=== PATIENT | male | born 1960 ===

== ENCOUNTER → 2020-07-29 13:37 | Outpatient (BNVA) | payer OTHER, SELFPAY | PROVIDERS: PCP Internal Medicine; Referring Provider Internal Medicine; Visit Provider Nurse Practitioner Gerontology | DX: E11.65 Type 2 diabetes mellitus with hyperglycemia (principal); Z79.4 Long term (current) use of insulin; E78.5 Hyperlipidemia, unspecified; E55.9 Vitamin D deficiency, unspecified; F17.210 Nicotine dependence, cigarettes, uncomplicated | CPT/HCPCS: 99213 ==

== ENCOUNTER → 2020-07-30 13:13 | Outpatient (BNVA) | payer OTHER, SELFPAY | PROVIDERS: PCP Internal Medicine; Referring Provider Internal Medicine; Visit Provider Internal Medicine | DX: J44.9 Chronic obstructive pulmonary disease, unspecified (principal); F17.210 Nicotine dependence, cigarettes, uncomplicated; Z71.6 Tobacco abuse counseling | CPT/HCPCS: 99213 ==

== ENCOUNTER 2020-08-14 10:23 | Outpatient (REF) | payer OTHER, SELFPAY | END 2020-08-14 10:24 | disposition home or self-care (01) | LOC: HO.XRAY 10:23 | PROVIDERS: PCP Internal Medicine; Visit Provider Internal Medicine | DX: Z13.89 Encounter for screening for other disorder (principal) ==

== ENCOUNTER 2020-08-20 13:20 | Outpatient (REF) | payer OTHER, SELFPAY ==
--- NOTE | 2020-08-20 13:21 | XR_ITS ---
EXAMINATION: LEFT HIP X-RAY CLINICAL INFORMATION: Pain COMPARISON: Previous x-ray February 2016 TECHNIQUE: 2 views of the left hip FINDINGS: Bone alignment is normal. No fracture or dislocation is seen. There are small osteophytes at the left hip joint. The joint spaces otherwise normal. There are surgical clips in the pelvis. Soft tissues are otherwise unremarkable. XR/XR lumbar spine 2-3V IMPRESSION: Mild left hip arthritis. EXAMINATION: Lumbar spine x-ray CLINICAL INFORMATION: Pain COMPARISON: Previous x-ray most recent from 2009 TECHNIQUE: 3 views of the lumbar spine FINDINGS: There is curvature of the lumbar spine to the left. Bone alignment is otherwise normal. No fracture or dislocation is seen. There is evidence of multilevel degenerative disc disease from L1-2 to L4-5. There is lower lumbar spine facet arthritis. IMPRESSION: Curvature of the lumbar spine to the left. Degenerative changes.
--- NOTE | 2020-08-20 13:28 | XR_ITS ---
EXAMINATION: LEFT HIP X-RAY CLINICAL INFORMATION: Pain COMPARISON: Previous x-ray February 2016 TECHNIQUE: 2 views of the left hip FINDINGS: Bone alignment is normal. No fracture or dislocation is seen. There are small osteophytes at the left hip joint. The joint spaces otherwise normal. There are surgical clips in the pelvis. Soft tissues are otherwise unremarkable. XR/XR hip LT min 2V IMPRESSION: Mild left hip arthritis. EXAMINATION: Lumbar spine x-ray CLINICAL INFORMATION: Pain COMPARISON: Previous x-ray most recent from 2009 TECHNIQUE: 3 views of the lumbar spine FINDINGS: There is curvature of the lumbar spine to the left. Bone alignment is otherwise normal. No fracture or dislocation is seen. There is evidence of multilevel degenerative disc disease from L1-2 to L4-5. There is lower lumbar spine facet arthritis. IMPRESSION: Curvature of the lumbar spine to the left. Degenerative changes.
== END 2020-08-20 13:21 | disposition home or self-care (01) ==
LOC: HO.XRAY 13:20
PROVIDERS: PCP Internal Medicine; Visit Provider Internal Medicine
DX: M25.552 Pain in left hip (principal); M54.5 Low back pain
CPT/HCPCS: 72100; 73502

== ENCOUNTER 2020-10-05 13:52 | Outpatient (REF) | payer OTHER, SELFPAY | END 2020-10-05 13:53 | disposition home or self-care (01) | LOC: HO.LAB 13:52 | PROVIDERS: PCP Internal Medicine; Visit Provider Internal Medicine | DX: Z20.828 Contact with and (suspected) exposure to other viral communicable diseases (principal) | CPT/HCPCS: C9803; U0003 ==

== ENCOUNTER → 2021-01-14 11:54 | Outpatient (BNVA) | payer OTHER, SELFPAY | PROVIDERS: PCP Internal Medicine; Visit Provider Nurse Practitioner Gerontology | DX: Z13.89 Encounter for screening for other disorder (principal) | CPT/HCPCS: Q3014 ==

== ENCOUNTER 2021-01-15 07:20 | Outpatient (REF) | payer OTHER, SELFPAY ==
[2021-01-15 08:01] LABS: Estimated Average Glucose 186 mg/dL; Hemoglobin A1c % 8.1 %
[2021-01-15 08:25] LABS: Alanine Aminotransferase 12 U/L (0-40); Albumin Level 3.9 g/dL (3.5-5.0); Alkaline Phosphatase 57 U/L (39-117); Anion Gap 12 (12-20); Aspartate Amino Transferase 15 U/L (5-37); Bilirubin Total 0.4 mg/dL (0.0-1.0); Blood Urea Nitrogen 11 mg/dL (9-16); Calcium 9.2 mg/dL (8.4-10.2); Carbon Dioxide 32 mmol/L (22-29); Chloride 102 mmol/L (96-108); Cholesterol 126 mg/dL; Estimated Glomerular Filt Rate > 60; Glucose Fasting 141 mg/dL (60-99); HDL Cholesterol 52 mg/dL; LDL Cholesterol Calculated 65 mg/dl; Potassium 4.7 mmol/L (3.3-5.1); Sodium 141 mmol/L (135-145); Total Protein 6.5 g/dL (6.5-8.0); Triglycerides 49 mg/dL
[2021-01-15 08:48] LABS: Vitamin D 25-OH Total 21.4 ng/mL (>30)
[2021-01-15 10:41] LABS: Creatinine Urine 77.13 mg/dL; Microalbum/Creatinine Ratio Ur 10.3 ug/mg cr
== END 2021-01-15 07:21 | disposition home or self-care (01) ==
LOC: HO.LAB 07:20
PROVIDERS: Absent Provider Nurse Practitioner Gerontology; PCP Internal Medicine; Referring Provider Urology; Visit Provider Internal Medicine
DX: E11.65 Type 2 diabetes mellitus with hyperglycemia (principal); E55.9 Vitamin D deficiency, unspecified
CPT/HCPCS: 36415; 80053; 80061; 82043; 82306; 83036

== ENCOUNTER → 2021-01-26 12:47 | Outpatient (BNVA) | payer OTHER, SELFPAY | PROVIDERS: PCP Internal Medicine; Visit Provider Internal Medicine | DX: J43.9 Emphysema, unspecified (principal); Z72.0 Tobacco use | CPT/HCPCS: 99212 ==

== ENCOUNTER → 2021-04-14 11:25 | Outpatient (BNVA) | payer OTHER, SELFPAY | PROVIDERS: PCP Internal Medicine; Visit Provider Urology | DX: Z13.89 Encounter for screening for other disorder (principal) | CPT/HCPCS: Q3014 ==

== ENCOUNTER → 2021-04-16 13:58 | Outpatient (BNVA) | payer OTHER, SELFPAY | PROVIDERS: PCP Internal Medicine; Visit Provider Nurse Practitioner Gerontology | DX: E11.65 Type 2 diabetes mellitus with hyperglycemia (principal); E11.42 Type 2 diabetes mellitus with diabetic polyneuropathy; E55.9 Vitamin D deficiency, unspecified; E78.5 Hyperlipidemia, unspecified; Z79.4 Long term (current) use of insulin | CPT/HCPCS: 82947; 99212 ==

== ENCOUNTER 2021-06-04 13:50 | Outpatient (REF) | payer OTHER, SELFPAY ==
--- NOTE | 2021-06-07 12:40 | MHC.AU.ANO ---
Adult Audiological Evaluation Date of Visit: 06/04/21 Reason for Appointment: Patient has noticed gradually increasing hearing difficulty for the past 20 years. He has noticed that he cannot hear/understand someone unless they are directly in front of him. He also experiences bothersome tinnitus. Hearing Handicap Inventory: HHIE SCORE: 36 Based on HHIE score, patient has: Severe perceived hearing handicap Ear History: Ear Deformity: None Reported Recent Ear Drainage: None Reported Recent Ear Pain: Both Ears Family History of Hearing Loss?: Yes: Mother Recent Ear Infections: Both Ears Ear Infections in Childhood: None Reported History of Ear Wax Buildup: None Reported Previous Ear Surgery: None Reported Bothersome Tinnitus/Ringing/Noises in Ears: Both Ears Blocked/Full Sensation in Ear(s): Both Ears History of occupational noise exposure?: Yes History: No Medical History: Medical History: Diabetes, COPD Otoscopy: Right Ear: Unremarkable Left Ear: Unremarkable Tympanometry: Tympanometry performed due to: To assess integrity of the middle ear system Right Ear: Normal Middle Ear System (Type A) Left Ear: Normal Middle Ear System (Type A) Hearing Evaluation: Transducer(s) Used: Insert Earphones Method: Conventional Audiometry Stimuli Used: Pure Tones Right Ear: Description of Hearing: Moderate/moderately-severe to severe sensorineural hearing loss Left Ear: Description of Hearing: Moderate/moderately-severe to severe sensorineural hearing loss Speech Recognition Threshold (SRT): Method Used: Recorded Lists Right Ear: 50 dBHL Left Ear: 50 dBHL Word Discrimination: Method: Recorded Lists Word Lists Used: Lista Bisil?bica (Albanian) Right Ear: 92% at 85 dBHL Left Ear: 96% at 85 dBHL Recommendations: Audiological re-evaluation in one year. Trial with amplification is recommended. Medical clearance from a physician is required before fitting. Hearing Aid Fitting will be scheduled when all materials arrive. See Hearing Aid Evaluation report for more information. Diagnosis: Primary Diagnosis: H90.3 Bilateral Sensorineural Hearing Loss Signature: Provider: Sneha Rodriguez, CCC-A
--- NOTE | 2021-06-07 12:41 | MHC.AU.HAS ---
Hearing Aid Evaluation Date of Visit: 06/04/21 Historical Information: Description of Hearing: Moderate/moderately-severe to severe sensorineural hearing loss bilaterally Summary: Patient was seen for audiolgical evaluation (see report for details). Hearing aid options were discussed. Patient would prefer a GABE style. He does not currently have a smartphone. Hearing Aid Prescription: Based on the individual?s shared listening needs, communication environments, dexterity, desire for connectivity, and personal preferences, the following prescription for amplification has been made: Right ear: Technical Account Executive: Phonak Model: Audeo P70-R Battery Size: Rechargeable Color: P5 Elastic Attacher Chainstitch: 1P Left ear: Technical Account Executive: Phonak Model: Audeo P70-R Battery Size: Rechargeable Color: P5 Elastic Attacher Chainstitch: 1P Action Taken/Action Needed: Prior authorization to be requested Medical Clearance to be requested from PCP/ENT Hearing Instrument Fitting to be scheduled when materials arrive Primary Diagnosis: H90.3 Bilateral Sensorineural Hearing Loss Signature: Provider: Sneha Rodriguez, DEJON-A
--- NOTE | 2021-06-07 12:42 | MHC.AU.MED ---
Medical Clearance for Hearing Instrumentation Date: 06/07/21 Patient Name: Carroll Sanford Date of : 1960 Primary Care Provider: Referring Provider: Margarito Anton MD We have seen your patient on 06/04/21 and have determined that they are a candidate for amplification (See accompanying report). Specifically, they would benefit from: Hearing aid use in both ears There is a statute that addresses Medical Evaluation Requirements prior to fitting a patient with a hearing aid. According to [place] statute 265 CMR:6.03(1), (a) General. Except as provided in 265 CMR 6.03(1)(b), a rn hedis shall not sell a hearing aid unless the prospective user has presented to the rn hedis a written statement signed by a licensed physician that states that the patient's hearing loss has been medically evaluated and the patient may be considered a candidate for a hearing aid. The medical evaluation must have taken place within the preceding six months. Please note: Due to the [place] Statute referenced above, we cannot accept a signature other than that of a licensed physician. COBOL DEVELOPER and PA signatures cannot be accepted. I am in agreement with the above recommendation. There is no medical contraindication for hearing instrumentation. Physician Signature Date Physician Name (Printed)
== END 2021-06-04 13:51 | disposition home or self-care (01) ==
LOC: HO.SH 13:50
PROVIDERS: Visit Provider Internal Medicine
DX: H93.19 Tinnitus, unspecified ear (principal); H90.3 Sensorineural hearing loss, bilateral
CPT/HCPCS: 92557; 92567; 92591

== ENCOUNTER → 2021-07-28 13:20 | Outpatient (BNVA) | payer OTHER, SELFPAY | PROVIDERS: PCP Internal Medicine; Visit Provider Internal Medicine | DX: J43.9 Emphysema, unspecified (principal); J30.9 Allergic rhinitis, unspecified; Z72.0 Tobacco use | CPT/HCPCS: 99212 ==

== ENCOUNTER → 2021-07-29 09:18 | Outpatient (BNVA) | payer OTHER, SELFPAY | PROVIDERS: PCP Internal Medicine; Visit Provider Nurse Practitioner Gerontology | DX: E11.65 Type 2 diabetes mellitus with hyperglycemia (principal); E11.42 Type 2 diabetes mellitus with diabetic polyneuropathy; E78.5 Hyperlipidemia, unspecified; E55.9 Vitamin D deficiency, unspecified; Z79.4 Long term (current) use of insulin | CPT/HCPCS: 82947; 99212 ==

== ENCOUNTER 2021-08-04 14:02 | Outpatient (REF) | payer OTHER, SELFPAY ==
--- NOTE | 2021-08-05 09:07 | MHC.AU.HFA ---
Hearing Instrument Fitting- Adult- Binaural Date of Visit: 08/04/21 Computer Support Technician Used: Patient's spouse provided Pashto interpretation (waiver signed) Hearing Instruments Dispensed: Right Ear: Retail Pharmacy Manager: Phonak Model: Audeo P70-R Serial Number: [id number] Repair Warranty: 10/02/2024 Loss and Damage Warranty: 10/02/2024 Service Plan: 08/04/2022 Battery Size: Rechargeable Color: P5 Cremator: 1M Type of Dome: Small Vented Type of Wax Guard: CeruShield Left Ear: Retail Pharmacy Manager: Phonak Model: Audeo P70-R Serial Number: [id number] Repair Warranty: 10/02/2024 Loss and Damage Warranty: 10/02/2024 Service Plan: 08/04/2022 Battery Size: Rechargeable Color: P5 Cremator: 1M Type of Dome: Small Vented Type of Wax Guard: CeruShield Summary of Fitting: Initially, patient was going to be fit with Power receivers and power domes. His canals were too narrow to allow for that set-up. Patient was still well within the fitting range for a Medium apprentice technician. Swapped to Size 1 Medium receivers with small vented domes. Feedback manager transfer was run. Verifit performed and levels adjusted to better reach targets. Patient felt 100% target was uncomfortably loud. Lowered to 80% target. Patient still felt it was slightly too loud- lowered overall gain 3 more steps. Patient was pleased with the sound. Hearing aid care and use were discussed and practiced. Patient does not currently have a smartphone to pair the hearing aids to. Recommendations: A hearing instrument follow-up was scheduled. Please call our clinic with any questions or concerns. Diagnosis Code(s): Primary Diagnosis: H90.3 Bilateral Sensorineural Hearing Loss Signature: Provider: Sneha Rodriguez, DEJON-A
== END 2021-08-04 14:03 | disposition home or self-care (01) ==
LOC: HO.HAP 14:02
PROVIDERS: Visit Provider Internal Medicine
DX: Z46.1 Encounter for fitting and adjustment of hearing aid (principal); H90.3 Sensorineural hearing loss, bilateral
CPT/HCPCS: V5011; V5020; V5160; V5261

== ENCOUNTER → 2021-08-11 07:59 | Outpatient (BNVA) | payer OTHER, SELFPAY | PROVIDERS: PCP Internal Medicine; Visit Provider Nurse Practitioner Gerontology | DX: E11.65 Type 2 diabetes mellitus with hyperglycemia (principal); E11.42 Type 2 diabetes mellitus with diabetic polyneuropathy; E55.9 Vitamin D deficiency, unspecified; E78.5 Hyperlipidemia, unspecified; Z79.4 Long term (current) use of insulin | CPT/HCPCS: 82947; 99212 ==

== ENCOUNTER 2021-08-19 12:58 | Outpatient (REF) | payer OTHER, SELFPAY | END 2021-08-19 12:59 | disposition home or self-care (01) | LOC: HO.HAP 12:58 | PROVIDERS: Visit Provider Internal Medicine | DX: Z13.89 Encounter for screening for other disorder (principal) ==

== ENCOUNTER 2021-10-27 09:39 | Outpatient (REF) | payer OTHER, SELFPAY ==
--- NOTE | ~2021-10-27 | XR_ITS ---
EXAMINATION: XR LS SPINE XR HIP-LEFT CLINICAL INFORMATION: Low back pain. Left hip pain. COMPARISON: Lumbosacral spine done on 08/20/2020. TECHNIQUE: 2 views, 3 images of the lumbosacral spine and 2 views of the left hip. FINDINGS: Lumbosacral spine: Mild lower lumbar dextro and thoracolumbar levoscoliosis and superimposed multiple multilevel degenerative spondylosis related changes are present. Facet joint arthritic changes are also noted at lower lumbar spine. The posterior appendages are intact. Multiple surgical clips are noted within the pelvis. Overall, no significant change since 08/20/2020. Left hip: The bony alignments are intact. The cortices are intact. Mild subchondral sclerosis, consistent with mild osteoarthrosis is present. The soft tissues are unremarkable. XR/XR lumbar spine 2-3V IMPRESSION: 1. Thoracolumbar and lower lumbar scoliosis with superimposed multilevel moderate degenerative spondylosis and lower lumbar facet joint arthritic changes, appears similar to prior study dated 08/20/2020. 2. Mild osteoarthrosis of the left hip.
--- NOTE | ~2021-10-27 | XR_ITS ---
EXAMINATION: XR LS SPINE XR HIP-LEFT CLINICAL INFORMATION: Low back pain. Left hip pain. COMPARISON: Lumbosacral spine done on 08/20/2020. TECHNIQUE: 2 views, 3 images of the lumbosacral spine and 2 views of the left hip. FINDINGS: Lumbosacral spine: Mild lower lumbar dextro and thoracolumbar levoscoliosis and superimposed multiple multilevel degenerative spondylosis related changes are present. Facet joint arthritic changes are also noted at lower lumbar spine. The posterior appendages are intact. Multiple surgical clips are noted within the pelvis. Overall, no significant change since 08/20/2020. Left hip: The bony alignments are intact. The cortices are intact. Mild subchondral sclerosis, consistent with mild osteoarthrosis is present. The soft tissues are unremarkable. XR/XR hip LT min 2V IMPRESSION: 1. Thoracolumbar and lower lumbar scoliosis with superimposed multilevel moderate degenerative spondylosis and lower lumbar facet joint arthritic changes, appears similar to prior study dated 08/20/2020. 2. Mild osteoarthrosis of the left hip.
== END 2021-10-27 09:40 | disposition home or self-care (01) ==
LOC: HO.XRAY 09:39
PROVIDERS: Visit Provider Internal Medicine
DX: M54.50 Low back pain, unspecified (principal); M25.552 Pain in left hip
CPT/HCPCS: 72100; 73502

== ENCOUNTER 2021-12-30 09:23 | Outpatient (REF) | payer OTHER, SELFPAY ==
[2021-12-30 12:00] LABS: Prostate Specific Antigen < 0.05 ng/mL (<0.05-4.0)
== END 2021-12-30 09:24 | disposition home or self-care (01) ==
LOC: HO.LAB 09:23
PROVIDERS: PCP Internal Medicine; Visit Provider Urology
DX: C61 Malignant neoplasm of prostate (principal)
CPT/HCPCS: 36415; 84153

== ENCOUNTER → 2022-01-05 09:30 | Outpatient (BNVA) | payer OTHER, SELFPAY | PROVIDERS: PCP Internal Medicine; Visit Provider Urology | DX: E11.69 Type 2 diabetes mellitus with other specified complication (principal); N52.1 Erectile dysfunction due to diseases classified elsewhere; C61 Malignant neoplasm of prostate | CPT/HCPCS: Q3014 ==

== ENCOUNTER → 2022-01-26 12:52 | Outpatient (BNVA) | payer OTHER, SELFPAY | PROVIDERS: PCP Internal Medicine; Visit Provider Internal Medicine | DX: J30.9 Allergic rhinitis, unspecified (principal); J43.9 Emphysema, unspecified; F17.210 Nicotine dependence, cigarettes, uncomplicated | CPT/HCPCS: 99212 ==

== ENCOUNTER → 2022-01-28 09:43 | Outpatient (BNVA) | payer OTHER, SELFPAY | PROVIDERS: PCP Internal Medicine; Visit Provider Nurse Practitioner Gerontology | DX: E11.65 Type 2 diabetes mellitus with hyperglycemia (principal); E11.42 Type 2 diabetes mellitus with diabetic polyneuropathy; E55.9 Vitamin D deficiency, unspecified; E78.5 Hyperlipidemia, unspecified; Z79.4 Long term (current) use of insulin | CPT/HCPCS: 82947; 83036; 99212 ==

== ENCOUNTER → 2022-02-25 10:22 | Outpatient (BNVA) | payer OTHER, SELFPAY | PROVIDERS: PCP Internal Medicine; Visit Provider Registered Nurse Diabetes Educator | DX: E11.9 Type 2 diabetes mellitus without complications (principal); F17.210 Nicotine dependence, cigarettes, uncomplicated | CPT/HCPCS: 95250 ==

== ENCOUNTER 2022-03-11 07:24 | Outpatient (REF) | payer OTHER, SELFPAY ==
[2022-03-11 09:08] LABS: Alanine Aminotransferase 16 U/L (0-40); Albumin Level 4.4 g/dL (3.5-5.0); Alkaline Phosphatase 69 U/L (39-117); Anion Gap 10 (12-20); Aspartate Amino Transferase 18 U/L (5-37); Bilirubin Total 0.6 mg/dL (0.0-1.0); Blood Urea Nitrogen 8 mg/dL (9-16); Calcium 10.2 mg/dL (8.4-10.2); Carbon Dioxide 35 mmol/L (22-29); Chloride 98 mmol/L (96-108); Cholesterol 165 mg/dL; Estimated Glomerular Filt Rate > 60; Glucose Fasting 229 mg/dL (60-99); HDL Cholesterol 50 mg/dL; LDL Cholesterol Calculated 98 mg/dl; Potassium 4.7 mmol/L (3.3-5.1); Sodium 138 mmol/L (135-145); Total Protein 7.3 g/dL (6.5-8.0); Triglycerides 86 mg/dL
[2022-03-11 09:28] LABS: Vitamin D 25-OH Total 26.1 ng/mL (>30)
[2022-03-11 10:03] LABS: Creatinine Urine 76.91 mg/dL; Microalbum/Creatinine Ratio Ur 16.9 ug/mg cr
[2022-03-12 08:22] LABS: LDL Cholesterol Direct 84 mg/dL (<100)
== END 2022-03-11 07:25 | disposition home or self-care (01) ==
LOC: HO.LAB 07:24
PROVIDERS: PCP Internal Medicine; Visit Provider Nurse Practitioner Gerontology
DX: E11.65 Type 2 diabetes mellitus with hyperglycemia (principal); E11.42 Type 2 diabetes mellitus with diabetic polyneuropathy; E78.5 Hyperlipidemia, unspecified; E55.9 Vitamin D deficiency, unspecified; Z79.4 Long term (current) use of insulin
CPT/HCPCS: 36415; 80053; 80061; 82043; 82306; 82947; 83721; 99212

== ENCOUNTER 2022-06-23 10:19 | Outpatient (REF) | payer OTHER, SELFPAY ==
--- NOTE | ~2022-06-23 | US_ITS ---
EXAMINATION: US RETROPERITONEAL LIMITED (RENAL ONLY) CLINICAL INFORMATION: Calculus of kidney. COMPARISON: CT abdomen and pelvis 06/11/2019. X-ray KUB 12/09/2015. TECHNIQUE: Real-time imaging of the kidneys. FINDINGS: RIGHT KIDNEY: 10.4 x 5.6 x 6.2 cm (SAG x AP x TRV). The kidney is normal in size, contour, and echogenicity. Renal cortical thickness is normal. No calculi or focal parenchymal lesions. No hydronephrosis. LEFT KIDNEY: 11.4 x 6.8 x 6.4 cm (SAG x AP x TRV). The kidney is normal in size, contour, and echogenicity. Renal cortical thickness is normal. No calculi or focal parenchymal lesions. No hydronephrosis. US/US renal BI IMPRESSION: Unremarkable renal US.
== END 2022-06-23 10:20 | disposition home or self-care (01) ==
LOC: HO.US 10:19
PROVIDERS: Visit Provider Urology
DX: N20.0 Calculus of kidney (principal)
CPT/HCPCS: 76775

== ENCOUNTER → 2022-07-14 09:23 | Outpatient (BNVA) | payer OTHER, SELFPAY | PROVIDERS: PCP Internal Medicine; Visit Provider Urology | DX: N20.0 Calculus of kidney (principal); C61 Malignant neoplasm of prostate; E11.69 Type 2 diabetes mellitus with other specified complication; N52.1 Erectile dysfunction due to diseases classified elsewhere | CPT/HCPCS: 99212 ==

== ENCOUNTER → 2022-08-03 13:04 | Outpatient (BNVA) | payer OTHER, SELFPAY | PROVIDERS: PCP Internal Medicine; Visit Provider Internal Medicine | DX: J43.9 Emphysema, unspecified (principal); J30.9 Allergic rhinitis, unspecified | CPT/HCPCS: 99212 ==

== ENCOUNTER 2022-08-09 10:50 | Outpatient (REF) | payer OTHER, SELFPAY ==
--- NOTE | ~2022-08-09 | XR_ITS ---
EXAMINATION: XR HIP, RIGHT CLINICAL INFORMATION: Right hip pain COMPARISON: None TECHNIQUE: Two views of the right hip. FINDINGS: Dystrophic calcification seen along the right atrium. The right hip is intact without evidence for fracture or dislocation or destructive process. Minor degenerative change in the superior lateral right acetabulum noted. Surgical clips overlie the region of the prostate. XR/XR hip RT min 2V IMPRESSION: Mild degenerative change.
== END 2022-08-09 10:51 | disposition home or self-care (01) ==
LOC: HO.XRAY 10:50
PROVIDERS: PCP Internal Medicine; Visit Provider Internal Medicine
DX: M25.551 Pain in right hip (principal)
CPT/HCPCS: 73502

== ENCOUNTER 2022-08-21 08:50 | Emergency (ER) | payer OTHER, SELFPAY ==
[2022-08-21 08:58] VITALS: BP 131/79; PULSE 99; RESP 17; TEMP 36.4; O2SAT 98; BMI 22.1
--- NOTE | 2022-08-21 09:58 | ED_ITS ---
HPI - General Adult General Chief complaint: Dental/Oral Stated complaint: tooth infection, flu like symptoms? Time Seen by Provider: 08/21/22 09:31 Source: patient Mode of arrival: ambulatory Limitations: no limitations History of Present Illness HPI narrative: 62-year-old male with history of COPD, smoker, diabetes, high cholesterol presents to ED painful sore on floor or tongue. Patient denies any facial swel ling,, fever, chills, drooling, chest pain, shortness of breath, neck swelling, weakness, or dizziness. Patient denies any recent trauma to the face. Patient states also chronic cough and will like to be tested for Covid SInce he is going for COlonscopy and endoscopy tomorrow. Related Data Home Medications Medication Instructions Recorded Confirmed omeprazole 20 mg capsule,delayed 20 mg PO DAILY 07/29/20 08/03/22 release polyethylene glycol 3350 17 g PO 07/13/22 08/03/22 gram/dose oral powder bisacodyl 5 mg tablet,delayed 10 mg PO DIRECTED PRN 08/03/22 release Previous Rx's Medication Instructions Recorded blood sugar diagnostic (FreeStyle #100 ea 07/29/20 Lite Strips) blood-glucose meter (FreeStyle #1 ea 07/29/20 Lite Meter kit) lancets 28 gauge (FreeStyle 1 gauge topical TID 90 days #300 ea 11/29/20 Lancets) lisinopril 2.5 mg tablet 2.5 mg PO DAILY #90 tabs 03/26/21 sertraline 50 mg tablet 50 mg PO DAILY 90 days #90 tabs 09/07/21 glucagon 3 mg/actuation nasal 3 mg intranasal ONCE unresponsive 01/28/22 spray (Baqsimi) hypoglycemia 30 days #2 ea glucose 4 gram chewable tablet 12 g PO Q15M PRN hypoglycemia #60 01/28/22 (Dex4 Glucose) tabs alcohol swabs (BD Alcohol Swabs) 1 pad topical QID #100 pad 02/09/22 cholecalciferol (vitamin D3) 50 50 mcg PO DAILY #30 caps 02/09/22 mcg (2,000 unit) capsule fluticasone 250 mcg-salmeterol 50 1 inh inhalation Q12H copd 30 days 02/09/22 mcg/dose blistr powdr for #60 ea inhalation (Wixela Inhub) pen needle, diabetic 32 gauge x 1 ea miscellaneous DAILY #100 ea 02/09/22 5/32 (BD Tierra 2nd Gen Pen Needle) insulin glargine U-300 conc 300 14 unit (0.0467 mL) subcut BEDTIME 03/11/22 unit/mL (1.5 mL) subcutaneous pen 30 days #4.5 mL linagliptin 5 mg tablet (Tradjenta) 5 mg PO DAILY #30 tabs 03/11/22 albuterol sulfate 90 mcg/actuation 2 puff inhalation Q4-6H PRN 08/03/22 aerosol inhaler shortness of breath or wheezing 30 days #8.5 grams atorvastatin 20 mg tablet 20 mg PO DAILY #90 tabs 08/03/22 loratadine 10 mg tablet 10 mg PO DAILY 90 days #90 tabs 08/03/22 meloxicam 15 mg tablet 15 mg PO DAILY #30 tabs 08/03/22 umeclidinium 62.5 mcg/actuation 1 inh inhalation DAILY SEVERE COPD 08/03/22 blister powder for inhalation 30 days #30 ea (Incruse Ellipta) Allergies Allergy/AdvReac Type Severity Reaction Status Date / Time cortisone [CORTISONE] Allergy Severe ANAPHYLAXIS Verified 08/03/22 14:07 cephalexin Allergy Unknown unknown Verified 08/03/22 14:07 Review of Systems Review of Systems: painful sore on floor of tongue. cough Yes all other systems are reviewed and are negative PMF Past Medical History Medical History Allergic rhinitis Annual physical exam Anxiety and depression CAP (community acquired pneumonia) COPD (chronic obstructive pulmonary disease) DDD (degenerative disc disease), lumbar Depression Diabetes type 2, uncontrolled Erectile dysfunction Gastric ulcer Hernia History of prostate cancer Hyperlipidemia LDL goal <100 Insulin use (long-term) in type 2 diabetes Kidney stones Peptic ulcer disease Prostate cancer Renal calculus, right Smoker Tinnitus Tobacco abuse Tubular adenoma of colon Type 2 diabetes mellitus with diabetic polyneuropathy Vitamin D insufficiency Surgical History History of foot surgery History of inguinal hernia repair Hx of prostatectomy Hx of tonsillectomy Family History Family History Father Diabetes Mother No problems noted. Son Diabetes Maternal Uncle Prostate cancer Paternal Grandfather Myocardial infarction Maternal Grandmother No problems noted. Maternal Aunt Esophageal cancer Maternal Grandfather Myocardial infarction Social History Social History Household Members: Spouse Housing: Apartment Alcohol intake: current Alcohol intake frequency: a few times a month Patient Tobacco Use Status: Current everyday Tobacco user Tobacco use type: Cigarette Cigarettes Per Day: 3 e-Cigarette/Vaping Use: Never Used Second Hand Smoke Exposure: Yes Substance Use Type: Former Substance User and Marijuana Advance Directives: No Advance Directives Information Provided: Yes service: No Current occupational status: disabled Cognitive needs: No Hearing needs: No Vision needs: Yes Physical Exam ED Vital Signs: Vital Signs - 24 hr 08/21/22 08:58 Temperature 97.5 F Pulse Rate 99 Respiratory Rate 17 Blood Pressure 131/79 Pulse Oximetry 98 Oxygen Delivery Method Room Air BMI result Body Mass Index 22.1 Const General: cooperative, healthy appearing, comfortable, no acute distress, well developed, alert, awake and Physically active Orientation/consciousness: oriented to time and patient oriented x3 HENMT Other: Red sore on lateral side of tongue floor. Tongue floor is not swollen. Negative for signs of dental abscess. Negative for drooling or trismus. Negative for neck swelling or mandibular swelling Head: Yes normal to inspection and Yes No palpable skull fracture present Eyes General: appearance normal, both eyes and all related structures Neck Neck: Yes normal visual inspection, Yes full ROM, Yes no lymphadenopathy, Yes no meningeal signs, Yes trachea midline, Yes supple, No anterior neck swelling and No tender Chest Chest palpation & inspection: normal inspection of the chest and normal palpatio n of entire chest wall Resp Effort & Inspection: normal respiratory effort and able to speak in complete sentences Auscultation: wheezes expiratory wheezes (Chronic mild. History COPD) Cardio Jugular venous distension: no JVD Heart sounds: S1 normal heart sound present and S2 normal heart sound present GI Inspection: Yes normal to inspection and No abdominal wall ecchymosis Palpation (GI): Soft to palpation, not firm, nontender, no guarding and not rigid General: No CVA tenderness and Yes no CVA tenderness Back/Spine/Pelvis Back: no CVA tenderness, No CVA tenderness and No back tenderness Skin General skin exam: no rashes or lesions noted and elasticity normal Neuro General: oriented to time, patient oriented x3, tone normal, no meningeal signs and CN's II-XI intact bilaterally Extrem General: Yes normal to inspection and Yes full ROM Psych Appearance: grossly normal, well kempt and not disheveled Course Course Course Narrative: Patient well-appearing Reevaluation(s) Reevaluation #1: Physical exam shows sore/ulcer on lateral side of tongue floor. May be aphthous ulcer. Patient was informed due to history of smoking he should get that also looked at to make sure it is not a sign of oral cancer. Patient having colonoscopy and endoscopic procedure tomorrow morning with cough he requested COVID test which is pending. Patient history physical exam does not indicate Adan angina, retropharyngeal abscess, dental abscess, trismus, epiglottitis, or respiratory distress. Waiting for COVID results Time: 10:26 Reevaluation #2: COVID swab negative Medical Decision Making MDM Narrative Medical decision making narrative: Mild sore Lab Data Labs: Lab Results 08/21/22 Range/Units 10:11 COVID-19 ([facility]) Negative (Negative) COVID-19 Clin Com See Note Discharge Plan Discharge Clinical Impression: Mouth sore, Aphthous ulcer Patient Disposition: Home, Self-Care Instructions: Canker Sores (ED) Additional Instructions: Meza hisopo COVID result? negativo. Tienes gregorio llaga en el suelo aqu? en la lengua. Cuidado de la crema anest?marion que se est? tomando para ayudar con el dolor. Debido al historial de tabaquismo, si tiene dolor, se eval?a para asegurarse de que no sea el comienzo de un c?ncer oral. Regrese al servicio de urgencias de inmediato por cualquier hinchaz?n facial, hinchaz?n del yamila, babeo, hinchaz?n del piso de la lengua, dolor en el pecho, dificultad para respirar, cambio de voz, olor maloliente, incapacidad para tolerar alimentos s?lidos/l?quidos, dolor en el pecho, dificultad para respirar , o cualquier otro s?ntoma preocupante. Por favor, priyanka un seguimiento con meza proveedor de atenci?n primaria. Deber? comprar Orajel sin receta para aliviar el dolor. Ya que tiene un procedimiento ma?emiliano por la ma?emiliano, deje de usar orajel de venta vitor antes de la medianoche. Prescriptions: No Action lancets [FreeStyle Lancets] 28 gauge misc 1 gauge topical TID 90 Days Qty: 300 3RF lisinopril 2.5 mg tablet 2.5 mg PO DAILY Qty: 90 2RF sertraline 50 mg tablet 50 mg PO DAILY 90 Days Qty: 90 1RF fluticasone propion-salmeterol [Wixela Inhub] 250-50 mcg/dose blister with device 1 inh inhalation Q12H 30 Days Qty: 60 5RF alcohol swabs [BD Alcohol Swabs] Pads, Medicated 1 pad topical QID Qty: 100 11RF pen needle, diabetic [BD Tierra 2nd Gen Pen Needle] 32 gauge x 5/32 needle 1 ea miscellaneous DAILY Qty: 100 11RF cholecalciferol (vitamin D3) 50 mcg (2,000 unit) capsule 50 mcg PO DAILY Qty: 30 11RF loratadine 10 mg tablet 10 mg PO DAILY 90 Days Qty: 90 3RF atorvastatin 20 mg tablet 20 mg PO DAILY Qty: 90 2RF meloxicam 15 mg tablet 15 mg PO DAILY Qty: 30 3RF omeprazole 20 mg capsule,delayed release(DR/EC) 20 mg PO DAILY (DME) blood-glucose meter [FreeStyle Lite Meter] Kit See Rx Instructions .ROUTE .MEDSUPPLY Qty: 1 0RF Rx Instructions: As directed (DME) FreeStyle Lite Strips Strip See Rx Instructions .ROUTE .MEDSUPPLY Qty: 100 6RF Rx Instructions: Three time a day Incruse Ellipta 62.5 mcg/actuation blister with device 1 inh inhalation DAILY 30 Days Qty: 30 5RF albuterol sulfate 90 mcg/actuation HFA aerosol inhaler 2 puff inhalation Q4-6H PRN (Reason: shortness of breath or wheezing) 30 Days Qty: 8.5 3RF Baqsimi 3 mg/actuation spray,non-aerosol 3 mg intranasal ONCE 30 Days Qty: 2 6RF Rx Instructions: [place] once for severe hypoglycemia when patient cannot self-treat with glucose. Afterwards turn on side. May repeat after 15 minutes if patient does not respond. glucose [Dex4 Glucose] 4 gram tablet,chewable 12 g PO Q15M PRN (Reason: hypoglycemia) Qty: 60 2RF Rx Instructions: until symptoms of low blood sugar are controlled polyethylene glycol 3350 17 gram/dose powder PO bisacodyl 5 mg tablet,delayed release (DR/EC) 10 mg PO DIRECTED PRN insulin glargine U-300 conc 300 unit/mL (1.5 mL) insulin pen 14 unit subcut BEDTIME 30 Days Qty: 4.5 6RF Tradjenta 5 mg tablet 5 mg PO DAILY Qty: 30 6RF Referrals: Po,Margarito Barragan MD [Primary Care Provider] - (Mouth sore) Discharge Date/Time: 08/21/22 11:39 Print Language: Belarusian
[2022-08-21 10:35] LABS: COVID-19 Test Negative (Negative); IDNOW Serial# 16C4AD1C
== END 2022-08-21 11:39 | disposition home or self-care (01) ==
PROVIDERS: Physician Assistant; Emergency Provider Emergency Medicine; PCP Internal Medicine
DX: K13.79 Other lesions of oral mucosa (principal); K12.0 Recurrent oral aphthae; R05.9 Cough, unspecified; Z20.822 Contact with and (suspected) exposure to COVID-19; F17.210 Nicotine dependence, cigarettes, uncomplicated; F12.90 Cannabis use, unspecified, uncomplicated; E11.9 Type 2 diabetes mellitus without complications; E78.5 Hyperlipidemia, unspecified; Z79.4 Long term (current) use of insulin; Z79.02 Long term (current) use of antithrombotics/antiplatelets
CPT/HCPCS: 87635; 99281; 99283

== ENCOUNTER → 2022-09-09 10:35 | Outpatient (BNVA) | payer OTHER, SELFPAY | PROVIDERS: PCP Internal Medicine; Visit Provider Internal Medicine Endocrinology, Diabetes & Metabolism | DX: E11.42 Type 2 diabetes mellitus with diabetic polyneuropathy (principal); Z79.4 Long term (current) use of insulin | CPT/HCPCS: 82947; 99212 ==

== ENCOUNTER 2022-09-28 09:36 | Day surgery (SDC) | payer OTHER, SELFPAY ==
--- NOTE | 2022-09-27 10:08 | HO.ANESPROP2 ---
Documented by User: Claribel Yepez NP 09/27/22 10:09 HPI - Anesthesia Eval Consult details Narrative: 62yo M for Upper Endoscopy and Colonoscopy [facility] Active Problems Active Problems: All Active Problems (Updated 08/22/22 @ 00:01 by Kari Nicholson) Hip pain, right (Acute) Annual physical exam (Acute) Nephrolithiasis (Acute) Erectile dysfunction associated with type 2 diabetes mellitus (Acute) Type 2 diabetes mellitus with hyperglycemia (Acute) Allergic rhinitis (Acute) Tongue lesion (Acute) Low back pain (Acute) Hip pain, left (Acute) Eczema craquele (Acute) Generalized anxiety disorder (Acute) Type 2 diabetes mellitus with diabetic polyneuropathy (Acute) Erectile dysfunction (Acute) Kidney stones (Acute) Prostate cancer (Acute) Vitamin D deficiency (Acute) Low back pain (Acute) Hip pain, left (Acute) Eczema (Acute) Tobacco abuse (Acute) COPD (chronic obstructive pulmonary disease) (Acute) Diabetes type 2, uncontrolled (Acute) Insulin use (long-term) in type 2 diabetes (Acute) Hyperlipidemia LDL goal <100 (Acute) Vitamin D insufficiency (Acute) Past Medical History Medical History Allergic rhinitis Annual physical exam Anxiety and depression CAP (community acquired pneumonia) COPD (chronic obstructive pulmonary disease) DDD (degenerative disc disease), lumbar Depression Diabetes type 2, uncontrolled Erectile dysfunction Gastric ulcer Hernia History of prostate cancer Hyperlipidemia LDL goal <100 Insulin use (long-term) in type 2 diabetes Kidney stones Peptic ulcer disease Prostate cancer Renal calculus, right Smoker Tinnitus Tobacco abuse Tubular adenoma of colon Type 2 diabetes mellitus with diabetic polyneuropathy Vitamin D insufficiency Family History Family History Father Diabetes Mother No problems noted. Son Diabetes Maternal Uncle Prostate cancer Paternal Grandfather Myocardial infarction Maternal Grandmother No problems noted. Maternal Aunt Esophageal cancer Maternal Grandfather Myocardial infarction Surgical History Surgical History History of foot surgery History of inguinal hernia repair Hx of prostatectomy Hx of tonsillectomy Social History Social History Household Members: Spouse Housing: Apartment Alcohol intake: current Alcohol intake frequency: a few times a month Patient Tobacco Use Status: Current everyday Tobacco user Tobacco use type: Cigarette Cigarettes Per Day: 2 e-Cigarette/Vaping Use: Never Used Second Hand Smoke Exposure: Yes Use of substances other than those prescribed or required for medical reasons: Yes Substance Use Type: Former Substance User and Marijuana Substance Use Frequency: Daily Advance Directives: No Advance Directives Information Provided: Yes service: No Current occupational status: disabled Cognitive needs: No Hearing needs: No Vision needs: Yes Meds Allergies Allergy/AdvReac Type Severity Reaction Status Date / Time cortisone [CORTISONE] Allergy Severe ANAPHYLAXIS Verified 09/09/22 10:44 cephalexin Allergy Unknown unknown Verified 09/09/22 10:44 Home Medications Medication Instructions Recorded Confirmed Last Taken Type omeprazole 20 mg capsule,delayed 20 mg PO DAILY 07/29/20 09/09/22 Unknown History release polyethylene glycol 3350 17 g PO 07/13/22 08/03/22 Unknown History gram/dose oral powder bisacodyl 5 mg tablet,delayed 10 mg PO DIRECTED PRN 08/03/22 Unknown History release acarbose 25 mg tablet 25 mg PO TID 09/09/22 09/09/22 Unknown History Exam Exam Date and Time: September 27, 2022 1008 Pertinent Lab Results Pertinent Lab Results: Laboratory Tests 04/16/20 03/11/22 08:50 08:35 WBC 5.4 Hgb 16.1 Hct 47.8 Plt Count 201 Sodium 138 Potassium 4.7 Chloride 98 Carbon Dioxide 35 H BUN 8 L Creatinine 0.85 Assessment and Plan Assessment Anesthesia Assessment: Chart Reviewed Documented by User: Sharri Serrato MD 09/28/22 12:12 [facility] Past Medical History Medical History Allergic rhinitis Annual physical exam Anxiety and depression CAP (community acquired pneumonia) COPD (chronic obstructive pulmonary disease) DDD (degenerative disc disease), lumbar Depression Diabetes type 2, uncontrolled Erectile dysfunction Gastric ulcer Hernia History of prostate cancer Hyperlipidemia LDL goal <100 Insulin use (long-term) in type 2 diabetes Kidney stones Peptic ulcer disease Prostate cancer Renal calculus, right Smoker Tinnitus Tobacco abuse Tubular adenoma of colon Type 2 diabetes mellitus with diabetic polyneuropathy Vitamin D insufficiency Family History Family History Father Diabetes Mother No problems noted. Son Diabetes Maternal Uncle Prostate cancer Paternal Grandfather Myocardial infarction Maternal Grandmother No problems noted. Maternal Aunt Esophageal cancer Maternal Grandfather Myocardial infarction Family history of problems with anesthesia: No Surgical History Surgical History History of foot surgery History of inguinal hernia repair Hx of prostatectomy Hx of tonsillectomy History of Problems with Anesthesia: No Social History Social History Household Members: Spouse Housing: Apartment Alcohol intake: current Alcohol intake frequency: a few times a month Patient Tobacco Use Status: Current everyday Tobacco user Tobacco use type: Cigarette Cigarettes Per Day: 2 e-Cigarette/Vaping Use: Never Used Second Hand Smoke Exposure: Yes Use of substances other than those prescribed or required for medical reasons: Yes Substance Use Type: Former Substance User and Marijuana Substance Use Frequency: Daily Advance Directives: No Advance Directives Information Provided: Yes service: No Current occupational status: disabled Cognitive needs: No Hearing needs: No Vision needs: Yes Meds Allergies Allergy/AdvReac Type Severity Reaction Status Date / Time cortisone [CORTISONE] Allergy Severe ANAPHYLAXIS Verified 09/09/22 10:44 cephalexin Allergy Unknown unknown Verified 09/09/22 10:44 Home Medications Medication Instructions Recorded Confirmed Last Taken Type omeprazole 20 mg capsule,delayed 20 mg PO DAILY 07/29/20 09/09/22 Unknown History release polyethylene glycol 3350 17 g PO 07/13/22 08/03/22 Unknown History gram/dose oral powder bisacodyl 5 mg tablet,delayed 10 mg PO DIRECTED PRN 08/03/22 Unknown History release acarbose 25 mg tablet 25 mg PO TID 09/09/22 09/09/22 Unknown History Exam Airway Mallampati Class: II Loose/Missing/Broken Teeth: Yes, No, Upper and Lower Assessment and Plan Final Anesthetic Review Family History of Problems with Anesthesia: No History of Problems with Anesthesia: No NPO: Yes ASA Class: II and III Final Preanesthetic Review: No Changes in Pt Med Stat Anesthetic Plan Anesthetic Plan: MAC: Disposition: Standard PACU
[2022-09-28 10:02] VITALS: BMI 19.9
--- NOTE | 2022-09-28 10:21 | ECG_ITS ---
Test Reason : tachycardia Blood Pressure : / mmHG Vent. Rate : 119 BPM Atrial Rate : 119 BPM P-R Int : 146 ms QRS Dur : 082 ms QT Int : 322 ms P-R-T Axes : 079 097 059 degrees QTc Int : 452 ms Sinus tachycardia Right atrial enlargement Rightward axis Borderline ECG When compared with ECG of 20-MAR-2020 22:29, No significant change was found Referred By: Sharri Serrato Electronically Signed By:JACKSON GARCIA MD
[2022-09-28 10:35] VITALS: BP 123/75; PULSE 128; RESP 16; TEMP 36.7; O2SAT 96
[2022-09-28] MEDS: Lactated Ringers 1,000 ML 100 ML IVCONT (10:37)
[2022-09-28 10:40] VITALS: PULSE 113; RESP 16; O2SAT 99
[2022-09-28] MEDS: Albuterol Sulfate (0.083%) 2.5 MG/3 ML VIAL.NEB INHALE (10:40)
[2022-09-28 10:41] LABS: Glucose, Whole Blood 302 mg/dL (60-115)
[2022-09-28 12:27] VITALS: BP 91/57; PULSE 96; RESP 12; TEMP 37.3; O2SAT 99
[2022-09-28 12:32] LABS: Glucose, Whole Blood 217 mg/dL (60-115)
--- NOTE | 2022-09-28 12:32 | PM.OP ---
Brief Operative Note Date of Service: 09/28/22 Pre-op diagnosis: GERD, Screening Post-op diagnosis: other (Hiatal hernia, Diverticulosis) Procedure: EGD with biopsies, Colonoscopy to the cecum Surgeon: Favian Delgado Anesthesia: MAC Was an Junior Architect used for this Procedure?: No Estimated blood loss (mL): 2.0 Pathology: other (A. Gastric antrum B. EG Junction at 38cm) Condition: stable Disposition: PACU
[2022-09-28 12:44] VITALS: BP 102/78; PULSE 102; RESP 18; TEMP 36.1; O2SAT 98
--- NOTE | 2022-09-28 12:56 | OP_ITS ---
SURGEON: Favian Delgado MD INDICATIONS: The patient presents for evaluation of abdominal discomfort and reflux, previous history of gastritis and gastric ulcer, and colorectal cancer screening in regard to personal history of tubular adenoma of the colon. Full consent has been obtained from him for both procedures, including risks of bleeding and perforation. PREOPERATIVE DIAGNOSIS: POSTOPERATIVE DIAGNOSIS: PROCEDURE PERFORMED: Esophagogastroduodenoscopy with biopsies and colonoscopy to the cecum. ESTIMATED BLOOD LOSS: COMPLICATIONS: ANESTHESIA: Monitored anesthesia care. ASSISTANTS: SPECIMENS: PREOPERATIVE DIAGNOSES: Gastroesophageal reflux, abdominal discomfort, personal history of tubular adenoma of the colon, colorectal cancer screening. POSTOPERATIVE DIAGNOSES: Gastroesophageal reflux, abdominal discomfort, personal history of tubular adenoma of the colon, colorectal cancer screening, hiatal hernia, diverticulosis, and internal hemorrhoids. DESCRIPTION OF PROCEDURE: The patient was placed in the left lateral decubitus position. The Olympus video gastroscope was passed in the posterior oropharynx and upper esophagus under direct vision. The scope was passed slowly to the distal esophagus. The gastroesophageal junction appeared at 38 cm. There was some slight irregularity and erythema at the EG junction, but no evidence of any ulceration nor mass. The scope entered into the stomach. There was a small hiatal hernia. The scope was advanced to the pylorus, and the duodenum was cannulated to the descending portion. The duodenum including the bulb appeared normal without mass or ulceration. The scope was withdrawn back to the stomach. The gastric antrum had some areas of erythema and edema, but no erosions nor ulceration. There was good peristalsis. Biopsies were obtained from the antrum. The scope was retroflexed visualizing the proximal stomach carefully, which appeared normal, without any sign of mass or ulceration. The scope was straightened and withdrawn back to the esophagus. Biopsies were obtained at the EG junction at 38 cm. Proximal to this, the esophageal mucosa appeared normal. The scope was withdrawn from the patient. He was turned around for the colonoscopy. The digital rectal exam revealed no abnormalities. The Olympus video pediatric colonoscope was entered into the rectum, and advanced easily to the cecum. Once in the cecum I did identify a normal-appearing cecal pouch with appendiceal orifice and a normal-appearing ileocecal valve. The entire cecum and ileocecal valve appeared normal. There was some mucus and liquid stool in the cecum, which was all irrigated and removed as best as possible. There was transillumination of light deep in the right lower quadrant. The scope was then slowly withdrawn assessing all mucosal surfaces carefully. Preparation in the ascending colon was somewhat limited due to a fair amount of liquid and mucus. This was all irrigated and suctioned away as best as possible. The remainder of the colon preparation was very good. I did not visualize any sign of polyps, colitis, nor angiodysplasia. There was a moderate amount of sigmoid diverticulosis. In the rectum, the scope was retroflexed visualizing internal hemorrhoids, but no other pathology. The rectal mucosa appeared normal. The scope was straightened and withdrawn from the patient. He tolerated the procedure well and was returned to the recovery area in stable condition. IMPRESSION: 1. Hiatal hernia, gastroesophageal reflux. 2. Rule out gastritis and/or H pylori. 3. Diverticulosis. 4. Internal hemorrhoids. PLAN: The results of the biopsies will be checked. He was advised to continue his omeprazole on a daily basis. I would recommend a repeat colonoscopy in 5 years for further screening. He was advised not to use any aspirin or NSAIDs for 1 week. MD SHERWIN Ferreira/MELANIE / [id number] MTDD
== END 2022-09-28 13:20 | disposition home or self-care (01) ==
PROVIDERS: PCP Internal Medicine; Visit Provider Internal Medicine
PROC: (CPT 43239; principal; 2022-09-28 11:20)
DX: Z12.11 Encounter for screening for malignant neoplasm of colon (principal); K57.30 Diverticulosis of large intestine without perforation or abscess without bleeding; K64.8 Other hemorrhoids; Z86.010 Personal history of colon polyps; K21.9 Gastro-esophageal reflux disease without esophagitis; R10.9 Unspecified abdominal pain; E11.9 Type 2 diabetes mellitus without complications; I10 Essential (primary) hypertension; J44.9 Chronic obstructive pulmonary disease, unspecified; Z87.19 Personal history of other diseases of the digestive system; Z79.4 Long term (current) use of insulin; Z79.899 Other long term (current) drug therapy
CPT/HCPCS: 43239; G0105; 82947; 88305; 88342; 93005; 94640; J2370

== ENCOUNTER → 2022-10-10 13:09 | Outpatient (BNVA) | payer OTHER, SELFPAY | PROVIDERS: PCP Internal Medicine; Visit Provider Registered Nurse Diabetes Educator | DX: E11.65 Type 2 diabetes mellitus with hyperglycemia (principal) | CPT/HCPCS: 99211 ==

== ENCOUNTER → 2022-10-31 14:40 | Outpatient (BNVA) | payer OTHER, SELFPAY | PROVIDERS: PCP Internal Medicine; Visit Provider Registered Nurse Diabetes Educator | DX: E11.65 Type 2 diabetes mellitus with hyperglycemia (principal); E11.42 Type 2 diabetes mellitus with diabetic polyneuropathy; F17.210 Nicotine dependence, cigarettes, uncomplicated; Z79.4 Long term (current) use of insulin | CPT/HCPCS: 99211 ==

== ENCOUNTER → 2022-12-27 12:38 | Outpatient (BNVA) | payer OTHER, SELFPAY | PROVIDERS: PCP Internal Medicine; Visit Provider Internal Medicine Endocrinology, Diabetes & Metabolism | DX: E11.42 Type 2 diabetes mellitus with diabetic polyneuropathy (principal); Z79.4 Long term (current) use of insulin | CPT/HCPCS: 82947; 99212 ==

== ENCOUNTER → 2023-02-02 12:48 | Outpatient (BNVA) | payer OTHER, SELFPAY | PROVIDERS: PCP Internal Medicine; Visit Provider Internal Medicine | DX: J43.9 Emphysema, unspecified (principal); J30.9 Allergic rhinitis, unspecified; F17.210 Nicotine dependence, cigarettes, uncomplicated | CPT/HCPCS: 99212 ==

== ENCOUNTER → 2023-02-20 10:16 | Outpatient (BNVA) | payer OTHER, SELFPAY | PROVIDERS: PCP Internal Medicine; Visit Provider Registered Nurse Diabetes Educator | DX: E11.65 Type 2 diabetes mellitus with hyperglycemia (principal) | CPT/HCPCS: 99211 ==

== ENCOUNTER → 2023-03-07 10:22 | Outpatient (BNVA) | payer OTHER, SELFPAY | PROVIDERS: PCP Internal Medicine; Visit Provider Registered Nurse Diabetes Educator | DX: E11.65 Type 2 diabetes mellitus with hyperglycemia (principal) | CPT/HCPCS: 99211 ==

== ENCOUNTER 2023-03-14 07:04 | Outpatient (REF) | payer OTHER, SELFPAY ==
[2023-03-14 07:17] LABS: MANUAL DIFF FLAG NO
[2023-03-14 07:32] LABS: Basophils Percent Auto 0.4 % (0-2); Eosinophils Absolute Auto 0.3 X10*3/uL (0.0-0.4); Eosinophils Percent Auto 4.5 % (0-4); Hematocrit 47.4 % (42.0-52.0); Hemoglobin 15.6 g/dl (14.0-18.0); Imm Gran Abs Auto 0.02 X10*3/uL (0.00-0.03); Imm Gran Pct Auto 0.3 % (0.0-0.4); Lymphocytes Absolute Auto 2.3 X10*3/uL (1.2-4.9); Lymphocytes Percent Auto 32.8 % (20-40); Mean Corpuscular HGB Conc 32.9 g/dl (31.0-36.0); Mean Corpuscular Volume 97.1 fL (80.0-98.0); Mean Platelet Volume 11.4 fL (9.4-12.4); Monocytes Absolute Auto 0.8 X10*3/uL (0.1-1.2); Monocytes Percent Auto 10.9 % (2-11); Neutrophils Absolute Auto 3.5 x10*3/uL (2.0-8.3); Neutrophils Percent Auto 51.1 % (45-73); Platelet Count 173 X10*3/uL (160-400); Red Blood Count 4.88 X10*6/uL (4.60-5.80); Red Cell Distribution Width 14.1 % (11.0-16.0); White Blood Count 6.9 X10*3/uL (4.8-10.8)
[2023-03-14 07:39] LABS: Estimated Average Glucose 194 mg/dL; Hemoglobin A1c % 8.4 %
[2023-03-14 08:02] LABS: Alanine Aminotransferase 17 U/L (0-40); Albumin Level 4.2 g/dL (3.5-5.0); Alkaline Phosphatase 56 U/L (39-117); Anion Gap 12 (12-20); Aspartate Amino Transferase 18 U/L (5-37); Bilirubin Total 0.5 mg/dL (0.0-1.0); Blood Urea Nitrogen 13 mg/dL (9-16); Calcium 9.5 mg/dL (8.4-10.2); Carbon Dioxide 30 mmol/L (22-29); Chloride 102 mmol/L (96-108); Cholesterol 154 mg/dL; Estimated Glomerular Filt Rate > 60; Glucose Random 181 mg/dL (60-115); HDL Cholesterol 55 mg/dL; LDL Cholesterol Calculated 86 mg/dl; Potassium 4.4 mmol/L (3.3-5.1); Sodium 140 mmol/L (135-145); Total Protein 6.8 g/dL (6.5-8.0); Triglycerides 69 mg/dL
[2023-03-14 08:39] LABS: Folate 12.2 ng/mL (> or = 4.0); Free T4 (Free Thyroxine) 0.87 ng/dL (0.71-1.85); Prostate Specific Antigen Scr < 0.10 ng/mL (<0.05-4.0); Thyroid Stimulating Hormone 0.74 uIU/mL (0.32-4.0); Vitamin B12 460 pg/mL (200-900)
[2023-03-14 10:06] LABS: Creatinine Urine 86.99 mg/dL; Microalbum/Creatinine Ratio Ur 17.2 ug/mg cr
== END 2023-03-14 07:05 | disposition home or self-care (01) ==
LOC: HO.LAB 07:04
PROVIDERS: PCP Internal Medicine; Visit Provider Internal Medicine
DX: Z12.5 Encounter for screening for malignant neoplasm of prostate (principal); E11.65 Type 2 diabetes mellitus with hyperglycemia; E78.00 Pure hypercholesterolemia, unspecified
CPT/HCPCS: 36415; 80053; 80061; 82043; 82607; 82746; 83036; 84153; 84439; 84443; 85025

== ENCOUNTER → 2023-04-04 12:55 | Outpatient (BNVA) | payer OTHER, SELFPAY | PROVIDERS: PCP Internal Medicine; Visit Provider Internal Medicine Endocrinology, Diabetes & Metabolism | DX: E11.42 Type 2 diabetes mellitus with diabetic polyneuropathy (principal); Z79.4 Long term (current) use of insulin | CPT/HCPCS: 82947; 99212 ==

== ENCOUNTER 2023-06-05 12:54 | Outpatient (AMB) | payer OTHER, SELFPAY ==
[2023-06-05 13:08] VITALS: BP 104/58; PULSE 65; O2SAT 97; BMI 24.5
--- NOTE | 2023-06-05 13:08 | MHC.PC.OV ---
Vital Signs 06/05/23 13:08 Height 5 ft 6.5 in Weight 154 lb 0.2 oz BMI 24.5 BP 104/58 L Blood Pressure Location Lt brachial Position Sitting Pulse 65 Pulse Source Pulse Oximeter Temp Source Skin Pulse Oximetry (%) 97 Oxygen Delivery Method Room Air Intake Visit Reasons: DM Relations Mgr Required: No Allergies cortisone [CORTISONE] Allergy (Severe, Verified 06/05/23 13:18) ANAPHYLAXIS cephalexin Allergy (Unknown, Verified 06/05/23 13:18) unknown lisinopril Adverse Reaction (Intermediate, Unverified 06/05/23 14:03) hypotension Medication List - Last Reconciled 06/05/23 by Margarito Anton, acarbose 25 mg PO TID albuterol sulfate 90 mcg/actuation 2 puffs inhalation Q4-6H PRN 30 days alcohol swabs (BD Alcohol Swabs) 1 pad topical QID atorvastatin 20 mg PO DAILY bisacodyl 10 mg PO DIRECTED PRN blood sugar diagnostic (FreeStyle Lite Strips) Three time a day blood-glucose meter (FreeStyle Lite Meter kit) USE DIRECTED cholecalciferol (vitamin D3) 50 mcg PO DAILY cyclobenzaprine 5 mg PO TID PRN flash glucose scanning reader (The [employer] HouseStyle Bebeto 2 [place]) As directed flash glucose sensor (FreeStyle Bebeto 2 Sensor kit) As directed fluticasone propion-salmeterol 250-50 mcg/dose (Wixela Inhub) 1 ea PO Q12H glucagon 3 mg/actuation (Baqsimi) 3 mg intranasal ONCE 30 days glucose (Dex4 Glucose) 12 grams (3 x 4 gram) PO Q15M PRN Incruse Ellipta 62.5 mcg/actuation (umeclidinium) 1 inh PO DAILY NS insulin aspart U-100 (Novolog FlexPen U-100 Insulin aspart) 10 units subcut TID insulin glargine U-300 conc 16 units subcut BEDTIME lancets (FreeStyle Lancets) 1 gauge topical TID 90 days lisinopril 2.5 mg PO DAILY loratadine 10 mg PO DAILY 90 days meloxicam 15 mg PO DAILY omeprazole 20 mg PO DAILY pen needle, diabetic (BD Tierra 2nd Gen Pen Needle) 1 ea miscellaneous .4X/day polyethylene glycol 3350 grams PO sertraline 50 mg PO DAILY 90 days Tobacco use date assessed: 06/05/23 Fall risk assessment: No Falls in past year Last assessed Fall Risk: 06/05/23 Dental Screening Dental Screen Date: 06/05/23 Did you have a dental visit in the last 12 months?: Yes Did you have a dental problem in the last 6 months where you did not have access to dental care?: No Was dental information given to patient?: Patient has dentist HPI DM HPI Details 63-year-old male smoker with diabetes mellitus, COPD hypercholesterolemia and generalized anxiety disorder last seen in February 2023 coming in for follow-up. Blood work was requested [facility] Medical History Allergic rhinitis Annual physical exam Anxiety and depression CAP (community acquired pneumonia) COPD (chronic obstructive pulmonary disease) DDD (degenerative disc disease), lumbar Depression Erectile dysfunction Gastric ulcer Hernia History of prostate cancer Hyperlipidemia LDL goal <100 Insulin use (long-term) in type 2 diabetes Kidney stones Peptic ulcer disease Prostate cancer Renal calculus, right Smoker Tinnitus Tobacco abuse Tubular adenoma of colon Type 2 diabetes mellitus with diabetic polyneuropathy Vitamin D insufficiency Surgical History History of foot surgery History of inguinal hernia repair Hx of prostatectomy Hx of tonsillectomy Family History Father Diabetes Mother No problems noted. Son Diabetes Maternal Uncle Prostate cancer Paternal Grandfather Myocardial infarction Maternal Grandmother No problems noted. Maternal Aunt Esophageal cancer Maternal Grandfather Myocardial infarction Social History Household Members: Spouse Housing: Apartment Alcohol intake: current Alcohol intake frequency: a few times a month Patient Tobacco Use Status: Current everyday Tobacco user Tobacco use type: Cigarette Cigarettes Per Day: 2 e-Cigarette/Vaping Use: Never Used Second Hand Smoke Exposure: Yes Substance Use Type: Former Substance User and Marijuana service: No Current occupational status: disabled Cognitive needs: No Hearing needs: No Vision needs: Yes Questionnaire PHQ-9 Over the last 2 weeks, how often have you been bothered by any of the following problems? 1. Little interest or pleasure in doing things: not at all 2. Feeling down, depressed, or hopeless: not at all 3. Trouble falling or staying asleep, or sleeping too much: not at all 4. Feeling tired or having little energy: not at all 5. Poor appetite or overeating: not at all 6. Feeling bad about yourself - or that you are a failure or have let yourself or your family down: not at all 7. Trouble concentrating on things, such as reading the newspaper or watching television: not at all 8. Moving or speaking so slowly that other people could have noticed. Or the opposite - being so fidgety or restless that you have been moving around a lot more than usual: not at all 9. Thoughts that you would be better off or of hurting yourself in some way: not at all Total score: 0 Depression Screening Interpretation: Negative Source: Developed by Drs. Favian Nascimento, Valentina Serrano, Jose M Lunsford and colleagues, with an educational edita from [employer]. Thrive Questionnaire Date Thrive assessed: 12/12/22 AUDIT C Alcohol Use Questionnaire (AUDIT-C) 1. How often do you have a drink containing alcohol?: 2-4 times a month 2. How many drinks containing alcohol do you have on a typical day when you are drinking?: 1 or 2 3. How often do you have six or more drinks on one occasion?: Never Total Score: 2 YOLIS-7 AMB Questionnaire YOLIS-7 Date YOLIS - 7 assessed: 12/12/22 Source: Developed by Drs. Favian Nascimento, Valentina Serrano, Jose M Lunsford and colleagues, with an educational edita from [employer]. Physical exam (Primary Care) Vital Signs: Last Vital Signs Pulse 65 06/05/23 13:08 BP 104/58 L 06/05/23 13:08 Pulse Ox 97 06/05/23 13:08 Oxygen Delivery Method Room Air 06/05/23 13:08 BMI result Body Mass Index 24.5 Tobacco/Smoking Status: Tobacco use Status Tobacco use date assessed 06/05/23 06/05/23 13:14 Patient Tobacco Use Status Current everyday Tobacco 06/05/23 13:14 Tobacco use type Cigarette 06/05/23 13:14 e-Cigarette/Vaping Use Never Used 06/05/23 13:14 PHQ-9: PHQ-9 Score PHQ-9: Total score 0 06/05/23 13:55 Depression Screening Interpretation: Negative Thrive Assessment: Date of Thrive Assessment Date Thrive assessed 12/12/22 06/05/23 13:14 Const General: alert; No acute distress Eyes Conjunctivae: conjunctivae normal Resp Auscultation: clear to auscultation bilaterally Cardio Rate: regular rate Rhythm: regular rhythm GI Inspection: Yes normal to inspection Extrem General: Yes normal to inspection and No edema Results AMB Hemoglobin A1c AMB Hemoglobin A1c 7.1 % Last Edit by DAVID Honeycutt on 06/05/23 13:25 Results Reviewed Results Reviewed: Laboratory Last Values Hgb A1c (Clinic) 7.1 % (4.0-6.0) H 06/05/23 13:08 Assessment and Plan Assessment & Plan (1) Tobacco abuse: Comment: Down to 2 cigarettes a day, urged that he should quit completely. Code(s): Z72.0 - Tobacco use Plan: Strongly advised to stop smoking! (2) Type 2 diabetes mellitus with hyperglycemia: Comment: eye doctor in [place] Code(s): E11.65 - Type 2 diabetes mellitus with hyperglycemia Plan: Decrease the amount of carbohydrate intake, pasta, bread, rice and potatoes are all sugar and that is aside from all the sweet stuff, remember that fruits are good but they are Sweet also. Hemoglobin A1c goal of less than 6.5. Patient has been seeing Endocrinology presently on a carb owes 25 mg 3 times a day insulin NovoLog short-acting 10 units 3 times a day Lantus/glargine 16 units at bedtime. BP is low - stop lisinopril (3) Hyperlipidemia LDL goal <100: Code(s): E78.5 - Hyperlipidemia, unspecified Plan: Avoid fried foods, chicken skin, eggs, butter margarine, pastries and meat. Be it pork or beef they have a lot of cholesterol LDL goal of less than 100 and triglyceride of less than 150 patient is on atorvastatin 20 mg once a day (4) COPD (chronic obstructive pulmonary disease): Comment: He has long-standing chronic obstructive pulmonary disease. Urged to stop smoking completely. Tx continue Incruse Ellipta 1 inhalation daily Wixela 250-50 1 inhalation b.i.d. Albuterol MDI 2 puffs q.6 hours p.r.n. Code(s): J44.9 - Chronic obstructive pulmonary disease, unspecified Qualifiers: COPD type: emphysema Emphysema type: unspecified Qualified Code(s): J43.9 - Emphysema, unspecified Plan: Continue with inhaler as needed (5) Generalized anxiety disorder: Comment: [facility] March 2021 Code(s): F41.1 - Generalized anxiety disorder Plan: Continue with present medication and counseling Orders: Orders AMB Hemoglobin A1c Today E11.42 - Type 2 diabetes mellitus with diabetic polyneuropathy Medications: Discontinued lisinopril Discontinued Reason: Change Referral Type 2.5 mg PO DAILY 90 tabs 2RF Coding Level of Care Code Est Pt Level 4 (22770) Diagnoses Tobacco abuse Z72.0 Type 2 diabetes mellitus with hyperglycemia E11.65 Hyperlipidemia LDL goal <100 E78.5 COPD (chronic obstructive pulmonary disease) J43.9 COPD type: emphysema Emphysema type: unspecified Generalized anxiety disorder F41.1
== END 2023-06-05 14:15 | disposition home or self-care (01) ==
PROVIDERS: Visit Provider Internal Medicine
DX: Z72.0 Tobacco use (principal); E11.65 Type 2 diabetes mellitus with hyperglycemia; E78.5 Hyperlipidemia, unspecified; J43.9 Emphysema, unspecified; F41.1 Generalized anxiety disorder; E11.42 Type 2 diabetes mellitus with diabetic polyneuropathy
CPT/HCPCS: 83036; 99214

== ENCOUNTER 2023-06-06 13:36 | Outpatient (AMB) | payer OTHER, SELFPAY ==
--- NOTE | 2023-06-06 14:19 | A.OFFVIS_ITS ---
Intake Intake Visit Reasons: DM Pediatric Neuropsychologist Required: Yes Pediatric Neuropsychologist Language: Ambulance Paramedic Name: Pt's Information Interpreted: clinical only Accompanied by: Spouse Allergies cortisone [CORTISONE] Allergy (Severe, Verified 06/05/23 13:18) ANAPHYLAXIS cephalexin Allergy (Unknown, Verified 06/05/23 13:18) unknown lisinopril Adverse Reaction (Intermediate, Unverified 06/05/23 14:03) hypotension HPI Comprehensive Diabetes Asmnt Most Recent Diabetes Results: Microalb/Creat Ratio 17.2 ug/mg cr 03/14/23 Cholesterol 154 mg/dL 03/14/23 HDL Cholesterol 55 mg/dL 03/14/23 Triglycerides 69 mg/dL 03/14/23 Creatinine 0.84 mg/dL (0.5-1.4) 03/14/23 Blood Urea Nitrogen 13 mg/dL (9-16) 03/14/23 Sodium 140 mmol/L (135-145) 03/14/23 Potassium 4.4 mmol/L (3.3-5.1) 03/14/23 Chloride 102 mmol/L (96-108) 03/14/23 Carbon Dioxide 30 mmol/L (22-29) H 03/14/23 Calcium 9.5 mg/dL (8.4-10.2) 03/14/23 AST 18 U/L (5-37) 03/14/23 ALT 17 U/L (0-40) 03/14/23 Total Protein 6.8 g/dL (6.5-8.0) 03/14/23 Albumin 4.2 g/dL (3.5-5.0) 03/14/23 [facility] Medical History Allergic rhinitis Annual physical exam Anxiety and depression CAP (community acquired pneumonia) COPD (chronic obstructive pulmonary disease) DDD (degenerative disc disease), lumbar Depression Erectile dysfunction Gastric ulcer Hernia History of prostate cancer Hyperlipidemia LDL goal <100 Insulin use (long-term) in type 2 diabetes Kidney stones Peptic ulcer disease Prostate cancer Renal calculus, right Smoker Tinnitus Tobacco abuse Tubular adenoma of colon Type 2 diabetes mellitus with diabetic polyneuropathy Vitamin D insufficiency Surgical History History of foot surgery History of inguinal hernia repair Hx of prostatectomy Hx of tonsillectomy Family History Father Diabetes Mother No problems noted. Son Diabetes Maternal Uncle Prostate cancer Paternal Grandfather Myocardial infarction Maternal Grandmother No problems noted. Maternal Aunt Esophageal cancer Maternal Grandfather Myocardial infarction Social History Household Members: Spouse Housing: Apartment Alcohol intake: current Alcohol intake frequency: a few times a month Patient Tobacco Use Status: Current everyday Tobacco user Tobacco use type: Cigarette Cigarettes Per Day: 2 e-Cigarette/Vaping Use: Never Used Second Hand Smoke Exposure: Yes Substance Use Type: Former Substance User and Marijuana service: No Current occupational status: disabled Cognitive needs: No Hearing needs: No Vision needs: Yes Assessment & Plan Assessment & Plan (1) Type 2 diabetes mellitus with hyperglycemia: Comment: eye doctor in [place] Code(s): E11.65 - Type 2 diabetes mellitus with hyperglycemia Plan: Learning objectives: The patient was provided with verbal and written education on the following topics as outlined below. The patient met all learning objectives and was able to verbalize understanding and provide teach back of education topics discussed . The patient was provided with the opportunity to ask questions and all questions were answered. Patient Assessment Assess patient education level/literacy/barriers Patient questions/concerns, on upper right arm patient has a scab from a reaction to freestyle 2 sensor. Patient denies any pain at site, no discharge or redness at the area. Discussed with patient using Dexcom G7 sensor as an alternative to Bebeto 2, Dexcom G7 sensor inserted in top of left arm. Instructed patient's in 10 days when sensor comes off if there is a reaction to sensor then to discontinue CGM use. If there is no reaction than insert the next Dexcom G7 sensor and call garbage stoker to let her know the you need a prescription. What is Diabetes? Pathophysiology How the body produces and uses insulin Identify type of DM Risk factors Signs of Diabetes Brief overview of Diabetes Management Monitoring blood sugar Following a meal plan Regular exercise Maintaining a healthy weight Taking medication as needed Members of the care team (PCP, RN, MA, RD, CDE, petrophysical engineer) Blood glucose monitoring When/how often to test Target blood sugar ranges Patient is using blood glucose meter to test glucose 2-3 times daily Patient's A1c on 06/05/2023 was 7.1% down from 8.4% in February 2023 Introduction to Nutrition Importance of healthy diet in managing DM Diet is personalized to individual preference Review patient?s regular diet/food preferences Who prepares meals/does food shopping/ Dining out?/ Barriers? How diet effects glucose Eating 3 balanced meals a day with small, healthy snacks between meals Review food groups Carbohydrates: What is a carbohydrate/Which food/food groups are considered carbohydrates Effect of carbohydrates on blood glucose Portion sizes Reading food labels Basic carb counting (if applicable per nursing assessment) Plate method Meal planning Recommendations: Follow plate method, consistent carbs and read nutritional labels. Smart Goal: Educational Materials: The patient was provided with the following written educational materials: Planning Healthy Meals Handout Patient Response to instructions: Comprehension of Instructions: Fair Readiness to make changes: Contemplation How confident they feel about making changes: Positive Patient Instructions: Incluir actividad diaria regular. ADA recomienda 30 minutos de ejercicio 5 d?as a la semana. P?rdida de peso, hable con el PCP o el cardi?logo antes de comenzar un nuevo plan. Mida el nivel de az?car en la everardo seg?n las indicaciones; Ayuno y comida m?s tami de 2hpp. Observe las tendencias en los resultados. Utilice los resultados y eval?e c?mo los alimentos, la actividad f?marion y los medicamentos afectan los resultados de az?car en la everardo. Lleve el gluc?metro o CGM a la pr?xima visita. Conocer los medicamentos para la diabetes, meza acci?n, los efectos secundarios, la eficacia, la toxicidad, la dosis prescrita, el momento y la frecuencia de administraci?n apropiados, el efecto de las dosis olvidadas y retrasadas y las instrucciones de almacenamiento, viaje y seguridad. Coding Level of Care Code Est Pt Level 1 (97115) Diagnoses Type 2 diabetes mellitus with hyperglycemia E11.65
== END 2023-06-06 14:27 | disposition home or self-care (01) ==
PROVIDERS: PCP Internal Medicine; Referring Provider Internal Medicine Endocrinology, Diabetes & Metabolism; Visit Provider Registered Nurse Diabetes Educator
DX: E11.65 Type 2 diabetes mellitus with hyperglycemia (principal)

== ENCOUNTER → 2023-06-06 13:36 | Outpatient (BNVA) | payer OTHER, SELFPAY | PROVIDERS: Visit Provider Registered Nurse Diabetes Educator | DX: E11.65 Type 2 diabetes mellitus with hyperglycemia (principal) | CPT/HCPCS: 99211 ==

== ENCOUNTER 2023-07-11 14:58 | Outpatient (AMB) | payer OTHER, SELFPAY ==
--- NOTE | 2023-07-11 15:24 | MHC.AMDMED ---
Intake Intake Visit Reasons: DM Electrical Engineering Teacher Required: Yes Electrical Engineering Teacher Language: Web Press Operator Assistant Name: Pt's Accompanied by: Spouse Allergies cortisone [CORTISONE] Allergy (Severe, Verified 06/05/23 13:18) ANAPHYLAXIS cephalexin Allergy (Unknown, Verified 06/05/23 13:18) unknown lisinopril Adverse Reaction (Intermediate, Unverified 06/05/23 14:03) hypotension HPI Comprehensive Diabetes Asmnt Most Recent Diabetes Results: Microalb/Creat Ratio 17.2 ug/mg cr 03/14/23 Cholesterol 154 mg/dL 03/14/23 HDL Cholesterol 55 mg/dL 03/14/23 Triglycerides 69 mg/dL 03/14/23 Creatinine 0.84 mg/dL (0.5-1.4) 03/14/23 Blood Urea Nitrogen 13 mg/dL (9-16) 03/14/23 Sodium 140 mmol/L (135-145) 03/14/23 Potassium 4.4 mmol/L (3.3-5.1) 03/14/23 Chloride 102 mmol/L (96-108) 03/14/23 Carbon Dioxide 30 mmol/L (22-29) H 03/14/23 Calcium 9.5 mg/dL (8.4-10.2) 03/14/23 AST 18 U/L (5-37) 03/14/23 ALT 17 U/L (0-40) 03/14/23 Total Protein 6.8 g/dL (6.5-8.0) 03/14/23 Albumin 4.2 g/dL (3.5-5.0) 03/14/23 [facility] Medical History Allergic rhinitis Annual physical exam Anxiety and depression CAP (community acquired pneumonia) COPD (chronic obstructive pulmonary disease) DDD (degenerative disc disease), lumbar Depression Erectile dysfunction Gastric ulcer Hernia History of prostate cancer Hyperlipidemia LDL goal <100 Insulin use (long-term) in type 2 diabetes Kidney stones Peptic ulcer disease Prostate cancer Renal calculus, right Smoker Tinnitus Tobacco abuse Tubular adenoma of colon Type 2 diabetes mellitus with diabetic polyneuropathy Vitamin D insufficiency Surgical History History of foot surgery History of inguinal hernia repair Hx of prostatectomy Hx of tonsillectomy Family History Father Diabetes Mother No problems noted. Son Diabetes Maternal Uncle Prostate cancer Paternal Grandfather Myocardial infarction Maternal Grandmother No problems noted. Maternal Aunt Esophageal cancer Maternal Grandfather Myocardial infarction Social History Household Members: Spouse Housing: Apartment Alcohol intake: current Alcohol intake frequency: a few times a month Patient Tobacco Use Status: Current everyday Tobacco user Tobacco use type: Cigarette Cigarettes Per Day: 2 e-Cigarette/Vaping Use: Never Used Second Hand Smoke Exposure: Yes Substance Use Type: Former Substance User and Marijuana service: No Current occupational status: disabled Cognitive needs: No Hearing needs: No Vision needs: Yes Assessment & Plan Assessment & Plan (1) Type 2 diabetes mellitus with hyperglycemia: Comment: eye doctor in [place] Code(s): E11.65 - Type 2 diabetes mellitus with hyperglycemia Plan: Personal Continuous Glucose Monitor: Patients CGM information reviewed Reviewed patient's sensor data: Hypoglycemia: ? 2% Hyperglycemia:? 27% Time in Range:? 71% Average glucose for the last 2 weeks 157? mg/dL Patient is taking Toujeo 16 units NovoLog 14 units prior to meals Recommended to patient to reduce Toujeo to 14 units, to alleviate any episodes of hypoglycemia overnight Reviewed with patient how to treat hypoglycemia with rule of 15s Patient has upcoming appointment with Dr. Britt on 08/04/2023 patient will be due for A1c at that appointment Reviewed how to interpret trend arrows Reminded patient that to check finger sticks if symptoms do not match sensor reading. Discussed lag time between finger stick and sensor data.? Patient able to insert sensor independently at home without issue.? Patient Instructions: Patient will follow-up with special education paraeducator in 3 months Coding Level of Care Code Est Pt Level 1 (82729) Diagnoses Type 2 diabetes mellitus with hyperglycemia E11.65
== END 2023-07-11 15:26 | disposition home or self-care (01) ==
PROVIDERS: PCP Internal Medicine; Visit Provider Registered Nurse Diabetes Educator
DX: E11.65 Type 2 diabetes mellitus with hyperglycemia (principal)

== ENCOUNTER → 2023-07-11 14:58 | Outpatient (BNVA) | payer OTHER, SELFPAY | PROVIDERS: PCP Internal Medicine; Visit Provider Registered Nurse Diabetes Educator | DX: E11.65 Type 2 diabetes mellitus with hyperglycemia (principal) | CPT/HCPCS: 99211 ==

== ENCOUNTER 2023-08-03 12:53 | Outpatient (AMB) | payer OTHER, SELFPAY ==
[2023-08-03 13:17] VITALS: BP 104/67; PULSE 78; O2SAT 92; BMI 25.2
--- NOTE | 2023-08-03 13:17 | A.OFFVIS_ITS ---
Intake Vital Signs 08/03/23 13:17 Height 5 ft 6.5 in Weight 158 lb 11.725 oz BMI 25.2 BP 104/67 Blood Pressure Location Lt brachial Position Sitting Pulse 78 Pulse Source Doppler Pulse Oximetry (%) 92 Oxygen Delivery Method Room Air Intake Visit Reasons: COPD Allergies cortisone [CORTISONE] Allergy (Severe, Verified 08/03/23 13:44) ANAPHYLAXIS cephalexin Allergy (Unknown, Verified 08/03/23 13:44) unknown lisinopril Adverse Reaction (Intermediate, Verified 08/03/23 13:44) hypotension Medication List - Last Reconciled 08/03/23 by Kenisha Mckeon MD acarbose 25 mg PO TID albuterol sulfate 90 mcg/actuation 2 puffs inhalation Q4-6H PRN 30 days alcohol swabs (BD Alcohol Swabs) 1 pad topical QID atorvastatin 20 mg PO DAILY bisacodyl 10 mg PO DIRECTED PRN blood sugar diagnostic (FreeStyle Lite Strips) Three time a day blood-glucose meter (FreeStyle Lite Meter kit) USE DIRECTED blood-glucose sensor (Matomy Money G7 Sensor device) As directed change every 10 days cholecalciferol (vitamin D3) 50 mcg PO DAILY cyclobenzaprine 5 mg PO TID PRN fluticasone propion-salmeterol 250-50 mcg/dose (Wixela Inhub) 1 ea PO Q12H glucagon 3 mg/actuation (Baqsimi) 3 mg intranasal ONCE 30 days glucose (Dex4 Glucose) 12 grams (3 x 4 gram) PO Q15M PRN Incruse Ellipta 62.5 mcg/actuation (umeclidinium) 1 inh PO DAILY NS insulin aspart U-100 (Novolog FlexPen U-100 Insulin aspart) 10 units subcut TID insulin glargine U-300 conc 16 units subcut BEDTIME lancets (FreeStyle Lancets) 1 gauge topical TID 90 days loratadine 10 mg PO DAILY 90 days meloxicam 15 mg PO DAILY omeprazole 20 mg PO DAILY pen needle, diabetic (BD Tierra 2nd Gen Pen Needle) 1 ea miscellaneous .4X/day polyethylene glycol 3350 grams PO sertraline 50 mg PO DAILY 90 days Do you need a note to return to daycare/school/sports/work: No HPI COPD HPI Details 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 HE HAS MILD INTERMITTENT NASAL CONGESTION. ALSO HAS INTERMITTENT COUGH AND WHEEZING BUT MOSTLY REMAINS UNDER CONTROL. STILL SMOKES ABOUT 5 CIGARETTES A DAY. HE HAS HAD NO RECENT RESPIRATORY INFECTION OR ANY ACUTE EXACERBATION FORMERLY [facility] Medical History Smoker Allergic rhinitis Type 2 diabetes mellitus with diabetic polyneuropathy Tinnitus Anxiety and depression Annual physical exam Tobacco abuse Peptic ulcer disease Renal calculus, right Tubular adenoma of colon DDD (degenerative disc disease), lumbar Depression Prostate cancer COPD (chronic obstructive pulmonary disease) CAP (community acquired pneumonia) Gastric ulcer Hernia Kidney stones History of prostate cancer Erectile dysfunction Insulin use (long-term) in type 2 diabetes Hyperlipidemia LDL goal <100 Vitamin D insufficiency Surgical History History of foot surgery History of inguinal hernia repair Hx of tonsillectomy Hx of prostatectomy Family History Father Diabetes Mother No problems noted. Son Diabetes Maternal Uncle Prostate cancer Paternal Grandfather Myocardial infarction Maternal Grandmother No problems noted. Maternal Aunt Esophageal cancer Maternal Grandfather Myocardial infarction Social History Household Members: Spouse Housing: Apartment Alcohol intake: current Alcohol intake frequency: a few times a month Patient Tobacco Use Status: Current everyday Tobacco user Tobacco use type: Cigarette Cigarettes Per Day: 2 e-Cigarette/Vaping Use: Never Used Second Hand Smoke Exposure: Yes Substance Use Type: Former Substance User and Marijuana service: No Current occupational status: disabled Cognitive needs: No Hearing needs: No Vision needs: Yes Review of Systems Const All systems reviewed & are unremarkable except as noted in HPI and below Eyes Reports no additional complaints ENT Reports nasal congestion (mild ) Card Denies chest pain, Denies irregular heart rhythm and Denies leg edema Resp Reports as per HPI GI Reports heartburn (Controlled with omeprazole) Reports erectile dysfunction Musc Reports back pain (Mild) Skin/Breast Reports system reviewed and no additional complaints, except as documented Neuro Reports no additional complaints Psych Reports no additional complaints Physical Exam Vital Signs: Last Vital Signs Pulse 78 08/03/23 13:17 BP 104/67 08/03/23 13:17 Pulse Ox 92 08/03/23 13:17 Oxygen Delivery Method Room Air 08/03/23 13:17 BMI result Body Mass Index 25.2 Const General: comfortable, no acute distress, alert and awake Orientation/consciousness: patient oriented x3 HEENT Head: Yes normal to inspection General nose exam: No nasal polyps present and No nasal discharge present Face and sinus: Yes sinuses nontender Mouth: oropharynx normal Throat: Yes posterior oropharynx normal Eyes General: appearance normal, both eyes and all related structures Neck Neck: Yes normal visual inspection, Yes no lymphadenopathy, Yes trachea midline and Yes no JVD Thyroid: Thyroid normal Chest Chest palpation & inspection: normal inspection of the chest, normal palpation of entire chest wall and no tenderness Resp Other: Percussion note hyper-resonant, breath sounds are distant with prolonged expiratory phase on both sides. No audible wheezes or rhonchi were present Cardio Palpation: normal PMI Rate: regular rate Rhythm: regular rhythm Heart sounds: no gallops and no murmurs GI Palpation (GI): Soft to palpation, nontender, No hepatosplenomegaly present and no masses Auscultation: normal bowel sounds Back/Spine/Pelvis Thoracic/Lumbar Spine: thoracic and lumbar spine normal to inspection and thoraco-lumbar ROM limited Skin General skin exam: no rashes or lesions noted Neuro General: patient oriented x3 and no focal motor deficits Cranial nerves: Yes CN's II-XII intact bilaterally Extrem General: Yes normal to inspection, Yes no clubbing, cyanosis or edema and Yes no calf tenderness Psych Appearance: grossly normal Speech and movement: Normal speech and movement present Assessment & Plan Assessment & Plan (1) Allergic rhinitis: Comment: Mild chronic, has been stable. TX : Only Claritin 10 mg once a day p.r.n.. Code(s): J30.9 - Allergic rhinitis, unspecified (2) COPD (chronic obstructive pulmonary disease): Comment: He has long-standing chronic obstructive pulmonary disease. Urged to stop smoking completely. Tx continue Incruse Ellipta 1 inhalation daily Wixela 250-50 1 inhalation b.i.d. Albuterol MDI 2 puffs q.6 hours p.r.n. Code(s): J44.9 - Chronic obstructive pulmonary disease, unspecified Qualifiers: COPD type: emphysema Emphysema type: unspecified Qualified Code(s): J43.9 - Emphysema, unspecified (3) Tobacco abuse: Comment: Down to 3-5 cigarettes a day, urged that he should quit completely. Code(s): Z72.0 - Tobacco use Coding Level of Care Code Est Pt Level 3 (92571) Diagnoses Allergic rhinitis J30.9 Pulmonary emphysema, unspecified emphysema type J43.9 COPD type: emphysema Emphysema type: unspecified Tobacco abuse Z72.0
== END 2023-08-03 13:44 | disposition home or self-care (01) ==
PROVIDERS: PCP Internal Medicine; Visit Provider Internal Medicine
DX: J30.9 Allergic rhinitis, unspecified (principal); J43.9 Emphysema, unspecified; Z72.0 Tobacco use
CPT/HCPCS: 99213

== ENCOUNTER → 2023-08-03 12:53 | Outpatient (BNVA) | payer OTHER, SELFPAY | PROVIDERS: Visit Provider Internal Medicine | DX: J43.9 Emphysema, unspecified (principal); J30.9 Allergic rhinitis, unspecified; F17.210 Nicotine dependence, cigarettes, uncomplicated | CPT/HCPCS: 99212 ==

== ENCOUNTER 2023-08-09 12:52 | Outpatient (AMB) | payer OTHER, SELFPAY ==
[2023-08-09 12:56] VITALS: BP 114/68; PULSE 101; O2SAT 92; BMI 24.6
--- NOTE | 2023-08-09 12:56 | MHC.PC.OV ---
Vital Signs 08/09/23 12:56 Height 5 ft 6.5 in Weight 155 lb BMI 24.6 BP 114/68 Blood Pressure Location Lt brachial Position Sitting Pulse 101 H Pulse Source Pulse Oximeter Pulse Oximetry (%) 92 Oxygen Delivery Method Room Air Intake Visit Reasons: Annual Exam Intake Note: Patient here for an annual physical exam, c/o night headaches with cough, lower back and right side hip pain, loss of appetite Sterilization Specialist Required: No Accompanied by: Spouse Allergies cortisone [CORTISONE] Allergy (Severe, Verified 08/09/23 13:00) ANAPHYLAXIS cephalexin Allergy (Unknown, Verified 08/09/23 13:00) unknown lisinopril Adverse Reaction (Intermediate, Verified 08/09/23 13:00) hypotension Medication List - Last Reconciled 08/09/23 by Margarito Anton MD albuterol sulfate 90 mcg/actuation 2 puffs inhalation Q4-6H PRN 30 days alcohol swabs (BD Alcohol Swabs) 1 pad topical QID atorvastatin 20 mg PO DAILY bisacodyl 10 mg PO DIRECTED PRN blood sugar diagnostic (FreeStyle Lite Strips) Three time a day blood-glucose meter (FreeStyle Lite Meter kit) USE DIRECTED blood-glucose sensor (MindMixer G7 Sensor device) As directed change every 10 days cholecalciferol (vitamin D3) 50 mcg PO DAILY cyclobenzaprine 5 mg PO TID PRN fluticasone propion-salmeterol 250-50 mcg/dose (Wixela Inhub) 1 ea PO Q12H glucagon 3 mg/actuation (Baqsimi) 3 mg intranasal ONCE 30 days glucose (Dex4 Glucose) 12 grams (3 x 4 gram) PO Q15M PRN Incruse Ellipta 62.5 mcg/actuation (umeclidinium) 1 inh PO DAILY NS insulin aspart U-100 (Novolog FlexPen U-100 Insulin aspart) 10 units subcut TID insulin glargine U-300 conc 14 units subcut BEDTIME lancets (FreeStyle Lancets) 1 gauge topical TID 90 days loratadine 10 mg PO DAILY 90 days meloxicam 15 mg PO DAILY omeprazole 20 mg PO DAILY pen needle, diabetic (BD Tierra 2nd Gen Pen Needle) 1 ea miscellaneous .4X/day polyethylene glycol 3350 grams PO sertraline 50 mg PO DAILY 90 days Tobacco use date assessed: 06/05/23 Fall risk assessment: No Falls in past year Last assessed Fall Risk: 08/09/23 Dental Screening Dental Screen Date: 08/09/23 Did you have a dental visit in the last 12 months?: No Did you have a dental problem in the last 6 months where you did not have access to dental care?: No Was dental information given to patient?: Patient has dentist HPI Annual Exam HPI Details 63-year-old male smoker with diabetes mellitus hypercholesterolemia COPD Violet anxiety disorder last seen in May 2023. Patient is here for physical exam. Colonoscopy done 2017 fecal occult blood testing December 2021. Patient follows up with Pulmonary for the COPD on Incruse, wixela and short-acting albuterol advised strongly stop smoking. Patient also follows up with Endocrinology on Toujeo 16 units and NovoLog 14 units prior to meals advised to decrease Toujeo 14 units. complains of L hip ;pain , [place] and not able to sleep. feels night sweats, hearing air but declined to wear due to glasses. [place] eye R eye decrease vision cataract- will have procedure. Pulse ox sitting down no oxygen 89 PFSH Medical History Smoker Allergic rhinitis Type 2 diabetes mellitus with diabetic polyneuropathy Tinnitus Anxiety and depression Annual physical exam Tobacco abuse Peptic ulcer disease Renal calculus, right Tubular adenoma of colon DDD (degenerative disc disease), lumbar Depression Prostate cancer COPD (chronic obstructive pulmonary disease) CAP (community acquired pneumonia) Gastric ulcer Hernia Kidney stones History of prostate cancer Erectile dysfunction Insulin use (long-term) in type 2 diabetes Hyperlipidemia LDL goal <100 Vitamin D insufficiency Surgical History History of foot surgery History of inguinal hernia repair Hx of tonsillectomy Hx of prostatectomy Family History Father Diabetes Mother No problems noted. Son Diabetes Maternal Uncle Prostate cancer Paternal Grandfather Myocardial infarction Maternal Grandmother No problems noted. Maternal Aunt Esophageal cancer Maternal Grandfather Myocardial infarction Social History Household Members: Spouse Housing: Apartment Alcohol intake: current Alcohol intake frequency: a few times a month Patient Tobacco Use Status: Current everyday Tobacco user Tobacco use type: Cigarette Cigarettes Per Day: 2 e-Cigarette/Vaping Use: Never Used Second Hand Smoke Exposure: Yes Substance Use Type: Former Substance User and Marijuana service: No Current occupational status: disabled Cognitive needs: No Hearing needs: No Vision needs: Yes Questionnaire Thrive Questionnaire Date Thrive assessed: 12/12/22 YOLIS-7 AMB Questionnaire YOLIS-7 Date YOLIS - 7 assessed: 12/12/22 Source: Developed by Drs. Favian Nascimento, Valentina Serrano, Jose M Lunsford and colleagues, with an educational edita from [employer]. Review of Systems Const Denies poor appetite and Denies weakness Eyes Denies no additional complaints ENT Reports Normal hearing present, Denies dizziness, Denies nasal congestion, Denies tinnitus and Denies sore throat Card Denies chest pain, Denies syncope, Denies rapid heart rate and Denies dyspnea Resp Denies cough and Denies dyspnea GI Denies change in stool character, Reports constipation, Denies diarrhea, Denies nausea and Denies vomiting Denies dysuria and Denies urinary frequency Neuro Reports Normal hearing present, Denies confusion, Denies dizziness, Denies syncope and Denies weakness Psych Denies confusion Physical exam (Primary Care) Vital Signs: Last Vital Signs Pulse 101 H 08/09/23 12:56 BP 114/68 08/09/23 12:56 Pulse Ox 92 08/09/23 12:56 Oxygen Delivery Method Room Air 08/09/23 12:56 BMI result Body Mass Index 24.6 Tobacco/Smoking Status: Tobacco use Status Tobacco use date assessed 06/05/23 08/09/23 13:05 Patient Tobacco Use Status Current everyday Tobacco 08/09/23 13:05 Tobacco use type Cigarette 08/09/23 13:05 e-Cigarette/Vaping Use Never Used 08/09/23 13:05 Thrive Assessment: Date of Thrive Assessment Date Thrive assessed 12/12/22 08/09/23 13:05 Const General: No confusion Orientation/consciousness: No confusion HENMT Head: Yes normocephalic Ears: external ears normal and TM's normal bilaterally Face and sinus: Yes normal facial exam Mouth: moist mucous membranes Throat: Yes tonsils normal Eyes Conjunctivae: conjunctivae normal Pupils: Equal, round and reactive pupils present and Pupil accommodation reflex normal Direct Ophthalmoscopy: normal light reflex Neck Neck: No lymphadenopathy Thyroid: Thyroid normal Chest Chest palpation & inspection: normal inspection of the chest Resp Other: decrease breath sound Effort & Inspection: normal respiratory effort and audible wheezes Auscultation: clear to auscultation bilaterally, no crackles, no wheezes and lung sounds not diminished Cardio Rate: regular rate Rhythm: regular rhythm Peripheral pulses: radial pulses present and dorsalis pedis present GI Other: guaiac neg, no prostate Palpation (GI): no masses Auscultation: normal bowel sounds and normoactive bowel sounds Male General Exam: Yes normal external exam Back/Spine/Pelvis Other: interdigital toes white rash crow Skin General skin exam: no rashes or lesions noted Rashes: no rashes Neuro General: No confusion Cranial nerves: Yes Equal, round and reactive pupils present and Yes Normal hearing present Cognition (Neuro): normal cognition Gait exam (Neuro): Normal gait present Motor exam (neuro): 5/5 motor strength present throughout Deep tendon reflexes (DTR's): Right brachioradialis reflex intensity grade: 2+, Left brachioradialis reflex intensity grade: 2+, Right patellar reflex intensity grade: 2+ and Left patellar reflex intensity grade: 2+ Extrem General: No edema Office Procedures Flu Questionnaire Does the patient have a severe egg allergy?: No Does the patient have severe life threatening allergies?: No Does the patient have a fever or illness today?: No Has the patient ever had Guillain-Metamora Syndrome?: No Has the patient ever had any past reaction to a flu shot?: No Immunizations flu vacc [id number] 6mos up(PF) 60 mcg(15 mcgx4)/0.5 mL IM syringe Performing Provider: Margarito Anton MD [facility] Administered by: DAVID Martinez on 08/09/23 13:06 Dose Route Admin Location Dispensed Lot Number Expiration Date NDC Waterproofing Supervisor 0.5 mL IM Left Deltoid 0.5 mL [id number] 04/21/24 54071-058-56 Sprout VIS Given Date VIS Provided VIS Publication Date 08/09/23 Single Vaccine 21 Eligibility Eligibility Date Funding Source Not [facility] Eligible 08/09/23 Private Assessment and Plan Assessment & Plan (1) Annual physical exam: Code(s): Z00.00 - Encounter for general adult medical examination without abnormal findings (2) Type 2 diabetes mellitus with hyperglycemia: Comment: eye doctor in [place] Code(s): E11.65 - Type 2 diabetes mellitus with hyperglycemia Plan: Decrease the amount of carbohydrate intake, pasta, bread, rice and potatoes are all sugar and that is aside from all the sweet stuff, remember that fruits are good but they are Sweet also. Hemoglobin A1c goal of less than 6.5. Patient follows up with endocrinology (3) Tobacco abuse: Comment: Down to 3-5 cigarettes a day, urged that he should quit completely. Code(s): Z72.0 - Tobacco use Plan: Patient is strongly advised to stop smoking! while sitting SPO2 went down to 89 and when changing chlothes went to 85, sitting down 89 walking HR went too 114 (4) COPD (chronic obstructive pulmonary disease): Comment: He has long-standing chronic obstructive pulmonary disease. Urged to stop smoking completely. Tx continue Incruse Ellipta 1 inhalation daily Wixela 250-50 1 inhalation b.i.d. Albuterol MDI 2 puffs q.6 hours p.r.n. Code(s): J44.9 - Chronic obstructive pulmonary disease, unspecified Qualifiers: COPD type: emphysema Emphysema type: unspecified Qualified Code(s): J43.9 - Emphysema, unspecified Plan: Patient follows up with Pulmonary continue with inhaler. SPO2 sitting 88, walking 89, sitting back 88 advised the need for oxygen. o2 placed SPO2 97 2L NC (5) Hyperlipidemia LDL goal <100: Code(s): E78.5 - Hyperlipidemia, unspecified Plan: Avoid fried foods, chicken skin, eggs, butter margarine, pastries and meat. Be it pork or beef they have a lot of cholesterol LDL goal of less than 100. February 2023 last blood work (6) Prostate cancer: Comment: 2004 Code(s): C61 - Malignant neoplasm of prostate Plan: no prostate (7) Generalized anxiety disorder: Comment: [facility] March 2021 Code(s): F41.1 - Generalized anxiety disorder Plan: Continue with counseling and therapy (8) Hip pain, left: Code(s): M25.552 - Pain in left hip (9) Tinea pedis: Code(s): B35.3 - Tinea pedis Plan: patient has med Orders: Orders Influenza [id number] Immunization Today Z23 - Encounter for immunization XR hip LT min 2V Today M25.552 - Pain in left hip Medications: New tramadol 50 mg PO DAILY 30 tabs 0RF M25.552 - Pain in left hip Oxygen Home Use As directedO2 2L NC 1 ea 0RF J43.9 - Emphysema, unspecified nicotine 1 patch transdermal DAILY 28 ea 0RF Z72.0 - Tobacco use nicotine 1 patch transdermal DAILY 28 ea 0RF Z72.0 - Tobacco use Discontinued cyclobenzaprine Discontinued Reason: Ancillary Entered New Order 5 mg PO TID PRN 30 tabs 0RF muscle spasm M25.551 - Pain in right hip Coding Level of Care Code Est Pt Prev Care 40-64y(45260) Diagnoses Annual physical exam Z00.00 Type 2 diabetes mellitus with hyperglycemia E11.65 Tobacco abuse Z72.0 Pulmonary emphysema, unspecified emphysema type J43.9 COPD type: emphysema Emphysema type: unspecified Hyperlipidemia LDL goal <100 E78.5 Prostate cancer C61 Generalized anxiety disorder F41.1 Hip pain, left M25.552 Tinea pedis B35.3
== END 2023-08-09 14:08 | disposition home or self-care (01) ==
PROVIDERS: Visit Provider Internal Medicine
DX: Z00.00 Encounter for general adult medical examination without abnormal findings (principal); E11.65 Type 2 diabetes mellitus with hyperglycemia; J43.9 Emphysema, unspecified; C61 Malignant neoplasm of prostate; Z23 Encounter for immunization; Z72.0 Tobacco use; E78.5 Hyperlipidemia, unspecified; F41.1 Generalized anxiety disorder; M25.552 Pain in left hip; B35.3 Tinea pedis
CPT/HCPCS: 90471; 90686; 99396

== ENCOUNTER 2023-08-14 13:55 | Outpatient (REF) | payer OTHER, SELFPAY ==
--- NOTE | ~2023-08-14 | XR_ITS ---
STUDY: Chest and left hip INDICATION: Hypoxemia and left hip pain COMPARISON: 04/16/2020 chest TECHNIQUE: PA and lateral chest, two-view left hip FINDINGS: Chest: Flattening of the hemidiaphragms. Heart and mediastinum within normal limits. Prominent charu are unchanged. No vascular congestion, consolidations or effusions. Degenerative changes. Left hip: No fracture or dislocation. No significant joint space narrowing. Mild chondroid matrix left intratrochanteric region seen on 2019 CT topogram. Visualized SI joint within normal limits. Pelvic clips. XR/XR hip LT min 2V IMPRESSION: No acute cardiopulmonary disease. No acute bony pathology left hip.
--- NOTE | ~2023-08-14 | XR_ITS ---
STUDY: Chest and left hip INDICATION: Hypoxemia and left hip pain COMPARISON: 04/16/2020 chest TECHNIQUE: PA and lateral chest, two-view left hip FINDINGS: Chest: Flattening of the hemidiaphragms. Heart and mediastinum within normal limits. Prominent charu are unchanged. No vascular congestion, consolidations or effusions. Degenerative changes. Left hip: No fracture or dislocation. No significant joint space narrowing. Mild chondroid matrix left intratrochanteric region seen on 2019 CT topogram. Visualized SI joint within normal limits. Pelvic clips. XR/XR chest 2V IMPRESSION: No acute cardiopulmonary disease. No acute bony pathology left hip.
== END 2023-08-14 13:56 | disposition home or self-care (01) ==
LOC: HO.XRAY 13:55
PROVIDERS: PCP Internal Medicine; Visit Provider Internal Medicine
DX: M25.552 Pain in left hip (principal); J44.1 Chronic obstructive pulmonary disease with (acute) exacerbation; R09.02 Hypoxemia
CPT/HCPCS: 71046; 73502; 99212

== ENCOUNTER 2023-08-14 13:55 | Outpatient (AMB) | payer OTHER, SELFPAY ==
[2023-08-14 14:12] VITALS: BP 120/60; PULSE 97; TEMP 37.4; O2SAT 94; BMI 24.5
--- NOTE | 2023-08-14 14:12 | MHC.OFFVIS ---
Intake Vital Signs 08/14/23 14:12 Height 5 ft 6.5 in Weight 154 lb BMI 24.5 BP 120/60 Blood Pressure Location Lt brachial Position Sitting Pulse 97 Pulse Source Pulse Oximeter Temp 99.4 F Temp Source Temporal Artery Scan Pulse Oximetry (%) 94 Oxygen Delivery Method Nasal Cannula Oxygen Flow Rate 2 Intake Visit Reasons: dyspnea, cough Intake Note: pt is here for a same day sick visit, he is now on oxygen from a pcp appt last week. He has not been feeling well for 6 days. coughing and it is very bad and nightime it is bad, he needs to get the phelgm out. Substitute Teacher Required: No Allergies cortisone [CORTISONE] Allergy (Severe, Verified 08/14/23 14:19) ANAPHYLAXIS cephalexin Allergy (Unknown, Verified 08/14/23 14:19) unknown lisinopril Adverse Reaction (Intermediate, Verified 08/14/23 14:19) hypotension HPI dyspnea, cough HPI Details This 63 years old gentleman longstanding smoker, and has chronic obstructive pulmonary disease, Comes in for an urgent visit because last week he felt more. Congested with increased shortness of breath He was seen by his primary care physician Dr. Moran , and noted that his O2 sat was below 90% ( 89-90 ) he was started on oxygen 2 L/minute. Patient comes in today to be checked thoroughly, denies fever or, chills or any chest pain He does have chronic nasal congestion with some postnasal drip. He denies any wheezing attacks and cough is minimal. He in general he feels tired. Since 08/09 , now 5 days, he has not smoked and tells me that he is not going to go back. To smoking at all [facility] Medical History Hypoxemia COPD exacerbation Smoker Allergic rhinitis Type 2 diabetes mellitus with diabetic polyneuropathy Tinnitus Anxiety and depression Annual physical exam Tobacco abuse Peptic ulcer disease Renal calculus, right Tubular adenoma of colon DDD (degenerative disc disease), lumbar Depression Prostate cancer COPD (chronic obstructive pulmonary disease) CAP (community acquired pneumonia) Gastric ulcer Hernia Kidney stones History of prostate cancer Erectile dysfunction Insulin use (long-term) in type 2 diabetes Hyperlipidemia LDL goal <100 Vitamin D insufficiency Surgical History History of foot surgery History of inguinal hernia repair Hx of tonsillectomy Hx of prostatectomy Family History Father Diabetes Mother No problems noted. Son Diabetes Maternal Uncle Prostate cancer Paternal Grandfather Myocardial infarction Maternal Grandmother No problems noted. Maternal Aunt Esophageal cancer Maternal Grandfather Myocardial infarction Social History Household Members: Spouse Housing: Apartment Alcohol intake: current Alcohol intake frequency: a few times a month Patient Tobacco Use Status: Former Tobacco user Tobacco use type: Cigarette e-Cigarette/Vaping Use: Never Used Second Hand Smoke Exposure: Yes Substance Use Type: Former Substance User and Marijuana service: No Current occupational status: disabled Cognitive needs: No Hearing needs: No Vision needs: Yes Review of Systems Const All systems reviewed & are unremarkable except as noted in HPI and below Eyes Reports no additional complaints ENT Reports nasal congestion (mild ) Card Denies chest pain, Denies irregular heart rhythm and Denies leg edema Resp Reports as per HPI GI Reports heartburn (Controlled with omeprazole) Reports erectile dysfunction Musc Reports back pain (Mild) Skin/Breast Reports system reviewed and no additional complaints, except as documented Neuro Reports no additional complaints Psych Reports no additional complaints Physical Exam Vital Signs: Last Vital Signs Temp 99.4 F 08/14/23 14:12 Pulse 97 08/14/23 14:12 BP 120/60 08/14/23 14:12 Pulse Ox 94 08/14/23 14:12 Oxygen Delivery Method Nasal Cannula 08/14/23 14:12 Oxygen Flow Rate 2 08/14/23 14:12 BMI result Body Mass Index 24.5 Const General: comfortable, no acute distress, alert and awake Orientation/consciousness: patient oriented x3 HEENT Head: Yes normal to inspection General nose exam: No nasal polyps present and No nasal discharge present Face and sinus: Yes sinuses nontender Mouth: oropharynx normal Throat: Yes posterior oropharynx normal Eyes General: appearance normal, both eyes and all related structures Neck Neck: Yes normal visual inspection, Yes no lymphadenopathy, Yes trachea midline and Yes no JVD Thyroid: Thyroid normal Chest Chest palpation & inspection: normal inspection of the chest, normal palpation of entire chest wall and no tenderness Resp Other: Percussion note hyper-resonant, breath sounds are distant with prolonged expiratory phase on both sides. No audible wheezes or rhonchi were present Cardio Palpation: normal PMI Rate: regular rate Rhythm: regular rhythm Heart sounds: no gallops and no murmurs GI Palpation (GI): Soft to palpation, nontender, No hepatosplenomegaly present and no masses Auscultation: normal bowel sounds Back/Spine/Pelvis Thoracic/Lumbar Spine: thoracic and lumbar spine normal to inspection and thoraco-lumbar ROM limited Skin General skin exam: no rashes or lesions noted Neuro General: patient oriented x3 and no focal motor deficits Cranial nerves: Yes CN's II-XII intact bilaterally Extrem General: Yes normal to inspection, Yes no clubbing, cyanosis or edema and Yes no calf tenderness Psych Appearance: grossly normal Speech and movement: Normal speech and movement present Assessment & Plan Assessment & Plan (1) COPD exacerbation: Comment: This gentleman has a low-grade acute exacerbation of chronic obstructive pulmonary disease, Which has resulted in relative hypoxemia. PLAN : Chest x-ray is ordered. Continue Incruse Ellipta once a day Continue Wixela 250-51 inhalation b.i.d.. ProAir HFA 2 puffs Q 4-6 hours p.r.n.. Prednisone 20 mg b.i.d.. For 5 days Z-Kevin # 1 Code(s): J44.1 - Chronic obstructive pulmonary disease with (acute) exacerbation (2) Hypoxemia: Code(s): R09.02 - Hypoxemia Plan He does have borderline hypoxemia with O2 sat 89 to 90% on room air. Advised to continue oxygen 2 L/minute especially when. He goes outdoors Hopefully once his condition improves this oxygen may be discontinued. I will recheck him in 2 weeks. Orders: Orders XR chest 2V Today J44.1 - Chronic obstructive pulmonary disease with (acute) exacerbation, R09.02 - Hypoxemia Medications: New prednisone 20 mg PO BID 10 tabs 0RF copd excerbation 5 days azithromycin For 250 mg dose pack: take 500 mg today (day 1), then 250 mg for 4 days (days 2-5) PO 6 tabs 0RF copd excarbation Coding Level of Care Code Est Pt Level 3 (60743) Diagnoses COPD exacerbation J44.1 Hypoxemia R09.02
== END 2023-08-14 14:47 | disposition home or self-care (01) ==
PROVIDERS: PCP Internal Medicine; Visit Provider Internal Medicine
DX: J44.1 Chronic obstructive pulmonary disease with (acute) exacerbation (principal); R09.02 Hypoxemia
CPT/HCPCS: 99213

== ENCOUNTER 2023-08-30 13:23 | Outpatient (AMB) | payer OTHER, SELFPAY ==
[2023-08-30 13:34] VITALS: BP 122/70; PULSE 105; O2SAT 96
--- NOTE | 2023-08-30 13:34 | A.OFFVIS_ITS ---
Intake Vital Signs 08/30/23 13:34 Height 5 ft 6.5 in BP 122/70 Blood Pressure Location Lt brachial Position Sitting Pulse 105 H Pulse Source Pulse Oximeter Pulse Oximetry (%) 96 Oxygen Delivery Method Nasal Cannula Oxygen Flow Rate 2 Intake Visit Reasons: dyspnea, cough Intake Note: pt is here for follow up and states he feels okay. using oxygen at night and daytime, with some breaks. Package Line Operator Required: No Allergies cortisone [CORTISONE] Allergy (Severe, Verified 08/30/23 13:39) ANAPHYLAXIS cephalexin Allergy (Unknown, Verified 08/30/23 13:39) unknown lisinopril Adverse Reaction (Intermediate, Verified 08/30/23 13:39) hypotension Do you need a note to return to daycare/school/sports/work: No HPI dyspnea, cough HPI Details This 63 years old gentleman a lifelong smoker, has advanced chronic obstructive pulmonary disease, After a recent acute exacerbation he has become dependent on oxygen. He uses O2 2 L/minute intermittently at home, but does use the portable unit when he goes outdoors. He was treated with a course of prednisone and azithromycin, and he comes back today. For follow-up He claims that his breathing is much better actually back to baseline. He is anxious to get off the oxygen. FOR[facility]LY [facility] Medical History Hypoxemia COPD exacerbation Smoker Allergic rhinitis Type 2 diabetes mellitus with diabetic polyneuropathy Tinnitus Anxiety and depression Annual physical exam Tobacco abuse Peptic ulcer disease Renal calculus, right Tubular adenoma of colon DDD (degenerative disc disease), lumbar Depression Prostate cancer COPD (chronic obstructive pulmonary disease) CAP (community acquired pneumonia) Gastric ulcer Hernia Kidney stones History of prostate cancer Erectile dysfunction Insulin use (long-term) in type 2 diabetes Hyperlipidemia LDL goal <100 Vitamin D insufficiency Surgical History History of foot surgery History of inguinal hernia repair Hx of tonsillectomy Hx of prostatectomy Family History Father Diabetes Mother No problems noted. Son Diabetes Maternal Uncle Prostate cancer Paternal Grandfather Myocardial infarction Maternal Grandmother No problems noted. Maternal Aunt Esophageal cancer Maternal Grandfather Myocardial infarction Social History Household Members: Spouse Housing: Apartment Alcohol intake: current Alcohol intake frequency: a few times a month Patient Tobacco Use Status: Former Tobacco user Tobacco use type: Cigarette e-Cigarette/Vaping Use: Never Used Second Hand Smoke Exposure: Yes Substance Use Type: Former Substance User and Marijuana service: No Current occupational status: disabled Cognitive needs: No Hearing needs: No Vision needs: Yes Review of Systems Const All systems reviewed & are unremarkable except as noted in HPI and below Eyes Reports no additional complaints ENT Reports nasal congestion (mild ) Card Denies chest pain, Denies irregular heart rhythm and Denies leg edema Resp Reports as per HPI GI Reports heartburn (Controlled with omeprazole) Reports erectile dysfunction Musc Reports back pain (Mild) Skin/Breast Reports system reviewed and no additional complaints, except as documented Neuro Reports no additional complaints Psych Reports no additional complaints Physical Exam Vital Signs: Last Vital Signs Pulse 105 H 08/30/23 13:34 BP 122/70 08/30/23 13:34 Pulse Ox 96 08/30/23 13:34 Oxygen Delivery Method Nasal Cannula 08/30/23 13:34 Oxygen Flow Rate 2 08/30/23 13:34 Const General: comfortable, no acute distress, alert and awake Orientation/consciousness: patient oriented x3 HEENT Head: Yes normal to inspection General nose exam: No nasal polyps present and No nasal discharge present Face and sinus: Yes sinuses nontender Mouth: oropharynx normal Throat: Yes posterior oropharynx normal Eyes General: appearance normal, both eyes and all related structures Neck Neck: Yes normal visual inspection, Yes no lymphadenopathy, Yes trachea midline and Yes no JVD Thyroid: Thyroid normal Chest Chest palpation & inspection: normal inspection of the chest, normal palpation of entire chest wall and no tenderness Resp Other: Percussion note hyper-resonant, breath sounds are distant with prolonged expiratory phase on both sides. No audible wheezes or rhonchi were present Cardio Palpation: normal PMI Rate: regular rate Rhythm: regular rhythm Heart sounds: no gallops and no murmurs GI Palpation (GI): Soft to palpation, nontender, No hepatosplenomegaly present and no masses Auscultation: normal bowel sounds Back/Spine/Pelvis Thoracic/Lumbar Spine: thoracic and lumbar spine normal to inspection and thoraco-lumbar ROM limited Skin General skin exam: no rashes or lesions noted Neuro General: patient oriented x3 and no focal motor deficits Cranial nerves: Yes CN's II-XII intact bilaterally Extrem General: Yes normal to inspection, Yes no clubbing, cyanosis or edema and Yes no calf tenderness Psych Appearance: grossly normal Speech and movement: Normal speech and movement present Results Reviewed Results Reviewed: I took am off the oxygen, O2 sat remains at 95% on room air. I made him walk 4 minutes in the hallway, O2 sat fell down to 87% at the end of the walk. So he still has exercise induced hypoxemia. chest Xray 08/14 Unremarkable Assessment & Plan Assessment & Plan (1) COPD exacerbation: Comment: This gentleman has a low-grade acute exacerbation of chronic obstructive pulmonary disease, Which has resulted in relative hypoxemia. PLAN : Continue Incruse Ellipta once a day Continue Wixela 250-51 inhalation b.i.d.. ProAir HFA 2 puffs Q 4-6 hours p.r.n.. Code(s): J44.1 - Chronic obstructive pulmonary disease with (acute) exacerbation (2) Hypoxemia: Comment: Patient does have hypoxemia on minimal exertion. Advised to continue using O2 2 L/minute with any physical work or when he goes outdoors. Will re-evaluate after 2 months. Code(s): R09.02 - Hypoxemia (3) Allergic rhinitis: Comment: Mild chronic, has been stable. TX : Only Claritin 10 mg once a day p.r.n.. Code(s): J30.9 - Allergic rhinitis, unspecified (4) Tobacco abuse: Comment: He has been a lifelong smoker. Has finally quit, currently on nicotine patches. I commended him for quitting completely and encouraged not to go back to smoking. Code(s): Z72.0 - Tobacco use Coding Level of Care Code Est Pt Level 3 (88663) Diagnoses COPD exacerbation J44.1 Hypoxemia R09.02 Allergic rhinitis J30.9 Tobacco abuse Z72.0
== END 2023-08-30 13:59 | disposition home or self-care (01) ==
PROVIDERS: PCP Internal Medicine; Visit Provider Internal Medicine
DX: J44.1 Chronic obstructive pulmonary disease with (acute) exacerbation (principal); R09.02 Hypoxemia; J30.9 Allergic rhinitis, unspecified; Z72.0 Tobacco use
CPT/HCPCS: 99213

== ENCOUNTER → 2023-08-30 13:23 | Outpatient (BNVA) | payer OTHER, SELFPAY | PROVIDERS: PCP Internal Medicine; Visit Provider Internal Medicine | DX: J44.1 Chronic obstructive pulmonary disease with (acute) exacerbation (principal); R09.02 Hypoxemia; J30.9 Allergic rhinitis, unspecified; Z87.891 Personal history of nicotine dependence | CPT/HCPCS: 99212 ==

== ENCOUNTER 2023-10-03 14:30 | Outpatient (AMB) | payer OTHER, SELFPAY ==
--- NOTE | 2023-10-03 14:33 | MHC.PC.OV ---
Vital Signs 10/03/23 14:38 Height 5 ft 6.5 in Weight 164 lb 6 oz BMI 26.1 BP 130/90 H Blood Pressure Location Lt brachial Position Sitting Pulse 97 Pulse Source Pulse Oximeter Pulse Oximetry (%) 92 Oxygen Delivery Method Room Air Intake Visit Reasons: arthritis pain Intake Note: Patient is here to follow up on the Arthritis pain. Complaint of pain from lower back radiating to left hip and down the front of the leg. Water Registrar Required: Yes Water Registrar Language: Auto Mechanics Teacher Name: Evi (spouse) Information Interpreted: non-clinical & clinical Airport Attendant: Present Accompanied by: Spouse Allergies cortisone [CORTISONE] Allergy (Severe, Verified 10/03/23 14:37) ANAPHYLAXIS cephalexin Allergy (Unknown, Verified 10/03/23 14:37) unknown lisinopril Adverse Reaction (Intermediate, Verified 10/03/23 14:37) hypotension Tobacco use date assessed: 10/03/23 Fall risk assessment: No Falls in past year Last assessed Fall Risk: 10/03/23 Dental Screening Dental Screen Date: 10/03/23 Did you have a dental visit in the last 12 months?: Yes Did you have a dental problem in the last 6 months where you did not have access to dental care?: No Was dental information given to patient?: Patient has dentist HPI arthritis pain HPI Details 63-year-old male smoker with diabetes mellitus COPD hypercholesterolemia history of prostate cancer generalized anxiety disorder coming in for follow-up. Last seen in July 2023. Concern about the hypoxemia and was started on oxygen. Patient's colonoscopy was done in 2016 and has had fecal occult blood testing January 09-patient has followed up with Pulmonary for the shortness of breath advanced COPD with an acute exacerbation uses oxygen 2 liters/minute intermittently was treated with prednisone and Zithromax per recently patient was tested and was taken off oxygen and O2 sats remained 95% made him walk for minutes in the hallway sats fell down to 87 patient is on Incruse Ellipta Wixela and ProAir hypoxemia on minimal exertion advised to continue using O2 hopefully has quit smoking. complains of left lower back pain radiating to the L hip area- uses OTC with no relief deny any fall or trauma. Wakes up with pain and as he moves gets worse. Patient has had an x-ray done in October 2021 per the lumbar area and has shown moderate degenerative disc problem. As for the sugar discussed that it is better but still high. Patient will follow up with endocrinology COUNTS INCLUDE 234 BEDS AT THE [facility] Medical History (Updated 10/03/23 @ 15:08 by Margarito Anton MD) Hypoxemia COPD exacerbation Smoker Allergic rhinitis Type 2 diabetes mellitus with diabetic polyneuropathy Tinnitus Anxiety and depression Annual physical exam Tobacco abuse Peptic ulcer disease Renal calculus, right Tubular adenoma of colon DDD (degenerative disc disease), lumbar Depression Prostate cancer COPD (chronic obstructive pulmonary disease) CAP (community acquired pneumonia) Gastric ulcer Hernia Kidney stones History of prostate cancer Erectile dysfunction Insulin use (long-term) in type 2 diabetes Hyperlipidemia LDL goal <100 Vitamin D insufficiency Surgical History History of foot surgery History of inguinal hernia repair Hx of tonsillectomy Hx of prostatectomy Family History Father Diabetes Mother No problems noted. Son Diabetes Maternal Uncle Prostate cancer Paternal Grandfather Myocardial infarction Maternal Grandmother No problems noted. Maternal Aunt Esophageal cancer Maternal Grandfather Myocardial infarction Social History Household Members: Spouse Housing: Apartment Alcohol intake: current Alcohol intake frequency: a few times a month Patient Tobacco Use Status: Former Tobacco user Tobacco use type: Cigarette e-Cigarette/Vaping Use: Never Used Second Hand Smoke Exposure: Yes Substance Use Type: Former Substance User and Marijuana service: No Current occupational status: disabled Cognitive needs: Yes (cane) Hearing needs: Yes (hearing aide) Vision needs: Yes Questionnaire Thrive Questionnaire Date Thrive assessed: 12/12/22 YOLIS-7 AMB Questionnaire YOLIS-7 Date YOLIS - 7 assessed: 12/12/22 Source: Developed by Drs. Favian Nascimento, Valentina Serrano, Jose M Lunsford and colleagues, with an educational edita from [employer]. Physical exam (Primary Care) Vital Signs: Last Vital Signs Pulse 97 10/03/23 14:38 BP 130/90 H 10/03/23 14:38 Pulse Ox 92 10/03/23 14:38 Oxygen Delivery Method Room Air 10/03/23 14:38 BMI result Body Mass Index 26.1 Tobacco/Smoking Status: Tobacco use Status Tobacco use date assessed 10/03/23 10/03/23 14:46 Patient Tobacco Use Status Former Tobacco user 10/03/23 14:46 Tobacco use type Cigarette 10/03/23 14:46 e-Cigarette/Vaping Use Never Used 10/03/23 14:46 Thrive Assessment: Date of Thrive Assessment Date Thrive assessed 12/12/22 10/03/23 14:46 Const General: alert; No acute distress Eyes Conjunctivae: conjunctivae normal Resp Auscultation: clear to auscultation bilaterally Cardio Rate: regular rate Rhythm: regular rhythm GI Inspection: Yes normal to inspection Extrem General: Yes normal to inspection and No edema Assessment and Plan Assessment & Plan (1) Type 2 diabetes mellitus with hyperglycemia: Comment: eye doctor in [place] Code(s): E11.65 - Type 2 diabetes mellitus with hyperglycemia Plan: Decrease the amount of carbohydrate intake, pasta, bread, rice and potatoes are all sugar and that is aside from all the sweet stuff, remember that fruits are good but they are Sweet also. Hemoglobin A1c goal of less than 6.5. Last hemoglobin A1c 7.1 presently on NovoLog and Lantus (2) Tobacco abuse: Comment: He has been a lifelong smoker. Has finally quit, currently on nicotine patches. I commended him for quitting completely and encouraged not to go back to smoking. stopped 07/2023 Code(s): Z72.0 - Tobacco use Plan: Patient has finally stopped 07/2023 (3) COPD (chronic obstructive pulmonary disease): Comment: He has long-standing chronic obstructive pulmonary disease. Urged to stop smoking completely. Tx continue Incruse Ellipta 1 inhalation daily Wixela 250-50 1 inhalation b.i.d. Albuterol MDI 2 puffs q.6 hours p.r.n. Code(s): J44.9 - Chronic obstructive pulmonary disease, unspecified Qualifiers: COPD type: emphysema Emphysema type: unspecified Qualified Code(s): J43.9 - Emphysema, unspecified Plan: Stop smoking! Continue to have/use oxygen on exertion (4) Hyperlipidemia LDL goal <100: Code(s): E78.5 - Hyperlipidemia, unspecified Plan: Avoid fried foods, chicken skin, eggs, butter margarine, pastries and meat. Be it pork or beef they have a lot of cholesterol LDL goal of less than 100 and triglyceride of less than 150 (5) Generalized anxiety disorder: Comment: [facility] March 2021 Code(s): F41.1 - Generalized anxiety disorder Plan: Continue with counseling and therapy (6) DDD (degenerative disc disease), lumbar: Code(s): M51.36 - Other intervertebral disc degeneration, lumbar region Medications: New methocarbamol 500 mg PO TID 60 tabs 3RF M51.36 - Other intervertebral disc degeneration, lumbar region Coding Level of Care Code Est Pt Level 4 (05906) Diagnoses Type 2 diabetes mellitus with hyperglycemia E11.65 Tobacco abuse Z72.0 Pulmonary emphysema, unspecified emphysema type J43.9 COPD type: emphysema Emphysema type: unspecified Hyperlipidemia LDL goal <100 E78.5 Generalized anxiety disorder F41.1 DDD (degenerative disc disease), lumbar M51.36
[2023-10-03 14:38] VITALS: BP 130/90; PULSE 97; O2SAT 92; BMI 26.1
== END 2023-10-03 15:15 | disposition home or self-care (01) ==
PROVIDERS: PCP Internal Medicine; Visit Provider Internal Medicine
DX: E11.65 Type 2 diabetes mellitus with hyperglycemia (principal); Z72.0 Tobacco use; J43.9 Emphysema, unspecified; E78.5 Hyperlipidemia, unspecified; F41.1 Generalized anxiety disorder; M51.36 Other intervertebral disc degeneration, lumbar region
CPT/HCPCS: 99214

== ENCOUNTER 2023-10-10 12:32 | Outpatient (AMB) | payer OTHER, SELFPAY ==
--- NOTE | 2023-10-10 13:05 | MHC.AMDMED ---
Intake Intake Visit Reasons: dm /CONFIRMED Used Equipment Sales Representative Required: No Accompanied by: Spouse Allergies cortisone [CORTISONE] Allergy (Severe, Verified 10/03/23 14:37) ANAPHYLAXIS cephalexin Allergy (Unknown, Verified 10/03/23 14:37) unknown lisinopril Adverse Reaction (Intermediate, Verified 10/03/23 14:37) hypotension HPI Comprehensive Diabetes Asmnt Most Recent Diabetes Results: Microalb/Creat Ratio 17.2 ug/mg cr 03/14/23 Cholesterol 154 mg/dL 03/14/23 HDL Cholesterol 55 mg/dL 03/14/23 Triglycerides 69 mg/dL 03/14/23 Creatinine 0.84 mg/dL (0.5-1.4) 03/14/23 Blood Urea Nitrogen 13 mg/dL (9-16) 03/14/23 Sodium 140 mmol/L (135-145) 03/14/23 Potassium 4.4 mmol/L (3.3-5.1) 03/14/23 Chloride 102 mmol/L (96-108) 03/14/23 Carbon Dioxide 30 mmol/L (22-29) H 03/14/23 Calcium 9.5 mg/dL (8.4-10.2) 03/14/23 AST 18 U/L (5-37) 03/14/23 ALT 17 U/L (0-40) 03/14/23 Total Protein 6.8 g/dL (6.5-8.0) 03/14/23 Albumin 4.2 g/dL (3.5-5.0) 03/14/23 PFSH Medical History (Updated 10/03/23 @ 15:08 by Margarito Anton MD) Hypoxemia COPD exacerbation Smoker Allergic rhinitis Type 2 diabetes mellitus with diabetic polyneuropathy Tinnitus Anxiety and depression Annual physical exam Tobacco abuse Peptic ulcer disease Renal calculus, right Tubular adenoma of colon DDD (degenerative disc disease), lumbar Depression Prostate cancer COPD (chronic obstructive pulmonary disease) CAP (community acquired pneumonia) Gastric ulcer Hernia Kidney stones History of prostate cancer Erectile dysfunction Insulin use (long-term) in type 2 diabetes Hyperlipidemia LDL goal <100 Vitamin D insufficiency Surgical History History of foot surgery History of inguinal hernia repair Hx of tonsillectomy Hx of prostatectomy Family History Father Diabetes Mother No problems noted. Son Diabetes Maternal Uncle Prostate cancer Paternal Grandfather Myocardial infarction Maternal Grandmother No problems noted. Maternal Aunt Esophageal cancer Maternal Grandfather Myocardial infarction Social History Household Members: Spouse Housing: Apartment Alcohol intake: current Alcohol intake frequency: a few times a month Patient Tobacco Use Status: Former Tobacco user Tobacco use type: Cigarette e-Cigarette/Vaping Use: Never Used Second Hand Smoke Exposure: Yes Substance Use Type: Former Substance User and Marijuana service: No Current occupational status: disabled Cognitive needs: Yes (cane) Hearing needs: Yes (hearing aide) Vision needs: Yes Assessment & Plan Assessment & Plan (1) Type 2 diabetes mellitus with hyperglycemia: Comment: eye doctor in [place] Code(s): E11.65 - Type 2 diabetes mellitus with hyperglycemia Plan: Personal Continuous Glucose Monitor: Patients CGM information reviewed Reviewed patient's sensor data: Hypoglycemia: ? 0% Hyperglycemia:? 34% Time in Range:? 66% Average glucose for the last 2 weeks? 168 mg/dL patient is having increased excursion after breakfast, Dexcom data shows there is a pattern of hyperglycemia between 10am and 12:00pm patient reports that every day he eats to [employer] sausage sandwiches. I recommended to patient to decrease the amount of carbohydrates he is eating at breakfast maybe cutting down to 1 sandwich to see if this improves his postprandial hyperglycemia after breakfast Reviewed how to interpret trend arrows Reminded patient that to check finger sticks if symptoms do not match sensor reading. Discussed lag time between finger stick and sensor data.? Patient able to insert sensor independently at home without issue.? patient also requested updated prescription for NovoLog be sent to patient's pharmacy message to Dr. Britt to update prescription Patient Instructions: patient will follow-up with manufacturing lead in 3 months Coding Level of Care Code Est Pt Level 1 (40528) Diagnoses Type 2 diabetes mellitus with hyperglycemia E11.65
== END 2023-10-10 13:11 | disposition home or self-care (01) ==
PROVIDERS: PCP Internal Medicine; Visit Provider Registered Nurse Diabetes Educator
DX: E11.65 Type 2 diabetes mellitus with hyperglycemia (principal)

== ENCOUNTER → 2023-10-10 12:32 | Outpatient (BNVA) | payer OTHER, SELFPAY | PROVIDERS: PCP Internal Medicine; Visit Provider Registered Nurse Diabetes Educator | DX: E11.65 Type 2 diabetes mellitus with hyperglycemia (principal) | CPT/HCPCS: 99211 ==

== ENCOUNTER 2023-10-31 09:51 | Outpatient (REF) | payer OTHER, SELFPAY ==
--- NOTE | ~2023-10-31 | XR_ITS ---
EXAMINATION: XR HIP, LEFT CLINICAL INFORMATION: Pain. COMPARISON: Radiographs dated 08/14/2023. TECHNIQUE: AP and frog-leg lateral views of the left hip. FINDINGS: No fracture. Alignment is anatomic. Hip joint space is maintained. Soft tissues are unremarkable. There are multiple pelvic surgical clips. XR/XR hip LT min 2V IMPRESSION: Normal left hip.
== END 2023-10-31 09:52 | disposition home or self-care (01) ==
LOC: HO.XRAY 09:51
PROVIDERS: PCP Internal Medicine; Visit Provider Internal Medicine
DX: M25.552 Pain in left hip (principal)
CPT/HCPCS: 73502

== ENCOUNTER 2023-11-08 08:01 | Outpatient (REF) | payer OTHER, SELFPAY ==
[2023-11-08 09:26] LABS: Creatinine Urine 146.54 mg/dL
[2023-11-08 09:44] LABS: Prostate Specific Antigen Scr < 0.10 ng/mL (<0.05-4.0)
== END 2023-11-08 08:02 | disposition home or self-care (01) ==
LOC: HO.LAB 08:01
PROVIDERS: PCP Internal Medicine; Visit Provider Internal Medicine
DX: Z12.5 Encounter for screening for malignant neoplasm of prostate (principal); C61 Malignant neoplasm of prostate; E11.65 Type 2 diabetes mellitus with hyperglycemia; J43.9 Emphysema, unspecified; R09.02 Hypoxemia; Z72.0 Tobacco use
CPT/HCPCS: 36415; 82570; 84153; 99212

== ENCOUNTER 2023-11-08 08:20 | Outpatient (AMB) | payer OTHER, SELFPAY ==
--- NOTE | 2023-11-08 08:45 | MHC.OFFVIS ---
Intake Vital Signs 11/08/23 08:51 Height 5 ft 6.5 in Weight 172 lb BMI 27.3 BP 120/60 Blood Pressure Location Lt brachial Position Sitting Pulse 97 Pulse Source Pulse Oximeter Pulse Oximetry (%) 93 Oxygen Delivery Method Room Air Intake Visit Reasons: COPD Intake Note: pt is here for follow up and states he stopped smoking, and drinking since July!!, using oxygen when he goes out. Glassware Verifier Required: No Allergies cortisone [CORTISONE] Allergy (Severe, Verified 11/08/23 08:45) ANAPHYLAXIS cephalexin Allergy (Unknown, Verified 11/08/23 08:45) unknown lisinopril Adverse Reaction (Intermediate, Verified 11/08/23 08:45) hypotension Medication List - Last Reconciled 11/08/23 by Kenisha Mckeon MD albuterol sulfate 90 mcg/actuation INHALE 2 PUFFS BY MOUTH EVERY 4 TO 6 HOURS NEEDED FOR SHORTNESS OF BREATH OR WHEEZING alcohol swabs (BD Alcohol Swabs) 1 pad topical QID atorvastatin 20 mg PO DAILY bisacodyl 10 mg PO DIRECTED PRN blood sugar diagnostic (FreeStyle Lite Strips) Three time a day blood-glucose meter (FreeStyle Lite Meter kit) USE DIRECTED blood-glucose sensor ([employer] G7 Sensor device) As directed change every 10 days cholecalciferol (vitamin D3) 50 mcg PO DAILY fluticasone propion-salmeterol 250-50 mcg/dose 1 ea PO Q12H glucagon 3 mg/actuation (Baqsimi) 3 mg intranasal ONCE 30 days glucose (Dex4 Glucose) 12 grams (3 x 4 gram) PO Q15M PRN Incruse Ellipta 62.5 mcg/actuation (umeclidinium) 1 inh PO DAILY NS insulin aspart U-100 (Novolog FlexPen U-100 Insulin aspart) 14 units (0.14 mL) subcut TID insulin glargine U-300 conc 14 units subcut BEDTIME lancets (FreeStyle Lancets) 1 gauge topical TID 90 days loratadine 10 mg PO DAILY 90 days meloxicam 15 mg PO DAILY methocarbamol 500 mg PO TID omeprazole 20 mg PO DAILY Oxygen Home Use As directedO2 2L NC pen needle, diabetic (BD Tierra 2nd Gen Pen Needle) 1 ea miscellaneous .4X/day polyethylene glycol 3350 grams PO sertraline 50 mg PO DAILY 90 days tramadol 50 mg PO DAILY Do you need a note to return to daycare/school/sports/work: No HPI COPD HPI Details THIS 63 YEARS OLD GENTLEMAN IS HERE FOR A SHORT-TERM FOLLOW-UP AFTER HIS RECENT HOSPITALIZATION. HE HAS QUIT SMOKING AND DID NOT GO BACK ALSO DOES NOT. DRINK ANY ALCOHOL BREATHING BURT HE IS MUCH BETTER, HIS ACTUALLY SAY IS 100% BETTER. NASAL CONGESTION AND COUGH. IS ALMOST GONE HE DOES HAVE PORTABLE OXYGEN AT HOME BUT DOES NOT USE IT ALL THE TIMES. HE CLAIMS THAT IN THE HOUSE HE WALKS NO MORE THAN A FEW MINUTES AT A TIME, AND HE HAS NOT GOING OUTDOORS MUCH. SO PRACTICALLY HE HAS NOT USING HIS PORTABLE OXYGEN. [facility] Medical History Hypoxemia COPD exacerbation Smoker Allergic rhinitis Type 2 diabetes mellitus with diabetic polyneuropathy Tinnitus Anxiety and depression Annual physical exam Tobacco abuse Peptic ulcer disease Renal calculus, right Tubular adenoma of colon DDD (degenerative disc disease), lumbar Depression Prostate cancer COPD (chronic obstructive pulmonary disease) CAP (community acquired pneumonia) Gastric ulcer Hernia Kidney stones History of prostate cancer Erectile dysfunction Insulin use (long-term) in type 2 diabetes Hyperlipidemia LDL goal <100 Vitamin D insufficiency Surgical History History of foot surgery History of inguinal hernia repair Hx of tonsillectomy Hx of prostatectomy Family History Father Diabetes Mother No problems noted. Son Diabetes Maternal Uncle Prostate cancer Paternal Grandfather Myocardial infarction Maternal Grandmother No problems noted. Maternal Aunt Esophageal cancer Maternal Grandfather Myocardial infarction Social History Household Members: Spouse Housing: Apartment Alcohol intake: current Alcohol intake frequency: a few times a month Patient Tobacco Use Status: Former Tobacco user Tobacco use type: Cigarette e-Cigarette/Vaping Use: Never Used Second Hand Smoke Exposure: Yes Substance Use Type: Former Substance User and Marijuana service: No Current occupational status: disabled Cognitive needs: Yes (cane) Hearing needs: Yes (hearing aide) Vision needs: Yes Review of Systems Const All systems reviewed & are unremarkable except as noted in HPI and below Eyes Reports no additional complaints ENT Reports nasal congestion (mild ) Card Denies chest pain, Denies irregular heart rhythm and Denies leg edema Resp Reports as per HPI GI Reports heartburn (Controlled with omeprazole) Reports erectile dysfunction Musc Reports back pain (Mild) Skin/Breast Reports system reviewed and no additional complaints, except as documented Neuro Reports no additional complaints Psych Reports no additional complaints Physical Exam Vital Signs: Last Vital Signs Pulse 97 11/08/23 08:51 BP 120/60 11/08/23 08:51 Pulse Ox 93 11/08/23 08:51 Oxygen Delivery Method Room Air 11/08/23 08:51 BMI result Body Mass Index 27.3 Const General: comfortable, no acute distress, alert and awake Orientation/consciousness: patient oriented x3 HEENT Head: Yes normal to inspection General nose exam: No nasal polyps present and No nasal discharge present Face and sinus: Yes sinuses nontender Mouth: oropharynx normal Throat: Yes posterior oropharynx normal Eyes General: appearance normal, both eyes and all related structures Neck Neck: Yes normal visual inspection, Yes no lymphadenopathy, Yes trachea midline and Yes no JVD Thyroid: Thyroid normal Chest Chest palpation & inspection: normal inspection of the chest, normal palpation of entire chest wall and no tenderness Resp Other: Percussion note hyper-resonant, breath sounds are distant with prolonged expiratory phase on both sides. No audible wheezes or rhonchi were present Cardio Palpation: normal PMI Rate: regular rate Rhythm: regular rhythm Heart sounds: no gallops and no murmurs GI Palpation (GI): Soft to palpation, nontender, No hepatosplenomegaly present and no masses Auscultation: normal bowel sounds Back/Spine/Pelvis Thoracic/Lumbar Spine: thoracic and lumbar spine normal to inspection and thoraco-lumbar ROM limited Skin General skin exam: no rashes or lesions noted Neuro General: patient oriented x3 and no focal motor deficits Cranial nerves: Yes CN's II-XII intact bilaterally Extrem General: Yes normal to inspection, Yes no clubbing, cyanosis or edema and Yes no calf tenderness Psych Appearance: grossly normal Speech and movement: Normal speech and movement present Results Reviewed Results Reviewed: I WALKED WITH HIM IN THE HALLWAY FOR 4 MINUTE, ON ROOM AIR HE DID NOT EXHIBIT ANY DYSPNEA ON EXERTION, HOWEVER O2 SAT DID DROP DOWN TO 87%, AFTER 2 MINUTES REST O2 SAT IS UP TO 92% Assessment & Plan Assessment & Plan (1) COPD (chronic obstructive pulmonary disease): Comment: He has long-standing chronic obstructive pulmonary disease. DOING MUCH BETTER SINCE HE QUIT SMOKING. Code(s): J44.9 - Chronic obstructive pulmonary disease, unspecified Qualifiers: COPD type: emphysema Emphysema type: unspecified Qualified Code(s): J43.9 - Emphysema, unspecified Plan: Tx continue Incruse Ellipta 1 inhalation daily Wixela 250-50 1 inhalation b.i.d. Albuterol MDI 2 puffs q.6 hours p.r.n. (2) Tobacco abuse: Comment: He has been a lifelong smoker. Has finally quit since 08/14 and has no urge to smoke. . Code(s): Z72.0 - Tobacco use Plan: Commended for quitting smoking, and advise that he should never go back to smoking. (3) Hypoxemia: Comment: Patient does have hypoxemia on minimal exertion. Code(s): R09.02 - Hypoxemia Plan: Advised to continue using O2 2 L/minute with any physical work or when he goes outdoors. Will re-evaluate after 2 months. Coding Level of Care Code Est Pt Level 3 (48515) Diagnoses Pulmonary emphysema, unspecified emphysema type J43.9 COPD type: emphysema Emphysema type: unspecified Tobacco abuse Z72.0 Hypoxemia R09.02
[2023-11-08 08:51] VITALS: BP 120/60; PULSE 97; O2SAT 93; BMI 27.3
== END 2023-11-08 09:04 | disposition home or self-care (01) ==
PROVIDERS: PCP Internal Medicine; Visit Provider Internal Medicine
DX: J43.9 Emphysema, unspecified (principal); Z72.0 Tobacco use; R09.02 Hypoxemia
CPT/HCPCS: 99213

== ENCOUNTER 2023-11-17 14:55 | Outpatient (AMB) | payer OTHER, SELFPAY ==
[2023-11-17 14:57] VITALS: BP 130/72; PULSE 77; O2SAT 96; BMI 27.3
--- NOTE | 2023-11-17 14:57 | MHC.PC.OV ---
Vital Signs 11/17/23 14:57 Height 5 ft 6.5 in Weight 172 lb BMI 27.3 BP 130/72 Blood Pressure Location Lt brachial Position Sitting Pulse 77 Pulse Source Pulse Oximeter Pulse Oximetry (%) 96 Oxygen Delivery Method Room Air Intake Visit Reasons: Hip pain follow up Intake Note: Patient is here to follow up on hip pain f/u Desktop Support Consultant Required: Yes Desktop Support Consultant Language: Pashto Allergies cortisone [CORTISONE] Allergy (Severe, Verified 11/17/23 15:29) ANAPHYLAXIS cephalexin Allergy (Unknown, Verified 11/17/23 15:29) unknown lisinopril Adverse Reaction (Intermediate, Verified 11/17/23 15:29) hypotension Medication List - Last Reconciled 11/17/23 by Margarito Barragan Po, albuterol sulfate 90 mcg/actuation INHALE 2 PUFFS BY MOUTH EVERY 4 TO 6 HOURS NEEDED FOR SHORTNESS OF BREATH OR WHEEZING alcohol swabs (BD Alcohol Swabs) 1 pad topical QID atorvastatin 20 mg PO DAILY bisacodyl 10 mg PO DIRECTED PRN blood sugar diagnostic (FreeStyle Lite Strips) Three time a day blood-glucose meter (FreeStyle Lite Meter kit) USE DIRECTED blood-glucose sensor (Dexen-Gauge G7 Sensor device) As directed change every 10 days cholecalciferol (vitamin D3) 50 mcg PO DAILY fluticasone propion-salmeterol 250-50 mcg/dose 1 ea PO Q12H glucagon 3 mg/actuation (Baqsimi) 3 mg intranasal ONCE 30 days glucose (Dex4 Glucose) 12 grams (3 x 4 gram) PO Q15M PRN Incruse Ellipta 62.5 mcg/actuation (umeclidinium) 1 inh PO DAILY NS insulin glargine U-300 conc 14 units subcut BEDTIME lancets (FreeStyle Lancets) 1 gauge topical TID 90 days loratadine 10 mg PO DAILY 90 days methocarbamol 500 mg PO TID nabumetone 500 mg PO BID Novolog FlexPen U-100 Insulin (insulin aspart U-100) 14 units (0.14 mL) subcut TID NS omeprazole 20 mg PO DAILY Oxygen Home Use As directedO2 2L NC pen needle, diabetic (BD Tierra 2nd Gen Pen Needle) 1 ea miscellaneous .4X/day polyethylene glycol 3350 grams PO sertraline 50 mg PO DAILY 90 days tramadol 50 mg PO DAILY Tobacco use date assessed: 11/17/23 Fall risk assessment: No Falls in past year Last assessed Fall Risk: 11/17/23 HPI Hip pain follow up HPI Details 63-year-old overweight male smoker with diabetes mellitus COPD hypercholesterolemia generalized anxiety disorder last seen in September 2023. Patient is here for follow-up. Colonoscopy last done in 2016 and had fecal occult blood testing December 2021 which was negative. Review of the notes followed up with Pulmonary for the COPD patient stops smoking and drinking since July uses the oxygen on Incruse, Wixela and albuterol does get hypoxemia on exertion. Patient had x-rays of the left hip but this was all negative. [facility] Medical History Hypoxemia COPD exacerbation Smoker Allergic rhinitis Type 2 diabetes mellitus with diabetic polyneuropathy Tinnitus Anxiety and depression Annual physical exam Tobacco abuse Peptic ulcer disease Renal calculus, right Tubular adenoma of colon DDD (degenerative disc disease), lumbar Depression Prostate cancer COPD (chronic obstructive pulmonary disease) CAP (community acquired pneumonia) Gastric ulcer Hernia Kidney stones History of prostate cancer Erectile dysfunction Insulin use (long-term) in type 2 diabetes Hyperlipidemia LDL goal <100 Vitamin D insufficiency Surgical History History of foot surgery History of inguinal hernia repair Hx of tonsillectomy Hx of prostatectomy Family History Father Diabetes Mother No problems noted. Son Diabetes Maternal Uncle Prostate cancer Paternal Grandfather Myocardial infarction Maternal Grandmother No problems noted. Maternal Aunt Esophageal cancer Maternal Grandfather Myocardial infarction Social History Household Members: Spouse Housing: Apartment Alcohol intake: current Alcohol intake frequency: a few times a month Patient Tobacco Use Status: Former Tobacco user Tobacco use type: Cigarette e-Cigarette/Vaping Use: Never Used Second Hand Smoke Exposure: Yes Substance Use Type: Former Substance User and Marijuana service: No Current occupational status: disabled Cognitive needs: Yes (cane) Hearing needs: Yes (hearing aide) Vision needs: Yes Questionnaire PHQ-9 Over the last 2 weeks, how often have you been bothered by any of the following problems? 1. Little interest or pleasure in doing things: not at all 2. Feeling down, depressed, or hopeless: not at all 3. Trouble falling or staying asleep, or sleeping too much: not at all 4. Feeling tired or having little energy: not at all 5. Poor appetite or overeating: not at all 6. Feeling bad about yourself - or that you are a failure or have let yourself or your family down: not at all 7. Trouble concentrating on things, such as reading the newspaper or watching television: not at all 8. Moving or speaking so slowly that other people could have noticed. Or the opposite - being so fidgety or restless that you have been moving around a lot more than usual: not at all 9. Thoughts that you would be better off or of hurting yourself in some way: not at all Total score: 0 Depression Screening Interpretation: Negative Depression Screening Done: Yes Source: Developed by Drs. Favian Nascimento, Valentina Serrano, Jose M Lunsford and colleagues, with an educational edita from [employer]. Thrive Questionnaire Date Thrive assessed: 12/12/22 AUDIT C Alcohol Use Questionnaire (AUDIT-C) 1. How often do you have a drink containing alcohol?: Monthly or less 2. How many drinks containing alcohol do you have on a typical day when you are drinking?: 1 or 2 3. How often do you have six or more drinks on one occasion?: Never Total Score: 1 YOLIS-7 AMB Questionnaire YOLIS-7 Date YOLIS - 7 assessed: 11/17/23 Source: Developed by Drs. Favian Nascimento, Jose M Escalante and colleagues, with an educational edita from [employer]. Physical exam (Primary Care) Vital Signs: Last Vital Signs Pulse 77 11/17/23 14:57 BP 130/72 11/17/23 14:57 Pulse Ox 96 11/17/23 14:57 Oxygen Delivery Method Room Air 11/17/23 14:57 BMI result Body Mass Index 27.3 Tobacco/Smoking Status: Tobacco use Status Tobacco use date assessed 11/17/23 11/17/23 14:59 Patient Tobacco Use Status Former Tobacco user 11/17/23 14:59 Tobacco use type Cigarette 11/17/23 14:59 e-Cigarette/Vaping Use Never Used 11/17/23 14:59 PHQ-9: PHQ-9 Score PHQ-9: Total score 0 11/17/23 15:36 Depression Screening Interpretation: Negative Thrive Assessment: Date of Thrive Assessment Date Thrive assessed 12/12/22 11/17/23 14:59 Const General: alert; No acute distress Eyes Conjunctivae: conjunctivae normal Resp Auscultation: clear to auscultation bilaterally Cardio Rate: regular rate Rhythm: regular rhythm GI Inspection: Yes normal to inspection Extrem General: Yes normal to inspection and No edema Results AMB Hemoglobin A1c AMB Hemoglobin A1c 6.7 % Last Edit by DAVID Honeycutt on 11/17/23 15:37 Results Reviewed Results Reviewed: Laboratory Last Values Hgb A1c (Clinic) 6.7 % (4.0-6.0) H 11/17/23 15:02 Assessment and Plan Assessment & Plan (1) Type 2 diabetes mellitus with hyperglycemia: Comment: eye doctor in [place] Code(s): E11.65 - Type 2 diabetes mellitus with hyperglycemia Plan: Decrease the amount of carbohydrate intake, pasta, bread, rice and potatoes are all sugar and that is aside from all the sweet stuff, remember that fruits are good but they are Sweet also. Hemoglobin A1c goal of less than 6.5 presently on insulin at 14 units NovoLog (2) COPD (chronic obstructive pulmonary disease): Comment: He has long-standing chronic obstructive pulmonary disease. DOING MUCH BETTER SINCE HE QUIT SMOKING. Code(s): J44.9 - Chronic obstructive pulmonary disease, unspecified Qualifiers: COPD type: emphysema Emphysema type: unspecified Qualified Code(s): J43.9 - Emphysema, unspecified Plan: Continuing with the inhaler. Patient has stopped smoking! Does have hypoxemia on exertion will continue with oxygen. (3) Hyperlipidemia LDL goal <100: Code(s): E78.5 - Hyperlipidemia, unspecified Plan: Avoid fried foods, chicken skin, eggs, butter margarine, pastries and meat. Be it pork or beef they have a lot of cholesterol February 2023 last blood work on atorvastatin 20 mg once a day (4) Hip pain, right: Code(s): M25.551 - Pain in right hip Plan: X-ray done negative (5) Constipation: Code(s): K59.00 - Constipation, unspecified Plan: discussed about hydration, fiber and exercise (6) DDD (degenerative disc disease), lumbar: Code(s): M51.36 - Other intervertebral disc degeneration, lumbar region Plan: antiinflammatory sent to help withy pain - full stomach to take this Orders: Orders AMB Hemoglobin A1c Today E11.9 - Type 2 diabetes mellitus without complications, Z79.4 - anthropometrist (current) use of insulin Medications: New psyllium husk (Fiber (psyllium husk)) 1.04 grams (2 x 0.52 gram) PO DAILY 60 caps 4RF K59.00 - Constipation, unspecified nabumetone 500 mg PO BID 60 tabs 2RF M51.36 - Other intervertebral disc degeneration, lumbar region Discontinued meloxicam Discontinued Reason: Ancillary Entered New Order 15 mg PO DAILY 30 tabs 3RF M25.552 - Pain in left hip Coding Level of Care Code Est Pt Level 4 (90089) Diagnoses Type 2 diabetes mellitus with hyperglycemia E11.65 Pulmonary emphysema, unspecified emphysema type J43.9 COPD type: emphysema Emphysema type: unspecified Hyperlipidemia LDL goal <100 E78.5 Hip pain, right M25.551 Constipation K59.00 DDD (degenerative disc disease), lumbar M51.36
== END 2023-11-17 16:10 | disposition home or self-care (01) ==
PROVIDERS: PCP Internal Medicine; Visit Provider Internal Medicine
DX: E11.65 Type 2 diabetes mellitus with hyperglycemia (principal); J43.9 Emphysema, unspecified; E78.5 Hyperlipidemia, unspecified; M25.551 Pain in right hip; K59.00 Constipation, unspecified; M51.36 Other intervertebral disc degeneration, lumbar region; E11.9 Type 2 diabetes mellitus without complications; Z79.4 Long term (current) use of insulin
CPT/HCPCS: 83036; 99214

== ENCOUNTER 2023-11-21 12:55 | Outpatient (AMB) | payer OTHER, SELFPAY ==
[2023-11-21 12:57] VITALS: BP 132/64; PULSE 78; BMI 27.4
--- NOTE | 2023-11-21 12:57 | MHC.OFFVIS ---
Intake Vital Signs 11/21/23 12:57 Height 5 ft 6.5 in Weight 172 lb 9.951 oz BMI 27.4 BP 132/64 Blood Pressure Location Lt brachial Position Sitting Pulse 78 Pulse Source Pulse Oximeter Intake Visit Reasons: f/u Type 2 DM-confirmed Intake Note: Patient present today to follow up on Type 2 Diabetes Mellitus. Patient receives DME supplies through: Pharmacy Last Diabetic Eye exam: 11/2022 Last Podiatry Visit: None Random Glucose: 187 mg/dl HgA1C: 6.7% 11/17/23 Product Inspection Coordinator Required: Yes Product Inspection Coordinator Language: Transferrer Name: Rosie medical staff Information Interpreted: non-clinical & clinical Accompanied by: Spouse Allergies cortisone [CORTISONE] Allergy (Severe, Verified 11/21/23 13:14) ANAPHYLAXIS cephalexin Allergy (Unknown, Verified 11/21/23 13:14) unknown lisinopril Adverse Reaction (Intermediate, Verified 11/21/23 13:14) hypotension HPI HPI Comments History of Present Illness Details Patient is a 63 yo male with DM type 2 diagnosed in approximately 1999 who presents for management of diabetes. PMH: DM2, HLD, Vit insufficiency, Prostrate cancer (2004) , anxiety and depression and smoking. No known micro/macrovascular complications. Diabetes medications: Toujeo 14 units, Novolog 10 units Ac , stopped Tradjenta 5 mg in evening. Intolerant of metformin due to diarrhea, Jardiance due to urinary frequency and Trulicity due to undesired weight loss. Pioglitzone stopped due to edema. Bebeto download shows the sensor is active 100% of the time. Average glucose 171 with G mi of 7.4% and 61% range with 38% hyperglycemia and 1% hypoglycemia Symptoms reported: reports tinging and cramping, occasional numbness. Hypoglycemia: no Hyperglycemia: + polyuria, + nocturia Exercise: walks 1/4-1/2 hour most days, limited to pain in back. Eye exam: needs to make appt-appts for cataracts in 12/2023 Laboratory Tests 10/25/21 15:44 Hgb A1c (Clinic) 7.6 H 07/19/21 13:36 Hgb A1c (Clinic) 6.8 H [facility] Medical History Hypoxemia COPD exacerbation Smoker Allergic rhinitis Type 2 diabetes mellitus with diabetic polyneuropathy Tinnitus Anxiety and depression Annual physical exam Tobacco abuse Peptic ulcer disease Renal calculus, right Tubular adenoma of colon DDD (degenerative disc disease), lumbar Depression Prostate cancer COPD (chronic obstructive pulmonary disease) CAP (community acquired pneumonia) Gastric ulcer Hernia Kidney stones History of prostate cancer Erectile dysfunction Insulin use (long-term) in type 2 diabetes Hyperlipidemia LDL goal <100 Vitamin D insufficiency Surgical History History of foot surgery History of inguinal hernia repair Hx of tonsillectomy Hx of prostatectomy Family History Father Diabetes Mother No problems noted. Son Diabetes Maternal Uncle Prostate cancer Paternal Grandfather Myocardial infarction Maternal Grandmother No problems noted. Maternal Aunt Esophageal cancer Maternal Grandfather Myocardial infarction Social History Household Members: Spouse Housing: Apartment Alcohol intake: current Alcohol intake frequency: a few times a month Patient Tobacco Use Status: Former Tobacco user Tobacco use type: Cigarette e-Cigarette/Vaping Use: Never Used Second Hand Smoke Exposure: Yes Substance Use Type: Former Substance User and Marijuana service: No Current occupational status: disabled Cognitive needs: Yes (cane) Hearing needs: Yes (hearing aide) Vision needs: Yes Physical Exam Vital Signs: Last Vital Signs Pulse 78 11/21/23 12:57 BP 132/64 11/21/23 12:57 BMI result Body Mass Index 27.4 Absence of Cushingoid features. Absence of acromegalic features. Neck exam reveals nl size thyroid about 15 gms. No thyroid nodules palpable. No carotid bruits present. Lungs CTA. Heart S1 S2, Reg R/R. No M/R/ G. Skin exam reveals absence of vitiligo or acanthosis nigricans. Abdominal exam reveals Soft NT/ND with NA BS. No organomegaly present. Neck Other: . Extrem Other: Visual exam of foot performed. No ulcerations or open lesions. No onchomycosis, no callouses.Pulses 2 + distally Sensation intact to monofilament exam. Vibratory sensation sensed is decreased with 128 Hz tuning fork Assessment & Plan Assessment & Plan (1) Type 2 diabetes mellitus with diabetic polyneuropathy: Code(s): E11.42 - Type 2 diabetes mellitus with diabetic polyneuropathy Qualifiers: Diabetes mellitus skilled nursing insulin use: with skilled nursing use Qualified Code(s): E11.42 - Type 2 diabetes mellitus with diabetic polyneuropathy; Z79.4 - intermediate (current) use of insulin Plan: This 62-year-old male with history of type 2 diabetes being treated with basal-bolus insulin with improving excellent glycemic control and known microvascular complications namely neuropathy Plan is to i continue the current regimen. At This point, patient returned to the care of his primary care provider and returned back to endocrinology should his HbA1c deteriorate Coding Level of Care Code Est Pt Level 4 (36793) Diagnoses Type 2 diabetes mellitus with diabetic polyneuropathy, with long-term current use of insulin E11.42; Z79.4 Diabetes mellitus long wall mining machine helper insulin use: with long wall mining machine helper use
[2023-11-21 13:16] LABS: Glucose, Whole Blood 187 mg/dL (60-115)
== END 2023-11-21 13:28 | disposition home or self-care (01) ==
PROVIDERS: PCP Internal Medicine; Visit Provider Internal Medicine Endocrinology, Diabetes & Metabolism
DX: E11.42 Type 2 diabetes mellitus with diabetic polyneuropathy (principal); Z79.4 Long term (current) use of insulin
CPT/HCPCS: 99214

== ENCOUNTER → 2023-11-21 12:55 | Outpatient (BNVA) | payer OTHER, SELFPAY | PROVIDERS: PCP Internal Medicine; Visit Provider Internal Medicine Endocrinology, Diabetes & Metabolism | DX: E11.42 Type 2 diabetes mellitus with diabetic polyneuropathy (principal); Z79.4 Long term (current) use of insulin | CPT/HCPCS: 82947; 99212 ==

== ENCOUNTER 2024-01-02 13:39 | Outpatient (AMB) | payer OTHER, SELFPAY ==
[2024-01-02 13:46] VITALS: BP 138/70; PULSE 100; O2SAT 98; BMI 28.1
--- NOTE | 2024-01-02 13:46 | A.OFFPC_ITS ---
Vital Signs 01/02/24 13:46 Height 5 ft 6.5 in Weight 177 lb BMI 28.1 BP 138/70 Blood Pressure Location Lt brachial Position Sitting Pulse 100 Pulse Source Pulse Oximeter Pulse Oximetry (%) 98 Oxygen Delivery Method Nasal Cannula Intake Visit Reasons: 3 month f/u Allergies cortisone [CORTISONE] Allergy (Severe, Verified 01/02/24 13:46) ANAPHYLAXIS cephalexin Allergy (Unknown, Verified 01/02/24 13:46) unknown lisinopril Adverse Reaction (Intermediate, Verified 01/02/24 13:46) hypotension Medication List - Last Reconciled 01/02/24 by Margarito Barragan PoMD albuterol sulfate 90 mcg/actuation INHALE 2 PUFFS BY MOUTH EVERY 4 TO 6 HOURS NEEDED FOR SHORTNESS OF BREATH OR WHEEZING alcohol swabs (BD Alcohol Swabs) 1 pad topical QID atorvastatin 20 mg PO DAILY bisacodyl 10 mg PO DIRECTED PRN blood sugar diagnostic (FreeStyle Lite Strips) Three time a day blood-glucose meter (FreeStyle Lite Meter kit) USE DIRECTED blood-glucose sensor (FUELUP G7 Sensor device) As directed change every 10 days cholecalciferol (vitamin D3) 50 mcg PO DAILY clotrimazole 1% 1 appl topical BID 4 weeks fluticasone propion-salmeterol 250-50 mcg/dose 1 ea PO Q12H glucagon 3 mg/actuation (Baqsimi) 3 mg intranasal ONCE 30 days glucose (Dex4 Glucose) 12 grams (3 x 4 gram) PO Q15M PRN Incruse Ellipta 62.5 mcg/actuation (umeclidinium) 1 inh PO DAILY NS insulin glargine U-300 conc 14 units subcut BEDTIME lancets (FreeStyle Lancets) 1 gauge topical TID 90 days loratadine 10 mg PO DAILY 90 days methocarbamol 500 mg PO TID miconazole nitrate 2% (Zeasorb AF) 1 appl topical BID nabumetone 500 mg PO BID Novolog FlexPen U-100 Insulin (insulin aspart U-100) 14 units (0.14 mL) subcut TID NS omeprazole 20 mg PO DAILY Oxygen Home Use As directedO2 2L NC pen needle, diabetic (BD Tierra 2nd Gen Pen Needle) 1 ea miscellaneous .4X/day polyethylene glycol 3350 grams PO psyllium husk (Fiber (psyllium husk)) 1.04 grams (2 x 0.52 gram) PO DAILY sertraline 50 mg PO DAILY 90 days tramadol 50 mg PO DAILY Tobacco use date assessed: 11/17/23 Fall risk assessment: No Falls in past year Last assessed Fall Risk: 01/02/24 Dental Screening Dental Screen Date: 01/02/24 Did you have a dental visit in the last 12 months?: Yes Did you have a dental problem in the last 6 months where you did not have access to dental care?: No Was dental information given to patient?: Patient has dentist HPI 3 month f/u HPI Details 63-year-old male with uncontrolled diabe pranay mellitus COPD hypercholesterolemia lumbar degenerative disc disease last seen in October 2023. Patient follows up with endocrinology and has control the blood sugars with a basal bolus of insulin. [facility] Medical History Hypoxemia COPD exacerbation Smoker Allergic rhinitis Type 2 diabetes mellitus with diabetic polyneuropathy Tinnitus Anxiety and depression Annual physical exam Tobacco abuse Peptic ulcer disease Renal calculus, right Tubular adenoma of colon DDD (degenerative disc disease), lumbar Depression Prostate cancer COPD (chronic obstructive pulmonary disease) CAP (community acquired pneumonia) Gastric ulcer Hernia Kidney stones History of prostate cancer Erectile dysfunction Insulin use (long-term) in type 2 diabetes Hyperlipidemia LDL goal <100 Vitamin D insufficiency Surgical History History of foot surgery History of inguinal hernia repair Hx of tonsillectomy Hx of prostatectomy Family History (Updated 01/02/24 @ 13:47 by Rochelle Ken [facility]) Father Diabetes Mother No problems noted. Son Diabetes Maternal Uncle Prostate cancer Paternal Grandfather Myocardial infarction Maternal Grandmother No problems noted. Maternal Aunt Esophageal cancer Maternal Grandfather Myocardial infarction Social History Household Members: Spouse Housing: Apartment Alcohol intake: current Alcohol intake frequency: a few times a month Patient Tobacco Use Status: Former Tobacco user Tobacco use type: Cigarette e-Cigarette/Vaping Use: Never Used Second Hand Smoke Exposure: Yes Substance Use Type: Former Substance User and Marijuana service: No Current occupational status: disabled Cognitive needs: Yes (cane) Hearing needs: Yes (hearing aide) Vision needs: Yes Questionnaire PHQ-9 Over the last 2 weeks, how often have you been bothered by any of the following problems? 1. Little interest or pleasure in doing things: not at all 2. Feeling down, depressed, or hopeless: not at all 3. Trouble falling or staying asleep, or sleeping too much: not at all 4. Feeling tired or having little energy: not at all 5. Poor appetite or overeating: not at all 6. Feeling bad about yourself - or that you are a failure or have let yourself or your family down: not at all 7. Trouble concentrating on things, such as reading the newspaper or watching television: not at all 8. Moving or speaking so slowly that other people could have noticed. Or the opposite - being so fidgety or restless that you have been moving around a lot more than usual: not at all 9. Thoughts that you would be better off or of hurting yourself in some way: not at all Total score: 0 Depression Screening Interpretation: Negative Depression Screening Done: Yes Source: Developed by Drs. Favian Nascimento, Valentina Serrano, Jose M Lunsford and colleagues, with an educational edita from [employer]. Thrive Questionnaire Date Thrive assessed: 01/02/24 I am a: Patient What is your living situation today?: I have a steady place to live Within the past 12 months, did the food you bought not last and you didn't have the money to get more?: Never true Within the past 12 months, did you worry whether your food would run out before you got money to buy more?: Never true Do you have trouble paying for medicines?: No Do you have trouble getting transportation to medical appointments?: No Do you have trouble paying your heating and electricity bill?: No Do you have trouble taking care of your child, family member or friend?: No Do you have trouble with day-to-day activities such as bathing, preparing meals, shopping, managing finances, etc.?: No Are you currently unemployed and looking for a job?: No Are you interested in more education?: No Currently or been in a relationship where the following occur: no concerns reported THRIVE Score: 0 AUDIT C Alcohol Use Questionnaire (AUDIT-C) 1. How often do you have a drink containing alcohol?: Monthly or less 2. How many drinks containing alcohol do you have on a typical day when you are drinking?: 1 or 2 3. How often do you have six or more drinks on one occasion?: Never Total Score: 1 YOLIS-7 AMB Questionnaire YOLIS-7 Date YOLIS - 7 assessed: 11/17/23 Source: Developed by Drs. Favian Nascimento, Valentina Serrano, Jose M Lunsford and colleagues, with an educational edita from [employer]. Physical exam (Primary Care) Vital Signs: Last Vital Signs Pulse 100 01/02/24 13:46 BP 138/70 01/02/24 13:46 Pulse Ox 98 01/02/24 13:46 Oxygen Delivery Method Nasal Cannula 01/02/24 13:46 BMI result Body Mass Index 28.1 Tobacco/Smoking Status: Tobacco use Status Tobacco use date assessed 11/17/23 01/02/24 13:52 Patient Tobacco Use Status Former Tobacco user 01/02/24 13:52 Tobacco use type Cigarette 01/02/24 13:52 e-Cigarette/Vaping Use Never Used 01/02/24 13:52 PHQ-9: PHQ-9 Score PHQ-9: Total score 0 01/02/24 13:56 Depression Screening Interpretation: Negative Thrive Assessment: Date of Thrive Assessment Date Thrive assessed 01/02/24 01/02/24 13:52 Currently or been in a relationship where the following occur: no concerns reported Const General: alert; No acute distress Eyes Conjunctivae: conjunctivae normal Resp Auscultation: clear to auscultation bilaterally Cardio Rate: regular rate Rhythm: regular rhythm GI Inspection: Yes normal to inspection Extrem General: Yes normal to inspection and No edema Assessment and Plan Assessment & Plan (1) COPD (chronic obstructive pulmonary disease): Comment: He has long-standing chronic obstructive pulmonary disease. DOING MUCH BETTER SINCE HE QUIT SMOKING. Code(s): J44.9 - Chronic obstructive pulmonary disease, unspecified Qualifiers: COPD type: emphysema Emphysema type: unspecified Qualified Code(s): J43.9 - Emphysema, unspecified Plan: Continue with the medications (2) Hyperlipidemia LDL goal <100: Code(s): E78.5 - Hyperlipidemia, unspecified Plan: Avoid fried foods, chicken skin, eggs, butter margarine, pastries and meat. Be it pork or beef they have a lot of cholesterol LDL goal of less than 100 and triglyceride of less than 150 on atorvastatin 20 mg once a day (3) Type 2 diabetes mellitus with hyperglycemia: Comment: eye doctor in [place] Code(s): E11.65 - Type 2 diabetes mellitus with hyperglycemia Plan: Decrease the amount of carbohydrate intake, pasta, bread, rice and potatoes are all sugar and that is aside from all the sweet stuff, remember that fruits are good but they are Sweet also. Hemoglobin A1c goal of less than 7.0. Patient has followed up with endocrinology and has been released presently on insulin basal bolus (4) Generalized anxiety disorder: Comment: [facility] March 2021 Code(s): F41.1 - Generalized anxiety disorder Plan: Continued present medication (5) Tinea pedis: Code(s): B35.3 - Tinea pedis Orders: Orders Complete Blood Count Auto Diff Today E11.65 - Type 2 diabetes mellitus with hyperglycemia Free T4 (Free Thyroxine) Today E11.65 - Type 2 diabetes mellitus with hyperglycemia Hepatitis B,C Profile 3 Months E11.65 - Type 2 diabetes mellitus with hyperglycemia, R79.89 - Other specified abnormal findings of blood chemistry Vitamin B12 and Folate Today E11.65 - Type 2 diabetes mellitus with hyperglycemia Lipid Panel Today E11.65 - Type 2 diabetes mellitus with hyperglycemia, E78.00 - Pure hypercholesterolemia, unspecified Microalbumin, Random (w Creat) Today E11.65 - Type 2 diabetes mellitus with hyperglycemia Creatinine Urine Today E11.65 - Type 2 diabetes mellitus with hyperglycemia Comprehensive Met. Panel Today E11.65 - Type 2 diabetes mellitus with hyperglycemia Thyroid Stimulating Hormone Today E11.65 - Type 2 diabetes mellitus with hyperglycemia Hemoglobin A1c 3 Months E11.65 - Type 2 diabetes mellitus with hyperglycemia Prostate Specific Antigen Scr Today E11.65 - Type 2 diabetes mellitus with hyperglycemia ECG 12 lead EKG Today E11.65 - Type 2 diabetes mellitus with hyperglycemia Medications: New miconazole nitrate 2% (Zeasorb AF) 1 appl topical BID 85 grams 1RF B35.3 - Tinea pedis clotrimazole 1% 1 appl topical BID 4 weeks 45 grams 1RF B35.3 - Tinea pedis Coding Level of Care Code Est Pt Level 4 (69229) Diagnoses Pulmonary emphysema, unspecified emphysema type J43.9 COPD type: emphysema Emphysema type: unspecified Hyperlipidemia LDL goal <100 E78.5 Type 2 diabetes mellitus with hyperglycemia E11.65 Generalized anxiety disorder F41.1 Tinea pedis B35.3
== END 2024-01-02 14:25 | disposition home or self-care (01) ==
PROVIDERS: PCP Internal Medicine; Visit Provider Internal Medicine
DX: J43.9 Emphysema, unspecified (principal); E78.5 Hyperlipidemia, unspecified; E11.65 Type 2 diabetes mellitus with hyperglycemia; F41.1 Generalized anxiety disorder; B35.3 Tinea pedis
CPT/HCPCS: 99214

== ENCOUNTER 2024-01-04 13:44 | Outpatient (AMB) | payer OTHER, SELFPAY ==
--- NOTE | 2024-01-04 13:51 | MHC.OFFVIS ---
Intake Vital Signs 01/04/24 13:52 Height 5 ft 6.5 in Weight 181 lb 14.102 oz BMI 28.9 BP 102/62 Blood Pressure Location Lt brachial Position Sitting Pulse 78 Pulse Source Pulse Oximeter Pulse Oximetry (%) 98 Oxygen Delivery Method Nasal Cannula Oxygen Flow Rate 1 Intake Visit Reasons: COPD Intake Note: pt is here for follow up and stated he saw yesterday and he lowered his O2 to 1 liter. Roving Department End Finder Required: No Allergies cortisone [CORTISONE] Allergy (Severe, Verified 01/04/24 14:11) ANAPHYLAXIS cephalexin Allergy (Unknown, Verified 01/04/24 14:11) unknown lisinopril Adverse Reaction (Intermediate, Verified 01/04/24 14:11) hypotension Medication List - Last Reconciled 01/04/24 by Kenisha Mckeon MD albuterol sulfate 90 mcg/actuation INHALE 2 PUFFS BY MOUTH EVERY 4 TO 6 HOURS NEEDED FOR SHORTNESS OF BREATH OR WHEEZING alcohol swabs (BD Alcohol Swabs) 1 pad topical QID atorvastatin 20 mg PO DAILY bisacodyl 10 mg PO DIRECTED PRN blood sugar diagnostic (FreeStyle Lite Strips) Three time a day blood-glucose meter (FreeStyle Lite Meter kit) USE DIRECTED blood-glucose sensor (Videolicious G7 Sensor device) As directed change every 10 days cholecalciferol (vitamin D3) 50 mcg PO DAILY clotrimazole 1% 1 appl topical BID 4 weeks fluticasone propion-salmeterol 250-50 mcg/dose 1 ea PO Q12H glucagon 3 mg/actuation (Baqsimi) 3 mg intranasal ONCE 30 days glucose (Dex4 Glucose) 12 grams (3 x 4 gram) PO Q15M PRN Incruse Ellipta 62.5 mcg/actuation (umeclidinium) 1 inh PO DAILY NS insulin glargine U-300 conc 14 units subcut BEDTIME lancets (FreeStyle Lancets) 1 gauge topical TID 90 days loratadine 10 mg PO DAILY 90 days methocarbamol 500 mg PO TID miconazole nitrate 2% (Zeasorb AF) 1 appl topical BID nabumetone 500 mg PO BID Novolog FlexPen U-100 Insulin (insulin aspart U-100) 14 units (0.14 mL) subcut TID NS omeprazole 20 mg PO DAILY Oxygen Home Use As directedO2 2L NC pen needle, diabetic (BD Tierra 2nd Gen Pen Needle) 1 ea miscellaneous .4X/day polyethylene glycol 3350 grams PO psyllium husk (Fiber (psyllium husk)) 1.04 grams (2 x 0.52 gram) PO DAILY sertraline 50 mg PO DAILY 90 days tramadol 50 mg PO DAILY Do you need a note to return to daycare/school/sports/work: No HPI COPD HPI Details Carroll is here for 2 months follow-up. Breathing [place] he is doing well and is stable. However he still needs portable oxygen. Which has been reduced to 1 L/minute. He has only minimal intermittent cough. And moderate amount of shortness of breath when he walks around. He uses his inhalers regularly. It is 4 months since he has quit smoking and drinking alcohol. His main symptom is pain in the back when he stands for too long or walks around. [facility] Medical History Hypoxemia COPD exacerbation Smoker Allergic rhinitis Type 2 diabetes mellitus with diabetic polyneuropathy Tinnitus Anxiety and depression Annual physical exam Tobacco abuse Peptic ulcer disease Renal calculus, right Tubular adenoma of colon DDD (degenerative disc disease), lumbar Depression Prostate cancer COPD (chronic obstructive pulmonary disease) CAP (community acquired pneumonia) Gastric ulcer Hernia Kidney stones History of prostate cancer Erectile dysfunction Insulin use (long-term) in type 2 diabetes Hyperlipidemia LDL goal <100 Vitamin D insufficiency Surgical History History of foot surgery History of inguinal hernia repair Hx of tonsillectomy Hx of prostatectomy Family History Father Diabetes Mother No problems noted. Son Diabetes Maternal Uncle Prostate cancer Paternal Grandfather Myocardial infarction Maternal Grandmother No problems noted. Maternal Aunt Esophageal cancer Maternal Grandfather Myocardial infarction Social History Household Members: Spouse Housing: Apartment Alcohol intake: current Alcohol intake frequency: a few times a month Patient Tobacco Use Status: Former Tobacco user Tobacco use type: Cigarette e-Cigarette/Vaping Use: Never Used Second Hand Smoke Exposure: Yes Substance Use Type: Former Substance User and Marijuana service: No Current occupational status: disabled Cognitive needs: Yes (cane) Hearing needs: Yes (hearing aide) Vision needs: Yes Review of Systems Const All systems reviewed & are unremarkable except as noted in HPI and below Eyes Reports no additional complaints ENT Reports nasal congestion (mild ) Card Denies chest pain, Denies irregular heart rhythm and Denies leg edema Resp Reports as per HPI GI Reports heartburn (Controlled with omeprazole) Reports erectile dysfunction Musc Reports back pain (Mild) Skin/Breast Reports system reviewed and no additional complaints, except as documented Neuro Reports no additional complaints Psych Reports no additional complaints Physical Exam Vital Signs: Last Vital Signs Pulse 78 01/04/24 13:52 BP 102/62 01/04/24 13:52 Pulse Ox 98 01/04/24 13:52 Oxygen Delivery Method Nasal Cannula 01/04/24 13:52 Oxygen Flow Rate 1 01/04/24 13:52 BMI result Body Mass Index 28.9 Const General: comfortable, no acute distress, alert and awake Orientation/consciousness: patient oriented x3 HEENT Head: Yes normal to inspection General nose exam: No nasal polyps present and No nasal discharge present Face and sinus: Yes sinuses nontender Mouth: oropharynx normal Throat: Yes posterior oropharynx normal Eyes General: appearance normal, both eyes and all related structures Neck Neck: Yes normal visual inspection, Yes no lymphadenopathy, Yes trachea midline and Yes no JVD Thyroid: Thyroid normal Chest Chest palpation & inspection: normal inspection of the chest, normal palpation of entire chest wall and no tenderness Resp Other: Percussion note hyper-resonant, breath sounds are distant with prolonged expiratory phase on both sides. No audible wheezes or rhonchi were present Cardio Palpation: normal PMI Rate: regular rate Rhythm: regular rhythm Heart sounds: no gallops and no murmurs GI Palpation (GI): Soft to palpation, nontender, No hepatosplenomegaly present and no masses Auscultation: normal bowel sounds Back/Spine/Pelvis Thoracic/Lumbar Spine: thoracic and lumbar spine normal to inspection and thoraco-lumbar ROM limited Skin General skin exam: no rashes or lesions noted Neuro General: patient oriented x3 and no focal motor deficits Cranial nerves: Yes CN's II-XII intact bilaterally Extrem General: Yes normal to inspection, Yes no clubbing, cyanosis or edema and Yes no calf tenderness Psych Appearance: grossly normal Speech and movement: Normal speech and movement present Results Reviewed Results Reviewed: Walked in the hallway on room air. Resting O2 sat 97%, after walking for 4 minutes O2 sat down to 90%. He could not walk any further because of back pain Assessment & Plan Assessment & Plan (1) COPD (chronic obstructive pulmonary disease): Comment: He has long-standing chronic obstructive pulmonary disease. DOING MUCH BETTER SINCE HE QUIT SMOKING. He has recovered from his acute exacerbation in October of this year. Still needs oxygen when he ambulates around. Code(s): J44.9 - Chronic obstructive pulmonary disease, unspecified Qualifiers: COPD type: emphysema Emphysema type: unspecified Qualified Code(s): J43.9 - Emphysema, unspecified Plan: Continue using Wixela 250-51 inhalation b.i.d., Incruse Ellipta 1 inhalation daily, and albuterol HFA 2 puffs Q 4-6 hours p.r.n.. (2) Allergic rhinitis: Comment: Mild chronic, has been stable. T Code(s): J30.9 - Allergic rhinitis, unspecified Plan: X : Only Claritin 10 mg once a day p.r.n.. (3) Hypoxemia: Comment: Patient does have hypoxemia on minimal exertion. It has improved and he does well just with 1 L/minute. Code(s): R09.02 - Hypoxemia Plan: Continue portable oxygen 1 L/minute whenever walking. Start walking. More around the house Will recheck in 2 months again. Coding Level of Care Code Est Pt Level 3 (67122) Diagnoses Pulmonary emphysema, unspecified emphysema type J43.9 COPD type: emphysema Emphysema type: unspecified Allergic rhinitis J30.9 Hypoxemia R09.02
[2024-01-04 13:52] VITALS: BP 102/62; PULSE 78; O2SAT 98; BMI 28.9
== END 2024-01-04 14:11 | disposition home or self-care (01) ==
PROVIDERS: PCP Internal Medicine; Visit Provider Internal Medicine
DX: J43.9 Emphysema, unspecified (principal); J30.9 Allergic rhinitis, unspecified; R09.02 Hypoxemia
CPT/HCPCS: 99213

== ENCOUNTER → 2024-01-04 13:44 | Outpatient (BNVA) | payer OTHER, SELFPAY | PROVIDERS: PCP Internal Medicine; Visit Provider Internal Medicine | DX: J43.9 Emphysema, unspecified (principal); R09.02 Hypoxemia | CPT/HCPCS: 99212 ==

== ENCOUNTER 2024-01-09 13:36 | Outpatient (AMB) | payer OTHER, SELFPAY ==
--- NOTE | 2024-01-09 14:12 | A.OFFVIS_ITS ---
Intake Vital Signs 01/09/24 14:13 Weight 181 lb Intake Visit Reasons: DM Germ Drier Required: Yes Germ Drier Language: Financial Foundations Representative Name: Cornelio [facility] [place] Accompanied by: Self / Same As Patient Allergies cortisone [CORTISONE] Allergy (Severe, Verified 01/04/24 14:11) ANAPHYLAXIS cephalexin Allergy (Unknown, Verified 01/04/24 14:11) unknown lisinopril Adverse Reaction (Intermediate, Verified 01/04/24 14:11) hypotension HPI Comprehensive Diabetes Asmnt Most Recent Diabetes Results: Microalb/Creat Ratio 17.2 ug/mg cr 03/14/23 Cholesterol 154 mg/dL 03/14/23 HDL Cholesterol 55 mg/dL 03/14/23 Triglycerides 69 mg/dL 03/14/23 Creatinine 0.84 mg/dL (0.5-1.4) 03/14/23 Blood Urea Nitrogen 13 mg/dL (9-16) 03/14/23 Sodium 140 mmol/L (135-145) 03/14/23 Potassium 4.4 mmol/L (3.3-5.1) 03/14/23 Chloride 102 mmol/L (96-108) 03/14/23 Carbon Dioxide 30 mmol/L (22-29) H 03/14/23 Calcium 9.5 mg/dL (8.4-10.2) 03/14/23 AST 18 U/L (5-37) 03/14/23 ALT 17 U/L (0-40) 03/14/23 Total Protein 6.8 g/dL (6.5-8.0) 03/14/23 Albumin 4.2 g/dL (3.5-5.0) 03/14/23 [facility] Medical History Hypoxemia COPD exacerbation Smoker Allergic rhinitis Type 2 diabetes mellitus with diabetic polyneuropathy Tinnitus Anxiety and depression Annual physical exam Tobacco abuse Peptic ulcer disease Renal calculus, right Tubular adenoma of colon DDD (degenerative disc disease), lumbar Depression Prostate cancer COPD (chronic obstructive pulmonary disease) CAP (community acquired pneumonia) Gastric ulcer Hernia Kidney stones History of prostate cancer Erectile dysfunction Insulin use (long-term) in type 2 diabetes Hyperlipidemia LDL goal <100 Vitamin D insufficiency Surgical History History of foot surgery History of inguinal hernia repair Hx of tonsillectomy Hx of prostatectomy Family History Father Diabetes Mother No problems noted. Son Diabetes Maternal Uncle Prostate cancer Paternal Grandfather Myocardial infarction Maternal Grandmother No problems noted. Maternal Aunt Esophageal cancer Maternal Grandfather Myocardial infarction Social History Household Members: Spouse Housing: Apartment Alcohol intake: current Alcohol intake frequency: a few times a month Patient Tobacco Use Status: Former Tobacco user Tobacco use type: Cigarette e-Cigarette/Vaping Use: Never Used Second Hand Smoke Exposure: Yes Substance Use Type: Former Substance User and Marijuana service: No Current occupational status: disabled Cognitive needs: Yes (cane) Hearing needs: Yes (hearing aide) Vision needs: Yes Assessment & Plan Assessment & Plan (1) Type 2 diabetes mellitus with hyperglycemia: Comment: eye doctor in [place] Code(s): E11.65 - Type 2 diabetes mellitus with hyperglycemia Plan: Learning objectives: The patient was provided with verbal and written education on the following topics as outlined below. Assess patient education level/literacy/barriers Patient questions/concerns, patient is using Dexcom G7 to monitor glucose In the past 2 weeks patient's average glucose is 182 mg/dL Patient above target 47% Patient at target 52% Patient below target 1% Patient's last A1c in October 2023 6.7% Patient reports he has been eating larger portions of carbohydrate since giving up cigarette smoking, patient also reports that he is been experiencing cold symptoms Discussed with patient the effects that infection and stress can have on glucose levels. Patient declined to adjust insulin at today's visit, would like to 1st try and reduce carbohydrates at meals The patient met all learning objectives and was able to verbalize understanding and provide teach back of education topics discussed . The patient was provided with the opportunity to ask questions and all questions were answered. Topics covered in today?s session included: Medications (If applicable) * Name of medication? * Dosing/administration instructions? * Mechanism of action? * Potential side effects? * Potential adverse reaction and appropriate treatment? * Review onset, peak, duration Assess for concerns re: insurance coverage, cost, barriers to compliance Insulin/Injectables (If applicable) * Storage/care of insulin?? * Injection sites? * Site rotation? * Onset, peak, duration * Drawing up insulin? * Injecting insulin/other injectables? * Sharps disposal Continuous blood glucose monitoring (if applicable) Hypoglycemia and Hyperglycemia * Signs and symptoms? * Causes?? * Treatment? * Preventing hypoglycemia? * When to seek medical attention * Blood glucose targets and how you feel when your blood glucose is in and out of your target ranges. * Monitoring and knowing your A1C. * What can make blood glucose go up and down and preventing high and low blood glucose. * Review of blood sugar targets in expected goal range and outside of expected goal range. * Problem solving and preventing hyper/hypoglycemia. * Sick day management of diabetes. * Using blood sugar results in decision making process in managing diabetes. ?Patient was receptive to information provided and participated in the discussion. Asked?appropriate questions and demonstrated good understanding of the topics discussed.? ? Educational Materials: The patient was provided with the following written educational materials: Target Goal handout Smart Goal: Patient will reduce carbohydrates at mealtime to 45-75 g of carbohydrate Comprehension of Instructions: fair Readiness to make changes:? Contemplation How confident they feel about making changes:fair Coding Level of Care Code Est Pt Level 1 (47825) Diagnoses Type 2 diabetes mellitus with hyperglycemia E11.65
== END 2024-01-09 14:56 | disposition home or self-care (01) ==
PROVIDERS: PCP Internal Medicine; Visit Provider Registered Nurse Diabetes Educator
DX: E11.65 Type 2 diabetes mellitus with hyperglycemia (principal)

== ENCOUNTER → 2024-01-09 13:36 | Outpatient (BNVA) | payer OTHER, SELFPAY | PROVIDERS: PCP Internal Medicine; Visit Provider Registered Nurse Diabetes Educator | DX: E11.65 Type 2 diabetes mellitus with hyperglycemia (principal); E78.00 Pure hypercholesterolemia, unspecified; Z79.4 Long term (current) use of insulin | CPT/HCPCS: 99211 ==

== ENCOUNTER 2024-01-16 10:27 | Outpatient (AMB) | payer OTHER, SELFPAY ==
[2024-01-16 10:40] VITALS: BP 122/68; PULSE 64; O2SAT 98; BMI 28.3
--- NOTE | 2024-01-16 10:40 | A.OFFPC_ITS ---
Vital Signs 01/16/24 10:40 Height 5 ft 6.5 in Weight 178 lb BMI 28.3 BP 122/68 Blood Pressure Location Lt brachial Position Sitting Pulse 64 Pulse Source Pulse Oximeter Pulse Oximetry (%) 98 Oxygen Delivery Method Room Air Intake Visit Reasons: [facility]-16[facility]2nd eye 4-30 Prepared Foods Supervisor Required: No Heat And Vent Aircraft Mechanic: Present Accompanied by: Spouse Allergies cortisone [CORTISONE] Allergy (Severe, Verified 01/16/24 10:41) ANAPHYLAXIS cephalexin Allergy (Unknown, Verified 01/16/24 10:41) unknown lisinopril Adverse Reaction (Intermediate, Verified 01/16/24 10:41) hypotension Medication List - Last Reconciled 01/17/24 by Allan Che MD albuterol sulfate 90 mcg/actuation INHALE 2 PUFFS BY MOUTH EVERY 4 TO 6 HOURS NEEDED FOR SHORTNESS OF BREATH OR WHEEZING alcohol swabs (BD Alcohol Swabs) 1 pad topical QID atorvastatin 20 mg PO DAILY bisacodyl 10 mg PO DIRECTED PRN blood sugar diagnostic (FreeStyle Lite Strips) Three time a day blood-glucose meter (FreeStyle Lite Meter kit) USE DIRECTED blood-glucose sensor (Dexcom G7 Sensor device) As directed change every 10 days cholecalciferol (vitamin D3) 50 mcg PO DAILY clotrimazole 1% 1 appl topical BID 4 weeks fluticasone propion-salmeterol 250-50 mcg/dose 1 ea PO Q12H glucagon 3 mg/actuation (Baqsimi) 3 mg intranasal ONCE 30 days glucose (Dex4 Glucose) 12 grams (3 x 4 gram) PO Q15M PRN Incruse Ellipta 62.5 mcg/actuation (umeclidinium) 1 inh PO DAILY NS insulin glargine U-300 conc 14 units subcut BEDTIME lancets (FreeStyle Lancets) 1 gauge topical TID 90 days miconazole nitrate 2% (Zeasorb AF) 1 appl topical BID Novolog FlexPen U-100 Insulin (insulin aspart U-100) 14 units (0.14 mL) subcut TID NS Oxygen Home Use As directedO2 2L NC pen needle, diabetic (BD Tierra 2nd Gen Pen Needle) 1 ea miscellaneous .4X/day polyethylene glycol 3350 grams PO psyllium husk (Fiber (psyllium husk)) 1.04 grams (2 x 0.52 gram) PO DAILY sertraline 50 mg PO DAILY 90 days tramadol 50 mg PO DAILY Tobacco use date assessed: 11/17/23 Fall risk assessment: No Falls in past year Last assessed Fall Risk: 01/16/24 Dental Screening Dental Screen Date: 01/16/24 Did you have a dental visit in the last 12 months?: Yes Did you have a dental problem in the last 6 months where you did not have access to dental care?: No Was dental information given to patient?: Patient has dentist HPI [facility]2nd eye 4-30 HPI Details Having bilat cataracts removed; has DM and hyperlipidemia in good control PFSH Medical History Hypoxemia COPD exacerbation Smoker Allergic rhinitis Type 2 diabetes mellitus with diabetic polyneuropathy Tinnitus Anxiety and depression Annual physical exam Tobacco abuse Peptic ulcer disease Renal calculus, right Tubular adenoma of colon DDD (degenerative disc disease), lumbar Depression Prostate cancer COPD (chronic obstructive pulmonary disease) CAP (community acquired pneumonia) Gastric ulcer Hernia Kidney stones History of prostate cancer Erectile dysfunction Insulin use (long-term) in type 2 diabetes Hyperlipidemia LDL goal <100 Vitamin D insufficiency Surgical History History of foot surgery History of inguinal hernia repair Hx of tonsillectomy Hx of prostatectomy Family History Father Diabetes Mother No problems noted. Son Diabetes Maternal Uncle Prostate cancer Paternal Grandfather Myocardial infarction Maternal Grandmother No problems noted. Maternal Aunt Esophageal cancer Maternal Grandfather Myocardial infarction Social History Household Members: Spouse Housing: Apartment Alcohol intake: current Alcohol intake frequency: a few times a month Patient Tobacco Use Status: Former Tobacco user Tobacco use type: Cigarette e-Cigarette/Vaping Use: Never Used Second Hand Smoke Exposure: Yes Substance Use Type: Former Substance User and Marijuana service: No Current occupational status: disabled Cognitive needs: Yes (cane) Hearing needs: Yes (hearing aide) Vision needs: Yes Questionnaire Thrive Questionnaire Date Thrive assessed: 01/02/24 YOLIS-7 AMB Questionnaire YOLIS-7 Date YOLIS - 7 assessed: 11/17/23 Source: Developed by DrsLakshmi Nascimento, Valentina Serrano, Jose M Lunsford and colleagues, with an educational edita from [employer]. Review of Systems Const Denies chills, Denies fatigue, Denies headache(s) and Denies weight loss Eyes Denies change in vision, Denies diplopia and Denies eye pain ENT Denies vertigo, Denies dizziness, Denies headache(s) and Denies nasal discharge Card Denies chest pain, Denies rapid heart rate and Denies dyspnea on exertion Resp Denies chest congestion, Denies cough, Denies pain with cough and Denies dyspnea on exertion GI Denies abdominal pain, Denies hematochezia and Denies change in bowel habits Musc Denies myalgias, Denies arthralgias and Denies joint swelling Skin/Breast Denies lesions and Denies unusual bruising Neuro Denies vertigo, Denies dizziness, Denies headache(s) and Denies focal weakness Endo Denies fatigue Physical exam (Primary Care) Vital Signs: Last Vital Signs Pulse 64 01/16/24 10:40 BP 122/68 01/16/24 10:40 Pulse Ox 98 01/16/24 10:40 Oxygen Delivery Method Room Air 01/16/24 10:40 BMI result Body Mass Index 28.3 Tobacco/Smoking Status: Tobacco use Status Tobacco use date assessed 11/17/23 01/16/24 10:42 Patient Tobacco Use Status Former Tobacco user 01/16/24 10:42 Tobacco use type Cigarette 01/16/24 10:42 e-Cigarette/Vaping Use Never Used 01/16/24 10:42 Thrive Assessment: Date of Thrive Assessment Date Thrive assessed 01/02/24 01/16/24 10:42 Const General: cooperative, healthy appearing and no acute distress Orientation/consciousness: oriented to person, oriented to place and oriented to time HENKS Head: Yes normal to inspection, Yes normocephalic and Yes atraumatic Mouth: Normal oral and palatal mucosa present and tongue normal Throat: Yes posterior oropharynx normal and Yes uvula midline Eyes General: appearance normal, both eyes and all related structures Neck Neck: Yes normal visual inspection, Yes full ROM and Yes no lymphadenopathy Thyroid: Thyroid normal Carotids: normal carotid upstroke Chest Chest palpation & inspection: normal inspection of the chest Resp Effort & Inspection: normal respiratory effort and able to speak in complete sentences Auscultation: clear to auscultation bilaterally Cardio Jugular venous distension: no JVD Palpation: normal PMI Rate: regular rate Rhythm: regular rhythm Heart sounds: S1 normal heart sound present and S2 normal heart sound present GI Inspection: Yes normal to inspection Palpation (GI): Soft to palpation and No hepatosplenomegaly present Auscultation: normal bowel sounds General: Yes no CVA tenderness Back/Spine/Pelvis Back: no CVA tenderness Skin General skin exam: no rashes or lesions noted Neuro General: oriented to person, oriented to place and oriented to time Extrem General: Yes normal to inspection and Yes full ROM Assessment and Plan Assessment & Plan (1) Pre-op exam: Code(s): Z01.818 - Encounter for other preprocedural examination Plan: low risk of cardiovascular complications; cleared for surgery (2) Type 2 diabetes mellitus with diabetic polyneuropathy: Code(s): E11.42 - Type 2 diabetes mellitus with diabetic polyneuropathy Qualifiers: Diabetes mellitus half-way insulin use: with superintendent marine oil terminal use Qualified Code(s): E11.42 - Type 2 diabetes mellitus with diabetic polyneuropathy; Z79.4 - terminal make up operator (current) use of insulin Plan: stable; same rx (3) Hyperlipidemia LDL goal <100: Code(s): E78.5 - Hyperlipidemia, unspecified Plan: stable; same rx Coding Level of Care Code Est Pt Level 4 (08160) Diagnoses Pre-op exam Z01.818 Type 2 diabetes mellitus with diabetic polyneuropathy, with long-term current use of insulin E11.42; Z79.4 Diabetes mellitus superintendent marine oil terminal insulin use: with superintendent marine oil terminal use Hyperlipidemia LDL goal <100 E78.5
== END 2024-01-16 11:02 | disposition home or self-care (01) ==
PROVIDERS: PCP Internal Medicine; Visit Provider Internal Medicine
DX: Z01.818 Encounter for other preprocedural examination (principal); E11.42 Type 2 diabetes mellitus with diabetic polyneuropathy; Z79.4 Long term (current) use of insulin; E78.5 Hyperlipidemia, unspecified
CPT/HCPCS: 99214

== ENCOUNTER → 2024-01-17 08:02 | Outpatient (REF) | payer OTHER, SELFPAY ==
[2024-01-17 08:12] LABS: MANUAL DIFF FLAG NO
--- NOTE | 2024-01-17 08:16 | ECG_ITS ---
Test Reason : type 2 dm Blood Pressure : / mmHG Vent. Rate : 079 BPM Atrial Rate : 079 BPM P-R Int : 150 ms QRS Dur : 088 ms QT Int : 360 ms P-R-T Axes : 089 069 058 degrees QTc Int : 412 ms Normal sinus rhythm Normal ECG When compared with ECG of 28-SEP-2022 10:28, Vent. rate has decreased BY 40 BPM Referred By: Margarito Anton Electronically Signed By:Raad Andres
[2024-01-17 08:31] LABS: Basophils Percent Auto 0.6 % (0-2); Eosinophils Absolute Auto 0.3 X10*3/uL (0.0-0.4); Eosinophils Percent Auto 4.6 % (0-4); Hematocrit 42.9 % (42.0-52.0); Hemoglobin 14.2 g/dl (14.0-18.0); Imm Gran Abs Auto 0.02 X10*3/uL (0.00-0.03); Imm Gran Pct Auto 0.3 % (0.0-0.4); Mean Corpuscular HGB Conc 33.1 g/dl (31.0-36.0); Mean Corpuscular Hemoglobin 30.9 pg (27.0-33.0); Mean Corpuscular Volume 93.5 fL (80.0-98.0); Mean Platelet Volume 10.6 fL (9.4-12.4); Monocytes Absolute Auto 0.5 X10*3/uL (0.1-1.2); Monocytes Percent Auto 8.2 % (2-11); Neutrophils Absolute Auto 3.6 x10*3/uL (2.0-8.3); Neutrophils Percent Auto 55.3 % (45-73); Platelet Count 224 X10*3/uL (160-400); Red Blood Count 4.59 X10*6/uL (4.60-5.80); Red Cell Distribution Width 12.9 % (11.0-16.0); White Blood Count 6.6 X10*3/uL (4.8-10.8)
[2024-01-17 08:59] LABS: Alanine Aminotransferase 17 U/L (0-40); Albumin Level 4.2 g/dL (3.5-5.0); Alkaline Phosphatase 75 U/L (39-117); Anion Gap 11 (12-20); Aspartate Amino Transferase 21 U/L (5-37); Bilirubin Total 0.4 mg/dL (0.0-1.0); Blood Urea Nitrogen 12 mg/dL (9-16); Calcium 9.8 mg/dL (8.4-10.2); Carbon Dioxide 29 mmol/L (22-29); Chloride 103 mmol/L (96-108); Cholesterol 194 mg/dL (<200); Estimated Glomerular Filt Rate > 60; Glucose Random 192 mg/dL (60-115); HDL Cholesterol 55 mg/dL (>40); LDL Cholesterol Calculated 125 mg/dL (<100); Potassium 4.2 mmol/L (3.3-5.1); Sodium 139 mmol/L (135-145); Total Protein 7.6 g/dL (6.5-8.0); Triglycerides 73 mg/dL (<150)
[2024-01-17 09:31] LABS: Folate 11.4 ng/mL (> or = 4.0); Prostate Specific Antigen Scr < 0.10 ng/mL (<0.05-4.0); Vitamin B12 423 pg/mL (200-900)
== END ==
LOC: HO.CARD 08:02
PROVIDERS: PCP Internal Medicine; Visit Provider Internal Medicine
DX: E11.65 Type 2 diabetes mellitus with hyperglycemia (principal); E78.00 Pure hypercholesterolemia, unspecified; Z12.5 Encounter for screening for malignant neoplasm of prostate
CPT/HCPCS: 36415; 80053; 80061; 82043; 82570; 82607; 82746; 84153; 84439; 84443; 85025; 93005

== ENCOUNTER → 2024-01-17 08:16 | Outpatient (BNV) | payer OTHER, SELFPAY | PROVIDERS: PCP Internal Medicine; Visit Provider Internal Medicine Cardiovascular Disease | DX: E11.9 Type 2 diabetes mellitus without complications (principal) | CPT/HCPCS: 93010 ==

== ENCOUNTER 2024-01-23 15:47 | Outpatient (AMB) | payer OTHER, SELFPAY ==
[2024-01-23 15:48] VITALS: BP 118/72; PULSE 72; O2SAT 96; BMI 28.5
--- NOTE | 2024-01-23 15:48 | MHC.PC.OV ---
Vital Signs 01/23/24 15:48 Height 5 ft 6.5 in Weight 179 lb 0.8 oz BMI 28.5 BP 118/72 Blood Pressure Location Lt brachial Position Sitting Pulse 72 Pulse Source Pulse Oximeter Pulse Oximetry (%) 96 Oxygen Delivery Method Nasal Cannula Intake Visit Reasons: hernia concerns Quarter Doper Required: No Allergies cortisone [CORTISONE] Allergy (Severe, Verified 01/23/24 15:49) ANAPHYLAXIS cephalexin Allergy (Unknown, Verified 01/23/24 15:49) unknown lisinopril Adverse Reaction (Intermediate, Verified 01/23/24 15:49) hypotension Tobacco use date assessed: 01/23/24 Fall risk assessment: No Falls in past year Last assessed Fall Risk: 01/23/24 Dental Screening Dental Screen Date: 01/16/24 HPI hernia concerns HPI Details 64-year-old overweight male with COPD diabetes mellitus hypercholesterolemia and generalized anxiety disorder last seen in December 2023. For preoperative evaluation for cataract surgery. 02/05 R cataract surgery L 02/20/2024. PAtient has had hx of inguinal herniorrhapy in the past but concern on mass on the RLQ [facility] Medical History (Updated 01/17/24 @ 10:04 by Allan Che MD) Hypoxemia COPD exacerbation Smoker Allergic rhinitis Type 2 diabetes mellitus with diabetic polyneuropathy Tinnitus Anxiety and depression Annual physical exam Tobacco abuse Peptic ulcer disease Renal calculus, right Tubular adenoma of colon DDD (degenerative disc disease), lumbar Depression Prostate cancer COPD (chronic obstructive pulmonary disease) CAP (community acquired pneumonia) Gastric ulcer Hernia Kidney stones History of prostate cancer Erectile dysfunction Insulin use (long-term) in type 2 diabetes Hyperlipidemia LDL goal <100 Vitamin D insufficiency Surgical History (Updated 01/23/24 @ 16:38 by Margarito Anton MD) History of foot surgery History of inguinal hernia repair Hx of tonsillectomy Hx of prostatectomy Family History Father Diabetes Mother No problems noted. Son Diabetes Maternal Uncle Prostate cancer Paternal Grandfather Myocardial infarction Maternal Grandmother No problems noted. Maternal Aunt Esophageal cancer Maternal Grandfather Myocardial infarction Social History Household Members: Spouse Housing: Apartment Alcohol intake: current Alcohol intake frequency: a few times a month Patient Tobacco Use Status: Former Tobacco user Tobacco use type: Cigarette e-Cigarette/Vaping Use: Never Used Second Hand Smoke Exposure: Yes Substance Use Type: Former Substance User and Marijuana service: No Current occupational status: disabled Cognitive needs: Yes (cane) Hearing needs: Yes (hearing aide) Vision needs: Yes Questionnaire Thrive Questionnaire Date Thrive assessed: 01/02/24 AUDIT C Alcohol Use Questionnaire (AUDIT-C) 1. How often do you have a drink containing alcohol?: Monthly or less 2. How many drinks containing alcohol do you have on a typical day when you are drinking?: 1 or 2 3. How often do you have six or more drinks on one occasion?: Never Total Score: 1 YOLIS-7 AMB Questionnaire YOLIS-7 Date YOLIS - 7 assessed: 11/17/23 Source: Developed by Drs. Favian Nascimento, Valentina Serrano, Jose M Lunsford and colleagues, with an educational edita from [employer]. Physical exam (Primary Care) Vital Signs: Last Vital Signs Pulse 72 01/23/24 15:48 BP 118/72 01/23/24 15:48 Pulse Ox 96 01/23/24 15:48 Oxygen Delivery Method Nasal Cannula 01/23/24 15:48 BMI result Body Mass Index 28.5 Tobacco/Smoking Status: Tobacco use Status Tobacco use date assessed 01/23/24 01/23/24 15:49 Patient Tobacco Use Status Former Tobacco user 01/23/24 15:49 Tobacco use type Cigarette 01/23/24 15:49 e-Cigarette/Vaping Use Never Used 01/23/24 15:49 Thrive Assessment: Date of Thrive Assessment Date Thrive assessed 01/02/24 01/23/24 15:49 Assessment and Plan Assessment & Plan (1) History of inguinal hernia repair: Comment: Right 2005 Code(s): Z98.890 - Other specified postprocedural states; Z87.19 - Personal history of other diseases of the digestive system Plan: no mass noted- reassurance Coding Level of Care Code Est Pt Level 3 (00745) Diagnoses History of inguinal hernia repair Z98.890; Z87.19
== END 2024-01-23 17:52 | disposition home or self-care (01) ==
PROVIDERS: PCP Internal Medicine; Visit Provider Internal Medicine
DX: Z98.890 Other specified postprocedural states (principal); Z87.19 Personal history of other diseases of the digestive system
CPT/HCPCS: 99213

== ENCOUNTER 2024-02-24 08:07 | Outpatient (REF) | payer OTHER, SELFPAY ==
[2024-02-24 09:22] LABS: Creatinine Urine 170.13 mg/dL
[2024-02-24 10:09] LABS: Prostate Specific Antigen < 0.10 ng/mL (<0.05-4.0)
== END 2024-02-24 08:08 | disposition home or self-care (01) ==
LOC: HO.LAB 08:07
PROVIDERS: PCP Internal Medicine; Visit Provider Urology
DX: E11.65 Type 2 diabetes mellitus with hyperglycemia (principal); C61 Malignant neoplasm of prostate; Z12.5 Encounter for screening for malignant neoplasm of prostate
CPT/HCPCS: 36415; 82570; 84153

== ENCOUNTER 2024-02-27 10:06 | Outpatient (AMB) | payer OTHER, SELFPAY ==
--- NOTE | 2024-02-27 10:11 | MHC.OFFVIS ---
Intake Visit Reasons: PSA Follow Up(set) Intake Note: Patient is Present for Follow Up Urology Medication: None Antibiotic Allergies: Cephalexin Blood Thinners: None Allergies cortisone [CORTISONE] Allergy (Severe, Verified 02/27/24 10:13) ANAPHYLAXIS cephalexin Allergy (Unknown, Verified 02/27/24 10:13) unknown lisinopril Adverse Reaction (Intermediate, Verified 02/27/24 10:13) hypotension HPI Comments Details: Carroll is a pleasant male. He is a patient of Dr. Anton. He seen for the following urologic conditions - nephrolithiasis - lower urinary tract symptoms - nocturia - erectile dysfunction secondary to diabetes - prostate cancer He has not been seen for almost 2 years. Prior Trial daily tadalafil Retry daily tadalafil +on demand sildenafil Prostate cancer - prior external radiation 2004 PSA 07/12 <0.1, 11/13 <0.1, 04/13 <0.1, 03/15 <0.1 Bladder emptying Minimal issues with urination Continue with surveillance Erectile dysfunction Longstanding with oral medications Trial tadalafil [facility] Medical History Hypoxemia COPD exacerbation Smoker Allergic rhinitis Type 2 diabetes mellitus with diabetic polyneuropathy Tinnitus Anxiety and depression Annual physical exam Tobacco abuse Peptic ulcer disease Renal calculus, right Tubular adenoma of colon DDD (degenerative disc disease), lumbar Depression Prostate cancer COPD (chronic obstructive pulmonary disease) CAP (community acquired pneumonia) Gastric ulcer Hernia Kidney stones History of prostate cancer Erectile dysfunction Insulin use (long-term) in type 2 diabetes Hyperlipidemia LDL goal <100 Vitamin D insufficiency Surgical History History of foot surgery History of inguinal hernia repair Hx of tonsillectomy Hx of prostatectomy Family History Father Diabetes Mother No problems noted. Son Diabetes Maternal Uncle Prostate cancer Paternal Grandfather Myocardial infarction Maternal Grandmother No problems noted. Maternal Aunt Esophageal cancer Maternal Grandfather Myocardial infarction Social History Household Members: Spouse Housing: Apartment Alcohol intake: current Alcohol intake frequency: a few times a month Patient Tobacco Use Status: Former Tobacco user Tobacco use type: Cigarette e-Cigarette/Vaping Use: Never Used Second Hand Smoke Exposure: Yes Substance Use Type: Former Substance User and Marijuana service: No Current occupational status: disabled Cognitive needs: Yes (cane) Hearing needs: Yes (hearing aide) Vision needs: Yes Review of Systems Const Denies chills and Denies fever(s) Card Reports no additional complaints and Denies syncope Resp Denies cough GI Denies abdominal pain and Denies heartburn Reports as per HPI and Denies change in libido Neuro Denies syncope Psych Denies change in libido Endo Denies change in libido Physical Exam Const General: cooperative, healthy appearing, comfortable and no acute distress Orientation/consciousness: patient oriented x3 HEENT Face and sinus: Yes normal facial exam Mouth: moist mucous membranes Neck Neck: Yes normal visual inspection, Yes full ROM and Yes trachea midline Chest Chest palpation & inspection: normal inspection of the chest Resp Effort & Inspection: normal respiratory effort, able to speak in complete sentences and no respiratory distress GI Inspection: Yes normal to inspection Back/Spine/Pelvis Cervical Spine: normal cervical lordosis Thoracic/Lumbar Spine: thoracic and lumbar spine normal to inspection Skin General skin exam: no rashes or lesions noted Neuro General: patient oriented x3, gait normal, tone normal and moves all extremities Extrem General: Yes normal to inspection and Yes capillary refill normal Assessment & Plan Assessment & Plan (1) Nephrolithiasis: Code(s): N20.0 - Calculus of kidney Category: Medical (2) Erectile dysfunction associated with type 2 diabetes mellitus: Code(s): E11.69 - Type 2 diabetes mellitus with other specified complication; N52.1 - Erectile dysfunction due to diseases classified elsewhere Category: Medical Plan Medications refilled Three-month follow-up nurse-practitioner Medications: New sildenafil administer 60 minutes before intended activity 100 mg PO ONCE PRN 30 tabs 1RF sexual activity 30 days E11.69 - Type 2 diabetes mellitus with other specified complication, N52.1 - Erectile dysfunction due to diseases classified elsewhere tadalafil 5 mg PO DAILY 90 tabs 0RF sexual activity 90 days E11.69 - Type 2 diabetes mellitus with other specified complication, N52.1 - Erectile dysfunction due to diseases classified elsewhere Patient Instructions: Imaging studies, laboratory and physical exam results were discussed and reviewed in detail. No major barriers to patient understanding were identified. An opportunity to ask questions regarding the treatment plan was provided. All questions were answered. The patient expressed understanding and agreement with the above treatment plan. The patient is aware they should contact our office by phone for worsening of their current condition or the appearance of new urologic symptoms. Compliance is encouraged with any medications and followup testing that is ordered. It is a privilege to participate in the urologic care of your patient. If you have any questions or concerns regarding treatment for the above conditions, or other urologic issues, please do not hesitate to contact me. The office telephone contact is [phone]. This note is constructed using voice recognition software. While every effort has been made to ensure accuracy fiberline supervisor errors may have been included. Yours sincerely, Dr Gunner Benjamin MD, [facility] - Urology Providers of Expert, Compassionate Care for the Genitourinary System Coding Level of Care Code Est Pt Level 4 (49288) Diagnoses Nephrolithiasis N20.0 Erectile dysfunction associated with type 2 diabetes mellitus E11.69; N52.1
== END 2024-02-27 10:39 | disposition home or self-care (01) ==
PROVIDERS: PCP Internal Medicine; Visit Provider Urology
DX: N20.0 Calculus of kidney (principal); E11.69 Type 2 diabetes mellitus with other specified complication; N52.1 Erectile dysfunction due to diseases classified elsewhere
CPT/HCPCS: 99214

== ENCOUNTER → 2024-02-27 10:06 | Outpatient (BNVA) | payer OTHER, SELFPAY | PROVIDERS: PCP Internal Medicine; Visit Provider Urology | DX: N20.0 Calculus of kidney (principal); E11.69 Type 2 diabetes mellitus with other specified complication; N52.1 Erectile dysfunction due to diseases classified elsewhere; C61 Malignant neoplasm of prostate | CPT/HCPCS: 99212 ==

== ENCOUNTER 2024-03-11 13:28 | Outpatient (AMB) | payer OTHER, SELFPAY ==
[2024-03-11 14:00] VITALS: BP 110/62; PULSE 73; O2SAT 97; BMI 30.1
--- NOTE | 2024-03-11 14:00 | MHC.OFFVIS ---
Vital Signs 03/11/24 14:00 Height 5 ft 6.5 in Weight 189 lb 9.561 oz BMI 30.1 BP 110/62 Blood Pressure Location Lt brachial Position Sitting Pulse 73 Pulse Source Pulse Oximeter Pulse Oximetry (%) 97 Oxygen Delivery Method Nasal Cannula Oxygen Flow Rate 1 Intake Visit Reasons: COPD Intake Note: pt is here for follow up and states he is doing okay, using oxygen at 1 liter. Neon Electrician Required: No Allergies cortisone [CORTISONE] Allergy (Severe, Verified 03/11/24 14:16) ANAPHYLAXIS cephalexin Allergy (Unknown, Verified 03/11/24 14:16) unknown lisinopril Adverse Reaction (Intermediate, Verified 03/11/24 14:16) hypotension Medication List - Last Reconciled 03/11/24 by Kenisha Mckeon MD albuterol sulfate 90 mcg/actuation INHALE 2 PUFFS BY MOUTH EVERY 4 TO 6 HOURS NEEDED FOR SHORTNESS OF BREATH OR WHEEZING alcohol swabs (BD Alcohol Swabs) 1 pad topical QID atorvastatin 20 mg PO DAILY bisacodyl 10 mg PO DIRECTED PRN blood sugar diagnostic (FreeStyle Lite Strips) Three time a day blood-glucose meter (FreeStyle Lite Meter kit) USE DIRECTED blood-glucose sensor (DexSanivation G7 Sensor device) USE DIRECTED EVERY 10 DAYS cholecalciferol (vitamin D3) 50 mcg PO DAILY clotrimazole 1% 1 appl topical BID 4 weeks fluticasone propion-salmeterol 250-50 mcg/dose 1 ea PO Q12H glucagon 3 mg/actuation (Baqsimi) 3 mg intranasal ONCE 30 days glucose (Dex4 Glucose) 12 grams (3 x 4 gram) PO Q15M PRN Incruse Ellipta 62.5 mcg/actuation (umeclidinium) 1 inh PO DAILY NS insulin glargine U-300 conc 16 units subcut BEDTIME lancets (FreeStyle Lancets) 1 gauge topical TID 90 days miconazole nitrate 2% (Zeasorb AF) 1 appl topical BID Novolog FlexPen U-100 Insulin (insulin aspart U-100) 14 units (0.14 mL) subcut TID NS Oxygen Home Use As directedO2 2L NC pen needle, diabetic (BD Tierra 2nd Gen Pen Needle) 1 ea miscellaneous .4X/day polyethylene glycol 3350 grams PO psyllium husk (Fiber (psyllium husk)) 1.04 grams (2 x 0.52 gram) PO DAILY sertraline 50 mg PO DAILY 90 days sildenafil 100 mg PO ONCE PRN 30 days tadalafil 5 mg PO DAILY 90 days tramadol 50 mg PO DAILY Do you need a note to return to daycare/school/sports/work: No HPI HPI COPD: Details: LINA 64 YEARS OLD GENTLEMAN IS HERE 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 HE CLAIMS THAT HE IS FEELING GOOD. IS ALLERGIC RHINITIS IS UNDER GOOD CONTROL AT THIS TIME. BREATHING IS MUCH BETTER HOWEVER HE IS SEDENTARY, AND STAYS IN THE HOUSE MOSTLY IN THE COUCH DOES NOT WALK. AROUND MUCH HE DOES USE O2 1 L/MINUTE, HIS MAIN PROBLEM IS ECZEMA OF THE HANDS, AND HE HAS BEEN STARTED ON BIOLOGIC TREATMENT BY HIS PILOT MANAGER. [facility] Medical History Hypoxemia COPD exacerbation Smoker Allergic rhinitis Type 2 diabetes mellitus with diabetic polyneuropathy Tinnitus Anxiety and depression Annual physical exam Tobacco abuse Peptic ulcer disease Renal calculus, right Tubular adenoma of colon DDD (degenerative disc disease), lumbar Depression Prostate cancer COPD (chronic obstructive pulmonary disease) CAP (community acquired pneumonia) Gastric ulcer Hernia Kidney stones History of prostate cancer Erectile dysfunction Insulin use (long-term) in type 2 diabetes Hyperlipidemia LDL goal <100 Vitamin D insufficiency Surgical History History of foot surgery History of inguinal hernia repair Hx of tonsillectomy Hx of prostatectomy Family History Father Diabetes Mother No problems noted. Son Diabetes Maternal Uncle Prostate cancer Paternal Grandfather Myocardial infarction Maternal Grandmother No problems noted. Maternal Aunt Esophageal cancer Maternal Grandfather Myocardial infarction Social History Household Members: Spouse Housing: Apartment Alcohol intake: current Alcohol intake frequency: a few times a month Patient Tobacco Use Status: Former Tobacco user Tobacco use type: Cigarette e-Cigarette/Vaping Use: Never Used Second Hand Smoke Exposure: Yes Substance Use Type: Former Substance User and Marijuana service: No Current occupational status: disabled Cognitive needs: Yes (cane) Hearing needs: Yes (hearing aide) Vision needs: Yes Review of Systems Const All systems reviewed & are unremarkable except as noted in HPI and below Eyes Reports no additional complaints ENT Reports nasal congestion (mild ) Card Denies chest pain, Denies irregular heart rhythm and Denies leg edema Resp Reports as per HPI GI Reports heartburn (Controlled with omeprazole) Reports erectile dysfunction Musc Reports back pain (Mild) Skin/Breast Reports system reviewed and no additional complaints, except as documented Neuro Reports no additional complaints Psych Reports no additional complaints Physical Exam Vital Signs: Last Vital Signs Pulse 73 03/11/24 14:00 BP 110/62 03/11/24 14:00 Pulse Ox 97 03/11/24 14:00 Oxygen Delivery Method Nasal Cannula 03/11/24 14:00 Oxygen Flow Rate 1 03/11/24 14:00 BMI result Body Mass Index 30.1 Const General: comfortable, no acute distress, alert and awake Orientation/consciousness: patient oriented x3 HEENT Head: Yes normal to inspection General nose exam: No nasal polyps present and No nasal discharge present Face and sinus: Yes sinuses nontender Mouth: oropharynx normal Throat: Yes posterior oropharynx normal Eyes General: appearance normal, both eyes and all related structures Neck Neck: Yes normal visual inspection, Yes no lymphadenopathy, Yes trachea midline and Yes no JVD Thyroid: Thyroid normal Chest Chest palpation & inspection: normal inspection of the chest, normal palpation of entire chest wall and no tenderness Resp Other: Percussion note hyper-resonant, breath sounds are distant with prolonged expiratory phase on both sides. No audible wheezes or rhonchi were present Cardio Palpation: normal PMI Rate: regular rate Rhythm: regular rhythm Heart sounds: no gallops and no murmurs GI Palpation (GI): Soft to palpation, nontender, No hepatosplenomegaly present and no masses Auscultation: normal bowel sounds Back/Spine/Pelvis Thoracic/Lumbar Spine: thoracic and lumbar spine normal to inspection and thoraco-lumbar ROM limited Skin General skin exam: no rashes or lesions noted Neuro General: patient oriented x3 and no focal motor deficits Cranial nerves: Yes CN's II-XII intact bilaterally Extrem General: Yes normal to inspection, Yes no clubbing, cyanosis or edema and Yes no calf tenderness Psych Appearance: grossly normal Speech and movement: Normal speech and movement present Assessment & Plan Assessment & Plan (1) COPD (chronic obstructive pulmonary disease): Comment: He has long-standing chronic obstructive pulmonary disease. DOING MUCH BETTER SINCE HE QUIT SMOKING. AT PRESENT HIS COPD IS VERY STABLE, AND HE IS ADVISED TO CONTINUE THE PRESENT REGIMEN. Code(s): J44.9 - Chronic obstructive pulmonary disease, unspecified Category: Medical Qualifiers: COPD type: emphysema Emphysema type: unspecified Qualified Code(s): J43.9 - Emphysema, unspecified Plan: INCRUSE ELLIPTA 1 INHALATION DAILY WIXELA 250-51 INHALATION B.I.D. ALBUTEROL HFA 2 PUFFS. Q 4-6 HOURS P.R.N. (2) Allergic rhinitis: Comment: Mild chronic, has been stable. Code(s): J30.9 - Allergic rhinitis, unspecified Category: Medical Plan: MAY USE LORATADINE 10 MG ONCE A DAY P.R.N. (3) Hypoxemia: Comment: Patient does have hypoxemia on minimal exertion. It has improved and he does well just with 1 L/minute. At present he is stable. He is already anxious about getting rid of oxygen. Code(s): R09.02 - Hypoxemia Category: Medical Plan: I advised him to keep the portable unit . Use O2 1 L/minute when going outdoors . *On his next visit we can do 6 minutes walk to see if he still needs oxygen. Coding Level of Care Code Est Pt Level 3 (90139) Diagnoses Pulmonary emphysema, unspecified emphysema type J43.9 COPD type: emphysema Emphysema type: unspecified Allergic rhinitis J30.9 Hypoxemia R09.02
== END 2024-03-11 14:17 | disposition home or self-care (01) ==
PROVIDERS: PCP Internal Medicine; Visit Provider Internal Medicine
DX: J43.9 Emphysema, unspecified (principal); J30.9 Allergic rhinitis, unspecified; R09.02 Hypoxemia
CPT/HCPCS: 99213

== ENCOUNTER → 2024-03-11 13:28 | Outpatient (BNVA) | payer OTHER, SELFPAY | PROVIDERS: PCP Internal Medicine; Visit Provider Internal Medicine | DX: J43.9 Emphysema, unspecified (principal); J30.9 Allergic rhinitis, unspecified; R09.02 Hypoxemia | CPT/HCPCS: 99212 ==

== ENCOUNTER 2024-03-14 14:58 | Outpatient (AMB) | payer OTHER, SELFPAY ==
--- NOTE | 2024-03-14 15:39 | A.OFFVIS_ITS ---
Intake Intake Visit Reasons: DM Tank Carpenter Required: No Accompanied by: Spouse Allergies cortisone [CORTISONE] Allergy (Severe, Verified 03/11/24 14:16) ANAPHYLAXIS cephalexin Allergy (Unknown, Verified 03/11/24 14:16) unknown lisinopril Adverse Reaction (Intermediate, Verified 03/11/24 14:16) hypotension HPI Comprehensive Diabetes Asmnt Most Recent Diabetes Results: Microalb/Creat Ratio 10.0 ug/mg cr (<30) 01/17/24 Cholesterol 194 mg/dL (<200) 01/17/24 HDL Cholesterol 55 mg/dL (>40) 01/17/24 Triglycerides 73 mg/dL (<150) 01/17/24 Creatinine 0.85 mg/dL (0.5-1.4) 01/17/24 Blood Urea Nitrogen 12 mg/dL (9-16) 01/17/24 Sodium 139 mmol/L (135-145) 01/17/24 Potassium 4.2 mmol/L (3.3-5.1) 01/17/24 Chloride 103 mmol/L (96-108) 01/17/24 Carbon Dioxide 29 mmol/L (22-29) 01/17/24 Calcium 9.8 mg/dL (8.4-10.2) 01/17/24 AST 21 U/L (5-37) 01/17/24 ALT 17 U/L (0-40) 01/17/24 Total Protein 7.6 g/dL (6.5-8.0) 01/17/24 Albumin 4.2 g/dL (3.5-5.0) 01/17/24 [facility] Medical History Hypoxemia COPD exacerbation Smoker Allergic rhinitis Type 2 diabetes mellitus with diabetic polyneuropathy Tinnitus Anxiety and depression Annual physical exam Tobacco abuse Peptic ulcer disease Renal calculus, right Tubular adenoma of colon DDD (degenerative disc disease), lumbar Depression Prostate cancer COPD (chronic obstructive pulmonary disease) CAP (community acquired pneumonia) Gastric ulcer Hernia Kidney stones History of prostate cancer Erectile dysfunction Insulin use (long-term) in type 2 diabetes Hyperlipidemia LDL goal <100 Vitamin D insufficiency Surgical History History of foot surgery History of inguinal hernia repair Hx of tonsillectomy Hx of prostatectomy Family History Father Diabetes Mother No problems noted. Son Diabetes Maternal Uncle Prostate cancer Paternal Grandfather Myocardial infarction Maternal Grandmother No problems noted. Maternal Aunt Esophageal cancer Maternal Grandfather Myocardial infarction Social History Household Members: Spouse Housing: Apartment Alcohol intake: current Alcohol intake frequency: a few times a month Patient Tobacco Use Status: Former Tobacco user Tobacco use type: Cigarette e-Cigarette/Vaping Use: Never Used Second Hand Smoke Exposure: Yes Substance Use Type: Former Substance User and Marijuana service: No Current occupational status: disabled Cognitive needs: Yes (cane) Hearing needs: Yes (hearing aide) Vision needs: Yes Assessment & Plan Assessment & Plan (1) Erectile dysfunction associated with type 2 diabetes mellitus: Code(s): E11.69 - Type 2 diabetes mellitus with other specified complication; N52.1 - Erectile dysfunction due to diseases classified elsewhere Plan: Learning objectives: The patient was provided with verbal and written education on the following to pics as outlined below. Patient questions/concerns, patient concerned about weight gain, reviewed with patient to try and keep meals between 45-75 g of carbohydrate Patient did not want to increase insulin at this time Patient having some postprandial hypoglycemia, reviewed rule of 15s with patient Suggested to patient he make appointment with new provider, to discuss GLP-1 GI P, if it would be appropriate for him Patient's average glucose for the past 2 weeks 175 mg/dL Patient above target 44% Patient at target 55% Patient below target 1% The patient met all learning objectives and was able to verbalize understanding and provide teach back of education topics discussed . The patient was provided with the opportunity to ask questions and all questions were answered. Topics covered in today?s session included: Medications (If applicable) * Name of medication? * Dosing/administration instructions? * Mechanism of action? * Potential side effects? * Potential adverse reaction and appropriate treatment? * Review onset, peak, duration Assess for concerns re: insurance coverage, cost, barriers to compliance Insulin/Injectables (If applicable) * Storage/care of insulin?? * Injection sites? * Site rotation? * Onset, peak, duration * Drawing up insulin? * Injecting insulin/other injectables? * Sharps disposal Continuous blood glucose monitoring (if applicable) Hypoglycemia and Hyperglycemia * Signs and symptoms? * Causes?? * Treatment? * Preventing hypoglycemia? * When to seek medical attention * Blood glucose targets and how you feel when your blood glucose is in and out of your target ranges. * Monitoring and knowing your A1C. * What can make blood glucose go up and down and preventing high and low blood g lucose. * Review of blood sugar targets in expected goal range and outside of expected goal range. * Problem solving and preventing hyper/hypoglycemia. * Sick day management of diabetes. * Using blood sugar results in decision making process in managing diabetes. ?Patient was receptive to information provided and participated in the discussion. Asked?appropriate questions and demonstrated good understanding of the topics discussed.? ? Educational Materials: The patient was provided with the following written educational materials: Target Goal handout Smart Goal Assessment:? Patient will keep meals between 45-75 g of carbohydrate Pt met goal about 50% New Smart Goal: Patient will stay with current smart goal Patient Response to instructions: Comprehension of Instructions: fair Readiness to make changes:? action How confident they feel about making changes: positive Coding Level of Care Code Est Pt Level 1 (79802) Diagnoses Erectile dysfunction associated with type 2 diabetes mellitus E11.69; N52.1
== END 2024-03-14 15:44 | disposition home or self-care (01) ==
PROVIDERS: PCP Internal Medicine; Visit Provider Registered Nurse Diabetes Educator
DX: E11.69 Type 2 diabetes mellitus with other specified complication (principal); N52.1 Erectile dysfunction due to diseases classified elsewhere

== ENCOUNTER → 2024-03-14 14:58 | Outpatient (BNVA) | payer OTHER, SELFPAY | PROVIDERS: PCP Internal Medicine; Visit Provider Registered Nurse Diabetes Educator | DX: E11.69 Type 2 diabetes mellitus with other specified complication (principal); N52.1 Erectile dysfunction due to diseases classified elsewhere | CPT/HCPCS: 99211 ==

== ENCOUNTER 2024-03-22 12:47 | Outpatient (AMB) | payer OTHER, SELFPAY ==
--- NOTE | 2024-03-22 13:03 | A.OFFVIS_ITS ---
Vital Signs 03/22/24 13:06 Height 5 ft 6.5 in Weight 186 lb 15.232 oz BMI 29.7 BP 92/60 Blood Pressure Location Rt brachial Position Sitting Pulse 101 H Pulse Source Pulse Oximeter Intake Visit Reasons: Type 2 DM-confirmed Intake Note: Patient present today to follow up on Type 2 Diabetes Mellitus. Patient receives DME supplies through: Pharmacy Last Diabetic Eye exam: February 2024 Last Podiatry Visit: Does not see a Roughing Mill Operator Random Glucose: Unable to do finger stick due to patient having open sores on both hands, on Dupixent. HgA1C: Unable to do finger stick due to patient having open sores on both hands, on Dupixent. Substitute Crossing Guard Required: Yes Substitute Crossing Guard Language: Technical Support Analyst Name: Rosie, Medical Staff CEE Information Interpreted: non-clinical & clinical Accompanied by: Spouse Allergies cortisone [CORTISONE] Allergy (Severe, Verified 03/22/24 13:09) ANAPHYLAXIS cephalexin Allergy (Unknown, Verified 03/22/24 13:09) unknown lisinopril Adverse Reaction (Intermediate, Verified 03/22/24 13:09) hypotension Medication List - Last Reconciled 03/22/24 by Charo Awad PA-C albuterol sulfate 90 mcg/actuation INHALE 2 PUFFS BY MOUTH EVERY 4 TO 6 HOURS NEEDED FOR SHORTNESS OF BREATH OR WHEEZING alcohol swabs (BD Alcohol Swabs) 1 pad topical QID atorvastatin 20 mg PO DAILY bisacodyl 10 mg PO DIRECTED PRN blood sugar diagnostic (FreeStyle Lite Strips) Three time a day blood-glucose meter (FreeStyle Lite Meter kit) USE DIRECTED blood-glucose sensor (DexPretty Padded Room G7 Sensor device) USE DIRECTED EVERY 10 DAYS cholecalciferol (vitamin D3) 50 mcg PO DAILY clotrimazole 1% 1 appl topical BID 4 weeks dupilumab (Dupixent) 300 mg subcut Q2W fluticasone propion-salmeterol 250-50 mcg/dose 1 ea PO Q12H glucagon 3 mg/actuation (Baqsimi) 3 mg intranasal ONCE 30 days glucose (Dex4 Glucose) 12 grams (3 x 4 gram) PO Q15M PRN Incruse Ellipta 62.5 mcg/actuation (umeclidinium) 1 inh PO DAILY NS insulin glargine U-300 conc 14 units subcut BEDTIME lancets (FreeStyle Lancets) 1 gauge topical TID 90 days miconazole nitrate 2% (Zeasorb AF) 1 appl topical BID Novolog FlexPen U-100 Insulin (insulin aspart U-100) 14 units (0.14 mL) subcut TID NS Oxygen Home Use As directedO2 2L NC pen needle, diabetic (BD Tierra 2nd Gen Pen Needle) 1 ea miscellaneous .4X/day polyethylene glycol 3350 grams PO psyllium husk (Fiber (psyllium husk)) 1.04 grams (2 x 0.52 gram) PO DAILY sertraline 50 mg PO DAILY 90 days sildenafil 100 mg PO ONCE PRN 30 days tadalafil 5 mg PO DAILY 90 days tramadol 50 mg PO DAILY HPI HPI Type 2 DM-confirmed: Details: Patient is a 64-year-old male with a significant past medical history of insulin-dependent type 2 diabetes, diabetic polyneuropathy, diabetic cataracts, ED, hyperlipidemia, prostate cancer, and COPD presenting today for a follow-up regarding diabetes. Endo: A1c 6.7 in December, unable to do today due to eczema on hands. Recently saw Ophthalmology for bilateral cataract surgery. Meds- Toujeo 14 units, Novolog 16 units TID stopped Tradjenta 5 mg in evening. Intolerant of metformin due to diarrhea, Jardiance due to urinary frequency and Trulicity due to undesired weight loss. Pioglitzone stopped due to edema CGM 03/14/24 average blood sugar 175, 7.5%, very high 14%, height 29%, within range 55%, low 1%, very low 1% He reports being hypoglycemic from 12-3 PM frequently because he tries to avoid eating between breakfast and lunch. He typically eats a later lunch. He does not snack. He states that when his blood sugars run low he corrects it with soda, cake or candy. Diet: usually a muffin or 2 breakfast sandwiches from [employer], lunch is typically a double whooper from [email or web address], dinner is his largest portion a protein and then rice and beans. Exercise: None due to back pain. Following with pcp for this. He is frustrated with his belly and does not like that he has to eat so much to keep up with the insulin injections. [facility] Medical History Hypoxemia COPD exacerbation Smoker Allergic rhinitis Type 2 diabetes mellitus with diabetic polyneuropathy Tinnitus Anxiety and depression Annual physical exam Tobacco abuse Peptic ulcer disease Renal calculus, right Tubular adenoma of colon DDD (degenerative disc disease), lumbar Depression Prostate cancer COPD (chronic obstructive pulmonary disease) CAP (community acquired pneumonia) Gastric ulcer Hernia Kidney stones History of prostate cancer Erectile dysfunction Insulin use (long-term) in type 2 diabetes Hyperlipidemia LDL goal <100 Vitamin D insufficiency Surgical History History of foot surgery History of inguinal hernia repair Hx of tonsillectomy Hx of prostatectomy Family History Father Diabetes Mother No problems noted. Son Diabetes Maternal Uncle Prostate cancer Paternal Grandfather Myocardial infarction Maternal Grandmother No problems noted. Maternal Aunt Esophageal cancer Maternal Grandfather Myocardial infarction Social History Household Members: Spouse Housing: Apartment Alcohol intake: current Alcohol intake frequency: a few times a month Patient Tobacco Use Status: Former Tobacco user Tobacco use type: Cigarette e-Cigarette/Vaping Use: Never Used Second Hand Smoke Exposure: Yes Substance Use Type: Former Substance User and Marijuana service: No Current occupational status: disabled Cognitive needs: Yes (cane) Hearing needs: Yes (hearing aide) Vision needs: Yes Physical Exam Vital Signs: BMI result Body Mass Index 29.7 Const Orientation/consciousness: patient oriented x3 HEENT Ears: hearing grossly normal bilaterally Neck Thyroid: Thyroid normal Lymphatic: no lymphadenopathy noted Resp Auscultation: clear to auscultation bilaterally Cardio Rate: regular rate Rhythm: regular rhythm Heart sounds: S1 normal heart sound present and S2 normal heart sound present Skin General skin exam: no rashes or lesions noted Neuro General: patient oriented x3, gait normal and no focal motor deficits Extrem Other: DP pulses 2+ bilaterally. Sensation intact bilaterally to the monofilament. Vibratory sensation diminished in the bilateral great toes. Skin intact Results Reviewed Results Reviewed: Laboratory Tests 11/17/23 01/17/24 01/17/24 15:02 08:07 08:11 Sodium 139 Potassium 4.2 Chloride 103 Carbon Dioxide 29 Anion Gap 11 L BUN 12 Creatinine 0.85 Estimated GFR > 60 Random Glucose 192 H Hgb A1c (Clinic) 6.7 H AST 21 ALT 17 Alkaline Phosphatase 75 TSH 0.70 Urine Creatinine 218.60 Urine Microalbumin 22.0 Microalb/Creat Ratio 10.0 Assessment & Plan Assessment & Plan (1) Type 2 diabetes mellitus with hyperglycemia: Comment: eye doctor in [place] Code(s): E11.65 - Type 2 diabetes mellitus with hyperglycemia Category: Medical Qualifiers: Diabetes mellitus residential insulin use: with residential use Qualified Code(s): E11.65 - Type 2 diabetes mellitus with hyperglycemia; Z79.4 - halfway (current) use of insulin Plan: Will reduce novolog to 10 units with breakfast and lunch, 16 units with dinner. Continue toujeo 14 units. Will add ozempic 0.25 mg. Discussed risks benefits and adverse effects. signs and sx of hypoglycemia that would require with emergent medical treatment. He has glucose tabs. Spent more than 45 mins in face to face time discussing diet and exercise. We reviewed carbs, refined sugars, vegetables, fruits. avoiding soda. Discussed swimming and walking. We reviewed his insurance and that it would cover a gym membership. His is going to go with him. offered referral to limehouse worker but declines. believes he better understands diet and diabetes. labs ordered including cmp, lipids, urine, and a1c. f/u 1 month or sooner if needed. (2) Insulin use (long-term) in type 2 diabetes: Code(s): E11.9 - Type 2 diabetes mellitus without complications; Z79.4 - manager terminal (cur rent) use of insulin Category: Medical Qualifiers: Diabetes mellitus complication status: with hyperglycemia Qualified Code(s): E11.65 - Type 2 diabetes mellitus with hyperglycemia; Z79.4 - halfway (current) use of insulin Plan: as above (3) Hyperlipidemia LDL goal <100: Code(s): E78.5 - Hyperlipidemia, unspecified Category: Medical Plan: continue atorvastatin. Orders: Orders Hemoglobin A1c Today Charo Awad PA-C E11.65 - Type 2 diabetes mellitus with hyperglycemia, E78.5 - Hyperlipidemia, unspecified, Z79.4 - halfway (current) use of insulin Microalbumin, Random (w Creat) Today Charo Awad PA-C E11.65 - Type 2 diabetes mellitus with hyperglycemia, E78.5 - Hyperlipidemia, unspecified, Z79.4 - manager terminal (current) use of insulin Comprehensive [place]. Panel Fast Today Charo Awad PA-C E11.65 - Type 2 diabetes mellitus with hyperglycemia, E78.5 - Hyperlipidemia, unspecified, Z79.4 - manager terminal (current) use of insulin Lipid Panel Today Charo Awad PA-C E11.65 - Type 2 diabetes mellitus with hyperglycemia, E78.5 - Hyperlipidemia, unspecified, Z79.4 - manager terminal (current) use of insulin Medications: New semaglutide (Ozempic) for 4 weeks 0.25 mg (0.368 mL) subcut QWEEK 3 mL 2RF Charo Awad PA-C Changed From insulin glargine U-300 conc toujeo ENDO 16 units (0.0533 mL) subcut BEDTIME 4.5 mL 3RF E11.65 - Type 2 diabetes mellitus with hyperglycemia To insulin glargine U-300 conc toujeo ENDO 14 units subcut BEDTIME E11.65 - Type 2 diabetes mellitus with hyperglycemia Favian Britt MD Coding Level of Care Code Est Pt Level 4 (14419) Complex EM visit Add On G2211 Diagnoses Type 2 diabetes mellitus with hyperglycemia, with long-term current use of insulin E11.65; Z79.4 Diabetes mellitus residential insulin use: with buttermaker continuous churn use Type 2 diabetes mellitus with hyperglycemia, with long-term current use of insulin E11.65; Z79.4 Diabetes mellitus complication status: with hyperglycemia Hyperlipidemia LDL goal <100 E78.5
[2024-03-22 13:06] VITALS: BP 92/60; PULSE 101; BMI 29.7
== END 2024-03-22 14:08 | disposition home or self-care (01) ==
PROVIDERS: PCP Internal Medicine; Visit Provider Physician Assistant
DX: E11.65 Type 2 diabetes mellitus with hyperglycemia (principal); Z79.4 Long term (current) use of insulin; E78.5 Hyperlipidemia, unspecified
CPT/HCPCS: 99214; G2211

== ENCOUNTER → 2024-03-22 12:47 | Outpatient (BNVA) | payer OTHER, SELFPAY | PROVIDERS: PCP Internal Medicine; Visit Provider Physician Assistant | DX: E11.65 Type 2 diabetes mellitus with hyperglycemia (principal); E78.5 Hyperlipidemia, unspecified; Z79.4 Long term (current) use of insulin | CPT/HCPCS: 99212 ==

== ENCOUNTER 2024-04-23 13:37 | Outpatient (AMB) | payer OTHER, SELFPAY ==
[2024-04-23 14:04] VITALS: BP 114/68; PULSE 77; O2SAT 92; BMI 28.8
--- NOTE | 2024-04-23 14:04 | MHC.PC.OV ---
Vital Signs 04/23/24 14:04 Height 5 ft 5.5 in Weight 176 lb BMI 28.8 BP 114/68 Blood Pressure Location Lt brachial Position Sitting Pulse 77 Pulse Source Pulse Oximeter Pulse Oximetry (%) 92 Oxygen Delivery Method Room Air Intake Visit Reasons: DM Allergies cortisone [CORTISONE] Allergy (Severe, Verified 04/23/24 14:04) ANAPHYLAXIS cephalexin Allergy (Unknown, Verified 04/23/24 14:04) unknown lisinopril Adverse Reaction (Intermediate, Verified 04/23/24 14:04) hypotension Tobacco use date assessed: 01/23/24 Fall risk assessment: No Falls in past year Last assessed Fall Risk: 04/23/24 Dental Screening Dental Screen Date: 01/16/24 HPI DM HPI Details 64 year old overweight male smoker with diabetes mellitus hypercholesterolemia COPD, history of prostate cancer generalized anxiety disorder with lumbar degenerative disc disease. Patient comes in for follow-up last seen in January for inguinal hernia repair. Review of the notes has seen endocrinology and added Ozempic patient also follows up with Pulmonary on Incruse Ellipta Wixela and albuterol patient has been placed on 1 L nasal cannula. May last seen urology continue to monitor. PAtient complains of n ot eating - was placed on dupixent and palced on ozempic but discontinued ozempic. April 30, [address] Gaming [facility] Medical History Hypoxemia COPD exacerbation Smoker Allergic rhinitis Type 2 diabetes mellitus with diabetic polyneuropathy Tinnitus Anxiety and depression Annual physical exam Tobacco abuse Peptic ulcer disease Renal calculus, right Tubular adenoma of colon DDD (degenerative disc disease), lumbar Depression Prostate cancer COPD (chronic obstructive pulmonary disease) CAP (community acquired pneumonia) Gastric ulcer Hernia Kidney stones History of prostate cancer Erectile dysfunction Insulin use (long-term) in type 2 diabetes Hyperlipidemia LDL goal <100 Vitamin D insufficiency Surgical History History of foot surgery History of inguinal hernia repair Hx of tonsillectomy Hx of prostatectomy Family History Father Diabetes Mother No problems noted. Son Diabetes Maternal Uncle Prostate cancer Paternal Grandfather Myocardial infarction Maternal Grandmother No problems noted. Maternal Aunt Esophageal cancer Maternal Grandfather Myocardial infarction Social History Household Members: Spouse Housing: Apartment Alcohol intake: current Alcohol intake frequency: a few times a month Patient Tobacco Use Status: Former Tobacco user Tobacco use type: Cigarette e-Cigarette/Vaping Use: Never Used Second Hand Smoke Exposure: Yes Substance Use Type: Former Substance User and Marijuana service: No Current occupational status: disabled Cognitive needs: Yes (cane) Hearing needs: Yes (hearing aide) Vision needs: Yes Questionnaire PHQ-9 Over the last 2 weeks, how often have you been bothered by any of the following problems? 1. Little interest or pleasure in doing things: not at all 2. Feeling down, depressed, or hopeless: not at all 3. Trouble falling or staying asleep, or sleeping too much: not at all 4. Feeling tired or having little energy: not at all 5. Poor appetite or overeating: not at all 6. Feeling bad about yourself - or that you are a failure or have let yourself or your family down: not at all 7. Trouble concentrating on things, such as reading the newspaper or watching television: not at all 8. Moving or speaking so slowly that other people could have noticed. Or the opposite - being so fidgety or restless that you have been moving around a lot more than usual: not at all 9. Thoughts that you would be better off or of hurting yourself in some way: not at all Total score: 0 Depression Screening Interpretation: Negative Depression Screening Done: Yes Source: Developed by Drs. Favian Nascimento, Jose M Escalante and colleagues, with an educational edita from [employer]. Thrive Questionnaire Date Thrive assessed: 01/02/24 AUDIT C Alcohol Use Questionnaire (AUDIT-C) 1. How often do you have a drink containing alcohol?: Monthly or less 2. How many drinks containing alcohol do you have on a typical day when you are drinking?: 1 or 2 3. How often do you have six or more drinks on one occasion?: Never Total Score: 1 YOLIS-7 AMB Questionnaire YOLIS-7 Date YOLIS - 7 assessed: 11/17/23 Source: Developed by Drs. Favian LValentina Bryan Kurt Kroenke and colleagues, with an educational edita from [employer]. Physical exam (Primary Care) Vital Signs: Last Vital Signs Pulse 77 04/23/24 14:04 BP 114/68 04/23/24 14:04 Pulse Ox 92 04/23/24 14:04 Oxygen Delivery Method Room Air 04/23/24 14:04 BMI result Body Mass Index 28.8 Tobacco/Smoking Status: Tobacco use Status Tobacco use date assessed 01/23/24 04/23/24 14:05 Patient Tobacco Use Status Former Tobacco user 04/23/24 14:05 Tobacco use type Cigarette 04/23/24 14:05 e-Cigarette/Vaping Use Never Used 04/23/24 14:05 PHQ-9: PHQ-9 Score PHQ-9: Total score 0 04/23/24 14:24 Depression Screening Interpretation: Negative Thrive Assessment: Date of Thrive Assessment Date Thrive assessed 01/02/24 04/23/24 14:05 Const General: alert; No acute distress Eyes Conjunctivae: conjunctivae normal Resp Auscultation: clear to auscultation bilaterally Cardio Rate: regular rate Rhythm: regular rhythm GI Inspection: Yes normal to inspection Extrem General: Yes normal to inspection and No edema Results AMB Hemoglobin A1c AMB Hemoglobin A1c 7.4 % Last Edit by Rochelle Ken CMA on 04/23/24 14:25 Results Reviewed Results Reviewed: Laboratory Last Values Hgb A1c (Clinic) 7.4 % (4.0-6.0) H 04/23/24 14:06 Assessment and Plan Assessment & Plan (1) Type 2 diabetes mellitus with hyperglycemia: Comment: eye doctor in [place] Code(s): E11.65 - Type 2 diabetes mellitus with hyperglycemia Qualifiers: Diabetes mellitus [facility] insulin use: with [facility] use Qualified Code(s): E11.65 - Type 2 diabetes mellitus with hyperglycemia; 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 Hemoglobin A1c goal of less than 7.0. Patient is on multiple medications and has been seen by Endocrinology. Insulin 14 units glargine NovoLog sliding scale Ozempic once a week (2) Hyperlipidemia LDL goal <100: Code(s): E78.5 - Hyperlipidemia, unspecified Plan: Avoid fried foods, chicken skin, eggs, butter margarine, pastries and meat. Be it pork or beef they have a lot of cholesterol on atorvastatin 20 mg once a day LDL goal of less than 100. (3) COPD (chronic obstructive pulmonary disease): Comment: He has long-standing chronic obstructive pulmonary disease. DOING MUCH BETTER SINCE HE QUIT SMOKING. AT PRESENT HIS COPD IS VERY STABLE, AND HE IS ADVISED TO CONTINUE THE PRESENT REGIMEN. 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 AMB Hemoglobin A1c Today Z13.9 - Encounter for screening, unspecified Lipid Panel Today E11.65 - Type 2 diabetes mellitus with hyperglycemia, E78.00 - Pure hypercholesterolemia, unspecified, Z79.4 - jail (current) use of insulin Medications: Refilled blood-glucose sensor (Dexcom G7 Sensor device) USE DIRECTED EVERY 10 DAYS 3 ea 5RF E11.65 - Type 2 diabetes mellitus with hyperglycemia, 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
== END 2024-04-23 15:06 | disposition home or self-care (01) ==
PROVIDERS: PCP Internal Medicine; Visit Provider Internal Medicine
DX: E11.65 Type 2 diabetes mellitus with hyperglycemia (principal); Z79.4 Long term (current) use of insulin; E78.5 Hyperlipidemia, unspecified; J43.9 Emphysema, unspecified; F41.1 Generalized anxiety disorder
CPT/HCPCS: 83036; 99214; G2211

== ENCOUNTER 2024-04-24 08:30 | Outpatient (REF) | payer OTHER, SELFPAY ==
[2024-04-24 08:45] LABS: MANUAL DIFF FLAG NO
[2024-04-24 09:10] LABS: Basophils Percent Auto 0.4 % (0-2); Eosinophils Absolute Auto 0.1 X10*3/uL (0.0-0.4); Eosinophils Percent Auto 1.9 % (0-4); Hematocrit 47.5 % (42.0-52.0); Hemoglobin 15.7 g/dl (14.0-18.0); Imm Gran Abs Auto 0.03 X10*3/uL (0.00-0.03); Imm Gran Pct Auto 0.6 % (0.0-0.4); Lymphocytes Absolute Auto 1.6 X10*3/uL (1.2-4.9); Lymphocytes Percent Auto 29.4 % (20-40); Mean Corpuscular HGB Conc 33.1 g/dl (31.0-36.0); Mean Corpuscular Hemoglobin 31.8 pg (27.0-33.0); Mean Corpuscular Volume 96.2 fL (80.0-98.0); Mean Platelet Volume 11.1 fL (9.4-12.4); Monocytes Absolute Auto 0.5 X10*3/uL (0.1-1.2); Monocytes Percent Auto 9.1 % (2-11); Neutrophils Absolute Auto 3.1 x10*3/uL (2.0-8.3); Neutrophils Percent Auto 58.6 % (45-73); Platelet Count 203 X10*3/uL (160-400); Red Blood Count 4.94 X10*6/uL (4.60-5.80); Red Cell Distribution Width 14.6 % (11.0-16.0); White Blood Count 5.3 X10*3/uL (4.8-10.8)
[2024-04-24 09:25] LABS: Estimated Average Glucose 166 mg/dL; Hemoglobin A1c % 7.4 % (<6.0)
[2024-04-24 09:41] LABS: Alanine Aminotransferase 8 U/L (0-40); Albumin Level 4.3 g/dL (3.5-5.0); Alkaline Phosphatase 71 U/L (39-117); Anion Gap 11 (12-20); Aspartate Amino Transferase 15 U/L (5-37); Bilirubin Total 0.5 mg/dL (0.0-1.0); Blood Urea Nitrogen 7 mg/dL (9-16); Calcium 10.3 mg/dL (8.4-10.2); Carbon Dioxide 32 mmol/L (22-29); Chloride 102 mmol/L (96-108); Cholesterol 128 mg/dL (<200); Estimated Glomerular Filt Rate > 60; Glucose Fasting 252 mg/dL (60-99); Glucose Random 248 mg/dL (60-115); HDL Cholesterol 39 mg/dL (>40); LDL Cholesterol Calculated 72 mg/dL (<100); Potassium 4.4 mmol/L (3.3-5.1); Sodium 141 mmol/L (135-145); Total Protein 7.5 g/dL (6.5-8.0); Triglycerides 85 mg/dL (<150)
[2024-04-24 09:47] LABS: Free T4 (Free Thyroxine) 1.11 ng/dL (0.71-1.85)
[2024-04-24 09:49] LABS: HBS Num1 6.33 mIU/mL (0-7.99); HBc Num1 4.97 S/CO (0.00-0.79); Hepatitis B Surface Antigen Negative (Negative); ~HepC Num1 0.11 S/CO (0.00-0.79); ~Hepatitis B Surface Antibody NONREACTIVE (Nonreactive); ~Hepatitis C Antibody Nonreactive (Nonreactive)
[2024-04-24 09:50] LABS: Thyroid Stimulating Hormone 0.77 uIU/mL (0.32-4.0)
[2024-04-24 10:15] LABS: Creatinine Urine 176.14 mg/dL; Microalbum/Creatinine Ratio Ur 22.7 ug/mg cr (<30)
[2024-04-24 14:05] LABS: HBc Num3 4.84 S/CO; Hepatitis B Core Antibody Reactive (Nonreactive)
[2024-04-25 09:04] LABS: Hepatitis B Core Antibody IgM NON-REACTIVE (NON-REACTIVE)
== END 2024-04-24 08:31 | disposition home or self-care (01) ==
LOC: HO.LAB 08:30
PROVIDERS: Absent Provider Internal Medicine; PCP Internal Medicine; Visit Provider Physician Assistant
DX: E11.65 Type 2 diabetes mellitus with hyperglycemia (principal); E78.5 Hyperlipidemia, unspecified; R79.89 Other specified abnormal findings of blood chemistry; Z79.4 Long term (current) use of insulin
CPT/HCPCS: 36415; 80053; 80061; 82043; 82570; 83036; 84439; 84443; 85025; 86704; 86705; 86706; 86803; 87340

== ENCOUNTER 2024-04-26 08:35 | Outpatient (REF) | payer OTHER, SELFPAY ==
[2024-04-26 10:30] LABS: Estimated Average Glucose 169 mg/dL; Hemoglobin A1c % 7.5 % (<6.0)
[2024-04-26 10:37] LABS: Cholesterol 132 mg/dL (<200); HDL Cholesterol 44 mg/dL (>40); LDL Cholesterol Calculated 76 mg/dL (<100); Triglycerides 60 mg/dL (<150)
[2024-04-26 10:57] LABS: HBS Num1 6.47 mIU/mL (0-7.99); HBc Num1 4.94 S/CO (0.00-0.79); HBsAGNum1 0.31 S/CO (0.00-0.99); Hepatitis B Surface Antigen Negative (Negative); ~Hepatitis B Surface Antibody NONREACTIVE (Nonreactive)
[2024-04-26 11:57] LABS: HBc Num2 4.77 S/CO; HBc Num3 4.96 S/CO; Hepatitis B Core Antibody Reactive (Nonreactive)
[2024-04-27 17:48] LABS: Hepatitis B Core Antibody IgM NON-REACTIVE (NON-REACTIVE)
[2024-04-30 00:39] LABS: Hepatitis BE Antibody REACTIVE (NON-REACTIVE)
[2024-04-30 11:58] LABS: Hepatitis B Viral DNA Qn - cp NOT DETECTED Log IU/mL (NOT DETECTED); Hepatitis B Viral DNA Qn-IU/mL NOT DETECTED (NOT DETECTED)
== END 2024-04-26 08:36 | disposition home or self-care (01) ==
LOC: HO.LAB 08:35
PROVIDERS: PCP Internal Medicine; Visit Provider Internal Medicine
DX: R76.8 Other specified abnormal immunological findings in serum (principal); E11.65 Type 2 diabetes mellitus with hyperglycemia; E78.00 Pure hypercholesterolemia, unspecified; Z79.4 Long term (current) use of insulin
CPT/HCPCS: 36415; 80061; 83036; 86704; 86705; 86706; 86707; 87340; 87517

== ENCOUNTER 2024-05-02 13:34 | Outpatient (AMB) | payer OTHER, SELFPAY ==
--- NOTE | 2024-05-02 14:13 | A.OFFVIS_ITS ---
Intake Intake Visit Reasons: Type 2 DM Gas Dispenser Required: Yes Gas Dispenser Language: Technology Education Instructor Name: Pt's Accompanied by: Spouse Allergies cortisone [CORTISONE] Allergy (Severe, Verified 04/23/24 14:04) ANAPHYLAXIS cephalexin Allergy (Unknown, Verified 04/23/24 14:04) unknown lisinopril Adverse Reaction (Intermediate, Verified 04/23/24 14:04) hypotension HPI Comprehensive Diabetes Asmnt Most Recent Diabetes Results: Microalb/Creat Ratio 22.7 ug/mg cr (<30) 04/24/24 Cholesterol 132 mg/dL (<200) 04/26/24 HDL Cholesterol 44 mg/dL (>40) 04/26/24 Triglycerides 60 mg/dL (<150) 04/26/24 Creatinine 1.03 mg/dL (0.5-1.4) 04/24/24 Blood Urea Nitrogen 7 mg/dL (9-16) L 04/24/24 Sodium 141 mmol/L (135-145) 04/24/24 Potassium 4.4 mmol/L (3.3-5.1) 04/24/24 Chloride 102 mmol/L (96-108) 04/24/24 Carbon Dioxide 32 mmol/L (22-29) H 04/24/24 Calcium 10.3 mg/dL (8.4-10.2) H 04/24/24 AST 15 U/L (5-37) 04/24/24 ALT 8 U/L (0-40) 04/24/24 Total Protein 7.5 g/dL (6.5-8.0) 04/24/24 Albumin 4.3 g/dL (3.5-5.0) 04/24/24 [facility] Medical History Hypoxemia COPD exacerbation Smoker Allergic rhinitis Type 2 diabetes mellitus with diabetic polyneuropathy Tinnitus Anxiety and depression Annual physical exam Tobacco abuse Peptic ulcer disease Renal calculus, right Tubular adenoma of colon DDD (degenerative disc disease), lumbar Depression Prostate cancer COPD (chronic obstructive pulmonary disease) CAP (community acquired pneumonia) Gastric ulcer Hernia Kidney stones History of prostate cancer Erectile dysfunction Insulin use (long-term) in type 2 diabetes Hyperlipidemia LDL goal <100 Vitamin D insufficiency Surgical History History of foot surgery History of inguinal hernia repair Hx of tonsillectomy Hx of prostatectomy Family History Father Diabetes Mother No problems noted. Son Diabetes Maternal Uncle Prostate cancer Paternal Grandfather Myocardial infarction Maternal Grandmother No problems noted. Maternal Aunt Esophageal cancer Maternal Grandfather Myocardial infarction Social History Household Members: Spouse Housing: Apartment Alcohol intake: current Alcohol intake frequency: a few times a month Patient Tobacco Use Status: Former Tobacco user Tobacco use type: Cigarette e-Cigarette/Vaping Use: Never Used Second Hand Smoke Exposure: Yes Substance Use Type: Former Substance User and Marijuana service: No Current occupational status: disabled Cognitive needs: Yes (cane) Hearing needs: Yes (hearing aide) Vision needs: Yes Assessment & Plan Assessment & Plan (1) Type 2 diabetes mellitus with hyperglycemia: Comment: eye doctor in [place] Code(s): E11.65 - Type 2 diabetes mellitus with hyperglycemia Qualifiers: Diabetes mellitus correction insulin use: with terminal manager use Qualified Code(s): E11.65 - Type 2 diabetes mellitus with hyperglycemia; Z79.4 - [facility]P (current) use of insulin Plan: Learning objectives: The patient was provided with verbal and written education on the following topics as outlined below. Patient questions/concerns patient's last A1c on 04/26/2024 7.5%. Patient reports he started on Ozempic to 0.25 mg weekly proximally 3 weeks ago. Since then he has lost much of his appetite, and he has started having diarrhea. Recommended to patient he discuss symptoms at his PA appointment on 05/03/2024 In addition he has been unable to obtain Dexcom G7 sensors patient's reports last time she went to pick them up at the pharmacy she was told that they were not covered by insurance. Pharmacy called at today's visit they reported they had sent a PA request to patient's PCP office, checked patient's medical record there are no limitations regarding PA status. Sent message to PA to resend prescription for Dexcom G7 sensors, so PA can be submitted by endocrine clinic Patient given to Dexcom G7 sample sensors at today's visit The patient met all learning objectives and was able to verbalize understanding and provide teach back of education topics discussed . The patient was provided with the opportunity to ask questions and all questions were answered. Topics covered in today?s session included: Medications (If applicable) * Name of medication? * Dosing/administration instructions? * Mechanism of action? * Potential side effects? * Potential adverse reaction and appropriate treatment? * Review onset, peak, duration Assess for concerns re: insurance coverage, cost, barriers to compliance Insulin/Injectables (If applicable) * Storage/care of insulin?? * Injection sites? * Site rotation? * Onset, peak, duration * Drawing up insulin? * Injecting insulin/other injectables? * Sharps disposal Continuous blood glucose monitoring (if applicable) ?Patient was receptive to information provided and participated in the discussion. Asked?appropriate questions and demonstrated good understanding of the topics discussed.? ? Portions of this note were created using voice recognition software, please excuse any words or phrases that may have been misinterpreted. Patient Instructions: Patient will follow-up with nursing educator in 1 month Coding Level of Care Code Est Pt Level 1 (56856) Diagnoses Type 2 diabetes mellitus with hyperglycemia, with long-term current use of insulin E11.65; Z79.4 Diabetes mellitus correction insulin use: with terminal manager use
== END 2024-05-02 14:19 | disposition home or self-care (01) ==
PROVIDERS: PCP Internal Medicine; Visit Provider Registered Nurse Diabetes Educator
DX: E11.65 Type 2 diabetes mellitus with hyperglycemia (principal); Z79.4 Long term (current) use of insulin

== ENCOUNTER → 2024-05-02 13:34 | Outpatient (BNVA) | payer OTHER, SELFPAY | PROVIDERS: PCP Internal Medicine; Visit Provider Registered Nurse Diabetes Educator | DX: E11.65 Type 2 diabetes mellitus with hyperglycemia (principal); Z79.4 Long term (current) use of insulin | CPT/HCPCS: 99211 ==

== ENCOUNTER 2024-05-03 12:39 | Outpatient (AMB) | payer OTHER, SELFPAY ==
--- NOTE | 2024-05-03 13:00 | MHC.OFFVIS ---
Vital Signs 05/03/24 13:01 Height 5 ft 5.5 in Weight 173 lb 15.115 oz BMI 28.5 BP 100/64 Blood Pressure Location Lt brachial Position Sitting Pulse 97 Pulse Source Pulse Oximeter Intake Visit Reasons: Med/ T2DM/CONFIRMED Intake Note: Patient present today to follow up on Type 2 Diabetes Mellitus. Patient receives DME supplies through: Pharmacy Last Diabetic Eye exam: February 2024 Last Podiatry Visit: Does not see a It Risk Analyst Random Glucose: 269 mg/dl HgA1C: 7.5% 04/26/24 Marine Equipment Design Engineer Required: Yes Marine Equipment Design Engineer Language: Director Market Research Services: Marine Equipment Design Engineer Present Marine Equipment Design Engineer Name: Ra Information Interpreted: non-clinical & clinical Accompanied by: Spouse Allergies cortisone [CORTISONE] Allergy (Severe, Verified 05/03/24 13:06) ANAPHYLAXIS cephalexin Allergy (Unknown, Verified 05/03/24 13:06) unknown lisinopril Adverse Reaction (Intermediate, Verified 05/03/24 13:06) hypotension Medication List - Last Reconciled 05/03/24 by Charo Awad PA-C albuterol sulfate 90 mcg/actuation INHALE 2 PUFFS BY MOUTH EVERY 4 TO 6 HOURS NEEDED FOR SHORTNESS OF BREATH OR WHEEZING alcohol swabs (BD Alcohol Swabs) 1 pad topical QID atorvastatin 20 mg PO DAILY blood sugar diagnostic (FreeStyle Lite Strips) Three time a day blood-glucose meter (FreeStyle Lite Meter kit) USE DIRECTED blood-glucose sensor (Dexcom G7 Sensor device) USE DIRECTED EVERY 10 DAYS cholecalciferol (vitamin D3) 50 mcg PO DAILY clotrimazole 1% 1 appl topical BID 4 weeks dupilumab (Dupixent) 300 mg subcut Q2W fluticasone propion-salmeterol 250-50 mcg/dose 1 ea PO Q12H glucagon 3 mg/actuation (Baqsimi) 3 mg intranasal ONCE 30 days glucose (Dex4 Glucose) 12 grams (3 x 4 gram) PO Q15M PRN Incruse Ellipta 62.5 mcg/actuation (umeclidinium) 1 inh PO DAILY NS insulin glargine U-300 conc 14 units subcut BEDTIME lancets (FreeStyle Lancets) 1 gauge topical TID 90 days miconazole nitrate 2% (Zeasorb AF) 1 appl topical BID Novolog FlexPen U-100 Insulin (insulin aspart U-100) 14 units (0.14 mL) subcut TID NS Oxygen Home Use As directedO2 2L NC pen needle, diabetic (BD Tierra 2nd Gen Pen Needle) 1 ea miscellaneous .4X/day polyethylene glycol 3350 grams PO psyllium husk (Fiber (psyllium husk)) 1.04 grams (2 x 0.52 gram) PO DAILY sertraline 50 mg PO DAILY 90 days HPI HPI Med/ T2DM/CONFIRMED: Details: Patient is a 64-year-old male with a significant past medical history of COPD, prostate cancer, hyperlipidemia, kidney stones, type 2 diabetes, insulin dependent, erectile dysfunction due to diabetes and vitamin-D deficiency presenting today for a follow-up regarding his diabetes. He last saw myself in february. Marine Equipment Design Engineer Ben #[id number] Endo: A1c 7.5. Meds- Toujeo 14 units, Novolog 10 units TID and was started on Ozempic 0.25 mg weekly. He states that when he started the Ozempic he started to feel nauseous and developed diarrhea. Did not want to eat with this medication and does not want to stay on this medication. stopped Tradjenta 5 mg. Intolerant of metformin due to diarrhea, Jardiance due to urinary frequency and Trulicity due to undesired weight loss. Pioglitzone stopped due to edema, ozempic is causing GI upset with n/v CGM average blood sugar 175, 7.5%, very high 6%, high 36%, within range 58%, 0% lows He reports being hypoglycemic from 12-3 PM frequently because he tries to avoid eating between breakfast and lunch. He typically eats a later lunch. He does not snack. He states that when his blood sugars run low he corrects it with soda, cake or candy. Diet: usually a muffin or 2 breakfast sandwiches from [email or web address], lunch is typically a double whooper from [employer], dinner is his largest portion a protein and then rice and beans. Exercise: None due to back pain. Following with pcp for this. He is frustrated with his belly and does not like that he has to eat so much to keep up with the insulin injections. [facility] Medical History Hypoxemia COPD exacerbation Smoker Allergic rhinitis Type 2 diabetes mellitus with diabetic polyneuropathy Tinnitus Anxiety and depression Annual physical exam Tobacco abuse Peptic ulcer disease Renal calculus, right Tubular adenoma of colon DDD (degenerative disc disease), lumbar Depression Prostate cancer COPD (chronic obstructive pulmonary disease) CAP (community acquired pneumonia) Gastric ulcer Hernia Kidney stones History of prostate cancer Erectile dysfunction Insulin use (long-term) in type 2 diabetes Hyperlipidemia LDL goal <100 Vitamin D insufficiency Surgical History History of foot surgery History of inguinal hernia repair Hx of tonsillectomy Hx of prostatectomy Family History Father Diabetes Mother No problems noted. Son Diabetes Maternal Uncle Prostate cancer Paternal Grandfather Myocardial infarction Maternal Grandmother No problems noted. Maternal Aunt Esophageal cancer Maternal Grandfather Myocardial infarction Social History Household Members: Spouse Housing: Apartment Alcohol intake: current Alcohol intake frequency: a few times a month Patient Tobacco Use Status: Former Tobacco user Tobacco use type: Cigarette e-Cigarette/Vaping Use: Never Used Second Hand Smoke Exposure: Yes Substance Use Type: Former Substance User and Marijuana service: No Current occupational status: disabled Cognitive needs: Yes (cane) Hearing needs: Yes (hearing aide) Vision needs: Yes Physical Exam Vital Signs: Last Vital Signs Pulse 97 05/03/24 13:01 BP 100/64 05/03/24 13:01 BMI result Body Mass Index 28.5 Const Orientation/consciousness: patient oriented x3 HEENT Ears: hearing grossly normal bilaterally Neck Thyroid: Thyroid normal Lymphatic: no lymphadenopathy noted Resp Auscultation: clear to auscultation bilaterally Cardio Rate: regular rate Rhythm: regular rhythm Heart sounds: S1 normal heart sound present and S2 normal heart sound present Skin General skin exam: no rashes or lesions noted Neuro General: patient oriented x3, gait normal and no focal motor deficits Extrem Other: DP pulses 2+ bilaterally. Sensation intact bilaterally to the monofilament. Vibratory sensation diminished in the bilateral great toes. Skin intact Results Reviewed Results Reviewed: Laboratory Last Values Glucose (Clinic) 269 mg/dL (60-115) H 05/03/24 13:07 Laboratory Tests 01/17/24 01/17/24 02/24/24 08:07 08:11 08:26 Sodium 139 Potassium 4.2 Chloride 103 Carbon Dioxide 29 Anion Gap 11 L BUN 12 Creatinine 0.85 Estimated GFR > 60 Random Glucose 192 H Estimat Average Glucose Hemoglobin A1c % Calcium 9.8 Total Bilirubin 0.4 AST 21 ALT 17 Alkaline Phosphatase 75 Triglycerides 73 Cholesterol 194 LDL Cholesterol, Calc 125 H HDL Cholesterol 55 Urine Creatinine 218.60 170.13 Urine Microalbumin 22.0 Microalb/Creat Ratio 10.0 04/24/24 04/26/24 08:43 09:02 Sodium 141 Potassium 4.4 Chloride 102 Carbon Dioxide 32 H Anion Gap 11 L BUN 7 L Creatinine 1.03 Estimated GFR > 60 Random Glucose Estimat Average Glucose 169 Hemoglobin A1c % 7.5 H Calcium Total Bilirubin AST ALT Alkaline Phosphatase Triglycerides 60 Cholesterol 132 LDL Cholesterol, Calc 76 HDL Cholesterol 44 Urine Creatinine Urine Microalbumin Microalb/Creat Ratio Assessment & Plan Assessment & Plan (1) Type 2 diabetes mellitus with diabetic polyneuropathy: Code(s): E11.42 - Type 2 diabetes mellitus with diabetic polyneuropathy Category: Medical Qualifiers: Diabetes mellitus skilled nursing insulin use: with keno terminal operator use Qualified Code(s): E11.42 - Type 2 diabetes mellitus with diabetic polyneuropathy; Z79.4 - buttermaker (current) use of insulin Plan: We will increase his NovoLog to 10 units with breakfast, 14 units with lunch, 14 units with supper. Increase Toujeo to 18 units. (2) Hyperlipidemia LDL goal <100: Code(s): E78.5 - Hyperlipidemia, unspecified Category: Medical Plan: Continue current regimen. Reviewed results with patient. Medications: Changed From Novolog FlexPen U-100 Insulin (insulin aspart U-100) 14 units (0.14 mL) subcut TID 15 mL 5RF NS To Novolog FlexPen U-100 Insulin (insulin aspart U-100) inject 10 units sq with breakfast, inject 14 units sq with lunch, inject 14 units sq with dinner 15 mL 5RF NS From insulin glargine U-300 conc toujeo ENDO 16 units (0.0533 mL) subcut BEDTIME 4.5 mL 3RF E11.65 - Type 2 diabetes mellitus with hyperglycemia To insulin glargine U-300 conc toujeo ENDO 18 units (0.06 mL) subcut BEDTIME 4.5 mL 3RF E11.65 - Type 2 diabetes mellitus with hyperglycemia From insulin glargine U-300 conc toujeo ENDO 14 units subcut BEDTIME E11.65 - Type 2 diabetes mellitus with hyperglycemia To insulin glargine U-300 conc toujeo ENDO 16 units (0.0533 mL) subcut BEDTIME 4.5 mL 3RF E11.65 - Type 2 diabetes mellitus with hyperglycemia Coding Level of Care Code Est Pt Level 4 (47568) Complex EM visit Add On G2211 Diagnoses Type 2 diabetes mellitus with diabetic polyneuropathy, with long-term current use of insulin E11.42; Z79.4 Diabetes mellitus keno terminal operator insulin use: with keno terminal operator use Hyperlipidemia LDL goal <100 E78.5
[2024-05-03 13:01] VITALS: BP 100/64; PULSE 97; BMI 28.5
[2024-05-03 13:20] LABS: Glucose, Whole Blood 269 mg/dL (60-115)
== END 2024-05-03 13:55 | disposition home or self-care (01) ==
PROVIDERS: PCP Internal Medicine; Visit Provider Physician Assistant
DX: E11.42 Type 2 diabetes mellitus with diabetic polyneuropathy (principal); Z79.4 Long term (current) use of insulin; E78.5 Hyperlipidemia, unspecified
CPT/HCPCS: 99214; G2211

== ENCOUNTER → 2024-05-03 12:39 | Outpatient (BNVA) | payer OTHER, SELFPAY | PROVIDERS: PCP Internal Medicine; Visit Provider Physician Assistant | DX: E11.42 Type 2 diabetes mellitus with diabetic polyneuropathy (principal); E78.5 Hyperlipidemia, unspecified; Z79.4 Long term (current) use of insulin | CPT/HCPCS: 82947; 99212 ==

== ENCOUNTER 2024-05-29 09:41 | Outpatient (AMB) | payer OTHER, SELFPAY ==
--- NOTE | 2024-05-29 09:42 | A.OFFVIS_ITS ---
Intake Visit Reasons: 3m follow up Intake Note: Patient is Present for 3m Follow Up Urology Medication: None Antibiotic Allergies: Cephalexin Blood Thinners: None Steward/Stewardess Chief Cargo Vessel Required: No Allergies cortisone [CORTISONE] Allergy (Severe, Verified 05/29/24 11:11) ANAPHYLAXIS cephalexin Allergy (Unknown, Verified 05/29/24 11:11) unknown lisinopril Adverse Reaction (Intermediate, Verified 05/29/24 11:11) hypotension Medication List - Last Reconciled 05/29/24 by HOWIE Durham albuterol sulfate 90 mcg/actuation INHALE 2 PUFFS BY MOUTH EVERY 4 TO 6 HOURS NEEDED FOR SHORTNESS OF BREATH OR WHEEZING alcohol swabs (BD Alcohol Swabs) 1 pad topical QID atorvastatin 20 mg PO DAILY blood-glucose sensor (HearMeOut G7 Sensor device) USE DIRECTED EVERY 10 DAYS cholecalciferol (vitamin D3) 50 mcg PO DAILY clotrimazole 1% 1 appl topical BID 4 weeks fluticasone propion-salmeterol 250-50 mcg/dose 1 ea PO Q12H glucagon 3 mg/actuation (Baqsimi) 3 mg intranasal ONCE 30 days Incruse Ellipta 62.5 mcg/actuation (umeclidinium) 1 inh PO DAILY NS miconazole nitrate 2% (Zeasorb AF) 1 appl topical BID Novolog FlexPen U-100 Insulin (insulin aspart U-100) inject 10 units sq with breakfast, inject 14 units sq with lunch, inject 14 units sq with dinner NS Oxygen Home Use As directedO2 2L NC pen needle, diabetic (BD [place]ierra 2nd Gen Pen Needle) 1 ea miscellaneous .4X/day sertraline 50 mg PO DAILY 90 days tadalafil (Cialis) 5 mg PO DAILY 90 days tadalafil (Cialis) 20 mg PO DAILY PRN 90 days HPI Comments Details: Carroll is a pleasant 64-year-old male patient of Dr. Anton who was accompanied by significant other at today's office visit. 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 He presents to the office today for follow-up of his nephrolithiasis, lower urinary tract symptoms, erectile dysfunction, and prostate cancer. In discussion with the patient today he reports to be doing and feeling well. He reports since his last office visit here approximately 3 months ago he has not had no bothersome urinary issues or concerns. He reports having picked up daily dosing of tadalafil with on demand dosing however has since lost his prescription and therefore was not able to trial medication. In office urinalysis results reviewed with the patient today. When asked he denies urinary urgency, urinary frequency, incontinence, nocturia, hematuria, dysuria, foul smelling urine, changes to urinary stream, flank pain, fever, and or chills. He is happy with his current voiding parameters. Discussed at length potential causes of erectile dysfunction. Discussed further treatment options. He otherwise offers no other issues or concerns at this time. PREVIOUS HISTORY Prostate cancer - prior external radiation 2004 PSA 07/12 <0.1, 11/13 <0.1, 04/13 <0.1, 03/15 <0.1 Bladder emptying Minimal issues with urination Continue with surveillance Erectile dysfunction Longstanding with oral medications Trial tadalafil [facility] Medical History (Reviewed 05/29/24 @ 21:46 by Lizeth Ortega [facility]) Hypoxemia COPD exacerbation Smoker Allergic rhinitis Type 2 diabetes mellitus with diabetic polyneuropathy Tinnitus Anxiety and depression Annual physical exam Tobacco abuse Peptic ulcer disease Renal calculus, right Tubular adenoma of colon DDD (degenerative disc disease), lumbar Depression Prostate cancer COPD (chronic obstructive pulmonary disease) CAP (community acquired pneumonia) Gastric ulcer Hernia Kidney stones History of prostate cancer Erectile dysfunction Insulin use (long-term) in type 2 diabetes Hyperlipidemia LDL goal <100 Vitamin D insufficiency Surgical History History of foot surgery History of inguinal hernia repair Hx of tonsillectomy Hx of prostatectomy Family History Father Diabetes Mother No problems noted. Son Diabetes Maternal Uncle Prostate cancer Paternal Grandfather Myocardial infarction Maternal Grandmother No problems noted. Maternal Aunt Esophageal cancer Maternal Grandfather Myocardial infarction Social History Household Members: Spouse Housing: Apartment Alcohol intake: current Alcohol intake frequency: a few times a month Patient Tobacco Use Status: Former Tobacco user Tobacco use type: Cigarette e-Cigarette/Vaping Use: Never Used Second Hand Smoke Exposure: Yes Substance Use Type: Former Substance User and Marijuana service: No Current occupational status: disabled Cognitive needs: Yes (cane) Hearing needs: Yes (hearing aide) Vision needs: Yes Review of Systems Const Reports no additional complaints Eyes Reports no additional complaints ENT Reports no additional complaints Card Reports as per HPI Resp Reports as per [facility] GI Reports as per HPI Reports as per [facility] Musc Reports as per HPI Neuro Reports as per HPI Psych Reports as per HPI Endo Reports as per HPI Andrés/Lymph Reports no additional complaints Aller/Immun Reports no additional complaints Physical Exam Const General: cooperative, healthy appearing, comfortable, no acute distress, well developed, alert and awake Orientation/consciousness: patient oriented x3 Limitations: ambulation with cane HEENT Head: Yes normal to inspection, Yes normocephalic and Yes atraumatic Ears: hearing grossly normal bilaterally Eyes General: appearance normal, both eyes and all related structures Neck Neck: Yes normal visual inspection and Yes trachea midline Chest Chest palpation & inspection: normal inspection of the chest Resp Effort & Inspection: normal respiratory effort and able to speak in complete sentences Cardio Rate: regular rate GI Inspection: Yes normal to inspection General: Yes no CVA tenderness Back/Spine/Pelvis Back: no CVA tenderness Skin General skin exam: no rashes or lesions noted Neuro General: patient oriented x3 Extrem General: Yes normal to inspection Psych Appearance: grossly normal and well kempt Mental Status: mental status grossly normal Speech and movement: Normal speech and movement present and Clear speech present Affect: normal affect Attitude: cooperative Thought process: Normal thought process present Thought content: Normal thought content present Insight: Fair insight present (Psych) Judgement: Fair judgement present (Psych) Results AMB Urinalysis, Automated UA Leukoctes 0 Elpidio/uL Last Edit by ROSA Grimes on 05/29/24 09:55 UA Nitrite Negative Last Edit by ROSA Grimes on 05/29/24 09:55 UA Urobilinogen 0.2 mg/dL Last Edit by ROSA Grimes on 05/29/24 09:5 5 UA Protein 15 mg/dL Last Edit by ROSA Grimes on 05/29/24 09:55 UA pH 6.0 Last Edit by ROSA Grimes on 05/29/24 09:55 UA Blood 10 Marco Antonio/uL Last Edit by ROSA Grimes on 05/29/24 09:55 UA Specific [place] 1.015 Last Edit by ROSA Grimes on 05/29/24 09: 55 UA Ketone Positive Last Edit by ROSA Grimes on 05/29/24 09:55 UA Bilirubin 0 mg/dL Last Edit by ROSA Grimes on 05/29/24 09:55 UA Glucose 0 mg/dL Last Edit by ROSA Grimes on 05/29/24 09:55 Results Reviewed Results Reviewed: Laboratory Last Values Urine pH (Auto) 6.0 05/29/24 09:54 Specific [place] (Auto) 1.015 05/29/24 09:54 Urine Protein (Auto) 15 mg/dL 05/29/24 09:54 Glucose (UA)(Auto) 0 mg/dL 05/29/24 09:54 Urine Ketones (Auto) Positive 05/29/24 09:54 Urine Blood (Auto) 10 Marco Antonio/uL 05/29/24 09:54 Urine Nitrite (Auto) Negative 05/29/24 09:54 Urine Bilirubin (Auto) 0 mg/dL 05/29/24 09:54 Urine Urobilinogen (Auto) 0.2 mg/dL 05/29/24 09:54 Leukocyte Esterase (Auto) 0 Elpidio/uL 05/29/24 09:54 Assessment & Plan Assessment & Plan (1) Nephrolithiasis: Code(s): N20.0 - Calculus of kidney Category: Medical (2) Erectile dysfunction associated with type 2 diabetes mellitus: Code(s): E11.69 - Type 2 diabetes mellitus with other specified complication; N52.1 - Erectile dysfunction due to diseases classified elsewhere Category: Medical (3) Erectile dysfunction: Code(s): N52.9 - Male erectile dysfunction, unspecified Category: Medical Qualifiers: Erectile dysfunction type: vasculogenic Vasculogenic erectile dysfunction type: due to arterial insufficiency Qualified Code(s): N52.01 - Erectile dysfunction due to arterial insufficiency (4) Prostate cancer: Comment: 2004 Code(s): C61 - Malignant neoplasm of prostate Category: Medical Plan In office urinalysis results reviewed with the patient today; as noted above. Refill provided on daily dosing of tadalafil with on demand dosing. Discussed lifestyle modifications to assist with erectile dysfunction Discussed at length potential causes of erectile dysfunction Discussed further treatment options of erectile dysfunction Discussed at length importance of managing diabetes for improvement in erectile dysfunction as well as overall health and well-being. Will obtain PSA for further assessment evaluation. Patient denies any bothersome urinary issues. He reports be happy with current voiding parameters. Follow-up in 3 months; or sooner with any issues, concerns, and or questions. Orders: Orders AMB Urinalysis Automated Today Z13.9 - Encounter for screening, unspecified Prostate Specific Antigen Today C61 - Malignant neoplasm of prostate, E11.69 - Type 2 diabetes mellitus with other specified complication, N52.1 - Erectile dysfunction due to diseases classified elsewhere Medications: New tadalafil (Cialis) [id number] [facility] Member [id number] 5 mg PO DAILY 90 days 90 tabs 1RF tadalafil (Cialis) administer approximately 30min before sexual activity; do not use more than 1 dose per 24hrs [id number] [facility]33 Member [id number] 20 mg PO DAILY 90 days PRN 45 tabs 0RF sexual activity Patient Instructions: The patient had an opportunity to ask questions regarding the treatment plan. All questions were answered. Physical exam, labs, and imaging were discussed and reviewed in detail. As well as risks, benefits, and discussion of treatment choices. No major barriers to understanding were identified. The patient expressed understanding and agreement with the above treatment plan. The patient was made aware they should contact our office by phone for worsening of their current condition, the appearance of new symptoms, or with any questions or concerns. Compliance is encouraged with any medications and follow up testing that is ordered. It is a privilege to be allowed the opportunity to participate in? your urological care.? Again, if you have any questions or concerns If you have any questions or concerns please do not hesitate to contact me. The office is [phone]. This note is constructed using voice recognition software. While every effort has been made to ensure accuracy user experience manager errors may have been included. Yours sincerely, HOWIE Durham Coding Level of Care Code Est Pt Level 3 (21274) Complex EM visit Add On G2211 Diagnoses Nephrolithiasis N20.0 Erectile dysfunction associated with type 2 diabetes mellitus E11.69; N52.1 Erectile dysfunction due to arterial insufficiency N52.01 Erectile dysfunction type: vasculogenic Vasculogenic erectile dysfunction type: due to arterial insufficiency Prostate cancer C61
== END 2024-05-29 10:04 | disposition home or self-care (01) ==
PROVIDERS: PCP Internal Medicine; Visit Provider Nurse Practitioner Family
DX: N20.0 Calculus of kidney (principal); E11.69 Type 2 diabetes mellitus with other specified complication; N52.1 Erectile dysfunction due to diseases classified elsewhere; N52.01 Erectile dysfunction due to arterial insufficiency; C61 Malignant neoplasm of prostate; Z13.9 Encounter for screening, unspecified
CPT/HCPCS: 99213; G2211

== ENCOUNTER → 2024-05-29 09:41 | Outpatient (BNVA) | payer OTHER, SELFPAY | PROVIDERS: PCP Internal Medicine; Visit Provider Nurse Practitioner Family | DX: N20.0 Calculus of kidney (principal); E11.69 Type 2 diabetes mellitus with other specified complication; N52.1 Erectile dysfunction due to diseases classified elsewhere; N52.01 Erectile dysfunction due to arterial insufficiency; C61 Malignant neoplasm of prostate | CPT/HCPCS: 81003; 99212 ==

== ENCOUNTER 2024-06-03 12:30 | Outpatient (AMB) | payer OTHER, SELFPAY ==
[2024-06-03 13:14] LABS: Glucose, Whole Blood 46 mg/dL (60-115)
--- NOTE | 2024-06-03 13:22 | A.OFFVIS_ITS ---
Intake Intake Visit Reasons: 30 min/CONFIRMED Intake Note: POC: 46 mg/dl @1:11pm 145 mg/d @ 1:33pm Joinery Patternmaker Required: Yes Joinery Patternmaker Language: Insurance Risk Surveyor Name: Pt's Accompanied by: Significant Other Allergies cortisone [CORTISONE] Allergy (Severe, Verified 05/29/24 11:11) ANAPHYLAXIS cephalexin Allergy (Unknown, Verified 05/29/24 11:11) unknown lisinopril Adverse Reaction (Intermediate, Verified 05/29/24 11:11) hypotension HPI Comprehensive Diabetes Asmnt Most Recent Diabetes Results: Microalb/Creat Ratio 22.7 ug/mg cr (<30) 04/24/24 Cholesterol 132 mg/dL (<200) 04/26/24 HDL Cholesterol 44 mg/dL (>40) 04/26/24 Triglycerides 60 mg/dL (<150) 04/26/24 Creatinine 1.03 mg/dL (0.5-1.4) 04/24/24 Blood Urea Nitrogen 7 mg/dL (9-16) L 04/24/24 Sodium 141 mmol/L (135-145) 04/24/24 Potassium 4.4 mmol/L (3.3-5.1) 04/24/24 Chloride 102 mmol/L (96-108) 04/24/24 Carbon Dioxide 32 mmol/L (22-29) H 04/24/24 Calcium 10.3 mg/dL (8.4-10.2) H 04/24/24 AST 15 U/L (5-37) 04/24/24 ALT 8 U/L (0-40) 04/24/24 Total Protein 7.5 g/dL (6.5-8.0) 04/24/24 Albumin 4.3 g/dL (3.5-5.0) 04/24/24 [facility] Medical History Hypoxemia COPD exacerbation Smoker Allergic rhinitis Type 2 diabetes mellitus with diabetic polyneuropathy Tinnitus Anxiety and depression Annual physical exam Tobacco abuse Peptic ulcer disease Renal calculus, right Tubular adenoma of colon DDD (degenerative disc disease), lumbar Depression Prostate cancer COPD (chronic obstructive pulmonary disease) CAP (community acquired pneumonia) Gastric ulcer Hernia Kidney stones History of prostate cancer Erectile dysfunction Insulin use (long-term) in type 2 diabetes Hyperlipidemia LDL goal <100 Vitamin D insufficiency Surgical History History of foot surgery History of inguinal hernia repair Hx of tonsillectomy Hx of prostatectomy Family History Father Diabetes Mother No problems noted. Son Diabetes Maternal Uncle Prostate cancer Paternal Grandfather Myocardial infarction Maternal Grandmother No problems noted. Maternal Aunt Esophageal cancer Maternal Grandfather Myocardial infarction Social History Household Members: Spouse Housing: Apartment Alcohol intake: current Alcohol intake frequency: a few times a month Patient Tobacco Use Status: Former Tobacco user Tobacco use type: Cigarette e-Cigarette/Vaping Use: Never Used Second Hand Smoke Exposure: Yes Substance Use Type: Former Substance User and Marijuana service: No Current occupational status: disabled Cognitive needs: Yes (cane) Hearing needs: Yes (hearing aide) Vision needs: Yes Assessment & Plan Assessment & Plan (1) Type 2 diabetes mellitus with hyperglycemia: Comment: eye doctor in [place] Code(s): E11.65 - Type 2 diabetes mellitus with hyperglycemia Qualifiers: Diabetes mellitus senior living insulin use: with intermodal dispatcher use Qualified Code(s): E11.65 - Type 2 diabetes mellitus with hyperglycemia; Z79.4 - MCC (current) use of insulin Plan: Personal Continuous Glucose Monitor: Patients CGM information reviewed Reviewed patient's sensor data: Hypoglycemia: ? 1% Hyperglycemia:? 26% Time in Range:? 73% Average glucose for the last 2 weeks? 154 mg/dL Patient's glucose levels have improved, patient does several postprandial hypoglycemic events. Suggested to patient he reduce Humalog doses to 8 units before breakfast, 12 units before lunch and dinner Patient did have hypoglycemia at today's visit, glucose level was 46 mg/dL. Patient was given 4 oz of regular luigi jackie, and 3 glucose tabs We waited 15 minutes in retested patient's blood glucose was 145 mg/dL Reviewed with patient how to treat hypoglycemia with rule of 15s, Faroese handout given Patient treats hypoglycemia with orange juice when he is home. Instructed patient he should carry glucose tabs with him in the event he has hypoglycemia while not at home. Patient still has not received Dexcom G7 sensors, called patient's pharmacy PA still pending. Sent message regarding PA to front end web developer staff to see if they can update status prior authorization Reviewed how to interpret trend arrows Reminded patient that to check finger sticks if symptoms do not match sensor reading. Discussed lag time between finger stick and sensor data.? Patient able to insert sensor independently at home without issue.? Portions of this note were created using voice recognition software, please excuse any words or phrases that may have been misinterpreted. Patient Instructions: Reduzca Humalog, inyecte 8 unidades cuadradas con el desayuno, inyecte 12 unidades cuadradas con el almuerzo, inyecte 12 unidades cuadradas con la candy maker helper. [place] Humalog antes de las comidas. Utilice la zaira del 15 para tratar la glucosa por debajo de 70 mg/dL seguimiento con enfermera de educaci?n sobre diabetes en 2 meses Coding Level of Care Code Est Pt Level 1 (64497) Diagnoses Type 2 diabetes mellitus with hyperglycemia, with long-term current use of insulin E11.65; Z79.4 Diabetes mellitus senior living insulin use: with intermodal dispatcher use Results Reviewed Results Reviewed: Laboratory Last Values Glucose (Clinic) 145 mg/dL (60-115) H 06/03/24 13:33
[2024-06-03 13:37] LABS: Glucose, Whole Blood 145 mg/dL (60-115)
== END 2024-06-03 13:34 | disposition home or self-care (01) ==
PROVIDERS: PCP Internal Medicine; Visit Provider Registered Nurse Diabetes Educator
DX: E11.65 Type 2 diabetes mellitus with hyperglycemia (principal); Z79.4 Long term (current) use of insulin

== ENCOUNTER → 2024-06-03 12:30 | Outpatient (BNVA) | payer OTHER, SELFPAY | PROVIDERS: PCP Internal Medicine; Visit Provider Registered Nurse Diabetes Educator | DX: E11.65 Type 2 diabetes mellitus with hyperglycemia (principal); E11.42 Type 2 diabetes mellitus with diabetic polyneuropathy; Z79.4 Long term (current) use of insulin | CPT/HCPCS: 82947; 99211 ==

== ENCOUNTER 2024-06-21 13:31 | Outpatient (AMB) | payer OTHER, SELFPAY ==
--- NOTE | 2024-06-21 13:33 | A.OFFPC_ITS ---
Vital Signs 06/21/24 13:34 Height 5 ft 5.5 in Weight 167 lb 6 oz BMI 27.4 BP 130/72 Blood Pressure Location Lt brachial Position Sitting Pulse 83 Pulse Source Pulse Oximeter Pulse Oximetry (%) 94 Oxygen Delivery Method Room Air Intake Visit Reasons: cramps on both hands Intake Note: Patient is here to follow up on cramps in both hands. Complaint of left hand swelling and trigger finger of the middle finger. Right wrist pain radiating to thumb. Table Machine Operator Required: No Neurological Surgery Teacher: Present Accompanied by: Spouse Allergies cortisone [CORTISONE] Allergy (Severe, Verified 06/21/24 13:34) ANAPHYLAXIS cephalexin Allergy (Unknown, Verified 06/21/24 13:34) unknown lisinopril Adverse Reaction (Intermediate, Verified 06/21/24 13:34) hypotension Tobacco use date assessed: 06/21/24 Fall risk assessment: No Falls in past year Last assessed Fall Risk: 06/21/24 Dental Screening Dental Screen Date: 01/16/24 HPI cramps on both hands HPI Details 64-year-old overweight male(noted) six l b weight loss) with diabetes mellitus hypercholesterolemia COPD generalized anxiety disorder last seen in April 2024. Patient is here for follow-up. Patient follows up with endocrinology seen in June 03 has the continuous glucose monitor. Patient also sees Urology history of prostate cancer and nephrolithiasis prescribed Elavil but was not able to spanish moss picker.. Represcribed and PSA surveillance. [facility] Medical History (Updated 06/21/24 @ 14:23 by Margarito Anton MD) Tobacco abuse Hypoxemia COPD exacerbation Smoker Allergic rhinitis Type 2 diabetes mellitus with diabetic polyneuropathy Tinnitus Anxiety and depression Annual physical exam Peptic ulcer disease Renal calculus, right Tubular adenoma of colon DDD (degenerative disc disease), lumbar Depression Prostate cancer COPD (chronic obstructive pulmonary disease) CAP (community acquired pneumonia) Gastric ulcer Hernia Kidney stones History of prostate cancer Erectile dysfunction Insulin use (long-term) in type 2 diabetes Hyperlipidemia LDL goal <100 Vitamin D insufficiency Surgical History History of foot surgery History of inguinal hernia repair Hx of tonsillectomy Hx of prostatectomy Family History Father Diabetes Mother No problems noted. Son Diabetes Maternal Uncle Prostate cancer Paternal Grandfather Myocardial infarction Maternal Grandmother No problems noted. Maternal Aunt Esophageal cancer Maternal Grandfather Myocardial infarction Social History Household Members: Spouse Housing: Apartment Alcohol intake: current Alcohol intake frequency: a few times a month Patient Tobacco Use Status: Former Tobacco user Tobacco use type: Cigarette e-Cigarette/Vaping Use: Never Used Second Hand Smoke Exposure: Yes Substance Use Type: Former Substance User and Marijuana service: No Current occupational status: disabled Cognitive needs: Yes (cane) Hearing needs: Yes (hearing aide) Vision needs: Yes Questionnaire Thrive Questionnaire Date Thrive assessed: 01/02/24 YOLIS-7 AMB Questionnaire YOLIS-7 Date YOLIS - 7 assessed: 11/17/23 Source: Developed by Drs. Favian Nascimento, Valentina Serrano, Jose M Lunsford and colleagues, with an educational edita from [employer]. Physical exam (Primary Care) Vital Signs: Last Vital Signs Pulse 83 06/21/24 13:34 BP 130/72 06/21/24 13:34 Pulse Ox 94 06/21/24 13:34 Oxygen Delivery Method Room Air 06/21/24 13:34 BMI result Body Mass Index 27.4 Tobacco/Smoking Status: Tobacco use Status Tobacco use date assessed 06/21/24 06/21/24 13:43 Patient Tobacco Use Status Former Tobacco user 06/21/24 13:43 Tobacco use type Cigarette 06/21/24 13:43 e-Cigarette/Vaping Use Never Used 06/21/24 13:43 Thrive Assessment: Date of Thrive Assessment Date Thrive assessed 01/02/24 06/21/24 13:43 Const General: alert; No acute distress Eyes Conjunctivae: conjunctivae normal Resp Auscultation: clear to auscultation bilaterally Cardio Rate: regular rate Rhythm: regular rhythm GI Inspection: Yes normal to inspection Extrem General: Yes normal to inspection and No edema Assessment and Plan Assessment & Plan (1) Type 2 diabetes mellitus with hyperglycemia: Comment: eye doctor in [place] Code(s): E11.65 - Type 2 diabetes mellitus with hyperglycemia Qualifiers: Diabetes mellitus retirement insulin use: with termite treater helper use Qualified Code(s): E11.65 - Type 2 diabetes mellitus with hyperglycemia; Z79.4 - assisted (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 Hemoglobin A1c goal of less than 7.0. Patient follows up with endocrinology (2) Prostate cancer: Comment: 2004 Code(s): C61 - Malignant neoplasm of prostate Plan: Patient continues to follow-up with urology placed on tadalafil (3) COPD (chronic obstructive pulmonary disease): Comment: He has long-standing chronic obstructive pulmonary disease. DOING MUCH BETTER SINCE HE QUIT SMOKING. AT PRESENT HIS COPD IS VERY STABLE, AND HE IS ADVISED TO CONTINUE THE PRESENT REGIMEN. Code(s): J44.9 - Chronic obstructive pulmonary disease, unspecified Qualifiers: COPD type: emphysema Emphysema type: unspecified Qualified Code(s): J43.9 - Emphysema, unspecified Plan: Continue with the albuterol inhaler as needed Incruse (4) Hyperlipidemia LDL goal <100: Code(s): E78.5 - Hyperlipidemia, unspecified Plan: Avoid fried foods, chicken skin, eggs, butter margarine, pastries and meat. Be it pork or beef they have a lot of cholesterol on atorvastatin 20 mg once a day (5) Generalized anxiety disorder: Comment: [facility] March 2021 Code(s): F41.1 - Generalized anxiety disorder Plan: Continue with sertraline 50 mg once a (6) Right wrist tendinitis: Code(s): M77.8 - Other enthesopathies, not elsewhere classified (7) Hand pain, left: Code(s): M79.642 - Pain in left hand (8) Colon cancer screening: Code(s): Z12.11 - Encounter for screening for malignant neoplasm of colon (9) Tobacco abuse: Comment: He has been a lifelong smoker. Has finally quit since 08/14 and has no urge to smoke. . Code(s): Z72.0 - Tobacco use (10) Hepatitis B core antibody positive: Code(s): R76.8 - Other specified abnormal immunological findings in serum Orders: Orders XR hand LT 2V Today M79.642 - Pain in left hand Referrals Orthopedics Referral M77.8 - Other enthesopathies, not elsewhere classified Gastroenterology Referral Z12.11 - Encounter for screening for malignant neoplasm of colon Lung Cancer Screening Referral Z72.0 - Tobacco use Coding Level of Care Code Est Pt Level 4 (61959) Diagnoses Type 2 diabetes mellitus with hyperglycemia, with long-term current use of insulin E11.65; Z79.4 Diabetes mellitus retirement insulin use: with termite treater helper use Prostate cancer C61 Pulmonary emphysema, unspecified emphysema type J43.9 COPD type: emphysema Emphysema type: unspecified Hyperlipidemia LDL goal <100 E78.5 Generalized anxiety disorder F41.1 Right wrist tendinitis M77.8 Hand pain, left M79.642 Colon cancer screening Z12.11 Tobacco abuse Z72.0 Hepatitis B core antibody positive R76.8
[2024-06-21 13:34] VITALS: BP 130/72; PULSE 83; O2SAT 94; BMI 27.4
== END 2024-06-21 14:29 | disposition home or self-care (01) ==
PROVIDERS: PCP Internal Medicine; Visit Provider Internal Medicine
DX: E11.65 Type 2 diabetes mellitus with hyperglycemia (principal); Z79.4 Long term (current) use of insulin; C61 Malignant neoplasm of prostate; J43.9 Emphysema, unspecified; E78.5 Hyperlipidemia, unspecified; F41.1 Generalized anxiety disorder; M77.8 Other enthesopathies, not elsewhere classified; M79.642 Pain in left hand; Z12.11 Encounter for screening for malignant neoplasm of colon; Z72.0 Tobacco use; R76.8 Other specified abnormal immunological findings in serum
CPT/HCPCS: 99214

== ENCOUNTER 2024-06-27 10:08 | Outpatient (REF) | payer OTHER, SELFPAY ==
--- NOTE | ~2024-06-27 | XR_ITS ---
EXAMINATION: XR HAND, LEFT CLINICAL INFORMATION: Left hand pain COMPARISON: None available. TECHNIQUE: PA, lateral, and oblique views of the left hand. FINDINGS: There is an old healed fracture of the ring finger distal phalangeal base. No acute fracture. Alignment is anatomic. Joint spaces are maintained. No erosions or soft tissue calcifications. XR/XR hand LT 2V IMPRESSION: 1. No acute fracture or malalignment. 2. Old healed fracture of the ring finger distal phalangeal base. Electronically signed by: Manuel Simmons MD 07/15/2024 10:03 PM EDT
[2024-06-27 12:36] LABS: HBsAGNum1 0.25 S/CO (0.00-0.99); Hepatitis B Surface Antigen Negative (Negative)
[2024-06-27 12:37] LABS: Prostate Specific Antigen < 0.10 ng/mL (<0.05-4.0)
== END 2024-06-27 10:09 | disposition home or self-care (01) ==
LOC: HO.XRAY 10:08
PROVIDERS: Absent Provider Internal Medicine; PCP Internal Medicine; Visit Provider Nurse Practitioner Family
DX: Z12.5 Encounter for screening for malignant neoplasm of prostate (principal); M79.642 Pain in left hand; R76.8 Other specified abnormal immunological findings in serum; N52.1 Erectile dysfunction due to diseases classified elsewhere; C61 Malignant neoplasm of prostate; E11.69 Type 2 diabetes mellitus with other specified complication
CPT/HCPCS: 36415; 73120; 84153; 87340

== ENCOUNTER 2024-07-30 10:24 | Outpatient (AMB) | payer OTHER, SELFPAY ==
[2024-07-30 11:04] VITALS: BMI 27.4
--- NOTE | 2024-07-30 11:04 | A.OFFVIS_ITS ---
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 Patient denies numbness and tingling. Patient also reports RIGHT basal joint pain that radiates to the ulnar aspect of the RIGHT wrist. Denies numbness, tingling, or finger locking. Denies any prior injuries or surgeries to the hands. No EMG on file. 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 He says it is difficult to make a fist or use his hand for activities.? She reports he had an anaphylactic reaction from a previous steroid injection in his elbow, and had to be sent to the hospital. He denies any numbness or tingling bilaterally. He denies any prior treatment options He is a Diabetic & has COPD. His most recent HgA1c was 7.5%. He uses supplemental Oxygen at home. [facility] Medical History (Updated 07/30/24 @ 11:58 by Zachery Christian) Personal history of nicotine dependence Hypoxemia COPD exacerbation Allergic rhinitis Type 2 diabetes mellitus with diabetic polyneuropathy Tinnitus Anxiety and depression Peptic ulcer disease Renal calculus, right Tubular adenoma of colon DDD (degenerative disc disease), lumbar Depression Prostate cancer COPD (chronic obstructive pulmonary disease) CAP (community acquired pneumonia) Gastric ulcer Hernia Kidney stones History of prostate cancer Erectile dysfunction Insulin use (long-term) in type 2 diabetes Hyperlipidemia LDL goal <100 Vitamin D insufficiency Surgical History History of foot surgery History of inguinal hernia repair Hx of tonsillectomy Hx of prostatectomy Family History Father Diabetes Mother No problems noted. Son Diabetes Maternal Uncle Prostate cancer Paternal Grandfather Myocardial infarction Maternal Grandmother No problems noted. Maternal Aunt Esophageal cancer Maternal Grandfather Myocardial infarction Social History (Updated 07/30/24 @ 11:13 by DAVID Navarro) Household Members: Spouse Housing: Apartment Alcohol intake: current Alcohol intake frequency: a few times a month Patient Tobacco Use Status: Former Tobacco user Tobacco use type: Cigarette e-Cigarette/Vaping Use: Never Used Second Hand Smoke Exposure: Yes Substance Use Type: Former Substance User and Marijuana service: No Current occupational status: disabled Current occupation: rt handed Cognitive needs: Yes (cane) Hearing needs: Yes (hearing aide) Vision needs: Yes Review of Systems Const All systems reviewed & are unremarkable except as noted in HPI and below Physical Exam Vital Signs: BMI result Body Mass Index 27.4 Const General: cooperative, healthy appearing and no acute distress Orientation/consciousness: patient oriented x3 HEENT Head: Yes normocephalic and Yes atraumatic Eyes EOM: EOMs intact bilaterally Resp Effort & Inspection: normal respiratory effort and able to speak in complete sentences Cardio Jugular venous distension: no JVD Skin General skin exam: turgor normal Rashes: no rashes Neuro General: patient oriented x3 Extrem Other: Evaluation of Left Upper Extremity: The patient is alert, oriented, and in no acute distress Neuro: Median, Ulnar, Radial nerves motor and sensory intact and sensation is normal to the tips of all digits Vascular: Cap refill brisk ROM: He can make a fist and extend all his digits Visible & palpable locking & catching of the left middle finger Tender over the a1 alejandro of the left middle finger Skin: No lacerations or abrasions. General: No Ecchymosis. No Erythema or evidence of infection. Radiographs: 3 views of the left hand from 06/27/24 were reviewed by me today in clinic. They show an old healed ring finger distal phalanx base fracture, with satisfactory fracture alignment. Psych Appearance: grossly normal Affect: normal affect Attitude: cooperative Assessment & Plan Assessment & Plan (1) Trigger finger, left middle finger: Code(s): M65.332 - Trigger finger, left middle finger Category: Medical (2) Type 2 diabetes mellitus with diabetic polyneuropathy: Code(s): E11.42 - Type 2 diabetes mellitus with diabetic polyneuropathy Category: Medical Qualifiers: Diabetes mellitus aviation safety officer insulin use: with aviation safety officer use Qualified Code(s): E11.42 - Type 2 diabetes mellitus with diabetic polyneuropathy; Z79.4 - skilled nursing (current) use of insulin (3) COPD (chronic obstructive pulmonary disease): Comment: He has long-standing chronic obstructive pulmonary disease. DOING MUCH BETTER SINCE HE QUIT SMOKING. AT PRESENT HIS COPD IS VERY STABLE, AND HE IS ADVISED TO CONTINUE THE PRESENT REGIMEN. Code(s): J44.9 - Chronic obstructive pulmonary disease, unspecified Category: Medical Qualifiers: COPD type: emphysema Emphysema type: unspecified Qualified Code(s): J43.9 - Emphysema, unspecified Plan Assessment & Plan: 1. Left middle finger trigger finger I educated him about this condition I discussed operative and non-operative treatment options The patient would like to proceed with surgery Of note, he is listed as having an anaphylactic reaction to a previous Cortisone injection, and his says he had to be rushed to the hospital following a steroid injection in the past. He also says he has a poor reaction to local anesthesia, and says he experiences difficulty becoming numb following the injection The risks and benefits of operative treatment were discussed with the patient and the patient wishes to proceed with surgery. These risks include, but are not limited to risk of damage to blood vessels, nerves, tendons, infection, recurrence, incomplete relief of preoperative symptoms, persistent pain, possible need for further surgery and the risks associated with regional blocks and anesthesia. The plan is to take the patient to the operating room sometime in the next few weeks for the following procedures: 1. Left middle finger trigger release, under local All of the preoperative paperwork including the consent was reviewed today. All the patient's questions were answered. The patient understands that they will be contacted by our plug machine operator soon to schedule this procedure He denies blood thinners, asthma, heart, kidney issues He is a Diabetic, his most recent HgA1c was 7.5% on 04/26/24. They will need an updated HgA1c that is <8.1% in order to proceed with surgery, and they expressed understanding He has COPD and is on home oxygen use 2. Left [ ] 3. Right [ ] Scribed for Erika Sorto MD by Zachery Christian, medical safety director, on 07/30/24 at 11:55 AM, EST. Coding Level of Care Code New Pt Level 4 (50195) Diagnoses Trigger finger, left middle finger M65.332 Type 2 diabetes mellitus with diabetic polyneuropathy, with long-term current use of insulin E11.42; Z79.4 Diabetes mellitus fpc insulin use: with fpc use Pulmonary emphysema, unspecified emphysema type J43.9 COPD type: emphysema Emphysema type: unspecified
== END 2024-07-30 12:14 | disposition home or self-care (01) ==
PROVIDERS: PCP Internal Medicine; Visit Provider Orthopaedic Surgery
DX: M65.332 Trigger finger, left middle finger (principal); E11.42 Type 2 diabetes mellitus with diabetic polyneuropathy; Z79.4 Long term (current) use of insulin; J43.9 Emphysema, unspecified
CPT/HCPCS: 99204

== ENCOUNTER → 2024-07-30 10:24 | Outpatient (BNVA) | payer OTHER, SELFPAY | PROVIDERS: PCP Internal Medicine; Visit Provider Orthopaedic Surgery | DX: M65.332 Trigger finger, left middle finger (principal); E11.42 Type 2 diabetes mellitus with diabetic polyneuropathy; J43.9 Emphysema, unspecified; Z79.4 Long term (current) use of insulin | CPT/HCPCS: 99202 ==

== ENCOUNTER 2024-08-01 12:48 | Outpatient (AMB) | payer OTHER, SELFPAY ==
--- NOTE | 2024-08-01 13:18 | A.OFFVIS_ITS ---
Intake Intake Visit Reasons: 60 Min-conf Reticle Printer Required: Yes Reticle Printer Language: Director Data Management Name: Pt's Accompanied by: Spouse Allergies cortisone [CORTISONE] Allergy (Severe, Verified 07/30/24 11:04) ANAPHYLAXIS cephalexin Allergy (Unknown, Verified 07/30/24 11:04) unknown lisinopril Adverse Reaction (Intermediate, Verified 07/30/24 11:04) hypotension HPI Comprehensive Diabetes Asmnt Most Recent Diabetes Results: Microalb/Creat Ratio 22.7 ug/mg cr (<30) 04/24/24 Cholesterol 132 mg/dL (<200) 04/26/24 HDL Cholesterol 44 mg/dL (>40) 04/26/24 Triglycerides 60 mg/dL (<150) 04/26/24 Creatinine 1.03 mg/dL (0.5-1.4) 04/24/24 Blood Urea Nitrogen 7 mg/dL (9-16) L 04/24/24 Sodium 141 mmol/L (135-145) 04/24/24 Potassium 4.4 mmol/L (3.3-5.1) 04/24/24 Chloride 102 mmol/L (96-108) 04/24/24 Carbon Dioxide 32 mmol/L (22-29) H 04/24/24 Calcium 10.3 mg/dL (8.4-10.2) H 04/24/24 AST 15 U/L (5-37) 04/24/24 ALT 8 U/L (0-40) 04/24/24 Total Protein 7.5 g/dL (6.5-8.0) 04/24/24 Albumin 4.3 g/dL (3.5-5.0) 04/24/24 [facility] Medical History (Updated 07/30/24 @ 11:58 by Zachery Christian) Personal history of nicotine dependence Hypoxemia COPD exacerbation Allergic rhinitis Type 2 diabetes mellitus with diabetic polyneuropathy Tinnitus Anxiety and depression Peptic ulcer disease Renal calculus, right Tubular adenoma of colon DDD (degenerative disc disease), lumbar Depression Prostate cancer COPD (chronic obstructive pulmonary disease) CAP (community acquired pneumonia) Gastric ulcer Hernia Kidney stones History of prostate cancer Erectile dysfunction Insulin use (long-term) in type 2 diabetes Hyperlipidemia LDL goal <100 Vitamin D insufficiency Surgical History History of foot surgery History of inguinal hernia repair Hx of tonsillectomy Hx of prostatectomy Family History Father Diabetes Mother No problems noted. Son Diabetes Maternal Uncle Prostate cancer Paternal Grandfather Myocardial infarction Maternal Grandmother No problems noted. Maternal Aunt Esophageal cancer Maternal Grandfather Myocardial infarction Social History (Updated 07/30/24 @ 11:13 by DAVID Navarro) Household Members: Spouse Housing: Apartment Alcohol intake: current Alcohol intake frequency: a few times a month Patient Tobacco Use Status: Former Tobacco user Tobacco use type: Cigarette e-Cigarette/Vaping Use: Never Used Second Hand Smoke Exposure: Yes Substance Use Type: Former Substance User and Marijuana service: No Current occupational status: disabled Current occupation: rt handed Cognitive needs: Yes (cane) Hearing needs: Yes (hearing aide) Vision needs: Yes Assessment & Plan Assessment & Plan (1) Type 2 diabetes mellitus with hyperglycemia: Comment: eye doctor in [place] Code(s): E11.65 - Type 2 diabetes mellitus with hyperglycemia Qualifiers: Diabetes mellitus dedicated intermodal truck driver insulin use: with dedicated intermodal truck driver use Qualified Code(s): E11.65 - Type 2 diabetes mellitus with hyperglycemia; Z79.4 - medical terminologist (current) use of insulin Plan: Personal Continuous Glucose Monitor: Patients CGM information reviewed Reviewed patient's sensor data: Hypoglycemia: ? 1% Hyperglycemia:? 24% Time in Range:?75% Average glucose for the last 2 weeks? 154 mg/dL Patient is due for A1c at tomorrow's visit with physician's rehab assistant Reports he is having surgery on his left hand in August 2024, surgeon has told him his A1c needs to be between 6 and 7% Last A1c on 04/26/2024 7.5% Patient's GMI for 90 days in Dexcom 6.8% Patient reports he has been eating less due to loss of appetite, in the past 14 days patient has 3 episodes of hypoglycemia Reviewed with patient how to treat hypoglycemia with rule of 15s, handout in Lithuanian given Patient reports treating hypoglycemia with 6 oz can of regular soda Instructed patient if episodes of hypoglycemia increase to contact clinical document improvement educator or provider Patient is currently taking Humalog 8 units before breakfast and lunch, and 10 units before supper Reviewed how to interpret trend arrows Reminded patient that to check finger sticks if symptoms do not match sensor r eading. Discussed lag time between finger stick and sensor data.? Patient able to insert sensor independently at home without issue.? Portions of this note were created using voice recognition software, please excuse any words or phrases that may have been misinterpreted. Coding Level of Care Code Est Pt Level 1 (65243) Diagnoses Type 2 diabetes mellitus with hyperglycemia, with long-term current use of insulin E11.65; Z79.4 Diabetes mellitus dedicated intermodal truck driver insulin use: with dedicated intermodal truck driver use
== END 2024-08-01 13:28 | disposition home or self-care (01) ==
PROVIDERS: PCP Internal Medicine; Visit Provider Registered Nurse Diabetes Educator
DX: E11.65 Type 2 diabetes mellitus with hyperglycemia (principal); Z79.4 Long term (current) use of insulin

== ENCOUNTER → 2024-08-01 12:48 | Outpatient (BNVA) | payer OTHER, SELFPAY | PROVIDERS: PCP Internal Medicine; Visit Provider Registered Nurse Diabetes Educator | DX: E11.65 Type 2 diabetes mellitus with hyperglycemia (principal); Z79.4 Long term (current) use of insulin | CPT/HCPCS: 99211 ==

== ENCOUNTER 2024-08-02 12:29 | Outpatient (AMB) | payer OTHER, SELFPAY ==
--- NOTE | 2024-08-02 12:43 | A.OFFVIS_ITS ---
Vital Signs 08/02/24 12:54 Height 5 ft 5.5 in Weight 166 lb 14.239 oz BMI 27.3 BP 108/60 Blood Pressure Location Lt brachial Position Sitting Pulse 94 Pulse Source Pulse Oximeter Intake Visit Reasons: DM/LVM Intake Note: Patient presents today for D2MT follow up visit. Last Diabetic Eye exam: 06/2024 Last Podiatry Visit: Doesn't have one Random Glucose: 151 mg/dl HgA1c: 8.9% Calender Operator Helper Required: No Accompanied by: Spouse Allergies cortisone [CORTISONE] Allergy (Severe, Verified 08/02/24 13:03) ANAPHYLAXIS cephalexin Allergy (Unknown, Verified 08/02/24 13:03) unknown lisinopril Adverse Reaction (Intermediate, Verified 08/02/24 13:03) hypotension HPI HPI DM/LVM: Details: Patient is a 64-year-old male with a significant past medical history of COPD, prostate cancer, hyperlipidemia, kidney stones, type 2 diabetes, insulin dependent, erectile dysfunction due to diabetes and vitamin-D deficiency presenting today for a follow-up regarding his diabetes. He last saw myself in february. Calender Operator Helper Ben #[id number] Endo: A1c 8.9. Patient pleased A1c increased because in May his numbers were much higher. Meds- Toujeo 18 units, Novolog 10 units with breakfast, 14 units with lunch and dinner. stopped Tradjenta 5 mg. Intolerant of metformin due to diarrhea, Jardiance due to urinary frequency and Trulicity due to undesired weight loss. Pioglitzone stopped due to edema, ozempic is causing GI upset with n/v CGM average blood sugar 153, GMI 7%, glucose variability 42%., very high 2%, high 22%, within range 76%, 0% lows -over the last week GMI is 6.8%. -he did have 1 hypoglycemic event around 17:00- he states he gave himself insulin without eating. He has been eating less and has follow up with GI on 08/23 for his weight loss. [facility] Medical History (Updated 08/02/24 @ 12:49 by Charo Awad PA-C) Personal history of nicotine dependence Hypoxemia COPD exacerbation Allergic rhinitis Type 2 diabetes mellitus with diabetic polyneuropathy Tinnitus Anxiety and depression Peptic ulcer disease Renal calculus, right Tubular adenoma of colon DDD (degenerative disc disease), lumbar Depression Prostate cancer COPD (chronic obstructive pulmonary disease) CAP (community acquired pneumonia) Gastric ulcer Hernia Kidney stones History of prostate cancer Erectile dysfunction Insulin use (long-term) in type 2 diabetes Hyperlipidemia LDL goal <100 Vitamin D insufficiency Surgical History History of foot surgery History of inguinal hernia repair Hx of tonsillectomy Hx of prostatectomy Family History Father Diabetes Mother No problems noted. Son Diabetes Maternal Uncle Prostate cancer Paternal Grandfather Myocardial infarction Maternal Grandmother No problems noted. Maternal Aunt Esophageal cancer Maternal Grandfather Myocardial infarction Social History Household Members: Spouse Housing: Apartment Alcohol intake: current Alcohol intake frequency: a few times a month Patient Tobacco Use Status: Former Tobacco user Tobacco use type: Cigarette e-Cigarette/Vaping Use: Never Used Second Hand Smoke Exposure: Yes Substance Use Type: Former Substance User and Marijuana service: No Current occupational status: disabled Current occupation: rt handed Cognitive needs: Yes (cane) Hearing needs: Yes (hearing aide) Vision needs: Yes Physical Exam Vital Signs: Last Vital Signs Pulse 94 08/02/24 12:54 BP 108/60 08/02/24 12:54 BMI result Body Mass Index 27.3 Const Orientation/consciousness: patient oriented x3 Neck Neck: Yes no lymphadenopathy Thyroid: Thyroid normal Carotids: no bruits Resp Auscultation: clear to auscultation bilaterally Cardio Rate: regular rate Rhythm: regular rhythm Heart sounds: S1 normal heart sound present and S2 normal heart sound present Peripheral pulses: dorsalis pedis present Neuro General: patient oriented x3, gait normal and no focal motor deficits Extrem Other: Monofilament sensation intact bilaterally. Vibratory sensation intact bilaterally. Skin intact. General: Yes normal to inspection Office Procedures Glucose Monitoring Details Details: see hpi 50131 - Glucose monitoring, continuous-physician I&R Procedure code (CPT) selection complete Results AMB Hemoglobin A1c AMB Hemoglobin A1c 8.9 % Last Edit by DAVID Lizarraga on 08/02/24 13:29 Results Reviewed Results Reviewed: Laboratory Last Values Glucose (Clinic) 151 mg/dL (60-115) H 08/02/24 13:06 Laboratory Tests 04/24/24 04/26/24 06/03/24 08:45 09:02 13:33 Glucose (Clinic) 145 H Estimat Average Glucose 169 Hemoglobin A1c % 7.5 H Urine Creatinine 176.14 Urine Microalbumin 40.0 Microalb/Creat Ratio 22.7 Assessment & Plan Assessment & Plan (1) Type 2 diabetes mellitus with diabetic polyneuropathy: Code(s): E11.42 - Type 2 diabetes mellitus with diabetic polyneuropathy Category: Medical Qualifiers: Diabetes mellitus terminal supervisor insulin use: with correction use Qualified Code(s): E11.42 - Type 2 diabetes mellitus with diabetic polyneuropathy; Z79.4 - terminal supervisor (current) use of insulin Plan: Diabetes well-controlled per the CGM over the last few weeks. We will continue current regimen. He is following with GI for nausea and weight loss in a few weeks. We will follow up in 3 months. Sooner if anything changes. Patient understands and agrees with the plan. Orders: Orders AMB Hemoglobin A1c Today E11.42 - Type 2 diabetes mellitus with diabetic polyneuropathy, Z13.9 - Encounter for screening, unspecified, Z79.4 - terminal supervisor (current) use of insulin Coding Level of Care Code Est Pt Level 3 (92406) Diagnoses Type 2 diabetes mellitus with diabetic polyneuropathy, with long-term current use of insulin E11.42; Z79.4 Diabetes mellitus correction insulin use: with correction use CPT Codes Details - CPT: 11828 - Glucose monitoring, continuous-physician I&R ([id number])
[2024-08-02 12:54] VITALS: BP 108/60; PULSE 94; BMI 27.3
[2024-08-02 13:10] LABS: Glucose, Whole Blood 151 mg/dL (60-115)
== END 2024-08-02 13:34 | disposition home or self-care (01) ==
PROVIDERS: PCP Internal Medicine; Visit Provider Physician Assistant
DX: Z13.9 Encounter for screening, unspecified (principal); E11.42 Type 2 diabetes mellitus with diabetic polyneuropathy; Z79.4 Long term (current) use of insulin

== ENCOUNTER → 2024-08-02 12:29 | Outpatient (BNVA) | payer OTHER, SELFPAY | PROVIDERS: PCP Internal Medicine; Visit Provider Physician Assistant | DX: E11.42 Type 2 diabetes mellitus with diabetic polyneuropathy (principal); Z79.4 Long term (current) use of insulin | CPT/HCPCS: 82947; 83036; 99212 ==

== ENCOUNTER 2024-08-12 14:54 | Outpatient (AMB) | payer OTHER, SELFPAY ==
[2024-08-12 14:57] VITALS: BP 112/60; PULSE 72; O2SAT 92; BMI 27.0
--- NOTE | 2024-08-12 14:57 | MHC.PC.OV ---
Vital Signs 08/12/24 14:57 Height 5 ft 5.5 in Weight 165 lb BMI 27.0 BP 112/60 Blood Pressure Location Lt brachial Position Sitting Pulse 72 Pulse Source Pulse Oximeter Pulse Oximetry (%) 92 Oxygen Delivery Method Nasal Cannula Oxygen Flow Rate 1 Intake Visit Reasons: ANNUAL Clinical Laboratory Manager Required: No Allergies cortisone [CORTISONE] Allergy (Severe, Verified 08/12/24 15:23) ANAPHYLAXIS cephalexin Allergy (Unknown, Verified 08/12/24 15:23) unknown lisinopril Adverse Reaction (Intermediate, Verified 08/12/24 15:23) hypotension Medication List - Last Reconciled 08/12/24 by Jayashree Hurley PA-C albuterol sulfate 90 mcg/actuation INHALE 2 PUFFS BY MOUTH EVERY 4 TO 6 HOURS NEEDED FOR SHORTNESS OF BREATH OR WHEEZING alcohol swabs (BD Alcohol Swabs) 1 pad topical QID atorvastatin 20 mg PO DAILY blood-glucose sensor (Dexcom G7 Sensor device) USE DIRECTED EVERY 10 DAYS cholecalciferol (vitamin D3) 50 mcg PO DAILY clotrimazole 1% 1 appl topical BID 4 weeks dupilumab (Dupixent) mg subcut fluticasone propion-salmeterol 250-50 mcg/dose (Wixela Inhub) 1 ea PO Q12H glucagon 3 mg/actuation (Baqsimi) 3 mg intranasal ONCE 30 days Incruse Ellipta 62.5 mcg/actuation (umeclidinium) 1 inh PO DAILY NS miconazole nitrate 2% (Zeasorb AF) 1 appl topical BID Novolog FlexPen U-100 Insulin (insulin aspart U-100) inject 10 units sq with breakfast, inject 14 units sq with lunch, inject 14 units sq with dinner NS Oxygen Home Use As directedO2 2L NC pen needle, diabetic (BD Tierra 2nd Gen Pen Needle) 1 ea miscellaneous .4X/day sertraline 50 mg PO DAILY 90 days tadalafil (Cialis) 5 mg PO DAILY 90 days tadalafil (Cialis) 20 mg PO DAILY PRN 90 days Tobacco use date assessed: 06/21/24 Fall risk assessment: No Falls in past year Last assessed Fall Risk: 08/12/24 Dental Screening Dental Screen Date: 08/12/24 Did you have a dental visit in the last 12 months?: No Did you have a dental problem in the last 6 months where you did not have access to dental care?: No HPI ANNUAL HPI Details 64-year-old overweight male with diabetes mellitus, hypercholesterolemia, COPD, generalized anxiety disorder last seen May 2024 by coming in for annual exam. In review of the notes, patient was seen by endocrinology 08/02/2024 currently using CGM and continue on current drug regimen and follow up in 3 months. Patient was seen by [facility] 07/30/2024 for left hand swelling in left middle trigger finger advised trigger finger release surgery. Colonoscopy completed 2021 and scheduled for lung cancer screening next month. Patient CGM was brought in today and reporting an average glucose level of 153 over the last 3 months. He states his breathing has been well managed and he uses the albuterol inhaler only as needed. He is seeing Dr. Delgado coming up for abdominal pain and decreased appetite. [facility] Medical History (Updated 08/12/24 @ 16:32 by Jayashree Hurley PA-C) Personal history of nicotine dependence Hypoxemia COPD exacerbation Allergic rhinitis Type 2 diabetes mellitus with diabetic polyneuropathy Tinnitus Anxiety and depression Peptic ulcer disease Renal calculus, right Tubular adenoma of colon DDD (degenerative disc disease), lumbar Depression Prostate cancer COPD (chronic obstructive pulmonary disease) CAP (community acquired pneumonia) Gastric ulcer Hernia Kidney stones History of prostate cancer Erectile dysfunction Insulin use (long-term) in type 2 diabetes Hyperlipidemia LDL goal <100 Vitamin D insufficiency Surgical History (Updated 08/12/24 @ 15:24 by Jayashree Hurley PA-C) History of cataract surgery History of foot surgery History of inguinal hernia repair Hx of tonsillectomy Hx of prostatectomy Family History Father Diabetes Mother No problems noted. Son Diabetes Maternal Uncle Prostate cancer Paternal Grandfather Myocardial infarction Maternal Grandmother No problems noted. Maternal Aunt Esophageal cancer Maternal Grandfather Myocardial infarction Social History Household Members: Spouse Housing: Apartment Alcohol intake: current Alcohol intake frequency: a few times a month Patient Tobacco Use Status: Former Tobacco user Tobacco use type: Cigarette e-Cigarette/Vaping Use: Never Used Second Hand Smoke Exposure: Yes Substance Use Type: Former Substance User and Marijuana service: No Current occupational status: disabled Current occupation: rt handed Cognitive needs: Yes (cane) Hearing needs: Yes (hearing aide) Vision needs: Yes Questionnaire PHQ-9 Over the last 2 weeks, how often have you been bothered by any of the following problems? 1. Little interest or pleasure in doing things: several days 2. Feeling down, depressed, or hopeless: several days 3. Trouble falling or staying asleep, or sleeping too much: not at all 4. Feeling tired or having little energy: not at all 5. Poor appetite or overeating: not at all 6. Feeling bad about yourself - or that you are a failure or have let yourself or your family down: not at all 7. Trouble concentrating on things, such as reading the newspaper or watching television: not at all 8. Moving or speaking so slowly that other people could have noticed. Or the opposite - being so fidgety or restless that you have been moving around a lot more than usual: not at all 9. Thoughts that you would be better off or of hurting yourself in some way: not at all Total score: 2 Depression Screening Interpretation: Negative Depression Screening Done: Yes 38387 - PHQ-9 Billing: Yes Source: Developed by Drs. Favian Nascimento, Valentina Serrano, Jose M Lunsford and colleagues, with an educational edita from [employer]. Thrive Questionnaire Date Thrive assessed: 01/02/24 AUDIT C Alcohol Use Questionnaire (AUDIT-C) 1. How often do you have a drink containing alcohol?: Monthly or less 2. How many drinks containing alcohol do you have on a typical day when you are drinking?: 1 or 2 3. How often do you have six or more drinks on one occasion?: Never Total Score: 1 YOLIS-7 AMB Questionnaire YOLIS-7 Date YOLIS - 7 assessed: 11/17/23 Feeling nervous, anxious, or on edge: 3 = Nearly every day Not being able to stop or control worryin = Not at all Worrying too much about different things: 0 = Not at all Trouble relaxin = Not at all Being so restless that it is hard to sit still: 0 = Not at all Becoming easily annoyed or irritable: 1 = Several days Feeling afraid as if something awful might happen: 0 = Not at all Total YOLIS-7 score (0-4 normal; 5-9 mild; 10-14 moderate; 15-21 severe): 4 Source: Developed by Drs. Favian Nascimento, Valentina Serrano, Jose M Lunsford and colleagues, with an educational edita from [employer]. YOLIS-7 Assessment Billing YOLIS-7 Assessment Tool: YOLIS-7 Assessment 13480 Review of Systems Const Denies body aches, Denies fatigue, Denies fever(s), Denies frequent falls, Denies headache(s) and Denies weakness Eyes Reports no additional complaints, Denies change in vision and Reports requires corrective lenses ENT Details: wears hearing aids Denies dysphagia, Denies dizziness, Denies facial pain, Denies headache(s), Denies nasal congestion and Denies odynophagia Card Denies chest pain, Denies syncope, Denies leg edema, Denies lightheadedness, Denies dyspnea and Reports dyspnea on exertion Resp Denies cough, Denies dyspnea and Reports dyspnea on exertion GI Reports abdominal pain, Denies constipation, Denies dysphagia, Denies dyspepsia, Denies diarrhea, Denies nausea, Denies odynophagia and Denies vomiting Denies dysuria, Denies urinary frequency, Denies urinary hesitancy and Denies urinary urgency Musc Details: Right wrist pain and left middle finger trigger finger Reports back pain and Denies myalgias Skin/Breast Reports system reviewed and no additional complaints, except as documented Neuro Denies dizziness, Denies syncope, Denies frequent falls, Denies headache(s) and Denies weakness Psych Reports no additional complaints Endo Denies fatigue Physical exam (Primary Care) Vital Signs: Last Vital Signs Pulse 72 08/12/24 14:57 BP 112/60 08/12/24 14:57 Pulse Ox 92 08/12/24 14:57 Oxygen Delivery Method Nasal Cannula 08/12/24 14:57 Oxygen Flow Rate 1 08/12/24 14:57 BMI result Body Mass Index 27.0 Tobacco/Smoking Status: Tobacco use Status Tobacco use date assessed 06/21/24 08/12/24 14:59 Patient Tobacco Use Status Former Tobacco user 08/12/24 14:59 Tobacco use type Cigarette 08/12/24 14:59 e-Cigarette/Vaping Use Never Used 08/12/24 14:59 PHQ-9: PHQ-9 Score PHQ-9: Total score 2 08/12/24 15:21 Depression Screening Interpretation: Negative Thrive Assessment: Date of Thrive Assessment Date Thrive assessed 01/02/24 08/12/24 14:59 Const General: cooperative, healthy appearing, comfortable and no acute distress Orientation/consciousness: patient oriented x3 HENMT Head: Yes normocephalic Ears: hearing grossly normal bilaterally, external ears normal, TM's normal bilaterally and EAC's normal General nose exam: Normal external nose present Face and sinus: Yes normal facial exam and Yes sinuses nontender Mouth: Normal oral and palatal mucosa present and tongue normal Throat: Yes posterior oropharynx normal Eyes General: appearance normal, both eyes and all related structures Conjunctivae: conjunctivae normal Pupils: Equal, round and reactive pupils present EOM: EOMs intact bilaterally and No Nystagmus present Neck Neck: Yes normal visual inspection, Yes full ROM and Yes no lymphadenopathy Chest Chest palpation & inspection: normal inspection of the chest Resp Effort & Inspection: normal respiratory effort Auscultation: clear to auscultation bilaterally, no crackles, no rales, no rhonchi, no wheezes and breath sounds present Cardio Rate: regular rate Rhythm: regular rhythm Peripheral pulses: radial pulses present and dorsalis pedis present GI Inspection: Yes normal to inspection and No Abdominal wall edema Palpation (GI): Soft to palpation, not firm and nontender Auscultation: normal bowel sounds Rectal Exam - Male: Yes deferred General: Yes no CVA tenderness Back/Spine/Pelvis Back: no CVA tenderness Skin General skin exam: no rashes or lesions noted Neuro General: patient oriented x3 Cranial nerves: Yes Equal, round and reactive pupils present, Yes Midline tongue present, Yes Ability to bilaterally elevate shoulders present and No Nystagmus present Gait exam (Neuro): Normal gait present Extrem General: Yes normal to inspection, Yes full ROM, No no pedal edema and No edema Psych Speech and movement: Normal speech and movement present Affect: normal affect Insight: Good insight present (Psych) Judgement: Good judgement present (Psych) Coding Level of Care Code Est Pt Prev Care >65y(66159) Diagnoses Trigger finger, left middle finger M65.332 Personal history of nicotine dependence Z87.891 DDD (degenerative disc disease), lumbar M51.36 Erectile dysfunction associated with type 2 diabetes mellitus E11.69; N52.1 Generalized anxiety disorder F41.1 Type 2 diabetes mellitus with diabetic polyneuropathy, with long-term current use of insulin E11.42; Z79.4 Diabetes mellitus skilled nursing insulin use: with skilled nursing use Prostate cancer C61 Pulmonary emphysema, unspecified emphysema type J43.9 COPD type: emphysema Emphysema type: unspecified Hyperlipidemia LDL goal <100 E78.5 Annual physical exam Z00.00 Additional Codes YOLIS-7 Assessment Billing - YOLIS-7 Assessment Tool: YOLIS-7 Assessment [id number] ([id number]) Assessment & Plan Assessment & Plan (1) Trigger finger, left middle finger: Code(s): M65.332 - Trigger finger, left middle finger Category: Medical Plan: Patient was seen by [facility] and advised to have trigger finger release surgery. Continue to follow with Orthopedics. (2) Personal history of nicotine dependence: Comment: (quit 07/2023) Code(s): Z87.891 - Personal history of nicotine dependence Category: Medical Plan: No longer smoking cigarettes. Continue with lung cancer screening. (3) DDD (degenerative disc disease), lumbar: Code(s): M51.36 - Other intervertebral disc degeneration, lumbar region Category: Medical Plan: Patient continues to have back pain and uses Tylenol and ibuprofen as needed. (4) Erectile dysfunction associated with type 2 diabetes mellitus: Code(s): E11.69 - Type 2 diabetes mellitus with other specified complication; N52.1 - Erectile dysfunction due to diseases classified elsewhere Category: Medical Plan: Continue on present medication. (5) Generalized anxiety disorder: Comment: [facility] March 2021 Code(s): F41.1 - Generalized anxiety disorder Category: Medical Plan: Continue on present medication. Patient feels his symptoms are well managed at this time. (6) Type 2 diabetes mellitus with diabetic polyneuropathy: Code(s): E11.42 - Type 2 diabetes mellitus with diabetic polyneuropathy Category: Medical Qualifiers: Diabetes mellitus technician terminal and repeater insulin use: with skilled nursing use Qualified Code(s): E11.42 - Type 2 diabetes mellitus with diabetic polyneuropathy; Z79.4 - terminal press operator (current) use of insulin Plan: Decrease the amount of carbohydrates such as pasta, bread, rice, and potatoes and limit the amount of sweets. Although fruits are generally healthy they should be eaten in moderation as they are still high in sugar. Hemoglobin A1c goal of less than 7%. Continue to follow with endocrinology. (7) Prostate cancer: Comment: 2004 Code(s): C61 - Malignant neoplasm of prostate Category: Medical Plan: Continue to follow up with Urology (8) COPD (chronic obstructive pulmonary disease): Comment: He has long-standing chronic obstructive pulmonary disease. DOING MUCH BETTER SINCE HE QUIT SMOKING. AT PRESENT HIS COPD IS VERY STABLE, AND HE IS ADVISED TO CONTINUE THE PRESENT REGIMEN. Code(s): J44.9 - Chronic obstructive pulmonary disease, unspecified Category: Medical Qualifiers: COPD type: emphysema Emphysema type: unspecified Qualified Code(s): J43.9 - Emphysema, unspecified Plan: COPD currently controlled on present medications. Continue on present medications. Avoid triggers such as allergies. (9) Hyperlipidemia LDL goal <100: Code(s): E78.5 - Hyperlipidemia, unspecified Category: Medical Plan: Avoid foods that are high in cholesterol such as red meat, fried foods, eggs and baked goods. Triglyceride goal of less than 150 and LDL goal of less than 100. Continue on atorvastatin 20 mg. (10) Annual physical exam: Code(s): Z00.00 - Encounter for general adult medical examination without abnormal findings Category: Medical Plan: Patient is up-to-date on all recommended routine screenings and vaccinations for his age. Ordered for updated blood work and follow up in 2 months at next visit. Plan This note was constructed using voice recognition software. While every effort has been made to ensure accuracy and healthcare representative, still areas may have been included sometimes these areas may affect the content or meeting of the given symptoms. Total time spent caring for the patient today was 30 minutes. This includes time spent before the visit reviewing the chart, time spent during the visit, and time spent after the visit and documentation.
== END 2024-08-12 16:23 | disposition home or self-care (01) ==
PROVIDERS: PCP Internal Medicine
DX: Z00.00 Encounter for general adult medical examination without abnormal findings (principal); E11.69 Type 2 diabetes mellitus with other specified complication; E11.42 Type 2 diabetes mellitus with diabetic polyneuropathy; Z79.4 Long term (current) use of insulin; C61 Malignant neoplasm of prostate; J43.9 Emphysema, unspecified; M65.332 Trigger finger, left middle finger; Z87.891 Personal history of nicotine dependence; M51.36 Other intervertebral disc degeneration, lumbar region; N52.1 Erectile dysfunction due to diseases classified elsewhere; F41.1 Generalized anxiety disorder; E78.5 Hyperlipidemia, unspecified

== ENCOUNTER → 2024-08-12 14:54 | Outpatient (BNVA) | payer OTHER, SELFPAY | PROVIDERS: PCP Internal Medicine | DX: M65.332 Trigger finger, left middle finger (principal); M51.369 Other intervertebral disc degeneration, lumbar region without mention of lumbar back pain or lower extremity pain; E11.69 Type 2 diabetes mellitus with other specified complication; N52.1 Erectile dysfunction due to diseases classified elsewhere; E11.42 Type 2 diabetes mellitus with diabetic polyneuropathy; F41.1 Generalized anxiety disorder; C61 Malignant neoplasm of prostate; J43.9 Emphysema, unspecified; E78.5 Hyperlipidemia, unspecified; Z79.4 Long term (current) use of insulin; Z87.891 Personal history of nicotine dependence | CPT/HCPCS: 96127; 99397 ==

== ENCOUNTER 2024-08-21 13:19 | Outpatient (AMB) | payer OTHER, SELFPAY ==
--- NOTE | 2024-08-21 13:20 | MHC.OFFVIS ---
Vital Signs 08/21/24 13:22 Height 5 ft 9 in Weight 165 lb BMI 24.4 Handedness Right Intake Visit Reasons: New prob- Right wrist pain Intake Note: Carroll is a 64 year old right hand dominant male who presents today with his for a new problem visit with complaints of right wrist pain. Patient reports he has pain at the base of his right thumb for approximately one month. He says the radial aspect of the left wrist gets swollen and his pain radiates midway up his arm. He has difficulty with lifting, grasping, and gripping. At night his symptoms are worse. He wears a glove to keep his hand immobilized and says when it is this way he does not have as much pain. Tylenol and ibuprofen have no adequate relief. His says this pain sometimes makes him yell out. Accompanied by: Spouse Allergies cortisone [CORTISONE] Allergy (Severe, Verified 09/05/24 10:35) ANAPHYLAXIS cephalexin Allergy (Unknown, Verified 09/05/24 10:35) unknown lisinopril Adverse Reaction (Intermediate, Verified 09/05/24 10:35) hypotension HPI HPI New prob- Right wrist pain: Details: Carroll is a 64 year old right hand dominant male who presents today with his for a new problem visit with complaints of right wrist pain. Patient reports he has pain at the base of his right thumb for approximately one month. He says the radial aspect of the left wrist gets swollen and his pain radiates midway up his arm. He has difficulty with lifting, grasping, and gripping. At night his symptoms are worse. He wears a glove to keep his hand immobilized and says when it is this way he does not have as much pain. Tylenol and ibuprofen have no adequate relief. His says this pain sometimes makes him yell out. [facility] Medical History Personal history of nicotine dependence Hypoxemia COPD exacerbation Allergic rhinitis Type 2 diabetes mellitus with diabetic polyneuropathy Tinnitus Anxiety and depression Peptic ulcer disease Renal calculus, right Tubular adenoma of colon DDD (degenerative disc disease), lumbar Depression Prostate cancer COPD (chronic obstructive pulmonary disease) CAP (community acquired pneumonia) Gastric ulcer Hernia Kidney stones History of prostate cancer Erectile dysfunction Insulin use (long-term) in type 2 diabetes Hyperlipidemia LDL goal <100 Vitamin D insufficiency Surgical History History of cataract surgery History of foot surgery History of inguinal hernia repair Hx of tonsillectomy Hx of prostatectomy Family History Father Diabetes Mother No problems noted. Son Diabetes Maternal Uncle Prostate cancer Paternal Grandfather Myocardial infarction Maternal Grandmother No problems noted. Maternal Aunt Esophageal cancer Maternal Grandfather Myocardial infarction Social History Household Members: Spouse Housing: Apartment Alcohol intake: current Alcohol intake frequency: a few times a month Patient Tobacco Use Status: Former Tobacco user Tobacco use type: Cigarette e-Cigarette/Vaping Use: Never Used Second Hand Smoke Exposure: Yes Substance Use Type: Former Substance User and Marijuana service: No Current occupational status: disabled Current occupation: rt handed Cognitive needs: Yes (cane) Hearing needs: Yes (hearing aide) Vision needs: Yes Review of Systems Const All systems reviewed & are unremarkable except as noted in HPI and below Physical Exam Vital Signs: BMI result Body Mass Index 24.4 Extrem Other: Patient is alert, oriented, and in no acute distress. Neuro: Normal sensation of the tips of all digits of the right hand at this time Vascular: Cap refill brisk Pain: Positive Rosa Isela test of the right Tenderness to palpation of the right radial styloid ROM: Patient is able to make a closed fist and extend all digits of the right hand fully and without difficulty Skin: No lacerations or abrasions. General: No ecchymosis, erythema, or evidence of infection. Psych: Appears grossly normal Affect normal Attitude cooperative Assessment & Plan Assessment & Plan (1) De Quervain's tenosynovitis, right: Code(s): M65.4 - Radial styloid tenosynovitis [de Quervain] Category: Medical (2) Low back pain: Code(s): M54.5 - Low back pain Category: Medical Plan 1. De Quervain tenosynovitis, right Patient is educated about this condition and the treatment options available, namely bracing, occupational therapy, and steroid injections Patient would like to proceed with conservative management with bracing and OT Patient was referred to OT at this time, and is given a Velcro comfort cool thumb spica splint to wear with daytime activities Patient was amenable to this plan Patient will follow-up as needed with any acute concerns Orders: Orders OT Evaluation and Treatment 08/21/24 M65.4 - Radial styloid tenosynovitis [de Quervain] Referrals Physiatry Referral M54.5 - Low back pain Coding Level of Care Code Est Pt Level 3 (45050) Diagnoses De Quervain's tenosynovitis, right M65.4 Low back pain M54.5
[2024-08-21 13:22] VITALS: BMI 24.4
== END 2024-08-21 13:57 | disposition home or self-care (01) ==
LOC: HO.HOS 13:19
PROVIDERS: PCP Internal Medicine; Visit Provider Orthopaedic Surgery
DX: M65.4 Radial styloid tenosynovitis [de Quervain] (principal); M54.50 Low back pain, unspecified
CPT/HCPCS: 99213

== ENCOUNTER → 2024-08-21 13:19 | Outpatient (BNVA) | payer OTHER, SELFPAY | PROVIDERS: PCP Internal Medicine; Visit Provider Orthopaedic Surgery | DX: M65.4 Radial styloid tenosynovitis [de Quervain] (principal); M54.50 Low back pain, unspecified | CPT/HCPCS: 99212 ==

== ENCOUNTER 2024-08-29 11:24 | Outpatient (AMB) | payer OTHER, SELFPAY ==
--- NOTE | 2024-08-29 11:38 | A.OFFVIS_ITS ---
Intake Visit Reasons: 3m/PSA Intake Note: Patient presents today follow up on: erectile dysfunction and prostate cancer PSA: <0.10 Urology Medication: Tadalafil Antibiotic Allergies: Cephalexin Blood Thinners: None Bottom Wheeler Required: No Accompanied by: Self / Same As Patient Allergies cortisone [CORTISONE] Allergy (Severe, Verified 08/29/24 13:36) ANAPHYLAXIS cephalexin Allergy (Unknown, Verified 08/29/24 13:36) unknown lisinopril Adverse Reaction (Intermediate, Verified 08/29/24 13:36) hypotension Medication List - Last Reconciled 08/29/24 by HOWIE Durham albuterol sulfate 90 mcg/actuation INHALE 2 PUFFS BY MOUTH EVERY 4 TO 6 HOURS NEEDED FOR SHORTNESS OF BREATH OR WHEEZING alcohol swabs (BD Alcohol Swabs) 1 pad topical QID atorvastatin 20 mg PO DAILY blood-glucose sensor (Dexcom G7 Sensor device) USE DIRECTED EVERY 10 DAYS cholecalciferol (vitamin D3) 50 mcg PO DAILY clotrimazole 1% 1 appl topical BID 4 weeks dupilumab (Dupixent) mg subcut fluticasone propion-salmeterol 250-50 mcg/dose (Wixela Inhub) 1 ea PO Q12H glucagon 3 mg/actuation (Baqsimi) 3 mg intranasal ONCE 30 days Incruse Ellipta 62.5 mcg/actuation (umeclidinium) 1 inh PO DAILY NS miconazole nitrate 2% (Zeasorb AF) 1 appl topical BID Novolog FlexPen U-100 Insulin (insulin aspart U-100) inject 10 units sq with breakfast, inject 14 units sq with lunch, inject 14 units sq with dinner NS Oxygen Home Use As directedO2 2L NC pen needle, diabetic (BD Tierra 2nd Gen Pen Needle) 1 ea miscellaneous .4X/day sertraline 50 mg PO DAILY 90 days tadalafil (Cialis) 5 mg PO DAILY 90 days tadalafil (Cialis) 20 mg PO DAILY PRN 90 days HPI Comments Details: Carroll is a pleasant 64-year-old male patient of Dr. Anton. He has a past medical history of COPD, nicotine dependence, allergic rhinitis, type 2 diabetes with diabetic polyneuropathy, tinnitus, anxiety, depression, peptic ulcer disease, nephrolithiasis, degenerative disc disease, prostate cancer, COPD, ED, vitamin-D deficiency, and hyperlipidemia. He presents to the office today for follow-up of his nephrolithiasis, lower urinary tract symptoms, erectile dysfunction, and prostate cancer. In discussion with the patient today he reports to be doing and feeling well. He reports since his last office visit here approximately 6 months ago he has not had no bothersome urinary issues or concerns. He reports compliance with daily dosing of tadalafil and p.r.n. dosing prior to sexual activity and feels this has been somewhat helpful however at times he does continue with difficulty maintaining his erections. We discussed further treatment options to include penile pumps and or rings or trial of penile injection therapy. When asked he denies urinary urgency, urinary frequency, incontinence, nocturia, hematuria, dysuria, foul smelling urine, changes to urinary stream, flank pain, fever, and or chills. He is happy with his current voiding parameters. Discussed at length potential causes of erectile dysfunction. Discussed further treatment options. Recent PSA results reviewed with the patient today as noted and trended below. He otherwise offers no other issues or concerns at this time. PREVIOUS HISTORY Prostate cancer - prior external radiation 2004 PSA 07/12 <0.1, 11/13 <0.1, 04/13 <0.1, 03/15 <0.1, 07/16 ,0.10 Bladder emptying Minimal issues with urination Continue with surveillance [facility] Medical History Personal history of nicotine dependence Hypoxemia COPD exacerbation Allergic rhinitis Type 2 diabetes mellitus with diabetic polyneuropathy Tinnitus Anxiety and depression Peptic ulcer disease Renal calculus, right Tubular adenoma of colon DDD (degenerative disc disease), lumbar Depression Prostate cancer COPD (chronic obstructive pulmonary disease) CAP (community acquired pneumonia) Gastric ulcer Hernia Kidney stones History of prostate cancer Erectile dysfunction Insulin use (long-term) in type 2 diabetes Hyperlipidemia LDL goal <100 Vitamin D insufficiency Surgical History History of cataract surgery History of foot surgery History of inguinal hernia repair Hx of tonsillectomy Hx of prostatectomy Family History Father Diabetes Mother No problems noted. Son Diabetes Maternal Uncle Prostate cancer Paternal Grandfather Myocardial infarction Maternal Grandmother No problems noted. Maternal Aunt Esophageal cancer Maternal Grandfather Myocardial infarction Social History Household Members: Spouse Housing: Apartment Alcohol intake: current Alcohol intake frequency: a few times a month Patient Tobacco Use Status: Former Tobacco user Tobacco use type: Cigarette e-Cigarette/Vaping Use: Never Used Second Hand Smoke Exposure: Yes Substance Use Type: Former Substance User and Marijuana service: No Current occupational status: disabled Current occupation: rt handed Cognitive needs: Yes (cane) Hearing needs: Yes (hearing aide) Vision needs: Yes Review of Systems Const Reports no additional complaints Eyes Reports no additional complaints ENT Reports no additional complaints Card Reports as per HPI Resp Reports as per HPI GI Reports as per HPI Reports as per HPI Musc Reports as per HPI Neuro Reports as per HPI Psych Reports as per HPI Endo Reports as per HPI Andrés/Lymph Reports no additional complaints Aller/Immun Reports no additional complaints Physical Exam Const General: cooperative, healthy appearing, comfortable, no acute distress, well developed, alert and awake Orientation/consciousness: patient oriented x3 Limitations: ambulation with cane HEENT Head: Yes normal to inspection, Yes normocephalic and Yes atraumatic Ears: hearing grossly normal bilaterally Eyes General: appearance normal, both eyes and all related structures Neck Neck: Yes normal visual inspection and Yes trachea midline Chest Chest palpation & inspection: normal inspection of the chest Resp Effort & Inspection: normal respiratory effort and able to speak in complete sentences Cardio Rate: regular rate GI Inspection: Yes normal to inspection General: Yes no CVA tenderness Back/Spine/Pelvis Back: no CVA tenderness Skin General skin exam: no rashes or lesions noted Neuro General: patient oriented x3 Extrem General: Yes normal to inspection Psych Appearance: grossly normal and well kempt Mental Status: mental status grossly normal Speech and movement: Normal speech and movement present and Clear speech present Affect: normal affect Attitude: cooperative Thought process: Normal thought process present Thought content: Normal thought content present Insight: Fair insight present (Psych) Judgement: Fair judgement present (Psych) Results AMB Urinalysis, Automated UA Leukoctes 0 Elpidio/uL Last Edit by Praveen Becerra on 08/29/24 12:20 UA Nitrite Last Edit by Praveen Becerra on 08/29/24 12:20 UA Urobilinogen 0.2 mg/dL Last Edit by Praveen Becerra on 08/29/24 12:20 UA Protein 0 mg/dL Last Edit by [employer] Becerra on 08/29/24 12:20 UA pH 6.0 Last Edit by rPaveen Becerra on 08/29/24 12:20 UA Blood 0 Marco Antonio/uL Last Edit by [employer]indio Becerra on 08/29/24 12:20 UA Specific [place] 1.010 Last Edit by Praveen Becerra on 08/29/24 12:20 UA Ketone Last Edit by Praveen Becerra on 08/29/24 12:20 UA Bilirubin 0 mg/dL Last Edit by [employer]arlene Becerra on 08/29/24 12:20 UA Glucose 500 mg/dL Last Edit by Praveen Becerra on 08/29/24 12:20 Results Reviewed Results Reviewed: Laboratory Last Values Urine pH (Auto) 6.0 08/29/24 12:19 Specific [place] (Auto) 1.010 08/29/24 12:19 Urine Protein (Auto) 0 mg/dL 08/29/24 12:19 Glucose (UA)(Auto) 500 mg/dL 08/29/24 12:19 Urine Blood (Auto) 0 Marco Antonio/uL 08/29/24 12:19 Urine Bilirubin (Auto) 0 mg/dL 08/29/24 12:19 Urine Urobilinogen (Auto) 0.2 mg/dL 08/29/24 12:19 Leukocyte Esterase (Auto) 0 Elpidio/uL 08/29/24 12:19 Assessment & Plan Assessment & Plan (1) Prostate cancer: Comment: 2004 Code(s): C61 - Malignant neoplasm of prostate Category: Medical (2) Erectile dysfunction: Code(s): N52.9 - Male erectile dysfunction, unspecified Category: Medical Qualifiers: Erectile dysfunction type: vasculogenic Vasculogenic erectile dysfunction type: due to arterial insufficiency Qualified Code(s): N52.01 - Erectile dysfunction due to arterial insufficiency (3) Nephrolithiasis: Code(s): N20.0 - Calculus of kidney Category: Medical (4) Erectile dysfunction associated with type 2 diabetes mellitus: Code(s): E11.69 - Type 2 diabetes mellitus with other specified complication; N52.1 - Erectile dysfunction due to diseases classified elsewhere Category: Medical Plan In office urinalysis results reviewed with the patient today; as noted above. Refill provided on daily dosing of tadalafil with on demand dosing. Discussed lifestyle modifications to assist with erectile dysfunction Discussed at length potential causes of erectile dysfunction Discussed further treatment options of erectile dysfunction Discussed at length importance of managing diabetes for improvement in erectile dysfunction as well as overall health and well-being. Patient denies any bothersome urinary issues. He reports be happy with current voiding parameters. Will obtain PSA in 6 months. Follow-up in 6 months; or sooner with any issues, concerns, and or questions. Orders: Orders Prostate Specific Antigen 6 Months C61 - Malignant neoplasm of prostate, N52.01 - Erectile dysfunction due to arterial insufficiency AMB Urinalysis Automated Today Z13.9 - Encounter for screening, unspecified Patient Instructions: The patient had an opportunity to ask questions regarding the treatment plan. All questions were answered. Physical exam, labs, and imaging were discussed and reviewed in detail. As well as risks, benefits, and discussion of treatment choices. No major barriers to understanding were identified. The patient expressed understanding and agreement with the above treatment plan. The patient was made aware they should contact our office by phone for worsening of their current condition, the appearance of new symptoms, or with any questions or concerns. Compliance is encouraged with any medications and follow up testing that is ordered. It is a privilege to be allowed the opportunity to participate in? your urological care.? Again, if you have any questions or concerns If you have any questions or concerns please do not hesitate to contact me. The office is [phone]. This note is constructed using voice recognition software. While every effort has been made to ensure accuracy traffic maintenance officer errors may have been included. Yours sincerely, HOWIE Durham Coding Level of Care Code Est Pt Level 4 (41647) Diagnoses Prostate cancer C61 Erectile dysfunction due to arterial insufficiency N52.01 Erectile dysfunction type: vasculogenic Vasculogenic erectile dysfunction type: due to arterial insufficiency Nephrolithiasis N20.0 Erectile dysfunction associated with type 2 diabetes mellitus E11.69; N52.1 Time Spent (min) 35
== END 2024-08-29 12:19 | disposition home or self-care (01) ==
LOC: HO.HUSH 11:25
PROVIDERS: PCP Internal Medicine; Visit Provider Nurse Practitioner Family
DX: C61 Malignant neoplasm of prostate (principal); N52.01 Erectile dysfunction due to arterial insufficiency; N20.0 Calculus of kidney; E11.69 Type 2 diabetes mellitus with other specified complication; N52.1 Erectile dysfunction due to diseases classified elsewhere; Z13.9 Encounter for screening, unspecified
CPT/HCPCS: 99214

== ENCOUNTER → 2024-08-29 11:24 | Outpatient (BNVA) | payer OTHER, SELFPAY | PROVIDERS: PCP Internal Medicine; Visit Provider Nurse Practitioner Family | DX: C61 Malignant neoplasm of prostate (principal); N52.01 Erectile dysfunction due to arterial insufficiency; N52.1 Erectile dysfunction due to diseases classified elsewhere; N20.0 Calculus of kidney; E11.69 Type 2 diabetes mellitus with other specified complication; E11.42 Type 2 diabetes mellitus with diabetic polyneuropathy | CPT/HCPCS: 81003; 99212 ==

== ENCOUNTER 2024-09-05 10:18 | Outpatient (AMB) | payer OTHER, SELFPAY ==
[2024-09-05 10:34] VITALS: BMI 24.4
--- NOTE | 2024-09-05 10:34 | MHC.OFFVIS ---
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 Patient states he's had multiple injuries to his back. He is under the impression he has osteoarthritis in his back. He describes his pain as a pulling sensation from the lower back radiating to his legs. He feels like this sensation makes him feel like he is going to fall but he does not. He is also experiencing something similar on his neck. Denies prior surgeries to the neck or back. Substation Design Draftsperson Required: Yes Substation Design Draftsperson Language: Housekeeping/Laundry Services: Substation Design Draftsperson Present Substation Design Draftsperson Name: [email or web address]/CEE Information Interpreted: clinical only Allergies cortisone [CORTISONE] Allergy (Severe, Verified 09/05/24 10:35) ANAPHYLAXIS cephalexin Allergy (Unknown, Verified 09/05/24 10:35) unknown lisinopril Adverse Reaction (Intermediate, Verified 09/05/24 10:35) hypotension Medication List - Last Reconciled 09/05/24 by Kathy Koch MD albuterol sulfate 90 mcg/actuation INHALE 2 PUFFS BY MOUTH EVERY 4 TO 6 HOURS NEEDED FOR SHORTNESS OF BREATH OR WHEEZING alcohol swabs (BD Alcohol Swabs) 1 pad topical QID atorvastatin 20 mg PO DAILY blood-glucose sensor (Dexcom G7 Sensor device) USE DIRECTED EVERY 10 DAYS cholecalciferol (vitamin D3) 50 mcg PO DAILY clotrimazole 1% 1 appl topical BID 4 weeks dupilumab (Dupixent) mg subcut fluticasone propion-salmeterol 250-50 mcg/dose (Wixela Inhub) 1 ea PO Q12H glucagon 3 mg/actuation (Baqsimi) 3 mg intranasal ONCE 30 days Incruse Ellipta 62.5 mcg/actuation (umeclidinium) 1 inh PO DAILY NS miconazole nitrate 2% (Zeasorb AF) 1 appl topical BID Novolog FlexPen U-100 Insulin (insulin aspart U-100) inject 10 units sq with breakfast, inject 14 units sq with lunch, inject 14 units sq with dinner NS Oxygen Home Use As directedO2 2L NC pen needle, diabetic (BD Tierra 2nd Gen Pen Needle) 1 ea miscellaneous .4X/day sertraline 50 mg PO DAILY 90 days tadalafil (Cialis) 5 mg PO DAILY 90 days tadalafil (Cialis) 20 mg PO DAILY PRN 90 days HPI Comments Details: He has difficulty getting up from bed, indicates pain across the lower back that goes to left thigh/hip area. No groin pain. Sometimes left foot gets numb. Denies left leg pain. Told to have left leg longer than right. Uses cane to get up and straightain out his lower back, avoid falls, cause he can stumble, go sideways. Has not had any injections or seen surgeon. No MRI. Last lumbar xray 2021. Recent left hip xray normal. Can't remember when he was last gone to PT. History of DM. Says he had abdominal bloating, had hernia surgery in past, PCP aware. Left foot surgery in [place]. No injuries. [facility] Medical History Personal history of nicotine dependence Hypoxemia COPD exacerbation Allergic rhinitis Type 2 diabetes mellitus with diabetic polyneuropathy Tinnitus Anxiety and depression Peptic ulcer disease Renal calculus, right Tubular adenoma of colon DDD (degenerative disc disease), lumbar Depression Prostate cancer COPD (chronic obstructive pulmonary disease) CAP (community acquired pneumonia) Gastric ulcer Hernia Kidney stones History of prostate cancer Erectile dysfunction Insulin use (long-term) in type 2 diabetes Hyperlipidemia LDL goal <100 Vitamin D insufficiency Surgical History History of cataract surgery History of foot surgery History of inguinal hernia repair Hx of tonsillectomy Hx of prostatectomy Family History Father Diabetes Mother No problems noted. Son Diabetes Maternal Uncle Prostate cancer Paternal Grandfather Myocardial infarction Maternal Grandmother No problems noted. Maternal Aunt Esophageal cancer Maternal Grandfather Myocardial infarction Social History Household Members: Spouse Housing: Apartment Alcohol intake: current Alcohol intake frequency: a few times a month Patient Tobacco Use Status: Former Tobacco user Tobacco use type: Cigarette e-Cigarette/Vaping Use: Never Used Second Hand Smoke Exposure: Yes Substance Use Type: Former Substance User and Marijuana service: No Current occupational status: disabled Current occupation: rt handed Cognitive needs: Yes (cane) Hearing needs: Yes (hearing aide) Vision needs: Yes Review of Systems Const All systems reviewed & are unremarkable except as noted in HPI and below Physical Exam Vital Signs: BMI result Body Mass Index 24.4 Constitutional: Patient appears to be in no acute distress, well nourished and well developed. Patient was appropriately conversant and oriented. Good historian. MSK: No specific abnormalities found on inspection of the spine and all extremities. Tender on lower lumbar facets. No tenderness over spinous processes. No SI joint tenderness. No paraspinal tenderness. No GT tenderness. Lumbar range of motion limited with pain, especially extension. Limited hip range of motion, weakness in left hip flexion. Slump sit negative. Neurological: Left hip flexion 4/5. Right hip flexion 4+/5. Knee extension bilateral 5/5. No footdrop. Joshi?s negative bilaterally. Babinski was down going bilaterally. Clonus was negative. Gait is antalgic unstable. Results Reviewed Results Reviewed: I independently reviewed the results of the following: Lumbar x-rays reviewed, from 2021, showed multilevel disc space narrowing and anterior endplate spurs. Hip x-ray unremarkable. Ordering Physician: Margarito Anton MD Date of Service: 10/27/21 Procedure(s): XR lumbar spine 2-3V Accession Number(s): [id number] cc: Margarito Anton MD~ EXAMINATION: XR LS SPINE XR HIP-LEFT CLINICAL INFORMATION: Low back pain. Left hip pain. COMPARISON: Lumbosacral spine done on 08/20/2020. TECHNIQUE: 2 views, 3 images of the lumbosacral spine and 2 views of the left hip. FINDINGS: Lumbosacral spine: Mild lower lumbar dextro and thoracolumbar levoscoliosis and superimposed multiple multilevel degenerative spondylosis related changes are present. Facet joint arthritic changes are also noted at lower lumbar spine. The posterior appendages are intact. Multiple surgical clips are noted within the pelvis. Overall, no significant change since 08/20/2020. Left hip: The bony alignments are intact. The cortices are intact. Mild subchondral sclerosis, consistent with mild osteoarthrosis is present. The soft tissues are unremarkable. XR/XR lumbar spine 2-3V IMPRESSION: 1. Thoracolumbar and lower lumbar scoliosis with superimposed multilevel moderate degenerative spondylosis and lower lumbar facet joint arthritic changes, appears similar to prior study dated 08/20/2020. 2. Mild osteoarthrosis of the left hip. Ordering Physician: Margarito Anton MD Date of Service: 10/31/23 Procedure(s): XR hip LT min 2V Accession Number(s): [id number] cc: Margarito Anton MD~ EXAMINATION: XR HIP, LEFT CLINICAL INFORMATION: Pain. COMPARISON: Radiographs dated 08/14/2023. TECHNIQUE: AP and frog-leg lateral views of the left hip. FINDINGS: No fracture. Alignment is anatomic. Hip joint space is maintained. Soft tissues are unremarkable. There are multiple pelvic surgical clips. XR/XR hip LT min 2V IMPRESSION: Normal left hip. I reviewed records from the following: PCP Assessment & Plan Assessment & Plan (1) Left lumbar radiculitis: Code(s): M54.16 - Radiculopathy, lumbar region Category: Medical (2) Lumbar spondylosis: Code(s): M47.816 - Spondylosis without myelopathy or radiculopathy, lumbar region Category: Medical Plan Chronic lower back pain radiating to left thigh. X-rays from couple years ago shows multilevel degenerative changes. Wonder if he does have spinal stenosis or nerve impingement left L3-4 or L4-5 that would explain his symptoms further. We might at some point need a lumbar MRI. For now, we agreed and sending him to physical therapy. Assessment and plan discussed with patient, and patient was agreeable. All questions were answered thoroughly. Follow up 6-8 weeks or after PT. Kathy Koch MD, TONY Board Certified, [place] [employer] and [employer] (ABPMR) Board Certified, [place] [employer] (ABEM) Coding Level of Care Code New Pt Level 4 (43697) Diagnoses Left lumbar radiculitis M54.16 Lumbar spondylosis M47.816
== END 2024-09-05 11:22 | disposition home or self-care (01) ==
PROVIDERS: PCP Internal Medicine; Visit Provider Physical Medicine & Rehabilitation
DX: M54.16 Radiculopathy, lumbar region (principal); M47.816 Spondylosis without myelopathy or radiculopathy, lumbar region
CPT/HCPCS: 99203

== ENCOUNTER → 2024-09-05 10:18 | Outpatient (BNVA) | payer OTHER, SELFPAY | PROVIDERS: PCP Internal Medicine; Visit Provider Physical Medicine & Rehabilitation | DX: M47.26 Other spondylosis with radiculopathy, lumbar region (principal) | CPT/HCPCS: 99202 ==

== ENCOUNTER 2024-09-16 10:59 | Outpatient (AMB) | payer OTHER, SELFPAY ==
--- NOTE | 2024-09-16 11:17 | A.OFFVIS_ITS ---
Vital Signs 09/16/24 11:18 Height 5 ft 9 in Weight 164 lb 3.91 oz BMI 24.3 BP 120/60 Blood Pressure Location Lt brachial Position Sitting Pulse 72 Pulse Source Pulse Oximeter Pulse Oximetry (%) 93 Oxygen Delivery Method Room Air Intake Visit Reasons: COPD Intake Note: pt is here for follow up and states he is feeling is doing good , breathing is good as always, oxygen is at home, he is stating he has a pain in the left chest since yesterday, but is having a lot of gas/belching Senior Loss Control Specialist Required: No Allergies cortisone [CORTISONE] Allergy (Severe, Verified 09/16/24 11:22) ANAPHYLAXIS cephalexin Allergy (Unknown, Verified 09/16/24 11:22) unknown lisinopril Adverse Reaction (Intermediate, Verified 09/16/24 11:) hypotension Do you need a note to return to daycare/school/sports/work: No HPI HPI COPD: Details: This 64 years old very pleasant gentleman is here for follow-up after 6 months. He claims that his COPD has remained under good. Control without any acute exacerbation He does have the O2 concentrator at home, and uses O2 2 L/minute. At night and only p.r.n. during the daytime He also has a portable cylinder but he never uses when he goes outdoors. Has mild nasal congestion and intermittent. Cough as usual [facility] Medical History Personal history of nicotine dependence Hypoxemia COPD exacerbation Allergic rhinitis Type 2 diabetes mellitus with diabetic polyneuropathy Tinnitus Anxiety and depression Peptic ulcer disease Renal calculus, right Tubular adenoma of colon DDD (degenerative disc disease), lumbar Depression Prostate cancer COPD (chronic obstructive pulmonary disease) CAP (community acquired pneumonia) Gastric ulcer Hernia Kidney stones History of prostate cancer Erectile dysfunction Insulin use (long-term) in type 2 diabetes Hyperlipidemia LDL goal <100 Vitamin D insufficiency Surgical History History of cataract surgery History of foot surgery History of inguinal hernia repair Hx of tonsillectomy Hx of prostatectomy Family History Father Diabetes Mother No problems noted. Son Diabetes Maternal Uncle Prostate cancer Paternal Grandfather Myocardial infarction Maternal Grandmother No problems noted. Maternal Aunt Esophageal cancer Maternal Grandfather Myocardial infarction Social History Household Members: Spouse Housing: Apartment Alcohol intake: current Alcohol intake frequency: a few times a month Patient Tobacco Use Status: Former Tobacco user Tobacco use type: Cigarette e-Cigarette/Vaping Use: Never Used Second Hand Smoke Exposure: Yes Substance Use Type: Former Substance User and Marijuana service: No Current occupational status: disabled Current occupation: rt handed Cognitive needs: Yes (cane) Hearing needs: Yes (hearing aide) Vision needs: Yes Review of Systems Const All systems reviewed & are unremarkable except as noted in HPI and below Eyes Reports no additional complaints ENT Reports nasal congestion (mild ) Card Denies chest pain, Denies irregular heart rhythm and Denies leg edema Resp Reports as per HPI GI Reports heartburn (Controlled with omeprazole) Reports erectile dysfunction Musc Reports back pain (Mild) Skin/Breast Reports system reviewed and no additional complaints, except as documented Neuro Reports no additional complaints Psych Reports no additional complaints Physical Exam Vital Signs: Last Vital Signs Pulse 72 09/16/24 11:18 BP 120/60 09/16/24 11:18 Pulse Ox 93 09/16/24 11:18 Oxygen Delivery Method Room Air 09/16/24 11:18 BMI result Body Mass Index 24.3 Const General: comfortable, no acute distress, alert and awake Orientation/consciousness: patient oriented x3 HEENT Head: Yes normal to inspection General nose exam: No nasal polyps present and No nasal discharge present Face and sinus: Yes sinuses nontender Mouth: oropharynx normal Throat: Yes posterior oropharynx normal Eyes General: appearance normal, both eyes and all related structures Neck Neck: Yes normal visual inspection, Yes no lymphadenopathy, Yes trachea midline and Yes no JVD Thyroid: Thyroid normal Chest Chest palpation & inspection: normal inspection of the chest, normal palpation of entire chest wall and no tenderness Resp Other: Percussion note hyper-resonant, breath sounds are distant with prolonged expiratory phase on both sides. No audible wheezes or rhonchi were present Cardio Palpation: normal PMI Rate: regular rate Rhythm: regular rhythm Heart sounds: no gallops and no murmurs GI Palpation (GI): Soft to palpation, nontender, No hepatosplenomegaly present and no masses Auscultation: normal bowel sounds Back/Spine/Pelvis Thoracic/Lumbar Spine: thoracic and lumbar spine normal to inspection and thoraco-lumbar ROM limited Skin General skin exam: no rashes or lesions noted Neuro General: patient oriented x3 and no focal motor deficits Cranial nerves: Yes CN's II-XII intact bilaterally Extrem General: Yes normal to inspection, Yes no clubbing, cyanosis or edema and Yes no calf tenderness Psych Appearance: grossly normal Speech and movement: Normal speech and movement present Office Procedures 6 Minute Walk Time:: 11:50 SPO2 % at rest: 94 Pulse at rest: 78 SPO2 % during excercise: 86 Pulse during excercise: 108 SPO2 % after excercise: 97 Pulse after excercise: 82 Distance in yards walked: 300 Janet Score: 3 Performance Observations:: Patient walked on level ground using a cane at a moderate pace. Maintained O2 saturation of at least 92 for the first 5 minutes..O2 saturation dropped to 86%. Stopped for brief rest with pulsed on applied via nasal cannula at setting #1. O2 saturation recovered to 97%.. Continued walk and maintained 97% on setting 1. Patient did qualify for poc using setting 1 89789 - 6 Minute Walk Results Reviewed Results Reviewed: 6 minutes walk test was done. Walked for 5 minutes on room air and O2 sat remained above 90%. Only towards the end of 6 minutes walk the O2 sat did go below 90%. And it was corrected by O2 1 L/minute. Assessment & Plan Assessment & Plan (1) COPD (chronic obstructive pulmonary disease): Comment: He has long-standing chronic obstructive pulmonary disease. DOING MUCH BETTER SINCE HE QUIT SMOKING. AT PRESENT HIS COPD IS VERY STABLE, AND HE IS ADVISED TO CONTINUE THE PRESENT REGIMEN. Code(s): J44.9 - Chronic obstructive pulmonary disease, unspecified Category: Medical Qualifiers: COPD type: emphysema Emphysema type: unspecified Qualified Code(s): J43.9 - Emphysema, unspecified Plan: Continue to use Wixela 250-51 inhalation b.i.d. And Incruse Ellipta 1 inhalation daily. Dupixent 300 mg subQ q.2 weeks Albuterol HFA 2 puffs Q 6 hours p.r.n. (2) Allergic rhinitis: Comment: Mild chronic, has been stable. Code(s): J30.9 - Allergic rhinitis, unspecified Category: Medical Plan: He does not need any active treatment at this time (3) Hypoxemia: Comment: Patient does have hypoxemia on exertion. It has improved and he does well . Using O2 2 L/minute at night. And p.r.n. during the daytime. As per 6 minutes walk he can walk short distances without any hypoxemia. Since patient is not keen to have any portable unit . Code(s): R09.02 - Hypoxemia Category: Medical Plan: Keep on using oxygen at night and p.r.n. during the daytime Orders: Orders AMB 6 minute walk Today J43.9 - Emphysema, unspecified Coding Level of Care Code Est Pt Level 4 (64889) Diagnoses Pulmonary emphysema, unspecified emphysema type J43.9 COPD type: emphysema Emphysema type: unspecified Allergic rhinitis J30.9 Hypoxemia R09.02 CPT Codes Coding ([id number])
[2024-09-16 11:18] VITALS: BP 120/60; PULSE 72; O2SAT 93; BMI 24.3
[2024-09-16 12:14] VITALS: PULSE 78; O2SAT 94
== END 2024-09-16 12:15 | disposition home or self-care (01) ==
PROVIDERS: PCP Internal Medicine; Visit Provider Internal Medicine
DX: J43.9 Emphysema, unspecified (principal); J30.9 Allergic rhinitis, unspecified; R09.02 Hypoxemia
CPT/HCPCS: 94618; 99214

== ENCOUNTER → 2024-09-16 10:59 | Outpatient (BNVA) | payer OTHER, SELFPAY | PROVIDERS: PCP Internal Medicine; Visit Provider Internal Medicine | DX: J43.9 Emphysema, unspecified (principal); J30.9 Allergic rhinitis, unspecified; R09.02 Hypoxemia | CPT/HCPCS: 94618; 99212 ==

== ENCOUNTER 2024-11-01 13:11 | Outpatient (AMB) | payer OTHER, SELFPAY ==
[2024-11-01 13:20] VITALS: BP 130/64; PULSE 82; BMI 25.0
--- NOTE | 2024-11-01 13:20 | MHC.OFFVIS ---
Vital Signs 11/01/24 13:20 Height 5 ft 9 in Weight 169 lb 5.04 oz BMI 25.0 BP 130/64 Blood Pressure Location Lt brachial Position Sitting Pulse 82 Pulse Source Pulse Oximeter Intake Visit Reasons: DM Intake Note: Patient present today for Type 2 Diabetes Mellitus. Last Diabetic eye exam: 08/2024 Last Podiatry Visit: Doesn't have one Random Glucose: 222 mg/dl HgA1C: 8.2% Drilling Contractor Required: No Accompanied by: Self / Same As Patient Allergies cortisone [CORTISONE] Allergy (Severe, Verified 11/01/24 13:28) ANAPHYLAXIS cephalexin Allergy (Unknown, Verified 11/01/24 13:28) unknown lisinopril Adverse Reaction (Intermediate, Verified 11/01/24 13:28) hypotension HPI HPI DM: Details: Patient is a 64-year-old male with a significant past medical history of COPD, prostate cancer, hyperlipidemia, kidney stones, type 2 diabetes, insulin dependent, erectile dysfunction due to diabetes and vitamin-D deficiency presenting today for a follow-up regarding his diabetes. Drilling Contractor Anna #[id number] understands and speaks some [place] Endo: A1c 8.2 today from 8.9. Meds- Toujeo 10 units, Novolog 10 units with meals (usually just twice a day). -when I last saw him he was on 18 of toujeo and novolog 10, 14 and 14 with meals. He states that he lowered his insulin on his own due to not eating as much. stopped Tradjenta 5 mg. Intolerant of metformin due to diarrhea, Jardiance due to urinary frequency and Trulicity due to undesired weight loss. Pioglitzone stopped due to edema, ozempic is causing GI upset with n/v CGM average blood sugar 154, GMI 7%, glucose variability 43%., very high 3%, high 22%, within range 74%, 1% lows -he will sometimes get hypoglycemia in the evening if he did not eat a lot for dinner. He has been eating less and has follow up with GI on 08/23 for his weight loss CV: No on an CLAUDIA inhibitor. Blood pressure today in the office is 130/64. Cholesterol is managed with atorvastatin 20 mg. Last LDL was 72 and at goal. LFTs WNL. PFSH Medical History Personal history of nicotine dependence Hypoxemia COPD exacerbation Allergic rhinitis Type 2 diabetes mellitus with diabetic polyneuropathy Tinnitus Anxiety and depression Peptic ulcer disease Renal calculus, right Tubular adenoma of colon DDD (degenerative disc disease), lumbar Depression Prostate cancer COPD (chronic obstructive pulmonary disease) CAP (community acquired pneumonia) Gastric ulcer Hernia Kidney stones History of prostate cancer Erectile dysfunction Insulin use (long-term) in type 2 diabetes Hyperlipidemia LDL goal <100 Vitamin D insufficiency Surgical History History of cataract surgery History of foot surgery History of inguinal hernia repair Hx of tonsillectomy Hx of prostatectomy Family History Father Diabetes Mother No problems noted. Son Diabetes Maternal Uncle Prostate cancer Paternal Grandfather Myocardial infarction Maternal Grandmother No problems noted. Maternal Aunt Esophageal cancer Maternal Grandfather Myocardial infarction Social History Household Members: Spouse Housing: Apartment Alcohol intake: current Alcohol intake frequency: a few times a month Patient Tobacco Use Status: Former Tobacco user Tobacco use type: Cigarette e-Cigarette/Vaping Use: Never Used Second Hand Smoke Exposure: Yes Substance Use Type: Former Substance User and Marijuana service: No Current occupational status: disabled Current occupation: rt handed Cognitive needs: Yes (cane) Hearing needs: Yes (hearing aide) Vision needs: Yes Physical Exam Vital Signs: Last Vital Signs Pulse 82 11/01/24 13:20 BP 130/64 11/01/24 13:20 BMI result Body Mass Index 25.0 Const Orientation/consciousness: patient oriented x3 Neck Neck: Yes no lymphadenopathy Thyroid: Thyroid normal Carotids: no bruits Resp Auscultation: clear to auscultation bilaterally Cardio Rate: regular rate Rhythm: regular rhythm Heart sounds: S1 normal heart sound present and S2 normal heart sound present Peripheral pulses: dorsalis pedis present Neuro General: patient oriented x3, gait normal and no focal motor deficits Extrem Other: Monofilament sensation intact bilaterally. Vibratory sensation intact bilaterally. Skin intact. General: Yes normal to inspection Office Procedures Glucose Monitoring Details Details: See [facility] [address] - Glucose monitoring, continuous-physician I&R Procedure code (CPT) selection complete Results AMB Hemoglobin A1c AMB Hemoglobin A1c 8.2 % Last Edit by DAVID Lizarraga on 11/01/24 13:50 Results Reviewed Results Reviewed: Laboratory Last Values Glucose (Clinic) 222 mg/dL (60-115) H 11/01/24 13:30 Laboratory Tests 04/24/24 04/26/24 08/02/24 08:43 09:02 13:06 Creatinine 1.03 Estimated GFR > 60 Glucose (Clinic) 151 H Hgb A1c (Clinic) Hemoglobin A1c % 7.5 H AST 15 ALT 8 Triglycerides 85 60 Cholesterol 128 132 LDL Cholesterol, Calc 72 76 HDL Cholesterol 44 08/02/24 13:09 Creatinine Estimated GFR Glucose (Clinic) Hgb A1c (Clinic) 8.9 H Hemoglobin A1c % AST ALT Triglycerides Cholesterol LDL Cholesterol, Calc HDL Cholesterol Assessment & Plan Assessment & Plan (1) Type 2 diabetes mellitus with diabetic polyneuropathy: Code(s): E11.42 - Type 2 diabetes mellitus with diabetic polyneuropathy Category: Medical Qualifiers: Diabetes mellitus detention insulin use: with dedicated intermodal truck driver use Qualified Code(s): E11.42 - Type 2 diabetes mellitus with diabetic polyneuropathy; Z79.4 - nursing home (current) use of insulin Plan: Patient does appear neurovascularly intact today. We will continue management of the diabetes. We did discuss that his A1c is not quite at goal. I will increase Toujeo to 14 units, reduce NovoLog to 6 units with meals as he is eating a bit less than he normally does. Reviewed signs and symptoms of hyper and hypoglycemia that would require emergent medical treatment. He will complete labs in 3 months prior to our follow up. Sooner if needed. Reminded him of the rule of 15. (2) Insulin use (long-term) in type 2 diabetes: Code(s): E11.9 - Type 2 diabetes mellitus without complications; Z79.4 - nursing home (current) use of insulin Category: Medical Qualifiers: Diabetes mellitus complication status: with hyperglycemia Qualified Code(s): E11.65 - Type 2 diabetes mellitus with hyperglycemia; Z79.4 - manager intermediate (current) use of insulin Plan: As above. (3) Hyperlipidemia LDL goal <100: Code(s): E78.5 - Hyperlipidemia, unspecified Category: Medical Plan: Currently well managed. Orders: Orders Comprehensive Met. Panel Today E11.42 - Type 2 diabetes mellitus with diabetic polyneuropathy, E11.65 - Type 2 diabetes mellitus with hyperglycemia, E78.5 - Hyperlipidemia, unspecified, Z79.4 - nursing home (current) use of insulin Hemoglobin A1c Today E11.42 - Type 2 diabetes mellitus with diabetic polyneuropathy, E11.65 - Type 2 diabetes mellitus with hyperglycemia, E78.5 - Hyperlipidemia, unspecified, R73.01 - Impaired fasting glucose, Z79.4 - nursing home (current) use of insulin Microalbumin, Random (w Creat) Today E11.42 - Type 2 diabetes mellitus with diabetic polyneuropathy, E11.65 - Type 2 diabetes mellitus with hyperglycemia, E78.5 - Hyperlipidemia, unspecified, Z79.4 - manager intermediate (current) use of insulin B Type Natriuretic Peptide Today E11.42 - Type 2 diabetes mellitus with diabetic polyneuropathy, E11.65 - Type 2 diabetes mellitus with hyperglycemia, E78.5 - Hyperlipidemia, unspecified, Z79.4 - nursing home (current) use of insulin Medications: New insulin glargine U-300 conc (Toujeo Max U-300 SoloStar) 14 units (0.0467 mL) subcut BEDTIME 6 mL 3RF Changed From Novolog FlexPen U-100 Insulin (insulin aspart U-100) inject 10 units sq with breakfast, inject 14 units sq with lunch, inject 14 units sq with dinner 15 mL 5RF NS To Novolog FlexPen U-100 Insulin (insulin aspart U-100) with breakfast, lunch, and supper 6 units (0.06 mL) subcut TID 15 mL 5RF NS Refilled glucagon 3 mg/actuation (Baqsimi) [place] once for severe hypoglycemia when patient cannot self-treat with glucose. Afterwards turn on side. May repeat after 15 minutes if patient does not respond. 3 mg intranasal ONCE 30 days 2 ea 6RF unresponsive hypoglycemia E11.42 - Type 2 diabetes mellitus with diabetic polyneuropathy, Z79.4 - manager intermediate (current) use of insulin Patient Instructions: Nolovog is lowered to 6 units with breakfast, lunch and supper toujeo increased to 14 units once a day at bedtime. if you get any low or high sugars CALL ME Coding Level of Care Code Est Pt Level 4 (99127) Diagnoses Type 2 diabetes mellitus with diabetic polyneuropathy, with long-term current use of insulin E11.42; Z79.4 Diabetes mellitus detention insulin use: with dedicated intermodal truck driver use Type 2 diabetes mellitus with hyperglycemia, with long-term current use of insulin E11.65; Z79.4 Diabetes mellitus complication status: with hyperglycemia Hyperlipidemia LDL goal <100 E78.5 CPT Codes Details - CPT: 64900 - Glucose monitoring, continuous-physician I&R ([id number])
[2024-11-01 13:34] LABS: Glucose, Whole Blood 222 mg/dL (60-115)
== END 2024-11-01 13:53 | disposition home or self-care (01) ==
PROVIDERS: PCP Internal Medicine; Visit Provider Physician Assistant
DX: E11.42 Type 2 diabetes mellitus with diabetic polyneuropathy (principal); Z79.4 Long term (current) use of insulin; E11.65 Type 2 diabetes mellitus with hyperglycemia; E78.5 Hyperlipidemia, unspecified; Z13.9 Encounter for screening, unspecified

== ENCOUNTER → 2024-11-01 13:11 | Outpatient (BNVA) | payer OTHER, SELFPAY | PROVIDERS: PCP Internal Medicine; Visit Provider Physician Assistant | DX: E11.42 Type 2 diabetes mellitus with diabetic polyneuropathy (principal); E11.65 Type 2 diabetes mellitus with hyperglycemia; E78.5 Hyperlipidemia, unspecified; Z79.4 Long term (current) use of insulin | CPT/HCPCS: 82947; 83036; 99212 ==

== ENCOUNTER 2024-11-21 12:59 | Outpatient (AMB) | payer OTHER, SELFPAY ==
--- NOTE | 2024-11-21 13:51 | MHC.AMDMED ---
Intake Intake Visit Reasons: DM It Infrastructure Architect Required: Yes It Infrastructure Architect Language: Senior Web Developer Name: Pt's Accompanied by: Spouse Allergies cortisone [CORTISONE] Allergy (Severe, Verified 11/01/24 13:28) ANAPHYLAXIS cephalexin Allergy (Unknown, Verified 11/01/24 13:28) unknown lisinopril Adverse Reaction (Intermediate, Verified 11/01/24 13:28) hypotension HPI Comprehensive Diabetes Asmnt Most Recent Diabetes Results: Microalb/Creat Ratio 22.7 ug/mg cr (<30) 04/24/24 Cholesterol 132 mg/dL (<200) 04/26/24 HDL Cholesterol 44 mg/dL (>40) 04/26/24 Triglycerides 60 mg/dL (<150) 04/26/24 Creatinine 1.03 mg/dL (0.5-1.4) 04/24/24 Blood Urea Nitrogen 7 mg/dL (9-16) L 04/24/24 Sodium 141 mmol/L (135-145) 04/24/24 Potassium 4.4 mmol/L (3.3-5.1) 04/24/24 Chloride 102 mmol/L (96-108) 04/24/24 Carbon Dioxide 32 mmol/L (22-29) H 04/24/24 Calcium 10.3 mg/dL (8.4-10.2) H 04/24/24 AST 15 U/L (5-37) 04/24/24 ALT 8 U/L (0-40) 04/24/24 Total Protein 7.5 g/dL (6.5-8.0) 04/24/24 Albumin 4.3 g/dL (3.5-5.0) 04/24/24 [facility] Medical History Personal history of nicotine dependence Hypoxemia COPD exacerbation Allergic rhinitis Type 2 diabetes mellitus with diabetic polyneuropathy Tinnitus Anxiety and depression Peptic ulcer disease Renal calculus, right Tubular adenoma of colon DDD (degenerative disc disease), lumbar Depression Prostate cancer COPD (chronic obstructive pulmonary disease) CAP (community acquired pneumonia) Gastric ulcer Hernia Kidney stones History of prostate cancer Erectile dysfunction Insulin use (long-term) in type 2 diabetes Hyperlipidemia LDL goal <100 Vitamin D insufficiency Surgical History History of cataract surgery History of foot surgery History of inguinal hernia repair Hx of tonsillectomy Hx of prostatectomy Family History Father Diabetes Mother No problems noted. Son Diabetes Maternal Uncle Prostate cancer Paternal Grandfather Myocardial infarction Maternal Grandmother No problems noted. Maternal Aunt Esophageal cancer Maternal Grandfather Myocardial infarction Social History Household Members: Spouse Housing: Apartment Alcohol intake: current Alcohol intake frequency: a few times a month Patient Tobacco Use Status: Former Tobacco user Tobacco use type: Cigarette e-Cigarette/Vaping Use: Never Used Second Hand Smoke Exposure: Yes Substance Use Type: Former Substance User and Marijuana service: No Current occupational status: disabled Current occupation: rt handed Cognitive needs: Yes (cane) Hearing needs: Yes (hearing aide) Vision needs: Yes Assessment & Plan Assessment & Plan (1) Insulin use (long-term) in type 2 diabetes: Code(s): E11.9 - Type 2 diabetes mellitus without complications; Z79.4 - half-way (current) use of insulin Qualifiers: Diabetes mellitus complication status: with hyperglycemia Qualified Code(s): E11.65 - Type 2 diabetes mellitus with hyperglycemia; Z79.4 - moth exterminator (current) use of insulin Plan: Personal Continuous Glucose Monitor: Patients CGM information reviewed, Pt uses [employer] G7 with sustainability analyst Sensor data: Hypoglycemia: ? 0 % Hyperglycemia:? 50% Time in Range:? 50% Average glucose for the last 2 weeks? 181 mg/dL Patient had episode of hypoglycemia this morning, reports he took Humalog and left the house without eating. Reviewed with patient how to use you rule of 15 to treat hypoglycemia, patient reports he uses small can of regular soda to treat low blood sugar. After treatment he used piece of cake as a snack. Recommended to patient that he use complex carbohydrate snack which contains protein and fiber in order to stabilize blood sugar. Patient's last A1c was 8.2% on 11/01/2024 He is currently taking Toujeo 18 units daily Humalog 8 units before meals Discussed with patient when using fixed dose of insulin importance of eating the same amount of carbohydrate with each meal Patient does have some postprandial hypoglycemia, reports this happens when he eats small meals. Reviewed with patient action of Humalog the importance of taking 15 minutes prior to meal, suggested if he is not eating large meal to try Humalog 6 units before smaller meals to prevent risk of hypoglycemia Patient agreed to this plan Reviewed how to interpret trend arrows Reminded patient that to check finger sticks if symptoms do not match sensor reading. Discussed lag time between finger stick and sensor data.? Patient able to insert sensor independently at home without issue.? Portions of this note were created using voice recognition software, please excuse any words or phrases that may have been misinterpreted. Patient Instructions: Humalogo Para comidas abundantes 8 unidades Para comidas m?s ede?as 6 unidades No tome Humalog si est? comiendo Siga con el educador en diabetes en 4 meses. Coding Level of Care Code Est Pt Level 1 (32564) Diagnoses Type 2 diabetes mellitus with hyperglycemia, with long-term current use of insulin E11.65; Z79.4 Diabetes mellitus complication status: with hyperglycemia
--- OUTSIDE RECORDS SUMMARY | 2024-11-21 16:48 | XMS_ITS ---
Author Organization [facility] Address [address] [place] [address] Care Team Providers Care Lead Radiologic Technologist Name Role Phone Margarito Anton MD Primary Care Provider Favian Groves Unavailable [phone] REASON FOR VISIT Pt no show Encounters Encounter Location Date Provider Diagnosis [facility] [address] [place] [address] 08/23/2024 Favian Delgado PLAN OF TREATMENT Next Appt Details Provider Name:Favian Delgado , 01/08/2025 01:20:00 PM, [address], [address], [place], [address],
--- OUTSIDE RECORDS SUMMARY | 2024-11-21 16:48 | XMS_ITS | Patient Health Record ---
Author Organization [facility] Address [address] [place] [address] Care Team Providers Care Engagement Manager Name Role Phone Margarito Anton MD Primary Care Provider Favian Groves [phone] ALLERGIES Allergen (clinical drug ingredient) Drug/Non Drug Allergy documented on EMR Reaction Allergy Type Onset Date Status Cortisone Unknown Drug Allergy Active REASON FOR REFERRAL No Information MEDICATIONS Medication SIG (Take, Route, Frequency, Duration) Notes Start Date End Date Status Wixela Inhub 250-50 MCG/DOSE 1 puff Inhalation Twice a day Active Incruse Ellipta 62.5 MCG/INH 2 puff Inhalation Once a day Active MiraLax (colon prep) 17 GM/SCOOP 1 238gm bottle mixed with gatorade or crystal light Orally begin at 5:00 p.m. the day before the procedure for 1 day 06/24/2022 Active Sertraline HCl 50 MG 1 tablet Orally Onc e a day for 30 day(s) Active Atorvastatin Calcium 20 MG 1 tablet Oral ly Once a day for 30 day(s) Active Loratadine 10 MG 1 tablet Orally Once a day for 30 day(s) Active Repaglinide 0.5 MG 1 tablet 15 to 30 mi nutes before meals Orally three x a day Active Pioglitazone HCl 30 MG 1 tablet Orally O nce a day for 30 day(s) Active Acarbose 25 MG Oral for 90 Act austyn Lisinopril 2.5 MG 1 tablet Orally Once a day Active Toujeo SoloStar 300 UNIT/ML as directed Subcutaneous once a day Active Vitamin D 1000 UNIT 1 tablet Orally Once a day Active MiraLax (colon prep) 8.3 ounce ((238) grams mixed with Gatorade or Crystal Light orally begin at 5:00 p.m. the day before the procedure for 1 day 06/24/2022 Active Tamsulosin HCl 0.4 MG 1 capsule Orally O nce a day for 30 day(s) Active Dulcolax (colon prep) 5 MG take at 3:00 p.m and 7:00p.m. Orally two tablets twice a day for one day for 1 day 06/24/2022 Active Albuterol Sulfate HFA 108 (90 Base) MCG/ACT 1 puff as needed Inhalation every 6 hrs Active Omeprazole 20 MG TAKE 1 CAPSULE BY [facility] EVERY MORNING for 30 Active Dulcolax (colon prep) 5 MG take at 3:00 p.m and 7:00p.m. Orally two tablets twice a day for one day for 1 day 06/24/2022 Active IMMUNIZATIONS Vaccine Route Administration Date Status Comme nts Influenza Unknown 08/16/2018 Administered Influenza Unknown 11/05/2019 Administered Influenza Unknown 09/14/2021 Administered SOCIAL HISTORY Tobacco Use: Social History Observation Description Date Details (start date - stop date) Current Smoker NA - NA Sex Assigned At : Social History Observation Description Sex Assigned At Unknown Tobacco Use/Smoking Question Answer Notes Patient is a current smoker When did you start smoking? age 15 How often do you smoke cigarettes? every day How many cigarettes a day do you smoke? 5 or les s How soon after you wake up d o you smoke your first cigarette? 6-30 minutes Are you interested in quitting? Thinking about q uitting Alcohol Screen Question Answer Notes Did you have a drink contain ing alcohol in the past year? Yes How often did you have a dri nk containing alcohol in the past year? 2 to 4 times a month (2 points) How many drinks did you have on a typical day when you were drinking in the past year? 3 or 4 drinks (1 point) How often did you have 6 or more drinks on one occasion in the past year? Never (0 point) Points 3 Interpretation Negative PROBLEMS Problem Type ICD Code Onset Dates Problem Status W/U Status Risk SNOMED Code Notes Problem Encounter for screening for malignant neoplasm of colon (Z12.11) Active confirmed 463524998 Problem History of adenomatous polyp of colon (Z86.010) Active confirmed 220165793 Problem Personal history of colonic polyps (Z86.010) Active confirmed History of polyp of colon (situation) (562696321) Problem Diverticulosis of large intestine without perforation or abscess without bleeding (K57.30) Active confirmed Diverticul ar disease of colon (351952671) Problem Gastric ulcer without hemorrhage or perforation, acute (K25.3) Active confirmed Acute gastric ulcer without hemorrhage, without perforation AND without obstruction (69500671) Problem Preprocedural examination (Z01.818) Active confirmed 616486802 Problem Aspirin long-term use (Z79.82) Active confirmed 681947008 Problem Gastroesophageal reflux disease, esophagitis presence not specified (K21.9) Active confirmed 813626666 Problem Hiatal hernia (K44.9) Active confirmed Hiatal hernia (57897517) Problem Gastroenteritis (K52.9) Active confirmed 63202918 Problem Abnormal CT scan, stomach (R93.3) Active confirmed 467137514 Problem Gastroesophageal reflux (K21.9) Active confirmed Esophageal reflux finding (713550220) Encounters Encounter Location Date Provider Diagnosis [facility] [address] [place] [address] 08/23/[address] [facility] [address] [place] [address] 08/23/2024 Favian Delgado PLAN OF TREATMENT Future Test Test Name Order Date COLONOSCOPY 01/20/2012 COLONOSCOPY 05/04/2017 UPPER GI ENDOSCOPY 07/09/2019 UPPER GI ENDOSCOPY 06/24/2022 COLONOSCOPY 06/24/2022 Next Appt Details Provider Name:Favian Delgado , 01/08/2025 01:20:00 PM, [address] [facility], [address], [place], [address], Insurance Providers Payer Name Payer Address Payer Phone Subscriber Number Group Number Insured Name Patient Relationship to Insured Coverage Start Date Coverage End Date [facility] [address] [place] [address] [id number] LINA CHONG Self - patient is the insured MEDICAL (GENERAL) HISTORY Medical History History ICD Code HTN Hyperlipidemia Emphysema Denies [place], CVA, renal disease Prostate cancer IDDM Colonoscopy in 02/2012--1 sma ll tubular adenoma, diverticulosis, internal hemorrhoids; colonoscopy in 06/2017 with only a hyperplastic polyp EGD in 06/2019 with a small g astric ulcer and erosive gastritis while on aspirin--gastric biopsies neg. for Hpylori, no esophagitis, no Haskins's, small hiatal hernia Surgical History Surgery Date(Month/Year) Hernia Prostatectomy Tonsillectomy
--- OUTSIDE RECORDS SUMMARY | 2024-11-21 16:48 | XMS_ITS ---
Author Organization [facility] Address [address] [place] [address] Care Team Providers Care Retention Representative Name Role Phone Margarito Anton MD Primary Care Provider Favian Groves [phone] REASON FOR VISIT Patient presents today for abnormal immunological findings in serum. MEDICATIONS Medication SIG (Take, Route, Frequency, Duration) [...] nce a day for 30 day(s) Active Wixela Inhub 250-50 MCG/DOSE 1 puff Inhalation Twice a day Active Incruse Ellipta 62.5 MCG/INH 2 puff Inhalation Once a day Active Albuterol Sulfate HFA 108 (90 Base) MCG/ACT 1 puff as needed Inhalation every 6 hrs Active Pioglitazone HCl 30 MG 1 tablet Orally O nce a day for 30 day(s) Active Lisinopril 2.5 MG 1 tablet Orally Once a day Active MiraLax (colon prep) 17 GM/SCOOP 1 238gm bottle mixed with gatorade or crystal light Orally begin at 5:00 p.m. the day before the procedure for 1 day 06/24/2022 Active Omeprazole 20 MG TAKE 1 CAPSULE BY [facility] EVERY MORNING for 30 Active Dulcolax (colon prep) 5 MG take at 3:00 p.m and 7:00p.m. Orally two tablets twice a day for one day for 1 day 06/24/2022 Active Acarbose 25 MG Oral for 90 Act austyn MiraLax (colon prep) 8.3 ounce ((238) grams mixed with Gatorade or Crystal Light orally begin at 5:00 p.m. the day before the procedure for 1 day 06/24/2022 Active Dulcolax (colon prep) 5 MG take at 3:00 p.m and 7:00p.m. Orally two tablets twice a day for one day for 1 day 06/24/2022 Active Encounters Encounter Location Date Provider Diagnosis [facility] [address] [place] [address] 08/23/2024 Favian Delgado PLAN OF TREATMENT Next Appt Details Provider Name:Favian Delgado , 01/08/2025 01:20:00 PM, [address] [place] [address], [address], [place], [address],
--- OUTSIDE RECORDS SUMMARY | 2024-11-21 16:48 | XMS_ITS | Clinical Summary ---
Author Organization [employer] Address [address] [facility] 7t [place] [address] Care Team Providers Care Pipeline Superintendent Division Name Role Phone Unavailable Primary Care Provider Unavailabl e Immunizations Name Administration Dates Next Due Pfizer Covid-19 Vaccine 12+ Bivalent 11/02/2022 Social History Tobacco Use Types Packs/Day Years Used Date Smoking Tobacco: Never Assessed Sex and Gender Information Value Date Recorded Sex Assigned at Male 11/02/2022 5:19 PM EST Legal Sex Male 5:15 PM EST Gender Identity Male 11/02/2022 5:19 PM EST Sexual Orientation Straight 11/02/2022 5: 19 PM EST Plan of Treatment Health Maintenance Due Date Last Done Comments CT Colonography 1959 Colonoscopy 1959 Colorectal Cancer Screening 1959 Depression Screening 1959 FIT DNA/Cologuard 1959 FIT 1959 FOBT 1959 Lipid Panel 1959 SDOH Screening 1959 Sigmoidoscopy 1959 Alcohol/Substance Use Screening 1971 Tobacco Screening 1971 Hepatitis C Screening 1977 DTaP/Tdap/Td Vaccines (1 - Tdap) 1978 Zoster Vaccines (1 of 2) 2009 Pneumococcal Vaccine: 50+ Years (1 of 1 - PCV) 01/15/2024 COVID-19 Vaccine (2 - 2023-2 5 season) 2024 11/02/2022 Influenza Vaccine (#1) 2024 , 11/05/2019, 08/16/2018 RSV Patients and Patients Aged 60 years or older (1 - 1-dose 75+ series) 2034 HIB Vaccines Aged Out No longer eligi ble based on patient's age to complete this topic HPV Vaccines Aged Out No longer eligi ble based on patient's age to complete this topic Hepatitis A Vaccines Aged Out No long er eligible based on patient's age to complete this topic Hepatitis B Vaccines Aged Out No long er eligible based on patient's age to complete this topic IPV Vaccines Aged Out No longer eligi ble based on patient's age to complete this topic Meningococcal Vaccine Aged Out No filomena juliocesar eligible based on patient's age to complete this topic RSV under 20 months Aged Out No longe r eligible based on patient's age to complete this topic Rotavirus Vaccines Aged Out No longer eligible based on patient's age to complete this topic Insurance CARE
== END 2024-11-21 13:55 | disposition home or self-care (01) ==
PROVIDERS: PCP Internal Medicine; Visit Provider Registered Nurse Diabetes Educator
DX: E11.65 Type 2 diabetes mellitus with hyperglycemia (principal); Z79.4 Long term (current) use of insulin

== ENCOUNTER → 2024-11-21 12:59 | Outpatient (BNVA) | payer OTHER, SELFPAY | PROVIDERS: PCP Internal Medicine; Visit Provider Registered Nurse Diabetes Educator | DX: E11.65 Type 2 diabetes mellitus with hyperglycemia (principal); Z79.4 Long term (current) use of insulin | CPT/HCPCS: 99211 ==

== ENCOUNTER 2024-11-29 09:32 | Outpatient (AMB) | payer OTHER, SELFPAY ==
[2024-11-29 09:38] VITALS: BMI 25.0
--- NOTE | 2024-11-29 09:38 | MHC.OFFVIS ---
Vital Signs 11/29/24 09:38 Height 5 ft 9 in Weight 169 lb BMI 25.0 Intake Visit Reasons: OV-Low back pain-follow up Intake Note: Carroll is a 64 year old male who presents today for follow up of his low back pain. Patient reports his pain has worsened, now causing him to not walk straight. He feels he cannot breathe if he walks straight. He is not taking anything for pain at this time but does use Lidocaine patches which helps a bit. He wishes to have a prescription for Lidocaine patches as he has been using someone elses. Patient states he was supposed to be referred to [facility] however was not called. Rock Climbing Team Member Required: No Allergies cortisone [CORTISONE] Allergy (Severe, Verified 11/29/24 09:41) ANAPHYLAXIS cephalexin Allergy (Unknown, Verified 11/29/24 09:41) unknown lisinopril Adverse Reaction (Intermediate, Verified 11/29/24 09:41) hypotension HPI Comments Details: He has difficulty getting up from bed, indicates pain across the lower back that goes to left thigh/hip area. No groin pain. Sometimes left foot gets numb. Denies left leg pain. Told to have left leg longer than right. Uses cane to get up and straightain out his lower back, avoid falls, cause he can stumble, go sideways. Has not had any injections or seen surgeon. No MRI. Last lumbar xray 2021. Recent left hip xray normal. Can't remember when he was last gone to PT. History of DM. Says he had abdominal bloating, had hernia surgery in past, PCP aware. Left foot surgery in [place]. No injuries. No change since last visit. He did try the exercises that I gave him, and he walks around the block for exercise. He feels that pain is actually worse. Same distribution, across the back and radiates to left side. The more he walks, the worse the pain, feeling like it is pulling him down and feels weak. Improved once he sits down. He is wary of injections because of a previous bad experience of an injection to elbow that led to infection, 8 years ago. Cortisone now is listed as one of his allergies. [facility] Medical History Personal history of nicotine dependence Hypoxemia COPD exacerbation Allergic rhinitis Type 2 diabetes mellitus with diabetic polyneuropathy Tinnitus Anxiety and depression Peptic ulcer disease Renal calculus, right Tubular adenoma of colon DDD (degenerative disc disease), lumbar Depression Prostate cancer COPD (chronic obstructive pulmonary disease) CAP (community acquired pneumonia) Gastric ulcer Hernia Kidney stones History of prostate cancer Erectile dysfunction Insulin use (long-term) in type 2 diabetes Hyperlipidemia LDL goal <100 Vitamin D insufficiency Surgical History History of cataract surgery History of foot surgery History of inguinal hernia repair Hx of tonsillectomy Hx of prostatectomy Family History Father Diabetes Mother No problems noted. Son Diabetes Maternal Uncle Prostate cancer Paternal Grandfather Myocardial infarction Maternal Grandmother No problems noted. Maternal Aunt Esophageal cancer Maternal Grandfather Myocardial infarction Social History Household Members: Spouse Housing: Apartment Alcohol intake: current Alcohol intake frequency: a few times a month Patient Tobacco Use Status: Former Tobacco user Tobacco use type: Cigarette e-Cigarette/Vaping Use: Never Used Second Hand Smoke Exposure: Yes Substance Use Type: Former Substance User and Marijuana service: No Current occupational status: disabled Current occupation: rt handed Cognitive needs: Yes (cane) Hearing needs: Yes (hearing aide) Vision needs: Yes Physical Exam Vital Signs: BMI result Body Mass Index 25.0 Constitutional: Patient appears to be in no acute distress, well nourished and well developed. Patient was appropriately conversant and oriented. Good historian. MSK: Very uncomfortable as he was sitting down. Preferred to lean forward to relieve his pain. Neurological: Left hip flexion 4/5. Right hip flexion 4+/5. Knee extension bilateral 5/5. No footdrop. Gait is antalgic. Results Reviewed Results Reviewed: I independently reviewed the results of the following: Lumbar x-rays reviewed, from 2021, showed multilevel disc space narrowing and anterior endplate spurs. Hip x-ray unremarkable. Ordering Physician: Margarito Anton MD Date of Service: 10/27/21 Procedure(s): XR lumbar spine 2-3V Accession Number(s): [id number] cc: Margarito Anton MD~ EXAMINATION: XR LS SPINE XR HIP-LEFT CLINICAL INFORMATION: Low back pain. Left hip pain. COMPARISON: Lumbosacral spine done on 08/20/2020. TECHNIQUE: 2 views, 3 images of the lumbosacral spine and 2 views of the left hip. FINDINGS: Lumbosacral spine: Mild lower lumbar dextro and thoracolumbar levoscoliosis and superimposed multiple multilevel degenerative spondylosis related changes are present. Facet joint arthritic changes are also noted at lower lumbar spine. The posterior appendages are intact. Multiple surgical clips are noted within the pelvis. Overall, no significant change since 08/20/2020. Left hip: The bony alignments are intact. The cortices are intact. Mild subchondral sclerosis, consistent with mild osteoarthrosis is present. The soft tissues are unremarkable. XR/XR lumbar spine 2-3V IMPRESSION: 1. Thoracolumbar and lower lumbar scoliosis with superimposed multilevel moderate degenerative spondylosis and lower lumbar facet joint arthritic changes, appears similar to prior study dated 08/20/2020. 2. Mild osteoarthrosis of the left hip. Ordering Physician: Margarito Anton MD Date of Service: 10/31/23 Procedure(s): XR hip LT min 2V Accession Number(s): [id number] cc: Margarito Anton MD~ EXAMINATION: XR HIP, LEFT CLINICAL INFORMATION: Pain. COMPARISON: Radiographs dated 08/14/2023. TECHNIQUE: AP and frog-leg lateral views of the left hip. FINDINGS: No fracture. Alignment is anatomic. Hip joint space is maintained. Soft tissues are unremarkable. There are multiple pelvic surgical clips. XR/XR hip LT min 2V IMPRESSION: Normal left hip. I reviewed records from the following: PCP Assessment & Plan Assessment & Plan (1) Left lumbar radiculitis: Code(s): M54.16 - Radiculopathy, lumbar region Category: Medical (2) Spinal stenosis, lumbar region with neurogenic claudication: Code(s): M48.062 - Spinal stenosis, lumbar region with neurogenic claudication Category: Medical Plan Continues with lower back pain with radiculitis going to the left side. He reports claudication type of symptoms. Patient had undergone adequate conservative management including physician taught exercises without improvement of condition. It would be reasonable to obtain further imaging such as MRI. An MRI would help rule out any serious condition, guide treatment and assess prognosis for recovery. Specifically ruling out lumbar spinal stenosis. Also referring patient to physical therapy. Can continue to use lidocaine patches at home. Prescription sent. Instructions given. Assessment and plan discussed with patient, and patient was agreeable. All questions were answered thoroughly. Follow up after MRI. Kathy Koch MD, TONY Board Certified, [place] [employer] and Rehabilitation (ABPMR) Board Certified, [place] Board [employer] Electrodiagnostic Medicine (ABEM) Orders: Orders MR lumbar spine wo con Today M48.062 - Spinal stenosis, lumbar region with neurogenic claudication, M54.16 - Radiculopathy, lumbar region PT Evaluation and Treatment Today M48.062 - Spinal stenosis, lumbar region with neurogenic claudication, M54.16 - Radiculopathy, lumbar region Medications: New lidocaine 5% leave on most painful area for up to 12 hrs, up to 3 patches at a time 3 patches topical DAILY 90 ea 0RF Coding Level of Care Code Est Pt Level 4 (90930) Diagnoses Left lumbar radiculitis M54.16 Spinal stenosis, lumbar region with neurogenic claudication M48.062
--- OUTSIDE RECORDS SUMMARY | 2024-11-29 10:08 | XMS_ITS | Patient Health Record ---
Author Organization [facility] Address [address] [place] [address] Care Team Providers Care Signwriter Name Role Phone Margarito Anton MD Primary Care Provider Favian Groves [phone] ALLERGIES Allergen (clinical drug ingredient) Drug/Non Drug [...] Omeprazole 20 MG TAKE 1 CAPSULE BY [facility] EVERY MORNING for 30 Active Dulcolax (colon [...] malignant neoplasm of colon (Z12.11) Active confirmed 172910406 Problem History of adenomatous polyp of colon (Z86.010) Active confirmed 308408564 Problem Personal history of colonic polyps (Z86.010) Active confirmed History of polyp of colon (situation) (074338115) Problem Diverticulosis of large intestine without perforation or abscess without bleeding (K57.30) Active confirmed Diverticul ar disease of colon (636896083) Problem Gastric ulcer without hemorrhage or perforation, acute (K25.3) Active confirmed Acute gastric ulcer without hemorrhage, without perforation AND without obstruction (16045118) Problem Preprocedural examination (Z01.818) Active confirmed 096549237 Problem Aspirin long-term use (Z79.82) Active confirmed 381314606 Problem Gastroesophageal reflux disease, esophagitis presence not specified (K21.9) Active confirmed 369985190 Problem Hiatal hernia (K44.9) Active confirmed Hiatal hernia (87649679) Problem Gastroenteritis (K52.9) Active confirmed 51412260 Problem Abnormal CT scan, stomach (R93.3) Active confirmed 923795598 Problem Gastroesophageal reflux (K21.9) Active confirmed Esophageal reflux finding (936016712) Encounters Encounter Location Date Provider Diagnosis [facility] [address] [place] [address] 08/23/2024 Favian Delgado [facility] [address] [place] [address] 08/23/2024 Favian Delgado PLAN OF TREATMENT Future Test Test Name Order Date COLONOSCOPY 01/20/2012 COLONOSCOPY 05/04/2017 UPPER GI ENDOSCOPY 07/09/2019 UPPER GI ENDOSCOPY 06/24/2022 COLONOSCOPY 06/24/2022 Next Appt Details Provider Name:Favian Delgado , 01/08/2025 01:20:00 PM, [address] [facility], [address], [place], [address], Insurance Providers Payer Name Payer Address Payer Phone Subscriber Number Group Number Insured Name Patient Relationship to Insured Coverage Start Date Coverage End Date [facility] [address] [place] [phone] [id number] LINA CHONG Self - patient is the insured MEDICAL (GENERAL) HISTORY Medical History History ICD Code HTN Hyperlipidemia Emphysema Denies [place], CVA, renal disease Prostate cancer IDDM Colonoscopy [...]
--- OUTSIDE RECORDS SUMMARY | 2024-11-29 10:08 | XMS_ITS ---
Author Organization [facility] Address [address] [place] [address] Care Team Providers Care Rn Physician Office Name Role Phone Margarito Anton MD Primary Care Provider Favian Groves Unavailable [phone] REASON FOR VISIT Pt no show Encounters Encounter Location Date Provider Diagnosis [facility] [address] [place] [address] 08/23/2024 Favian Delgado PLAN OF TREATMENT Next Appt Details Provider Name:Favian Delgado , 01/08/2025 01:20:00 PM, [address], [address], [place], [address],
--- OUTSIDE RECORDS SUMMARY | 2024-11-29 10:08 | XMS_ITS ---
Author Organization [facility] Address [address] [place] [address] Care Team Providers Care Half Sole Fitter Name Role Phone Margarito Anton MD Primary Care Provider Favian Groves [phone] REASON FOR VISIT Patient presents today for [...] Omeprazole 20 MG TAKE 1 CAPSULE BY [facility] EVERY MORNING for 30 Active [...] Encounters Encounter Location Date Provider Diagnosis [facility] [address] [place] [address] 08/23/2024 Favian Delgado PLAN OF TREATMENT Next Appt Details Provider Name:Favian Delgado , 01/08/2025 01:20:00 PM, [address] [place] [address], [address], [place], [address],
--- OUTSIDE RECORDS SUMMARY | 2024-11-29 10:08 | XMS_ITS | Clinical Summary ---
Author Organization [employer] Address [address] [facility] 7t [place] [address] Care Team Providers Care Wagon Driller Name Role Phone Unavailable Primary Care Provider [...] 1977 DTaP/Tdap/Td Vaccines (1 - Tdap) 1978 Pneumococcal Vaccine: 50+ Years (1 of 1 - PCV) 2009 Zoster Vaccines (1 of 2) 2009 COVID-19 Vaccine (2 - 2023-2 5 season) [...]
== END 2024-11-29 09:57 | disposition home or self-care (01) ==
PROVIDERS: PCP Internal Medicine; Visit Provider Physical Medicine & Rehabilitation
DX: M54.16 Radiculopathy, lumbar region (principal); M48.062 Spinal stenosis, lumbar region with neurogenic claudication
CPT/HCPCS: 99213

== ENCOUNTER → 2024-11-29 09:32 | Outpatient (BNVA) | payer OTHER, SELFPAY | PROVIDERS: PCP Internal Medicine; Visit Provider Physical Medicine & Rehabilitation | DX: M54.16 Radiculopathy, lumbar region (principal); M48.062 Spinal stenosis, lumbar region with neurogenic claudication | CPT/HCPCS: 99212 ==

== ENCOUNTER 2024-12-12 11:19 | Outpatient (AMB) | payer OTHER, SELFPAY ==
--- NOTE | 2024-12-12 11:37 | MHC.PC.OV ---
Vital Signs 12/12/24 11:38 Height 5 ft 9 in Weight 164 lb 8 oz BMI 24.3 BP 104/56 L Blood Pressure Location Lt brachial Position Sitting Pulse 95 Pulse Source Pulse Oximeter Temp 97.3 F Temp Source Temporal Artery Scan Pulse Oximetry (%) 94 Oxygen Delivery Method Room Air Intake Visit Reasons: RT ear pain Intake Note: Pt is here for right ear pain for the past week. Instrument Maker Required: No Instrument Maker Name: Pt refused spouse interpret Accompanied by: Spouse Allergies cortisone [CORTISONE] Allergy (Severe, Verified 12/12/24 11:50) ANAPHYLAXIS cephalexin Allergy (Unknown, Verified 12/12/24 11:50) unknown lisinopril Adverse Reaction (Intermediate, Verified 12/12/24 11:50) hypotension Medication List - Last Reconciled 12/12/24 by EBEN Rahman albuterol sulfate 90 mcg/actuation 2 puffs PO Q4-6H PRN alcohol swabs (BD Alcohol Swabs) 1 pad topical QID atorvastatin 20 mg PO DAILY blood-glucose sensor ([employer] G7 Sensor device) USE DIRECTED EVERY 10 DAYS cholecalciferol (vitamin D3) 50 mcg PO DAILY clotrimazole 1% 1 appl topical BID 4 weeks dupilumab (Dupixent) mg subcut fluticasone propion-salmeterol 250-50 mcg/dose 1 ea PO Q12H glucagon 3 mg/actuation (Baqsimi) 3 mg intranasal ONCE 30 days Incruse Ellipta 62.5 mcg/actuation (umeclidinium) 1 inh PO DAILY NS insulin glargine U-300 conc (Toujeo Max U-300 SoloStar) 18 units (0.06 mL) subcut BEDTIME lidocaine 5% 3 patches topical DAILY miconazole nitrate 2% (Zeasorb AF) 1 appl topical BID Novolog FlexPen U-100 Insulin (insulin aspart U-100) 8 units (0.08 mL) subcut TID NS Oxygen Home Use As directedO2 2L NC pen needle, diabetic (BD Tierra 2nd Gen Pen Needle) 1 ea miscellaneous .4X/day sertraline 50 mg PO DAILY 90 days tadalafil (Cialis) 5 mg PO DAILY 90 days tadalafil (Cialis) 20 mg PO DAILY PRN 90 days Tobacco use date assessed: 12/12/24 Fall risk assessment: No Falls in past year Last assessed Fall Risk: 12/12/24 Dental Screening Dental Screen Date: 12/12/24 Did you have a dental visit in the last 12 months?: Yes Did you have a dental problem in the last 6 months where you did not have access to dental care?: No Was dental information given to patient?: Patient has dentist HPI RT ear pain HPI Details The patient is a 64-year-old male with past significant medical history allergic rhinitis, type 2 diabetes mellitus with diabetic polyneuropathy, generalized anxiety, COPD The patient is presenting today with a week history of right ear pain The patient denies nasal congestion, denies sore throat, denies sinus pressure He denies fever, denies muscle aches, denies cough, denies shortness of breath On exam: right TM opaque with loss of cone of light. C/o pressure at the tragus area The patient is allergic to cephalexin, unable take Augmentin- Bactrim DS ordered [facility] Medical History Personal history of nicotine dependence Hypoxemia COPD exacerbation Allergic rhinitis Type 2 diabetes mellitus with diabetic polyneuropathy Tinnitus Anxiety and depression Peptic ulcer disease Renal calculus, right Tubular adenoma of colon DDD (degenerative disc disease), lumbar Depression Prostate cancer COPD (chronic obstructive pulmonary disease) CAP (community acquired pneumonia) Gastric ulcer Hernia Kidney stones History of prostate cancer Erectile dysfunction Insulin use (long-term) in type 2 diabetes Hyperlipidemia LDL goal <100 Vitamin D insufficiency Surgical History History of cataract surgery History of foot surgery History of inguinal hernia repair Hx of tonsillectomy Hx of prostatectomy Family History Father Diabetes Mother No problems noted. Son Diabetes Maternal Uncle Prostate cancer Paternal Grandfather Myocardial infarction Maternal Grandmother No problems noted. Maternal Aunt Esophageal cancer Maternal Grandfather Myocardial infarction Social History Household Members: Spouse Housing: Apartment Alcohol intake: current Alcohol intake frequency: a few times a month Patient Tobacco Use Status: Former Tobacco user Tobacco use type: Cigarette e-Cigarette/Vaping Use: Never Used Second Hand Smoke Exposure: Yes Substance Use Type: Former Substance User and Marijuana service: No Current occupational status: disabled Current occupation: rt handed Cognitive needs: Yes (cane) Hearing needs: Yes (hearing aide) Vision needs: Yes Questionnaire PHQ-9 Over the last 2 weeks, how often have you been bothered by any of the following problems? 1. Little interest or pleasure in doing things: not at all 2. Feeling down, depressed, or hopeless: not at all 3. Trouble falling or staying asleep, or sleeping too much: not at all 4. Feeling tired or having little energy: not at all 5. Poor appetite or overeating: not at all 6. Feeling bad about yourself - or that you are a failure or have let yourself or your family down: not at all 7. Trouble concentrating on things, such as reading the newspaper or watching television: not at all 8. Moving or speaking so slowly that other people could have noticed. Or the opposite - being so fidgety or restless that you have been moving around a lot more than usual: not at all 9. Thoughts that you would be better off or of hurting yourself in some way: not at all Total score: 0 Depression Screening Interpretation: Negative Depression Screening Done: Yes 41358 - PHQ-9 Billing: Yes Source: Developed by Drs. Favian Nascimento, Valentina Serrano, Jose M Lunsford and colleagues, with an educational edita from [employer]. Thrive Questionnaire Date Thrive assessed: 12/12/24 I am a: Patient What is your living situation today?: I have a steady place to live Within the past 12 months, did the food you bought not last and you didn't have the money to get more?: Never true Within the past 12 months, did you worry whether your food would run out before you got money to buy more?: Never true Do you have trouble paying for medicines?: No Do you have trouble getting transportation to medical appointments?: No Do you have trouble paying your heating and electricity bill?: No Do you have trouble taking care of your child, family member or friend?: No Do you have trouble with day-to-day activities such as bathing, preparing meals, shopping, managing finances, etc.?: No Are you currently unemployed and looking for a job?: No Are you interested in more education?: No Please select the resources that you would like help with: None Currently or been in a relationship where the following occur: No concerns reported THRIVE Score: 0 AUDIT C Alcohol Use Questionnaire (AUDIT-C) 1. How often do you have a drink containing alcohol?: Monthly or less 2. How many drinks containing alcohol do you have on a typical day when you are drinking?: 1 or 2 3. How often do you have six or more drinks on one occasion?: Never Total Score: 1 YOLIS-7 AMB Questionnaire YOLIS-7 Date YOLIS - 7 assessed: 12/12/24 Feeling nervous, anxious, or on edge: 0 = Not at all Not being able to stop or control worryin = Not at all Worrying too much about different things: 0 = Not at all Trouble relaxin = Not at all Being so restless that it is hard to sit still: 0 = Not at all Becoming easily annoyed or irritable: 0 = Not at all Feeling afraid as if something awful might happen: 0 = Not at all Total YOLIS-7 score (0-4 normal; 5-9 mild; 10-14 moderate; 15-21 severe): 0 Source: Developed by Drs. Favian Nascimento, Valentina Serrano, Jose M Lunsford and colleagues, with an educational edita from [employer]. YOLIS-7 Assessment Billing YOLIS-7 Assessment Tool: YOLIS-7 Assessment 24246 Review of Systems Const Details: Denies chills, Denies fatigue, Denies fever(s), Denies headache(s) and Denies weakness HEENT Denies change in vision, Denies dizziness, Denies headache(s), + right ear pain, Denies hearing loss, Denies nasal congestion, Denies sinus pain, Denies sinus pressure and Denies sore throat Card Denies chest pain, Denies lightheadedness, Denies dyspnea and Denies other (palpitations) Resp Denies cough, Denies dyspnea and Denies wheezing GI Denies abdominal pain, Denies melena, Denies hematochezia, Denies change in bowel habits, Denies dyspepsia and Denies nausea Denies hematuria and Denies dysuria Musc Denies abnormal gait, Denies myalgias, Denies arthralgias, Denies numbness and Denies tingling Physical exam (Primary Care) Vital Signs: Last Vital Signs Temp 97.3 F 12/12/24 11:38 Pulse 95 12/12/24 11:38 BP 104/56 L 12/12/24 11:38 Pulse Ox 94 12/12/24 11:38 Oxygen Delivery Method Room Air 12/12/24 11:38 BMI result Body Mass Index 24.3 Tobacco/Smoking Status: Tobacco use Status Tobacco use date assessed 12/12/24 12/12/24 11:47 Patient Tobacco Use Status Former Tobacco user 12/12/24 11:47 Tobacco use type Cigarette 12/12/24 11:47 e-Cigarette/Vaping Use Never Used 12/12/24 11:47 PHQ-9: PHQ-9 Score PHQ-9: Total score 0 12/12/24 11:55 Depression Screening Interpretation: Negative Thrive Assessment: Date of Thrive Assessment Date Thrive assessed 12/12/24 12/12/24 11:47 Currently or been in a relationship where the following occur: No concerns reported Const Other: General: no acute distress, well developed, alert and awake Nutritional Appearance: well nourished Orientation/consciousness: patient oriented x3 HENMT Head: Yes normocephalic and Yes atraumatic Ears: hearing grossly normal bilaterally, right TM opaque with loss of cone of light. C/o pressure at the tragus area General nose exam: Normal external nose present and Normal nares present Mouth: Normal oral and palatal mucosa present and moist mucous membranes Teeth and gingiva: dentition normal Throat: Yes oropharynx normal Eyes Pupils: Equal, round and reactive pupils present and Pupil accommodation reflex normal EOM: EOMs intact bilaterally Neck Neck: Yes normal visual inspection, Yes no lymphadenopathy and Yes trachea midline Thyroid: Thyroid normal Carotids: no bruits Lymphatic: no lymphadenopathy noted Resp Effort & Inspection: normal respiratory effort Auscultation: clear to auscultation bilaterally Cardio Rate: regular rate Rhythm: regular rhythm Heart sounds: S1 normal heart sound present, S2 normal heart sound present, no gallops, no murmurs and no rubs Bruits: no abdominal aortic bruits and no carotid bruits GI Palpation (GI): No Abdominal aortic bruit present, Soft to palpation, nontender, No hepatosplenomegaly present and No Rebound tenderness present Auscultation: normal bowel sounds General: Yes no CVA tenderness Coding Level of Care Code Est Pt Level 3 (72484) Diagnoses Acute mucoid otitis media of right ear H65.191 Otitis media type: mucoid Chronicity: acute Laterality: right Additional Codes YOLIS-7 Assessment Billing - YOLIS-7 Assessment Tool: YOLIS-7 Assessment 15831 ([id number]) PHQ-9 - 29753 - PHQ-9 Billing: Yes ([id number]) Time Spent (min) 26 Assessment & Plan Assessment & Plan (1) Otitis media: Code(s): H66.90 - Otitis media, unspecified, unspecified ear Category: Medical Qualifiers: Otitis media type: mucoid Chronicity: acute Laterality: right Qualified Code(s): H65.191 - Other acute nonsuppurative otitis media, right ear Plan On exam: right TM opaque with loss of cone of light. C/o pressure at the tragus area The patient is allergic to cephalexin, unable take Augmentin- Bactrim DS ordered Medications: New sulfamethoxazole-trimethoprim 800-160 mg (Bactrim DS) 1 tab PO BID 10 tabs 0RF
[2024-12-12 11:38] VITALS: BP 104/56; PULSE 95; TEMP 36.3; O2SAT 94; BMI 24.3
--- OUTSIDE RECORDS SUMMARY | 2024-12-12 12:38 | XMS_ITS | Clinical Summary ---
Author Organization [employer] Address [address] [facility] [address] [place] [address] Care Team Providers Care Manager Internship Name Role Phone Unavailable Primary Care Provider [...]
--- OUTSIDE RECORDS SUMMARY | 2024-12-12 12:38 | XMS_ITS ---
Author Organization [facility] Address [address] [place] [address] Care Team Providers Care Director Trade Name Role Phone Margarito Anton MD Primary Care Provider Favian Groves Unavailable [phone] REASON FOR VISIT Pt no show Encounters Encounter Location Date Provider Diagnosis [facility] [address] [place] [address] 08/23/2024 Favian Delgado PLAN OF TREATMENT Next Appt Details Provider Name:Favian Delgado , 01/08/2025 01:20:00 PM, [address], [address], [place], [address],
--- OUTSIDE RECORDS SUMMARY | 2024-12-12 12:38 | XMS_ITS ---
Author Organization [facility] Address [address] [place] [address] Care Team Providers Care Instructional Support Services Director Name Role Phone Margarito Anton MD Primary Care Provider Favian Groves [phone] REASON FOR VISIT Patient presents today for [...] 20 MG TAKE 1 CAPSULE BY [facility] EVERY MORNING for 30 Active [...] Active Encounters Encounter Location Date Provider Diagnosis [facility] [address] [place] [address] 08/23/2024 Favian Delgado PLAN OF TREATMENT Next Appt Details Provider Name:Favian Delgado , 01/08/2025 01:20:00 PM, [address] [place] [address], [address], [place], [address],
--- OUTSIDE RECORDS SUMMARY | 2024-12-12 12:38 | XMS_ITS | Patient Health Record ---
Author Organization [facility] Address [address] [place] [address] Care Team Providers Care Bench Shear Operator Name Role Phone Margarito Anton MD Primary Care Provider Favian Groves [phone] ALLERGIES Allergen (clinical drug ingredient) Drug/Non Drug [...] 20 MG TAKE 1 CAPSULE BY [facility] EVERY MORNING for 30 Active [...] malignant neoplasm of colon (Z12.11) Active confirmed 085095692 Problem History of adenomatous polyp of colon (Z86.010) Active confirmed 158542853 Problem Personal history of colonic polyps (Z86.010) Active confirmed History of polyp of colon (situation) (868426295) Problem Diverticulosis of large intestine without perforation or abscess without bleeding (K57.30) Active confirmed Diverticul ar disease of colon (364378233) Problem Gastric ulcer without hemorrhage or perforation, acute (K25.3) Active confirmed Acute gastric ulcer without hemorrhage, without perforation AND without obstruction (14933984) Problem Preprocedural examination (Z01.818) Active confirmed 066008603 Problem Aspirin long-term use (Z79.82) Active confirmed 222307242 Problem Gastroesophageal reflux disease, esophagitis presence not specified (K21.9) Active confirmed 087120087 Problem Hiatal hernia (K44.9) Active confirmed Hiatal hernia (31784744) Problem Gastroenteritis (K52.9) Active confirmed 93760763 Problem Abnormal CT scan, stomach (R93.3) Active confirmed 918929049 Problem Gastroesophageal reflux (K21.9) Active confirmed Esophageal reflux finding (900184916) Encounters Encounter Location Date Provider Diagnosis [facility] [address] [place] [address] 08/23/2024 Favian Delgado [facility] [address] [place] [address] 08/23/2024 Favian Delgado PLAN OF TREATMENT Future Test Test Name Order Date COLONOSCOPY 01/20/2012 COLONOSCOPY 05/04/2017 UPPER GI ENDOSCOPY 07/09/2019 UPPER GI ENDOSCOPY 06/24/2022 COLONOSCOPY 06/24/2022 Next Appt Details Provider Name:Favian Delgado , 01/08/2025 01:20:00 PM, [address] [facility], [address], [place], [address], Insurance Providers Payer Name Payer Address Payer Phone Subscriber Number Group Number Insured Name Patient Relationship to Insured Coverage Start Date Coverage End Date [facility] [address] [place] [address] [id number] LINA CHONG Self - patient is the insured MEDICAL (GENERAL) HISTORY Medical History History ICD Code HTN Hyperlipidemia Emphysema Denies [place], CVA, renal disease Prostate cancer IDDM Colonoscopy [...]
== END 2024-12-12 12:24 | disposition home or self-care (01) ==
PROVIDERS: PCP Internal Medicine
DX: H65.191 Other acute nonsuppurative otitis media, right ear (principal)

== ENCOUNTER → 2024-12-12 11:19 | Outpatient (BNVA) | payer OTHER, SELFPAY | PROVIDERS: PCP Internal Medicine | DX: H65.191 Other acute nonsuppurative otitis media, right ear (principal) | CPT/HCPCS: 96127; 99212 ==

== ENCOUNTER → 2025-01-06 09:41 | Outpatient (BNV) | payer OTHER, SELFPAY | PROVIDERS: PCP Internal Medicine; Visit Provider Radiology Diagnostic Radiology | DX: M47.817 Spondylosis without myelopathy or radiculopathy, lumbosacral region (principal); M48.062 Spinal stenosis, lumbar region with neurogenic claudication | CPT/HCPCS: 72148 ==

== ENCOUNTER 2025-01-06 09:50 | Outpatient (REF) | payer OTHER, SELFPAY ==
--- NOTE | ~2025-01-06 | MR_ITS ---
EXAMINATION: MR LUMBAR SPINE WITHOUT CONTRAST CLINICAL INFORMATION: Radiculopathy, lumbar region. COMPARISON: July 15, 2014 images are not available on PACS. TECHNIQUE: MRI of the lumbar spine was obtained using routine sequences without contrast. FINDINGS: Last rib-bearing vertebra labeled T12. Bone marrow inhomogeneity. Multilevel marginal osteophyte formation and disc desiccation and endplate irregularities from T11-12 to L5-S1. Grade 1 retrolisthesis L4-5, L1-2, L3-4 and likely L2-3 on a degenerative basis. There is subtle bone marrow STIR signal at the endplates of L2-3 L5-S1 and the inferior endplate of L4. The conus medullaris ends at pedicle of L1 with normal signal. T11-12: Broad-based disc bulging. Facet joint and ligamentum flavum hypertrophy. Reduced AP diameter of the thecal sac and the neural foramina. T12-L1: Broad-based disc bulging. Facet joint and ligamentum flavum hypertrophy. Reduced AP diameter of the thecal sac and the neural foramina. L1-2: Broad-based disc bulging. Facet joint and ligamentum flavum hypertrophy. Reduced AP diameter of the thecal sac and the neural foramina. L2-3: Broad-based disc bulging. Facet joint and ligamentum flavum hypertrophy. Central spinal canal and bilateral neuroforamina stenosis likely encroaching the neural elements. L3-4: Broad-based disc bulging. Facet joint and ligamentum flavum hypertrophy. Reduced AP diameter of the thecal sac and the neural foramina likely encroaching the neural elements. L4-5: Broad-based disc bulging. Facet joint and ligamentum flavum hypertrophy. Reduced AP diameter of the thecal sac. Bilateral neuroforamina stenosis likely encroaching the exiting nerve roots. L5-S1: Broad-based disc bulging. Facet joint and ligamentum flavum hypertrophy. Reduced AP diameter of the thecal sac. Bilateral neuroforamina stenosis compressing the L5 exiting nerve roots. Fatty atrophy of the lower lumbar muscles from L4-5 to sacrum. No prevertebral compartment hematoma, mass or fluid collection. There are multifocal exophytic hyperintense T2 cystic lesions in the posterior right kidney. MR/MR lumbar spine wo con IMPRESSION: Multilevel spondylosis from T12-L1 to L5-S1 resulting in central spinal canal stenosis at L2-3, L4-5 and L5-S1 and bilateral neuroforamina stenosis at L5-S1 and to a lesser extent L2-3 L3-4 and L4-5 levels encroaching likely compressing the neural elements. Exophytic cystic lesions, right kidney. Electronically signed by: Fito Britt MD 01/07/2025 09:27 AM EDT
--- OUTSIDE RECORDS SUMMARY | 2025-01-06 10:52 | XMS_ITS | Patient Health Record ---
Author Organization [facility] Address [address] [place] [address] Care Team Providers Care Freelance Data Entry Name Role Phone Margarito Anton MD Primary Care Provider Favian Groves [phone] Allergies Allergen (clinical drug ingredient) Drug/Non Drug Allergy documented on EMR Reaction Allergy Type Onset Date Status Cortisone Unknown Drug Allergy Active Reason For Referral No Information Medications Medication SIG (Take, Route, Frequency, Duration) [...] Omeprazole 20 MG TAKE 1 CAPSULE BY [facility] EVERY MORNING for 30 Active Dulcolax (colon prep) 5 MG take at 3:00 p.m and 7:00p.m. Orally two tablets twice a day for one day for 1 day 06/24/2022 Active Immunizations Vaccine Route Administration Date Status Comme nts Influenza Unknown 08/16/2018 Administered Influenza Unknown 11/05/2019 Administered Influenza Unknown 09/14/2021 Administered Social History Tobacco Use: Social History Observation Description Date Details (start date - stop date) Current Smoker NA - NA Tobacco Use/Smoking Question Answer Notes Patient is [...] Never (0 point) Points 3 Interpretation Negative Section Notes: He smokes, uses occasional a lcohol He smokes, uses occasional a lcohol He smokes, uses occasional a lcohol He smokes, uses occasional a lcohol He smokes, uses occasional a lcohol He smokes, uses occasional a lcohol Problems Problem Type SNOMED Code ICD Code Onset Dates Problem Status W/U Status Risk Notes Problem 062635788 Encounter for screening for malignant neoplasm of colon (Z12.11) Active confirmed Problem 326515042 History of adenomatous polyp of colon (Z86.010) Active confirmed Problem History of polyp of colon (situation) (116510784) Personal history of colonic polyps (Z86.010) Active confirmed Problem Diverticular disease of colon (414807030) Diverticulosis of large intestine without perforation or abscess without bleeding (K57.30) Active confirmed Problem Acute gastric ulcer without hemorrhage, without perforation AND without obstruction (38484483) Gastric ulcer without hemorrhage or perforation, acute (K25.3) Active confirmed Problem 627219186 Preprocedural examination (Z01.818) Active confirmed Problem 067191775 Aspirin long-ter m use (Z79.82) Active confirmed Problem 708143885 Gastroesophageal reflux disease, esophagitis presence not specified (K21.9) Active confirmed Problem Hiatal hernia (47328448) Hiatal hernia (K44.9) Active confirmed Problem 28196647 Gastroenteritis (K52.9) Active confirmed Problem 146489720 Abnormal CT scan , stomach (R93.3) Active confirmed Problem Esophageal reflux finding (396376446) Gastroesophageal reflux (K21.9) Active confirmed Encounters Encounter Location Date Provider Diagnosis [facility] [address] [place] [address] 08/23/2024 Favian Delgado Plan Of Treatment Future Test Test Name Order Date COLONOSCOPY 01/20/2012 COLONOSCOPY 05/04/2017 UPPER GI ENDOSCOPY 07/09/2019 UPPER GI ENDOSCOPY 06/24/2022 COLONOSCOPY 06/24/2022 Next Appt Details Provider Name:Favian Delgado , 01/08/2025 01:20:00 PM, [address], [address], [place], [address], Insurance Providers Payer Name Payer Address Payer Phone Subscriber Number Group Number Insured Name Patient Relationship to Insured Coverage Start Date Coverage End Date [facility] [address] [place] [address] [id number] LINA CHONG Self - patient is the insured Medical (General) History Medical History History ICD Code HTN Hyperlipidemia Emphysema Denies [place], CVA, renal disease Prostate cancer IDDM Colonoscopy [...]
--- OUTSIDE RECORDS SUMMARY | 2025-01-06 10:52 | XMS_ITS ---
Author Organization [facility] Address [address] [place] [address] Care Team Providers Care Juvenile Correctional Officer Name Role Phone Margarito Anton MD Primary Care Provider Favian Groves [phone] REASON FOR VISIT Patient presents today for [...] Omeprazole 20 MG TAKE 1 CAPSULE BY [facility] EVERY MORNING for 30 Active [...] Active Encounters Encounter Location Date Provider Diagnosis [facility] [address] [place] [address] 08/23/2024 Favian Delgado Plan Of Treatment Next Appt Details Provider Name:Favian Delgado , 01/08/2025 01:20:00 PM, [address] [place] [address], [address], [place], [address], Progress Notes * ABDIRASHID CHONGSDOB:1960 (64 yo M)Acc No.[id number]:08/23/2024 Progress Notes Patient:?LINA CHONG Provider:?Favian Delgado MD :1960???Age:64 Y???Sex:Male Néstor e:08/23/2024 Address:[address] [place] [address] Pcp:Margarito Anton MD Subjective: * Chief Complaints: * ???1. Patient presents today for abnormal immunological findings in serum.. * Medical History:? * Medications:?Taking Lisinopr il 2.5 MG Tablet 1 tablet Orally Once [...] , Taking Toujeo SoloStar 300 UNIT/ML Solution Pen-injector as directed Subcutaneous once a day , [...] CAPSULE BY MOUTH EVERY MORNING Objective: * Vitals:? Assessment: Plan: * Treatment: * * The named appointment provid er may or may not be the originator of this progress note, and it is not deemed complete until electronically signed by the appointment provider. Sign off status: Pending * Provider:?Favian Delgado MD Date:? 024 Generated for oJhn palacios/Radha/Aris on:?01/06/2025 10:52 AM EDT
--- OUTSIDE RECORDS SUMMARY | 2025-01-06 10:52 | XMS_ITS | Clinical Summary ---
Author Organization [employer] Address [address] [facility] 7t [place] [address] Care Team Providers Care Blocker Metal Base Name Role Phone Unavailable Primary Care Provider [...]
--- OUTSIDE RECORDS SUMMARY | 2025-01-06 10:52 | XMS_ITS ---
Author Organization [facility] Address [address] [place] [address] Care Team Providers Care Facilities Officer Name Role Phone Margarito Anton MD Primary Care Provider Favian Groves [phone] REASON FOR VISIT Pt no show Encounters Encounter Location Date Provider Diagnosis [facility] [address] [place] [address] 08/23/2024 Favian Delgado Plan Of Treatment Next Appt Details Provider Name:Favian Delgado , 01/08/2025 01:20:00 PM, [address], [address], [place], [address], Progress Notes * OSBALDO CHONGOB:1960 (64 yo M)Acc No.[id number]:08/23/2024 Patient:?LINA CHONG :1960???Age:64 Y???Sex:Male Address:[address] [place] [address], [address] * true * Date:? Generated for Printi philip/Radha/eTransmitting on:?01/06/2025 10:52 AM EDT
== END 2025-01-06 09:51 | disposition home or self-care (01) ==
LOC: HO.MRI 09:50
PROVIDERS: PCP Internal Medicine; Visit Provider Physical Medicine & Rehabilitation
DX: M54.16 Radiculopathy, lumbar region (principal); M48.062 Spinal stenosis, lumbar region with neurogenic claudication
CPT/HCPCS: 72148

== ENCOUNTER 2025-01-14 13:30 | Outpatient (AMB) | payer OTHER, SELFPAY ==
--- NOTE | 2025-01-14 13:45 | MHC.PC.OV ---
Vital Signs 01/14/25 13:46 Height 5 ft 9 in Weight 165 lb 4 oz BMI 24.4 BP 110/60 Blood Pressure Location Lt brachial Position Sitting Pulse 94 Pulse Source Pulse Oximeter Temp 97.3 F Temp Source Temporal Artery Scan Pulse Oximetry (%) 96 Oxygen Delivery Method Nasal Cannula Intake Visit Reasons: 1 Month F/U [place] Required: Yes [place] Language: Multiple Drum Sander Helper Name: Darrian (spouse) Information Interpreted: non-clinical & clinical (pt decline delivery stock clerk service, prefer spouse to translate for him) Educational Paraprofessional: Present Accompanied by: Spouse Allergies cortisone [CORTISONE] Allergy (Severe, Verified 01/14/25 13:46) ANAPHYLAXIS cephalexin Allergy (Unknown, Verified 01/14/25 13:46) unknown lisinopril Adverse Reaction (Intermediate, Verified 01/14/25 13:46) hypotension Medication List - Last Reconciled 01/14/25 by Margarito Barragan Po, albuterol sulfate 90 mcg/actuation 2 puffs PO Q4-6H PRN alcohol swabs (BD Alcohol Swabs) 1 pad topical QID atorvastatin 20 mg PO DAILY azithromycin For 250 mg dose pack: take 500 mg today (day 1), then 250 mg for 4 days (days 2-5) PO blood-glucose sensor (Blip G7 Sensor device) USE DIRECTED EVERY 10 DAYS cholecalciferol (vitamin D3) 50 mcg PO DAILY clotrimazole 1% 1 appl topical BID 4 weeks dupilumab (Dupixent) mg subcut fluticasone propion-salmeterol 250-50 mcg/dose 1 ea PO Q12H glucagon 3 mg/actuation (Baqsimi) 3 mg intranasal ONCE 30 days Incruse Ellipta 62.5 mcg/actuation (umeclidinium) 1 inh PO DAILY NS insulin glargine U-300 conc (Toujeo Max U-300 SoloStar) 18 units (0.06 mL) subcut BEDTIME lidocaine 5% 3 patches topical DAILY miconazole nitrate 2% (Zeasorb AF) 1 appl topical BID Novolog FlexPen U-100 Insulin (insulin aspart U-100) 8 units (0.08 mL) subcut TID NS Oxygen Home Use As directedO2 2L NC pen needle, diabetic (BD Tierra 2nd Gen Pen Needle) 1 ea miscellaneous .4X/day sertraline 50 mg PO DAILY 90 days sulfamethoxazole-trimethoprim 800-160 mg (Bactrim DS) 1 tab PO BID tadalafil (Cialis) 5 mg PO DAILY 90 days tadalafil (Cialis) 20 mg PO DAILY PRN 90 days Tobacco use date assessed: 01/14/25 Fall risk assessment: No Falls in past year Last assessed Fall Risk: 01/14/25 Dental Screening Dental Screen Date: 12/12/24 [facility] Medical History Personal history of nicotine dependence Hypoxemia COPD exacerbation Allergic rhinitis Type 2 diabetes mellitus with diabetic polyneuropathy Tinnitus Anxiety and depression Peptic ulcer disease Renal calculus, right Tubular adenoma of colon DDD (degenerative disc disease), lumbar Depression Prostate cancer COPD (chronic obstructive pulmonary disease) CAP (community acquired pneumonia) Gastric ulcer Hernia Kidney stones History of prostate cancer Erectile dysfunction Insulin use (long-term) in type 2 diabetes Hyperlipidemia LDL goal <100 Vitamin D insufficiency Surgical History History of cataract surgery History of foot surgery History of inguinal hernia repair Hx of tonsillectomy Hx of prostatectomy Family History Father Diabetes Mother No problems noted. Son Diabetes Maternal Uncle Prostate cancer Paternal Grandfather Myocardial infarction Maternal Grandmother No problems noted. Maternal Aunt Esophageal cancer Maternal Grandfather Myocardial infarction Social History Household Members: Spouse Housing: Apartment Alcohol intake: current Alcohol intake frequency: a few times a month Patient Tobacco Use Status: Former Tobacco user Tobacco use type: Cigarette e-Cigarette/Vaping Use: Never Used Second Hand Smoke Exposure: Yes Substance Use Type: Former Substance User and Marijuana service: No Current occupational status: disabled Current occupation: rt handed Cognitive needs: Yes (cane) Hearing needs: Yes (hearing aide) Vision needs: Yes Questionnaire Thrive Questionnaire Date Thrive assessed: 12/12/24 YOLIS-7 AMB Questionnaire YOLIS-7 Date YOLIS - 7 assessed: 12/12/24 Source: Developed by Drs. Favian Nascimento, Valentina Serrano, Jose M Lunsford and colleagues, with an educational edita from [employer]. Physical exam (Primary Care) Vital Signs: Last Vital Signs Temp 97.3 F 01/14/25 13:46 Pulse 94 01/14/25 13:46 BP 110/60 01/14/25 13:46 Pulse Ox 96 01/14/25 13:46 Oxygen Delivery Method Nasal Cannula 01/14/25 13:46 BMI result Body Mass Index 24.4 Tobacco/Smoking Status: Tobacco use Status Tobacco use date assessed 01/14/25 01/14/25 13:51 Patient Tobacco Use Status Former Tobacco user 01/14/25 13:51 Tobacco use type Cigarette 01/14/25 13:51 e-Cigarette/Vaping Use Never Used 01/14/25 13:51 Thrive Assessment: Date of Thrive Assessment Date Thrive assessed 12/12/24 01/14/25 13:51 Const General: alert; No acute distress Eyes Conjunctivae: conjunctivae normal Resp Auscultation: clear to auscultation bilaterally Cardio Rate: regular rate Rhythm: regular rhythm GI Inspection: Yes normal to inspection Extrem General: Yes normal to inspection and No edema Coding Level of Care Code Est Pt Level 4 (74865) Complex EM visit Add On G2211 Diagnoses Type 2 diabetes mellitus with hyperglycemia, with long-term current use of insulin E11.65; Z79.4 Diabetes mellitus group home insulin use: with termite control service representative use Hyperlipidemia LDL goal <100 E78.5 Pulmonary emphysema, unspecified emphysema type J43.9 COPD type: emphysema Emphysema type: unspecified Prostate cancer C61 Generalized anxiety disorder F41.1 Personal history of nicotine dependence Z87.891 Lumbar spondylosis M47.816 Assessment & Plan Assessment & Plan (1) Type 2 diabetes mellitus with hyperglycemia: Comment: eye doctor in [place] Code(s): E11.65 - Type 2 diabetes mellitus with hyperglycemia Category: Medical Qualifiers: Diabetes mellitus termite control service representative insulin use: with termite control service representative use Qualified Code(s): E11.65 - Type 2 diabetes mellitus with hyperglycemia; Z79.4 - superintendent container terminal (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 Patient follows up with endocrinology hemoglobin A1c goal of less than 7.0 patient is on Toujeo NovoLog (2) Hyperlipidemia LDL goal <100: Code(s): E78.5 - Hyperlipidemia, unspecified Category: Medical Plan: Avoid fried foods, chicken skin, eggs, butter margarine, pastries and meat. Be it pork or beef they have a lot of cholesterol LDL goal of less than 100 and triglyceride of less than 150 April 2024 last blood work (3) COPD (chronic obstructive pulmonary disease): Comment: He has long-standing chronic obstructive pulmonary disease. DOING MUCH BETTER SINCE HE QUIT SMOKING. AT PRESENT HIS COPD IS VERY STABLE, AND HE IS ADVISED TO CONTINUE THE PRESENT REGIMEN. Code(s): J44.9 - Chronic obstructive pulmonary disease, unspecified Category: Medical Qualifiers: COPD type: emphysema Emphysema type: unspecified Qualified Code(s): J43.9 - Emphysema, unspecified Plan: Very happy that the patient has stopped smoking. Continue with Wixela placed on Dupixent and on Incruse continue with short-acting beta agonist (4) Prostate cancer: Comment: 2004 Code(s): C61 - Malignant neoplasm of prostate Category: Medical Plan: Patient continue to be followed up by Urology (5) Generalized anxiety disorder: Comment: [facility] March 2021 Code(s): F41.1 - Generalized anxiety disorder Category: Medical Plan: Continue with sertraline 50 mg once a day (6) Personal history of nicotine dependence: Comment: (quit 07/2023) Code(s): Z87.891 - Personal history of nicotine dependence Category: Medical Plan: Patient was advised to get a CAT scan done but this was not done (7) Lumbar spondylosis: Code(s): M47.816 - Spondylosis without myelopathy or radiculopathy, lumbar region Category: Medical Plan: Patient has seen Orthopedics and MRI done showing the multilevel lumbar spondylosis with spinal stenosis patient does have a follow-up Plan History of Present Illness The patient is a 65-year-old male presenting with a follow-up for multiple chronic conditions, including lumbar spinal stenosis. An MRI conducted in December 2024 demonstrated multilevel spondylosis resulting in central spinal canal stenosis from L2 to S1 and bilateral neural foraminal stenosis at L5 S1 and lesser at L2 to 5 levels. This structural aberration contributes to the patient?s back pain, which is noted to have worsened due to the spinal misalignment, identified following a history of multiple accidents. Additionally, the patient has a history of diabetes mellitus inadequately controlled, with an A1c of 8.2 measured in October 2024, prompting previous suggestions regarding dietary adjustments to reduce carbohydrate consumption. The patient reports difficulty adhering to dietary restrictions. The patient also manages COPD, which remains stable on current therapies including Vixella and Dupixent. Short-acting albuterol is available for symptomatic relief. Health Maintenance - Pneumonia vaccination discussed; previous pneumonia shot was in 2018. - Blood work last completed in April 2024; next blood work to be scheduled for April 2025. - Recent hemoglobin A1c was 8.2 (October); target is <7.0. - Last cholesterol test was in April 2024 with LDL of 76; target LDL <100 mg/dL and triglycerides <150 mg/dL. - Glaucoma suspect status being monitored. - Follow-up for diabetic retinopathy planned. Social History - Previous smoker, now ceased. - Dietary preferences include significant intake of carbohydrates such as bread and rice. - History of multiple physical accidents. - Limited physical activity due to back pain, primarily walking. - Reports eating less overall, but struggles with restricting preferred foods. Review of Systems - General: Denies unexplained weight loss. - Ear/Nose/Throat: Reports ear fullness and occasional pain. - Cardiovascular: Denies chest discomfort. - Respiratory: Reports stable COPD symptoms. - Gastrointestinal: Denies notable changes in bowel habits. - Musculoskeletal: Reports chronic back pain. - Neurological: Denies any new neurological deficits. - Ophthalmologic: Reports mild nonproliferative diabetic retinopathy in the right eye. Physical Exam - HEENT- Ears appear clear with no visible infections upon examination. - Musculoskeletal- Examination revealed lumbar tenderness upon touch and manipulation. Results - MRI (December 2024): Multilevel lumbar spondylosis from T12 to S1, central spinal canal stenosis from L2 to S1, bilateral neural foraminal stenosis at L5 S1 and lesser at L2 to 5 levels. - Hemoglobin A1c (October 2024): 8.2% - Cholesterol (April 26, 2024): LDL of 76 mg/dL. - Eye examination (November 2020): Mild nonproliferative diabetic retinopathy. Plan 1. 0. The current cholesterol management is proving effective. The patient will continue prescribed treatments for stable COPD with Vixella, Dupixent, and Albuterol as needed. A pneumonia vaccination was administered, with follow-up labs scheduled for April to monitor diabetes and cholesterol levels.: Patient was informed and verbally consented to the use of an ambient scribe for clinic note documentation during this visit. Discussion Notes I reviewed the likely diagnoses of lumbar spinal stenosis, diabetes mellitus, and COPD. The patient was informed about the critical need for dietary modifications to manage blood sugar levels, highlighting the consequences of poorly controlled diabetes, which may include retinopathy and neuropathy. The benefits of adhering to medication schedules and avoiding exacerbating factors for COPD were revisited. The patient consented to receive a pneumococcal vaccine and acknowledged the need for regular follow-up and blood tests. Continued surveillance of lumbar spinal stenosis through orthopedic consultation was advised, as was managing dietary habits for diabetes control, with consent to proceed with these plans. Patient Instructions - Follow up with orthopedics on January 31 for lumbar spinal stenosis. - Continue stretching exercises for back pain management. - Adhere to suggested dietary changes; reduce carbohydrate intake for better blood sugar control. - Take medications as prescribed for diabetes, using Novolog to maintain blood sugar levels. - Continue regular use of Vixella and Dupixent for COPD management. - Use Albuterol as needed for acute respiratory symptoms. - You received your pneumonia vaccination today. - Schedule follow-up blood work in April to monitor cholesterol and hemoglobin A1c levels. - Report any new or worsening symptoms promptly, especially related to back pain, COPD, or diabetes. Orders: Orders Creatinine Urine 4 Months E11.42 - Type 2 diabetes mellitus with diabetic polyneuropathy, E11.65 - Type 2 diabetes mellitus with hyperglycemia, Z79.4 - custodial (current) use of insulin Microalbumin, Random (w Creat) 4 Months E11.42 - Type 2 diabetes mellitus with diabetic polyneuropathy, E11.65 - Type 2 diabetes mellitus with hyperglycemia, Z79.4 - custodial (current) use of insulin Lipid Panel 4 Months E11.42 - Type 2 diabetes mellitus with diabetic polyneuropathy, E78.00 - Pure hypercholesterolemia, unspecified, Z79.4 - superintendent container terminal (current) use of insulin Thyroid Stimulating Hormone 4 Months E11.42 - Type 2 diabetes mellitus with diabetic polyneuropathy, Z79.4 - custodial (current) use of insulin Free T4 (Free Thyroxine) 4 Months E11.42 - Type 2 diabetes mellitus with diabetic polyneuropathy, Z79.4 - superintendent container terminal (current) use of insulin Comprehensive Met. Panel 4 Months E11.42 - Type 2 diabetes mellitus with diabetic polyneuropathy, Z79.4 - superintendent container terminal (current) use of insulin Complete Blood Count Auto Diff 4 Months E11.42 - Type 2 diabetes mellitus with diabetic polyneuropathy, Z79.4 - custodial (current) use of insulin Hemoglobin A1c 4 Months E11.42 - Type 2 diabetes mellitus with diabetic polyneuropathy, Z79.4 - superintendent container terminal (current) use of insulin Vitamin B12 and Folate 4 Months E11.42 - Type 2 diabetes mellitus with diabetic polyneuropathy, Z79.4 - superintendent container terminal (current) use of insulin Prostate Specific Antigen Scr 4 Months E11. - Type 2 diabetes mellitus with diabetic polyneuropathy, Z79.4 - custodial (current) use of insulin Uric Acid 4 Months E11.42 - Type 2 diabetes mellitus with diabetic polyneuropathy, Z79.4 - superintendent container terminal (current) use of insulin Medications: Refilled fluticasone propion-salmeterol 250-50 mcg/dose 1 ea PO Q12H 180 ea 0RF E11.42 - Type 2 diabetes mellitus with diabetic polyneuropathy, Z79.4 - superintendent container terminal (current) use of insulin
[2025-01-14 13:46] VITALS: BP 110/60; PULSE 94; TEMP 36.3; O2SAT 96; BMI 24.4
== END 2025-01-14 14:40 | disposition home or self-care (01) ==
LOC: HO.HMCH 13:31
PROVIDERS: PCP Internal Medicine; Visit Provider Internal Medicine
DX: E11.65 Type 2 diabetes mellitus with hyperglycemia (principal); Z79.4 Long term (current) use of insulin; J43.9 Emphysema, unspecified; C61 Malignant neoplasm of prostate; E78.5 Hyperlipidemia, unspecified; F41.1 Generalized anxiety disorder; Z87.891 Personal history of nicotine dependence; M47.816 Spondylosis without myelopathy or radiculopathy, lumbar region; Z23 Encounter for immunization

== ENCOUNTER → 2025-01-14 13:30 | Outpatient (BNVA) | payer OTHER, SELFPAY | PROVIDERS: PCP Internal Medicine; Visit Provider Internal Medicine | DX: Z23 Encounter for immunization (principal); E11.65 Type 2 diabetes mellitus with hyperglycemia; Z79.4 Long term (current) use of insulin; E78.5 Hyperlipidemia, unspecified; J43.9 Emphysema, unspecified; C61 Malignant neoplasm of prostate; F41.1 Generalized anxiety disorder; M47.816 Spondylosis without myelopathy or radiculopathy, lumbar region; Z87.891 Personal history of nicotine dependence | CPT/HCPCS: 90471; 90677; 99212 ==

== ENCOUNTER 2025-01-31 11:53 | Outpatient (AMB) | payer OTHER, SELFPAY ==
[2025-01-31 11:54] VITALS: BMI 24.4
--- NOTE | 2025-01-31 11:54 | MHC.OFFVIS ---
Vital Signs 01/31/25 11:54 Height 5 ft 9 in Weight 165 lb BMI 24.4 Intake Visit Reasons: OV- Lumbar Spine MRI review Intake Note: Carroll 65 yr old male presents today for his Lumbar Spine MRI review. States his pain has not improved and has not heard anything regarding the lido patch he was told he was going to be prescribed. Allergies cortisone [CORTISONE] Allergy (Severe, Verified 01/31/25 12:00) ANAPHYLAXIS cephalexin Allergy (Unknown, Verified 01/31/25 12:00) unknown lisinopril Adverse Reaction (Intermediate, Verified 01/31/25 12:00) hypotension HPI Comments Details: He has difficulty getting up from bed, indicates pain across the lower back that goes to left thigh/hip area. No groin pain. Sometimes left foot gets numb. Denies left leg pain. Told to have left leg longer than right. Uses cane to get up and straightain out his lower back, avoid falls, cause he can stumble, go sideways. Has not had any injections or seen surgeon. No MRI. Last lumbar xray 2021. Recent left hip xray normal. Can't remember when he was last gone to PT. History of DM. Says he had abdominal bloating, had hernia surgery in past, PCP aware. Left foot surgery in [place]. No injuries. No change since last visit. He did try the exercises that I gave him. He is wary of injections because of a previous bad experience of an injection to elbow that led to infection, 8 years ago. Cortisone now is listed as one of his allergies. [facility] Medical History Personal history of nicotine dependence Hypoxemia COPD exacerbation Allergic rhinitis Type 2 diabetes mellitus with diabetic polyneuropathy Tinnitus Anxiety and depression Peptic ulcer disease Renal calculus, right Tubular adenoma of colon DDD (degenerative disc disease), lumbar Depression Prostate cancer COPD (chronic obstructive pulmonary disease) CAP (community acquired pneumonia) Gastric ulcer Hernia Kidney stones History of prostate cancer Erectile dysfunction Insulin use (long-term) in type 2 diabetes Hyperlipidemia LDL goal <100 Vitamin D insufficiency Surgical History History of cataract surgery History of foot surgery History of inguinal hernia repair Hx of tonsillectomy Hx of prostatectomy Family History Father Diabetes Mother No problems noted. Son Diabetes Maternal Uncle Prostate cancer Paternal Grandfather Myocardial infarction Maternal Grandmother No problems noted. Maternal Aunt Esophageal cancer Maternal Grandfather Myocardial infarction Social History Household Members: Spouse Housing: Apartment Alcohol intake: current Alcohol intake frequency: a few times a month Patient Tobacco Use Status: Former Tobacco user Tobacco use type: Cigarette e-Cigarette/Vaping Use: Never Used Second Hand Smoke Exposure: Yes Substance Use Type: Former Substance User and Marijuana service: No Current occupational status: disabled Current occupation: rt handed Cognitive needs: Yes (cane) Hearing needs: Yes (hearing aide) Vision needs: Yes Physical Exam Vital Signs: BMI result Body Mass Index 24.4 Constitutional: Patient appears to be in no acute distress, well nourished and well developed. Patient was appropriately conversant and oriented. Good historian. MSK: Very uncomfortable as he was sitting down. Preferred to lean forward to relieve his pain. Neurological: Left hip flexion 4/5. Right hip flexion 4+/5. Knee extension bilateral 5/5. No footdrop. Gait is antalgic. Results Reviewed Results Reviewed: Ordering Physician: Kathy Zelaya Date of Service: 01/06/25 Procedure(s): MR lumbar spine wo con Accession Number(s): [id number] cc: Margarito Anton MD; Kathy Zelaya~ EXAMINATION: MR LUMBAR SPINE WITHOUT CONTRAST CLINICAL INFORMATION: Radiculopathy, lumbar region. COMPARISON: July 15, 2014 images are not available on PACS. TECHNIQUE: MRI of the lumbar spine was obtained using routine sequences without contrast. FINDINGS: Last rib-bearing vertebra labeled T12. Bone marrow inhomogeneity. Multilevel marginal osteophyte formation and disc desiccation and endplate irregularities from T11-12 to L5-S1. Grade 1 retrolisthesis L4-5, L1-2, L3-4 and likely L2-3 on a degenerative basis. There is subtle bone marrow STIR signal at the endplates of L2-3 L5-S1 and the inferior endplate of L4. The conus medullaris ends at pedicle of L1 with normal signal. T11-12: Broad-based disc bulging. Facet joint and ligamentum flavum hypertrophy. Reduced AP diameter of the thecal sac and the neural foramina. T12-L1: Broad-based disc bulging. Facet joint and ligamentum flavum hypertrophy. Reduced AP diameter of the thecal sac and the neural foramina. L1-2: Broad-based disc bulging. Facet joint and ligamentum flavum hypertrophy. Reduced AP diameter of the thecal sac and the neural foramina. L2-3: Broad-based disc bulging. Facet joint and ligamentum flavum hypertrophy. Central spinal canal and bilateral neuroforamina stenosis likely encroaching the neural elements. L3-4: Broad-based disc bulging. Facet joint and ligamentum flavum hypertrophy. Reduced AP diameter of the thecal sac and the neural foramina likely encroaching the neural elements. L4-5: Broad-based disc bulging. Facet joint and ligamentum flavum hypertrophy. Reduced AP diameter of the thecal sac. Bilateral neuroforamina stenosis likely encroaching the exiting nerve roots. L5-S1: Broad-based disc bulging. Facet joint and ligamentum flavum hypertrophy. Reduced AP diameter of the thecal sac. Bilateral neuroforamina stenosis compressing the L5 exiting nerve roots. Fatty atrophy of the lower lumbar muscles from L4-5 to sacrum. No prevertebral compartment hematoma, mass or fluid collection. There are multifocal exophytic hyperintense T2 cystic lesions in the posterior right kidney. MR/MR lumbar spine wo con IMPRESSION: Multilevel spondylosis from T12-L1 to L5-S1 resulting in central spinal canal stenosis at L2-3, L4-5 and L5-S1 and bilateral neuroforamina stenosis at L5-S1 and to a lesser extent L2-3 L3-4 and L4-5 levels encroaching likely compressing the neural elements. Exophytic cystic lesions, right kidney. Electronically signed by: Fito Britt MD 01/07/2025 09:27 AM EDT Assessment & Plan Assessment & Plan (1) Spinal stenosis, lumbar region with neurogenic claudication: Code(s): M48.062 - Spinal stenosis, lumbar region with neurogenic claudication Category: Medical (2) Lumbar spondylosis: Code(s): M47.816 - Spondylosis without myelopathy or radiculopathy, lumbar region Category: Medical Plan We looked at MRI images together. Multilevel spondylosis with disc bulges/disc desiccation, spinal stenosis moderate. He has no red flags and we discussed what to watch out for. He is not looking for surgery and I do not think this would be offered even if he sees our neuro spine service. He does not want to do injections. We talked about exercise and keeping his lumbar muscles strong to prevent injury. He is amenable to starting physical therapy. Referral placed. Assessment and plan discussed with patient, and patient was agreeable. All questions were answered thoroughly. Kathy Koch MD, TONY Board Certified, [place] [employer] and Rehabilitation (ABPMR) Board Certified, [place] Board [employer] Electro[employer]ostic [employer] (ABEM) Coding Level of Care Code Est Pt Level 3 (64899) Diagnoses Spinal stenosis, lumbar region with neurogenic claudication M48.062 Lumbar spondylosis M47.816
--- OUTSIDE RECORDS SUMMARY | 2025-01-31 12:47 | XMS_ITS ---
Author Organization [facility] Address [address] [place] [address] Care Team Providers Care Gis Web Developer Name Role Phone Margarito Anton MD Primary Care Provider Favian Groves [phone] REASON FOR VISIT Pt no show Encounters Encounter Location Date Provider Diagnosis [facility] [address] [place] [address] 08/23/2024 Favian Delgado Plan Of Treatment No Information Progress Notes * CASTILLO OSBALDOOB:1960 (64 yo M)Acc No.[id number]:08/23/2024 Patient:?LINA CHONG :1960???Age:64 Y???Sex:Male Address:[address] [place] [address], [id number] * true * Date:? Generated for John palacios/Radha/eTransmitting on:?01/31/2025 12:47 PM EDT
--- OUTSIDE RECORDS SUMMARY | 2025-01-31 12:48 | XMS_ITS ---
Author Organization [facility] Address [address] [place] [id number] Care Team Providers Care Information Security Specialist Name Role Phone Margarito Anton MD Primary Care Provider Favian Groves [phone] Allergies Allergen (clinical drug ingredient) Drug/Non Drug Allergy documented on EMR Reaction Allergy Type Onset Date Status Cortisone Unknown Drug Allergy Active REASON FOR VISIT Patient presents today for abnormal immunological findings in serum Medications Medication SIG (Take, Route, Frequency, Duration) Notes Start Date End Date Status Omeprazole 20 MG TAKE 1 CAPSULE BY [facility] EVERY MORNING for 30 Active Lisinopril 2.5 MG 1 tablet Orally Once a day Active Pioglitazone HCl 30 MG 1 tablet Orally O nce a day for 30 day(s) Active Tamsulosin HCl 0.4 MG 1 capsule Orally O nce a day for 30 day(s) Active Vitamin D 1000 UNIT 1 tablet [...] 25 MG Oral for 90 Act austyn Dulcolax (colon prep) 5 MG take at 3:00 p.m and 7:00p.m. Orally two tablets twice a day for one day for 1 day 06/24/2022 Active MiraLax (colon prep) 8.3 ounce ((238) grams mixed with Gatorade or Crystal Light orally begin at 5:00 p.m. the day before the procedure for 1 day 06/24/2022 Active Atorvastatin Calcium 20 MG 1 tablet Oral ly Once a day for 30 day(s) Active Sertraline HCl 50 MG 1 tablet Orally Onc e a day for 30 day(s) Active Repaglinide 0.5 MG 1 tablet 15 to 30 mi nutes before meals Orally three x a day Active Loratadine 10 MG 1 tablet Orally Once a day for 30 day(s) Active Toujeo SoloStar 300 UNIT/ML as directed Subcutaneous once a day Active Wixela Inhub 250-50 MCG/DOSE 1 puff Inhalation Twice a day Active Albuterol Sulfate HFA 108 (90 Base) MCG/ACT 1 puff as needed Inhalation every 6 hrs Active Incruse Ellipta 62.5 MCG/INH 2 puff Inhalation Once a day Active Immunizations Vaccine Route Administration Date Status Comme nts Influenza Unknown 01/08/2025 Refused Social History Tobacco Use: Social History Observation Description Date Details (start date - stop date) Former Smoker NA - NA Alcohol Screen Question Answer Notes Did you [...] Never (0 point) Points 3 Interpretation Negative Tobacco Control (Standard) Question Answer Notes Tobacco use: Former smoker Section Notes: He smokes, uses occasional a lcohol Problems Problem Type SNOMED Code ICD Code Onset Dates Problem Status W/U Status Risk Notes Problem Anorexia (87767363) Anorexia (R63.0) Active confirmed Vital Signs Temperature 97.7 degrees Fahrenheit 01/09/20 25 Blood pressure systolic 001 mm Hg 01/09/20 25 Blood pressure diastolic 01 mm Hg 025 Height 67 in 01/08/2025 Weight 163.8 lbs 01/08/2025 BMI 25.65 kg/m2 01/08/2025 Encounters Encounter Location Date Provider Diagnosis [facility] [address] [place] [address] 01/08/2025 Favian Delgado Encounter for screen ing for malignant neoplasm of colon Z12.11 ; Anorexia R63.0 ; History of adenomatous polyp of colon Z86.010 and Gastroesophageal reflux disease, esophagitis presence not specified K21.9 Assessments Encounter Date Diagnosis (ICD Code) Assessment Notes Treatment Notes Treatment Clinical Notes Section Notes 01/08/2025 Encounter for screening for malignant neoplasm of colon (ICD-10 - Z12.11) Repeat colonoscopy in 2026 Overall, Lina appears quite well and does not seem to be having any particularly worrisome GI complaints. While he describes some relative anorexia, he appears quite well clinically and his weight has been stable. In fact, he is 10 pounds higher than he was several years ago when he was here. His GI procedures in 2021 were nonrevealing. I did review with him that he may be having some component of mild gastroparesis in relation to his diabetes and elevated hemoglobin A1c. That may be causing some component of relative anorexia. I advised him that the best thing he can do at this point is to discuss things with you and his piano instructor in regard to getting better control of his diabetes and hopefully that would allow an improvement in his GI symptoms. I do not think he needs a nuclear medicine gastric emptying study at this time but I did advise him and his that if things worsen in regard to the anorexia then we may want to pursue that. However, given his good clinical appearance at the present time I do not think that is necessary. We did review that he will be due for a follow-up colonoscopy in 2026 for further screening. We did review that in the past he had been on omeprazole but presently seems stable without that. However, I did advise him that if his upper GI symptoms were to worsen then we may want to put him back on a trial of that to see if that gives him any relief as well. At this point he will see me again as needed. However, I did advise him and his to certainly call me if he has any problems or questions I can be of assistance with prior to his next colonoscopy in 2026. Lina and his were comfortable with this plan. Thank you again for allowing me to participate in Lina's care. I shall continue to keep you advised of his progress. Please do not hesitate to contact me if I can be of any further assistance in the future. 01/08/2025 Anorexia (ICD-10 - R63.0) Call me if things worsen with your eating Maintain good control of your diabetes Overall, Lina appears quite well and does not seem to be having any particularly worrisome GI complaints. While he describes some relative anorexia, he appears quite well clinically and his weight has been stable. In fact, he is 10 pounds higher than he was several years ago when he was here. His GI procedures in 2021 were nonrevealing. I did review with him that he may be having some component of mild gastroparesis in relation to his diabetes and elevated hemoglobin A1c. That may be causing some component of relative anorexia. I advised him that the best thing he can do at this point is to discuss things with you and his piano instructor in regard to getting better control of his diabetes and hopefully that would allow an improvement in his GI symptoms. I do not think he needs a nuclear medicine gastric emptying study at this time but I did advise him and his that if things worsen in regard to the anorexia then we may want to pursue that. However, given his good clinical appearance at the present time I do not think that is necessary. We did review that he will be due for a follow-up colonoscopy in 2026 for further screening. We did review that in the past he had been on omeprazole but presently seems stable without that. However, I did advise him that if his upper GI symptoms were to worsen then we may want to put him back on a trial of that to see if that gives him any relief as well. At this point he will see me again as needed. However, I did advise him and his to certainly call me if he has any problems or questions I can be of assistance with prior to his next colonoscopy in 2026. Lina and his were comfortable with this plan. Thank you again for allowing me to participate in Lina's care. I shall continue to keep you advised of his progress. Please do not hesitate to contact me if I can be of any further assistance in the future. 01/08/2025 History of adenomatous polyp of colon (ICD-10 - Z86.010) Overall, Lina appears quite well and does not seem to be having any particularly worrisome GI complaints. While he describes some relative anorexia, he appears quite well clinically and his weight has been stable. In fact, he is 10 pounds higher than he was several years ago when he was here. His GI procedures in 2021 were nonrevealing. I did review with him that he may be having some component of mild gastroparesis in relation to his diabetes and elevated hemoglobin A1c. That may be causing some component of relative anorexia. I advised him that the best thing he can do at this point is to discuss things with you and his piano instructor in regard to getting better control of his diabetes and hopefully that would allow an improvement in his GI symptoms. I do not think he needs a nuclear medicine gastric emptying study at this time but I did advise him and his that if things worsen in regard to the anorexia then we may want to pursue that. However, given his good clinical appearance at the present time I do not think that is necessary. We did review that he will be due for a follow-up colonoscopy in 2026 for further screening. We did review that in the past he had been on omeprazole but presently seems stable without that. However, I did advise him that if his upper GI symptoms were to worsen then we may want to put him back on a trial of that to see if that gives him any relief as well. At this point he will see me again as needed. However, I did advise him and his to certainly call me if he has any problems or questions I can be of assistance with prior to his next colonoscopy in 2026. Lina and his were comfortable with this plan. Thank you again for allowing me to participate in Lina's care. I shall continue to keep you advised of his progress. Please do not hesitate to contact me if I can be of any further assistance in the future. 01/08/2025 Gastroesophageal reflux disease, esophagitis presence not specified (ICD-10 - K21.9) Overall, Lina appears quite well and does not seem to be having any particularly worrisome GI complaints. While he describes some relative anorexia, he appears quite well clinically and his weight has been stable. In fact, he is 10 pounds higher than he was several years ago when he was here. His GI procedures in 2021 were nonrevealing. I did review with him that he may be having some component of mild gastroparesis in relation to his diabetes and elevated hemoglobin A1c. That may be causing some component of relative anorexia. I advised him that the best thing he can do at this point is to discuss things with you and his piano instructor in regard to getting better control of his diabetes and hopefully that would allow an improvement in his GI symptoms. I do not think he needs a nuclear medicine gastric emptying study at this time but I did advise him and his that if things worsen in regard to the anorexia then we may want to pursue that. However, given his good clinical appearance at the present time I do not think that is necessary. We did review that he will be due for a follow-up colonoscopy in 2026 for further screening. We did review that in the past he had been on omeprazole but presently seems stable without that. However, I did advise him that if his upper GI symptoms were to worsen then we may want to put him back on a trial of that to see if that gives him any relief as well. At this point he will see me again as needed. However, I did advise him and his to certainly call me if he has any problems or questions I can be of assistance with prior to his next colonoscopy in 2026. Lina and his were comfortable with this plan. Thank you again for allowing me to participate in Lina's care. I shall continue to keep you advised of his progress. Please do not hesitate to contact me if I can be of any further assistance in the future. Plan Of Treatment Treatment Notes Assessment Notes Encounter for screening for malignant neoplasm of colon Repeat colonoscopy in 2026 Anorexia Call me if things worsen with your eating Maintain good control of your diabetes Next Appt Details Follow Up: prn, Reason: Progress Notes * ABDIRASHID CHONGSDOB:1960 (64 yo M)Acc No.[id number]:01/08/2025 Progress Notes Patient:?LINA CHONG Provider:?Favian Delgado MD :1960???Age:64 Y???Sex:Male Néstor e:01/08/2025 Address:[address] [place], [place] [id number] Pcp:Margarito Anton MD Subjective: * Chief Complaints: * ???Patient presents today fo r abnormal immunological findings in serum * HPI: ???incontinence:? I saw Lina in the office today for evaluation of his reported anorexia and history of reflux. He was accompanied by his . I last saw Lina in 2021, at which time he underwent both an upper endoscopy and colonoscopy. His colonoscopy was negative for any polyps. His upper endoscopy revealed a small hiatal hernia and some mild gastritis. There was no evidence of any significant esophagitis, Haskins's esophagus, or H. pylori. There was no evidence of any recurrent ulcer disease. At that time he had been using omeprazole. He reports that he presently feels generally well but has been having a sense of anorexia. He has not been using omeprazole for a long time as he did not think that was giving him any benefit. He has not been noticing any increasing heartburn, dysphagia, nausea, nor vomiting. He has not lost any weight. He reports that his bowel movements are fairly regular and there has been no sign of any hematochezia nor melena. He denies any significant abdominal pain, jaundice, nor fevers. He denies using any aspirin or NSAIDs. His most recent hemoglobin A1c from October was elevated at 8.2. It had been 8.9 back in July. He had a normal CBC last April. * ROS:?General/Constitutional:?Change in appetite?denies.?Chills?denies.?Fatigue?denies.?Ophthalmologic:?Patient denies? Negative..?ENT:?Patient denies?Negative..?Respiratory:?Patient denies?No coughing/hemoptysis..?Cardiovascular:?Patient denies? No chest pain/orthopnea..?Gastrointestinal:?Comments?See HPI for details.?Genitourinary:?Patient denies? No dysuria/hematuria..?Musculoskeletal:?Patient denies? No specific arthralgias/myalgias..?Skin:?Patient denies?No rash/pruritus..?Neurologic:?Patient denies? No headaches/seizures..?Psychiatric:?Patient denies?Negative..? * Medical History:? * Surgical History:?Hernia Pro statectomy Tonsillectomy * Hospitalization/Major Diagno stic Procedure:?No Hospitalization History. * Family History:?Father: dece ased, diagnosed with Diabetes.?Mother: alive.? no known hx of colon cancer.? No family history of liver cancer,. * Social History:?Tobacco Use:?Tobacco Control (Standard)?Tobacco use:?Former smoker.?Drugs/Alcohol:?Alcohol Screen?Did you have a drink containing alcohol in the past year??Yes,?How often did you have a drink containing alcohol in the past year??2 to 4 times a month (2 points),?How many drinks did you have on a typical day when you were drinking in the past year??3 or 4 drinks (1 point),?How often did you have 6 or more drinks on one occasion in the past year??Never (0 point),?Points?3,?Interpretation?Negative.?Miscellaneous:?Marital status: . Occupation: unemployed. ???He smokes, uses occasional alcohol. * Medications:?TakingLisinopri l 2.5 MG Tablet 1 tablet Orally Once [...] Tablet 1 tablet Orally Once a day Tolizzette SoloStar 300 UNIT/ML Solution Pen-injector as directed [...] TAKE 1 CAPSULE BY MOUTH EVERY MORNING Medication List reviewed and reconciled with the patientTaking Lisinopril 2.5 MG Tablet 1 tablet Orally [...] TAKE 1 CAPSULE BY MOUTH EVERY MORNING Medication List reviewed and reconciled with the patient * Allergies:?Cortisoneyes[Abel rgies Verified] Objective: * Vitals:?Wt:163.8lbs, Ht: 67 in, BMI:25.65Index, BP:001/01mm Hg, Temp:97.7, Wt- k.3. * Examination: ???General Examination: ?GENERAL APPEARANCE:?pleasant, well nourished, well developed, in no acute distress.?EYES:?sclera non-icteric.?ORAL CAVITY:?mucosa moist.?NECK/THYROID:?no cervical lymphadenopathy, neck supple.?SKIN:?nonjaundiced, no spider angiomata..?HEART:?S1, S2 normal.?LUNGS:?clear to auscultation bilaterally.?ABDOMEN:?normal bowel sounds, no guarding or rigidity, no hepatosplenomegaly, no masses palpable, soft, nontender, nondistended..?EXTREMITIES:?no edema.?NEUROLOGIC:?alert and oriented.? Assessment: * Assessment: 1.?Anorexia - R63.0 (Primary )???2.?Encounter for screening for malignant neoplasm of colon - Z12.11???3.?History of adenomatous polyp of colon - Z86.010???4.?Gastroesophageal reflux disease, esophagitis presence not specified - K21.9??? Overall, Lina appears quit e well and does not seem to be having any particularly worrisome GI complaints. While he describes some relative anorexia, he appears quite well clinically and his weight has been stable. In fact, he is 10 pounds higher than he was several years ago when he was here. His GI procedures in 2021 were nonrevealing. I did review with him that he may be having some component of mild gastroparesis in relation to his diabetes and elevated hemoglobin A1c. That may be causing some component of relative anorexia. I advised him that the best thing he can do at this point is to discuss things with you and his piano instructor in regard to getting better control of his diabetes and hopefully that would allow an improvement in his GI symptoms. I do not think he needs a nuclear medicine gastric emptying study at this time but I did advise him and his that if things worsen in regard to the anorexia then we may want to pursue that. However, given his good clinical appearance at the present time I do not think that is necessary. We did review that he will be due for a follow-up colonoscopy in 2026 for further screening. We did review that in the past he had been on omeprazole but presently seems stable without that. However, I did advise him that if his upper GI symptoms were to worsen then we may want to put him back on a trial of that to see if that gives him any relief as well. At this point he will see me again as needed. However, I did advise him and his to certainly call me if he has any problems or questions I can be of assistance with prior to his next colonoscopy in 2026. Lina and his were comfortable with this plan. Thank you again for allowing me to participate in Lina's care. I shall continue to keep you advised of his progress. Please do not hesitate to contact me if I can be of any further assistance in the future. Plan: * Treatment: 2.?Encounter for screening f or malignant neoplasm of colon? Notes: Repeat colonoscopy in 2026?? * Immunizations:? Influenza (Not administered - Refused: Patient decision) * Procedure Codes:?3017F COLOR ECTAL CA SCREEN DOC [id number] TOBACCO [id number]-[id number] BP SCR NOT PRFRM REC REASON NOS * Preventive Medicine:? ??Counseling:?Care goal follow-up plan:?Above Normal BMI Follow-up?Dietary management education, guidance, and counseling,?BMI management provided?Yes.? ??Screenings:?Fall Risk Screening?Fall Risk Assessment:?No falls in the past year,?Screening:?No falls in the past year,?Assessment:?Not performed, no reason specified,?Plan of Care:?Not documented, no reason specified.? * Follow Up:?prn * * Sign off status: Completed true * Provider:?Favian Delgado MD Date:? 025 Generated for Printi ng/Fadeloresg/eTransmitting on:?01/31/2025 12:47 PM EDT History and Physical Notes * Examination Category Sub-Category Detail Notes Category Not es General Examination GENERAL APPEARANCE: pleasant , well nourished, well developed, in no acute distress EYES: sclera non-icteric NECK/THYROID: no cervical lymphade nopathy, neck supple HEART: S1, S2 normal LUNGS: clear to auscultatio n bilaterally ABDOMEN: normal bowel sounds, no guarding or rigidity, no hepatosplenomegaly, no masses palpable, soft, nontender, nondistended. NEUROLOGIC: alert and oriented SKIN: nonjaundiced, no spi brian angiomata. EXTREMITIES: no edema ORAL CAVITY: mucosa moist
--- OUTSIDE RECORDS SUMMARY | 2025-01-31 12:48 | XMS_ITS | Clinical Summary ---
Author Organization [employer] Address [address] [place] [address] Care Team Providers Care Salt Maker Name Role Phone Unavailable Primary Care Provider [...]
--- OUTSIDE RECORDS SUMMARY | 2025-01-31 12:48 | XMS_ITS ---
Author Organization [facility] Address [address] [place] [phone] Care Team Providers Care Aquaculture Program Director Name Role Phone Margarito Anton MD Primary Care Provider Favian Groves [phone] REASON FOR VISIT Patient presents today for [...] Omeprazole 20 MG TAKE 1 CAPSULE BY [facility] EVERY MORNING for 30 Active Dulcolax [...] Encounters Encounter Location Date Provider Diagnosis [facility] [address] [place] [phone] 08/23/2024 Favian Delgado Plan Of Treatment No Information Progress Notes * ABDIRASHID CHONGSDOB:1960 (65 yo M)Acc No.[id number]:08/23/2024 Progress Notes Patient:?CASTILLO LINA Provider:?Favian Delgado MD :1960???Age:64 Y???Sex:Male Néstor e:08/23/2024 Address:[address] [place] [address] Pcp:Margarito Anton MD Subjective: * Chief Complaints: [...] Provider:?Favian Delgado MD Date:? 024 Generated for John palacios/Radha/Aris on:?01/31/2025 12:47 PM EDT
--- OUTSIDE RECORDS SUMMARY | 2025-01-31 12:48 | XMS_ITS | Patient Health Record ---
Author Organization [facility] Address [address] [place] [id number] Care Team Providers Care Physical Scientist Name Role Phone Margarito Anton MD Primary Care Provider Favian Groves [phone] Allergies Allergen (clinical drug ingredient) Drug/Non Drug Allergy documented on EMR Reaction Allergy Type Onset Date Status Cortisone Unknown Drug Allergy Active Reason For Referral No Information Medications Medication SIG (Take, Route, Frequency, Duration) Notes Start Date End Date Status Loratadine 10 MG 1 tablet Orally Once a day for 30 day(s) Active Lisinopril 2.5 MG 1 tablet Orally Once a day Active Toujeo SoloStar 300 UNIT/ML as directed Subcutaneous once a day Active Pioglitazone HCl 30 MG 1 tablet Orally O nce a day for 30 day(s) Active Acarbose 25 MG Oral for 90 Act austyn Tamsulosin HCl 0.4 MG 1 capsule Orally O nce a day for 30 day(s) Active Dulcolax (colon prep) 5 MG take at 3:00 p.m and 7:00p.m. Orally two tablets twice a day for one day for 1 day 06/24/2022 Active Vitamin D 1000 UNIT 1 tablet Orally Once a day Active MiraLax (colon prep) 8.3 ounce ((238) grams mixed with Gatorade or Crystal Light orally begin at 5:00 p.m. the day before the procedure for 1 day 06/24/2022 Active Incruse Ellipta 62.5 MCG/INH 2 puff Inhalation Once a day Active MiraLax (colon prep) 17 GM/SCOOP 1 238gm bottle mixed with gatorade or crystal light Orally begin at 5:00 p.m. the day before the procedure for 1 day 06/24/2022 Active Wixela Inhub 250-50 MCG/DOSE 1 puff Inhalation Twice a day Active Dulcolax (colon prep) 5 MG take at 3:00 p.m and 7:00p.m. Orally two tablets twice a day for one day for 1 day 06/24/2022 Active Albuterol Sulfate HFA 108 (90 Base) MCG/ACT 1 puff as needed Inhalation every 6 hrs Active Omeprazole 20 MG TAKE 1 CAPSULE BY [facility] EVERY MORNING for 30 Active Atorvastatin Calcium 20 MG 1 tablet Oral ly Once a day for 30 day(s) Active Sertraline HCl 50 MG 1 tablet Orally Onc e a day for 30 day(s) Active Repaglinide 0.5 MG 1 tablet 15 to 30 mi nutes before meals Orally three x a day Active Immunizations Vaccine Route Administration Date Status Comme nts Influenza Unknown 08/16/2018 Administered Influenza Unknown 11/05/2019 Administered Influenza Unknown 09/14/2021 Administered Influenza Unknown 01/08/2025 Refused Social History Tobacco [...] Problem Status W/U Status Risk Notes Problem 045163595 Encounter for screening for malignant neoplasm of colon (Z12.11) Active confirmed Problem 442827309 History of adenomatous polyp of colon (Z86.010) Active confirmed Problem History of polyp of colon (situation) (704339844) Personal history of colonic polyps (Z86.010) Active confirmed Problem Diverticular disease of colon (622922911) Diverticulosis of large intestine without perforation or abscess without bleeding (K57.30) Active confirmed Problem Anorexia (36428087) Anorexia (R63.0) Active confirmed Problem Acute gastric ulcer without hemorrhage, without perforation AND without obstruction (96808792) Gastric ulcer without hemorrhage or perforation, acute (K25.3) Active confirmed Problem 117898416 Preprocedural examination (Z01.818) Active confirmed Problem 531337304 Aspirin long-ter m use (Z79.82) Active confirmed Problem 301025226 Gastroesophageal reflux disease, esophagitis presence not specified (K21.9) Active confirmed Problem Hiatal hernia (69657484) Hiatal hernia (K44.9) Active confirmed Problem 03445944 Gastroenteritis (K52.9) Active confirmed Problem 307274494 Abnormal CT scan , stomach (R93.3) Active confirmed Problem Esophageal reflux finding (372688283) Gastroesophageal reflux (K21.9) Active confirmed Vital Signs Temperature 97.7 degrees Fahrenheit 01/08/2025 Blood pressure diastolic 01 mm Hg 01/08/2025 Height 67 in 01/08/2025 Blood pressure systolic 001 mm Hg 01/08/2025 Weight 163.8 lbs 01/08/2025 BMI 25.65 kg/m2 01/08/2025 Encounters Encounter Location Date Provider Diagnosis [facility] [address] [place] [phone] 01/08/2025 Favian Delgado Encounter for screen ing for malignant neoplasm of colon Z12.11 ; Anorexia R63.0 ; History of adenomatous polyp of colon Z86.010 and Gastroesophageal reflux disease, esophagitis presence not specified K21.9 [facility] [address] [place] [phone] 08/23/2024 Favian Delgado Assessments Encounter Date Diagnosis (ICD Code) Assessment [...] to discuss things with you and his ribbon lapper tender in regard to getting better control of [...] to discuss things with you and his ribbon lapper tender in regard to getting better control of [...] to discuss things with you and his ribbon lapper tender in regard to getting better control of [...] to discuss things with you and his ribbon lapper tender in regard to getting better control of [...] assistance in the future. Plan Of Treatment Future Test Test Name Order Date COLONOSCOPY 01/20/2012 COLONOSCOPY 05/04/2017 UPPER GI ENDOSCOPY 07/09/2019 UPPER GI ENDOSCOPY 06/24/2022 COLONOSCOPY 06/24/2022 Insurance Providers Payer Name Payer Address Payer Phone Subscriber Number Group Number Insured Name Patient Relationship to Insured Coverage Start Date Coverage End Date [facility] [address] [place] [address] [id number] LINA CHONG Self - patient is the insured Medical (General) History Medical History History ICD Code HTN Hyperlipidemia Emphysema Denies [place], CVA, renal disease Prostate cancer IDDM Colonoscopy in 02/2012--1 sma ll tubular adenoma, diverticulosis, internal hemorrhoids; colonoscopy in 06/2017 with only a hyperplastic polyp EGD in 06/2019 with a small g astric ulcer and erosive gastritis while on aspirin--gastric biopsies neg. for Hpylori, no esophagitis, no Haskins's, small hiatal hernia back pain Screening colonoscopy in September 2022 Upper endoscopy in September 2022 revealed a small hiatal hernia, minimal gastritis, and biopsies negative for Haskins's esophagus and H. pylori Surgical History Surgery Date(Month/Year) Tonsillectomy Prostatectomy Hernia
== END 2025-01-31 12:22 | disposition home or self-care (01) ==
LOC: HO.HOS 11:53
PROVIDERS: PCP Internal Medicine; Visit Provider Physical Medicine & Rehabilitation
DX: M48.062 Spinal stenosis, lumbar region with neurogenic claudication (principal); M47.816 Spondylosis without myelopathy or radiculopathy, lumbar region
CPT/HCPCS: 99213

== ENCOUNTER → 2025-01-31 11:53 | Outpatient (BNVA) | payer OTHER, SELFPAY | PROVIDERS: PCP Internal Medicine; Visit Provider Physical Medicine & Rehabilitation | DX: E11.42 Type 2 diabetes mellitus with diabetic polyneuropathy (principal); E11.69 Type 2 diabetes mellitus with other specified complication; N52.1 Erectile dysfunction due to diseases classified elsewhere; E55.9 Vitamin D deficiency, unspecified; B35.3 Tinea pedis; E78.5 Hyperlipidemia, unspecified; M48.062 Spinal stenosis, lumbar region with neurogenic claudication; M47.816 Spondylosis without myelopathy or radiculopathy, lumbar region; Z79.4 Long term (current) use of insulin | CPT/HCPCS: 82947; 83036; 99212 ==

== ENCOUNTER 2025-01-31 12:19 | Outpatient (AMB) | payer OTHER, SELFPAY ==
--- NOTE | 2025-01-31 12:31 | MHC.OFFVIS ---
Vital Signs 01/31/25 12:39 Height 5 ft 9 in Weight 164 lb 0.383 oz BMI 24.2 BP 110/62 Blood Pressure Location Lt brachial Position Sitting Pulse 91 Pulse Source Pulse Oximeter Pulse Oximetry (%) 93 Oxygen Delivery Method Room Air Intake Visit Reasons: dm f.u Intake Note: Patient present today to follow up on Type 2 Diabetes Mellitus. Last Diabetic Eye exam: 12/16/2024 Last Podiatry Visit: Does not see a Cellar Pumper Random Glucose:172 mg/dl HgA1C: DUE Accompanied by: Spouse Allergies cortisone [CORTISONE] Allergy (Severe, Verified 01/31/25 12:40) ANAPHYLAXIS cephalexin Allergy (Unknown, Verified 01/31/25 12:40) unknown lisinopril Adverse Reaction (Intermediate, Verified 01/31/25 12:40) hypotension Medication List - Last Reconciled 01/31/25 by Charo Awad PA-C albuterol sulfate 90 mcg/actuation 2 puffs PO Q4-6H PRN alcohol swabs (BD Alcohol Swabs) 1 pad topical QID atorvastatin 20 mg PO DAILY blood-glucose sensor (DexPriceonomics G7 Sensor device) USE DIRECTED EVERY 10 DAYS cholecalciferol (vitamin D3) 50 mcg PO DAILY clotrimazole 1% 1 appl topical BID 4 weeks fluticasone propion-salmeterol 250-50 mcg/dose 1 ea PO Q12H glucagon 3 mg/actuation (Baqsimi) 3 mg intranasal ONCE 30 days insulin glargine U-300 conc (Toujeo Max U-300 SoloStar) 18 units (0.06 mL) subcut BEDTIME miconazole nitrate 2% (Zeasorb AF) 1 appl topical BID Novolog FlexPen U-100 Insulin (insulin aspart U-100) 8 units (0.08 mL) subcut TID NS Oxygen Home Use As directedO2 2L NC pen needle, diabetic (BD Tierra 2nd Gen Pen Needle) 1 ea miscellaneous .4X/day sertraline 50 mg PO DAILY 90 days tadalafil (Cialis) 5 mg PO DAILY 90 days tadalafil (Cialis) 20 mg PO DAILY PRN 90 days HPI HPI dm f.u: Details: Patient is a 65-year-old male with a significant past medical history of COPD, prostate cancer, hyperlipidemia, kidney stones, type 2 diabetes, insulin dependent, erectile dysfunction due to diabetes and vitamin-D deficiency presenting today for a follow-up regarding his diabetes. Beveler Ben: [id number] understands and speaks some Icelandic. Significant other present with him to translate Endo: A1c 7.5 today. This is improved from his 8.9. Meds- Toujeo 14 units, Novolog 6 units with meals (usually just twice a day). stopped Tradjenta 5 mg. Intolerant of metformin due to diarrhea, Jardiance due to urinary frequency and Trulicity due to undesired weight loss. Pioglitzone stopped due to edema, ozempic is causing GI upset with n/v CGM average blood sugar 160, GMI 7.1%, glucose variability 40%., very high 3%, high 25%, within range 72%, 1% lows -he will sometimes get hypoglycemia in the evening if he did not eat a lot for dinner. He states that his hypoglycemia events since last adjusting his insulin has been a lot better. He states it is now rare. He has been eating less and has follow up with GI on 08/23 for his weight loss CV: No on an CLAUDIA inhibitor. Blood pressure today in the office is 130/64. Cholesterol is managed with atorvastatin 20 mg. Last LDL was 72 and at goal. LFTs WNL. [facility] Medical History Personal history of nicotine dependence Hypoxemia COPD exacerbation Allergic rhinitis Type 2 diabetes mellitus with diabetic polyneuropathy Tinnitus Anxiety and depression Peptic ulcer disease Renal calculus, right Tubular adenoma of colon DDD (degenerative disc disease), lumbar Depression Prostate cancer COPD (chronic obstructive pulmonary disease) CAP (community acquired pneumonia) Gastric ulcer Hernia Kidney stones History of prostate cancer Erectile dysfunction Insulin use (long-term) in type 2 diabetes Hyperlipidemia LDL goal <100 Vitamin D insufficiency Surgical History History of cataract surgery History of foot surgery History of inguinal hernia repair Hx of tonsillectomy Hx of prostatectomy Family History Father Diabetes Mother No problems noted. Son Diabetes Maternal Uncle Prostate cancer Paternal Grandfather Myocardial infarction Maternal Grandmother No problems noted. Maternal Aunt Esophageal cancer Maternal Grandfather Myocardial infarction Social History Household Members: Spouse Housing: Apartment Alcohol intake: current Alcohol intake frequency: a few times a month Patient Tobacco Use Status: Former Tobacco user Tobacco use type: Cigarette e-Cigarette/Vaping Use: Never Used Second Hand Smoke Exposure: Yes Substance Use Type: Former Substance User and Marijuana service: No Current occupational status: disabled Current occupation: rt handed Cognitive needs: Yes (cane) Hearing needs: Yes (hearing aide) Vision needs: Yes Physical Exam Const Orientation/consciousness: patient oriented x3 HEENT Ears: hearing grossly normal bilaterally Neck Neck: Yes no lymphadenopathy Thyroid: Thyroid normal Carotids: no bruits Lymphatic: no lymphadenopathy noted Resp Auscultation: clear to auscultation bilaterally Cardio Rate: regular rate Rhythm: regular rhythm Heart sounds: S1 normal heart sound present and S2 normal heart sound present Peripheral pulses: dorsalis pedis present Skin General skin exam: no rashes or lesions noted Neuro General: patient oriented x3, gait normal and no focal motor deficits Extrem Other: Monofilament sensation intact bilaterally. Vibratory sensation intact bilaterally. Skin intact. General: Yes normal to inspection Results Reviewed Results Reviewed: Laboratory Tests 04/24/24 11/01/24 08:45 13:49 Hgb A1c (Clinic) 8.2 H Urine Creatinine 176.14 Urine Microalbumin 40.0 Microalb/Creat Ratio 22.7 Assessment & Plan Assessment & Plan (1) Type 2 diabetes mellitus with diabetic polyneuropathy: Code(s): E11.42 - Type 2 diabetes mellitus with diabetic polyneuropathy Category: Medical Qualifiers: Diabetes mellitus nursing home insulin use: with rat exterminator use Qualified Code(s): E11.42 - Type 2 diabetes mellitus with diabetic polyneuropathy; Z79.4 - buttermaker helper (current) use of insulin Plan: We will increase Toujeo to 18 units Decrease NovoLog to 4-6 units with meals. Reviewed signs and symptoms of hyper and hypoglycemia that would require emergent medical treatment. He will follow up in 3 months and complete labs prior to appointment. (2) Tinea pedis: Code(s): B35.3 - Tinea pedis Category: Medical Plan: Improved with clotrimazole. Applying this regularly. (3) Hyperlipidemia LDL goal <100: Code(s): E78.5 - Hyperlipidemia, unspecified Category: Medical Plan: Continue on atorvastatin 20 mg Medications: Changed From Novolog FlexPen U-100 Insulin (insulin aspart U-100) with breakfast, lunch, and supper 8 units (0.08 mL) subcut TID 15 mL 5RF NS To Novolog FlexPen U-100 Insulin (insulin aspart U-100) with breakfast, lunch, and supper 4 units (0.04 mL) subcut TID 15 mL 5RF NS Patient Instructions: toujeo 18 units at bedtime reduce novolog to 4-6 units with meals labs prior to next appointment Coding Level of Care Code Est Pt Level 4 (44383) Complex EM visit Add On G2211 Diagnoses Type 2 diabetes mellitus with diabetic polyneuropathy, with long-term current use of insulin E11.42; Z79.4 Diabetes mellitus nursing home insulin use: with rat exterminator use Tinea pedis B35.3 Hyperlipidemia LDL goal <100 E78.5
[2025-01-31 12:39] VITALS: BP 110/62; PULSE 91; O2SAT 93; BMI 24.2
[2025-01-31 12:55] LABS: Glucose, Whole Blood 172 mg/dL (60-115)
== END 2025-01-31 13:08 | disposition home or self-care (01) ==
LOC: HO.ENCR 12:20
PROVIDERS: PCP Internal Medicine; Visit Provider Physician Assistant
DX: E11.42 Type 2 diabetes mellitus with diabetic polyneuropathy (principal); Z79.4 Long term (current) use of insulin; B35.3 Tinea pedis; E78.5 Hyperlipidemia, unspecified

== ENCOUNTER 2025-02-24 09:45 | Outpatient (REF) | payer OTHER, SELFPAY ==
--- OUTSIDE RECORDS SUMMARY | 2025-02-24 10:54 | XMS_ITS ---
Author Organization [facility] Address [address] [place] [address] Care Team Providers Care Associate Professor Of Economics Name Role Phone Margarito Anton MD Primary Care Provider Favian Groves [phone] REASON FOR VISIT Pt no show Encounters Encounter Location Date Provider Diagnosis [facility] [address] [place] [address] 08/23/2024 Favian Delgado Plan Of Treatment No Information Progress Notes * CASTILLO OSBALDOOB:1960 (64 yo M)Acc No.[id number]:08/23/2024 Patient:?LINA CHONG :1960???Age:64 Y???Sex:Male Address:[address] [place] [address], [address] * true * Date:? Generated for John palacios/Radha/eTransmitting on:?02/24/2025 10:54 AM EDT
--- OUTSIDE RECORDS SUMMARY | 2025-02-24 10:54 | XMS_ITS | Clinical Summary ---
Author Organization [facility] Address [address] [facility] [address] [place] [address] Care Team Providers Care Jig And Fixture Maker Name Role Phone Unavailable Primary Care [...] patient's age to complete this topic Insurance [id number] CARE < 65 [place] [id number]
--- OUTSIDE RECORDS SUMMARY | 2025-02-24 10:55 | XMS_ITS ---
Author Organization [facility] Address [address] [place] [address] Care Team Providers Care Healthcare Technician Name Role Phone Margarito Anton MD Primary Care Provider Favian Groves [phone] Allergies Allergen (clinical drug ingredient) Drug/Non Drug Allergy documented on EMR Reaction Allergy Type Onset Date Status Cortisone Unknown Drug Allergy Active REASON FOR VISIT Patient presents today for abnormal immunological findings in serum Medications Medication SIG (Take, Route, Frequency, Duration) Notes Start Date End Date Status Omeprazole 20 MG TAKE 1 CAPSULE [facility] M[facility] for 30 Active Lisinopril 2.5 [...] Status W/U Status Risk Notes Problem Anorexia (49720017) Anorexia (R63.0) Active confirmed Vital Signs Temperature 97.7 degrees Fahrenheit 01/09/20 25 Blood pressure systolic 001 mm Hg 01/09/20 25 Blood pressure diastolic 01 mm Hg 025 Height 67 in 01/08/2025 Weight 163.8 lbs 01/08/2025 BMI 25.65 kg/m2 01/08/2025 Encounters Encounter Location Date Provider Diagnosis [facility] [address] [place] [address] 01/08/2025 Favian Delgado Encounter for screen ing [...] to discuss things with you and his miller supervisor in regard to getting better control of [...] again for allowing me to participate in iLna's care. I shall continue to keep you [...] to discuss things with you and his miller supervisor in regard to getting better control of [...] to discuss things with you and his miller supervisor in regard to getting better control of [...] to discuss things with you and his miller supervisor in regard to getting better control of [...] Notes * ABDIRASHID CHONGSDOB:1960 (64 yo M)Acc No.[id number]:01/08/2025 Progress Notes Patient:?LINA CHONG Provider:?Favian Delgado MD :1960???Age:64 Y???Sex:Male Néstor e:01/08/2025 Address:[address] [place], [place] [phone] Pcp:Margarito Anton MD Subjective: * Chief Complaints: [...] to discuss things with you and his miller supervisor in regard to getting better control of [...] Procedure Codes:?3017F COLOR ECTAL CA SCREEN DOC [id number] TOBACCO [id number] BP SCR NOT PRFRM REC REASON NOS [...] MD Date:? 025 Generated for Printi ng/Fadeloresg/eTransmitting on:?02/24/2025 10:54 AM EDT History and Physical Notes * Examination [...]
[2025-02-24 14:19] LABS: Prostate Specific Antigen < 0.10 ng/mL (<0.05-4.0)
== END 2025-02-24 09:46 | disposition home or self-care (01) ==
LOC: HO.LAB 09:45
PROVIDERS: PCP Internal Medicine; Visit Provider Nurse Practitioner Family
DX: N52.01 Erectile dysfunction due to arterial insufficiency (principal); C61 Malignant neoplasm of prostate; Z12.5 Encounter for screening for malignant neoplasm of prostate
CPT/HCPCS: 36415; 84153

== ENCOUNTER 2025-02-26 10:08 | Outpatient (AMB) | payer OTHER, SELFPAY ==
--- NOTE | 2025-02-26 10:30 | MHC.OFFVIS ---
Intake Visit Reasons: 6m/PSA Intake Note: Patient presents today follow up on: erectile dysfunction, prostate cancer, and psa lab results PSA: <0.10 Urology Medication: Tadalafil Antibiotic Allergies: Cephalexin Blood Thinners: None Mental Health Professional Required: No Accompanied by: Self / Same As Patient Allergies cortisone [CORTISONE] Allergy (Severe, Verified 02/26/25 11:14) ANAPHYLAXIS cephalexin Allergy (Unknown, Verified 02/26/25 11:14) unknown lisinopril Adverse Reaction (Intermediate, Verified 02/26/25 11:14) hypotension Medication List - Last Reconciled 02/26/25 by HOWIE Durham albuterol sulfate 90 mcg/actuation 2 puffs PO Q4-6H PRN alcohol swabs (BD Alcohol Swabs) 1 pad topical QID atorvastatin 20 mg PO DAILY blood-glucose sensor (Dexcom G7 Sensor device) USE DIRECTED EVERY 10 DAYS cholecalciferol (vitamin D3) 50 mcg PO DAILY clotrimazole 1% 1 appl topical BID 4 weeks fluticasone propion-salmeterol 250-50 mcg/dose 1 ea PO Q12H glucagon 3 mg/actuation (Baqsimi) 3 mg intranasal ONCE 30 days insulin glargine U-300 conc (Toujeo Max U-300 SoloStar) 18 units (0.06 mL) subcut BEDTIME miconazole nitrate 2% (Zeasorb AF) 1 appl topical BID Novolog FlexPen U-100 Insulin (insulin aspart U-100) 4 units (0.04 mL) subcut TID NS Oxygen Home Use As directedO2 2L NC pen needle, diabetic 1 ea miscellaneous .4X/day sertraline 50 mg PO DAILY 90 days sildenafil (Viagra) 100 mg PO DAILY PRN 30 days tadalafil (Cialis) 5 mg PO DAILY 90 days HPI Comments Details: Carroll is a pleasant 65-year-old male patient of Dr. Anton who was accompanied by his significant other at today's office visit. He has a past medical history of COPD, nicotine dependence, allergic rhinitis, type 2 diabetes with diabetic polyneuropathy, tinnitus, anxiety, depression, peptic ulcer disease, nephrolithiasis, degenerative disc disease, prostate cancer, COPD, ED, vitamin-D deficiency, and hyperlipidemia. He presents to the office today for follow-up of his nephrolithiasis, lower urinary tract symptoms, erectile dysfunction, and prostate cancer. In discussion with the patient today he reports to be doing and feeling well. He reports since his last office visit here approximately 6 months ago he has not had no bothersome urinary issues. He does however continues to report difficulty obtaining and maintaining his erections despite daily dosing of tadalafil with p.r.n. dosing of tadalafil. He is enquiring switch back to Viagra. We discussed at length potential causes of ED as well as further treatment options and risks and benefits of these treatment options. In office urinalysis results reviewed with the patient today. Recent PSA results reviewed with the patient today as noted and trended below. When asked he denies urinary urgency, urinary frequency, incontinence, nocturia, hematuria, dysuria, foul smelling urine, changes to urinary stream, flank pain, fever, and or chills. He otherwise offers no other issues or concerns at this time. A1c's: 11/15 6.7, 05/15 7.4, 08/15 8.9, 11/16 8.2, 02/14 7.5 PREVIOUS HISTORY Prostate cancer - prior external radiation 2004 PSA 07/12 <0.1, 11/13 <0.1, 04/13 <0.1, 03/15 <0.1, 07/16 ,0.10, 03/16 <0.10 Bladder emptying Minimal issues with urination Continue with surveillance Plan Management of erectile dysfunction will entail transitioning from Cialis to Viagra as per patient preference due to more favorable past results. Additionally, penile injections or prostheses were discussed as potential future options should oral medications prove inadequate. We also discussed at length lifestyle modifications as well as penile pumps in rings. Prostate health remains stable as PSA continues undetectable, requiring no adjustment in care at present. The patient was informed of all discussed treatment benefits, risks, and alternatives, agreeing to follow through as needed. Patient was informed and verbally consented to the use of an ambient scribe for clinic note documentation during this visit. Discussion Notes I discussed with the patient the transition from Cialis to Viagra for erectile dysfunction management due to a more favorable response with Viagra in the past. Options such as penile injections and prosthetic devices for future treatment were on the agenda, explaining their benefits, risks, and procedural details. Consent about these options was obtained. I also reviewed his stable PSA level, indicating no current need for further intervention. Follow-ups were planned based on the patient's response to treatment changes. [facility] Medical History Personal history of nicotine dependence Hypoxemia COPD exacerbation Allergic rhinitis Type 2 diabetes mellitus with diabetic polyneuropathy Tinnitus Anxiety and depression Peptic ulcer disease Renal calculus, right Tubular adenoma of colon DDD (degenerative disc disease), lumbar Depression Prostate cancer COPD (chronic obstructive pulmonary disease) CAP (community acquired pneumonia) Gastric ulcer Hernia Kidney stones History of prostate cancer Erectile dysfunction Insulin use (long-term) in type 2 diabetes Hyperlipidemia LDL goal <100 Vitamin D insufficiency Surgical History History of cataract surgery History of foot surgery History of inguinal hernia repair Hx of tonsillectomy Hx of prostatectomy Family History Father Diabetes Mother No problems noted. Son Diabetes Maternal Uncle Prostate cancer Paternal Grandfather Myocardial infarction Maternal Grandmother No problems noted. Maternal Aunt Esophageal cancer Maternal Grandfather Myocardial infarction Social History Household Members: Spouse Housing: Apartment Alcohol intake: current Alcohol intake frequency: a few times a month Patient Tobacco Use Status: Former Tobacco user Tobacco use type: Cigarette e-Cigarette/Vaping Use: Never Used Second Hand Smoke Exposure: Yes Substance Use Type: Former Substance User and Marijuana service: No Current occupational status: disabled Current occupation: rt handed Cognitive needs: Yes (cane) Hearing needs: Yes (hearing aide) Vision needs: Yes Review of Systems Const Reports no additional complaints Eyes Reports no additional complaints ENT Reports no additional complaints Card Reports as per HPI Resp Reports as per HPI GI Reports as per HPI Reports as per HPI Musc Reports as per HPI Neuro Reports as per HPI Psych Reports as per HPI Endo Reports as per HPI Andrés/Lymph Reports no additional complaints Aller/Immun Reports no additional complaints Physical Exam Const General: cooperative, healthy appearing, comfortable, no acute distress, well developed, alert and awake Orientation/consciousness: patient oriented x3 Limitations: ambulation with cane HEENT Head: Yes normal to inspection, Yes normocephalic and Yes atraumatic Ears: hearing grossly normal bilaterally Eyes General: appearance normal, both eyes and all related structures Neck Neck: Yes normal visual inspection and Yes trachea midline Chest Chest palpation & inspection: normal inspection of the chest Resp Effort & Inspection: normal respiratory effort and able to speak in complete sentences Cardio Rate: regular rate GI Inspection: Yes normal to inspection General: Yes no CVA tenderness Back/Spine/Pelvis Back: no CVA tenderness Skin General skin exam: no rashes or lesions noted Neuro General: patient oriented x3 Extrem General: Yes normal to inspection Psych Appearance: grossly normal and well kempt Mental Status: mental status grossly normal Speech and movement: Normal speech and movement present and Clear speech present Affect: normal affect Attitude: cooperative Thought process: Normal thought process present Thought content: Normal thought content present Insight: Fair insight present (Psych) Judgement: Fair judgement present (Psych) Results AMB Urinalysis, Automated UA Leukoctes 0 Elpidio/uL Last Edit by [employer] on 02/26/25 10:37 UA Nitrite Last Edit by [employer] on 02/26/25 10:37 UA Urobilinogen 0.2 mg/dL Last Edit by [employer] on 02/26/25 10:37 UA Protein 0 mg/dL Last Edit by [employer] on 02/26/25 10:37 UA pH 6.0 Last Edit by [employer] on 02/26/25 10:37 UA Blood 10 Marco Antonio/uL Last Edit by [employer] on 02/26/25 10:37 UA Specific Rio 1.015 Last Edit by [employer] on 02/26/25 10:37 UA Ketone Last Edit by [employer] on 02/26/25 10:37 UA Bilirubin 0 mg/dL Last Edit by [employer] on 02/26/25 10:37 UA Glucose 0 mg/dL Last Edit by [employer] on 02/26/25 10:37 Results Reviewed Results Reviewed: Laboratory Last Values Urine pH (Auto) 6.0 02/26/25 10:36 Specific Rio (Auto) 1.015 02/26/25 10:36 Urine Protein (Auto) 0 mg/dL 02/26/25 10:36 Glucose (UA)(Auto) 0 mg/dL 02/26/25 10:36 Urine Blood (Auto) 10 Marco Antonio/uL 02/26/25 10:36 Urine Bilirubin (Auto) 0 mg/dL 02/26/25 10:36 Urine Urobilinogen (Auto) 0.2 mg/dL 02/26/25 10:36 Leukocyte Esterase (Auto) 0 Elpidio/uL 02/26/25 10:36 Assessment & Plan Assessment & Plan (1) Personal history of nicotine dependence: Comment: (quit 07/2023) Code(s): Z87.891 - Personal history of nicotine dependence Category: Medical (2) Erectile dysfunction associated with type 2 diabetes mellitus: Code(s): E11.69 - Type 2 diabetes mellitus with other specified complication; N52.1 - Erectile dysfunction due to diseases classified elsewhere Category: Medical (3) Prostate cancer: Comment: 2004 Code(s): C61 - Malignant neoplasm of prostate Category: Medical (4) Kidney stones: Code(s): N20.0 - Calculus of kidney Category: Medical Plan In office urinalysis results reviewed with the patient today; as noted above; will send for urine cytology. Recent PSA results reviewed with the patient today; as noted above. Patient currently denies any bothersome urinary issues. He reports be happy with current voiding parameters. Will continue with surveillance monitoring of prostate cancer. We discussed potential causes of ED as well as further treatment options and risks and benefits of these treatment options. We discussed importance of management and diabetes as well as smoking cessation for improvement in ED as well as overall health and well-being. Continue 5 mg of Cialis daily. Stop p.r.n. dosing of Cialis. Prescription provided for p.r.n. dosing of Viagra Follow-up in 6 months; or sooner with any issues, concerns, and or questions. Orders: Orders AMB Urinalysis Automated Today Z13.9 - Encounter for screening, unspecified Urine Cytology Today Z87.891 - Personal history of nicotine dependence Medications: New sildenafil (Viagra) administer 30 minutes to 4 hours before activity [id number] [facility] [id number] Member [id number] 100 mg PO DAILY PRN 14 tabs 6RF sexual activity 30 days Refilled tadalafil (Cialis) [id number] [facility] [id number] Member [id number] 5 mg PO DAILY 90 tabs 3RF 90 days Discontinued tadalafil (Cialis) administer approximately 30min before sexual activity; do not use more than 1 dose per 24hrs [id number] [facility] [id number] Member [id number] Discontinued Reason: Doctor's Order 20 mg PO DAILY 90 days PRN 45 tabs 0RF sexual activity Patient Instructions: The patient had an opportunity to ask questions regarding the treatment plan. All questions were answered. Physical exam, labs, and imaging were discussed and reviewed in detail. As well as risks, benefits, and discussion of treatment choices. No major barriers to understanding were identified. The patient expressed understanding and agreement with the above treatment plan. The patient was made aware they should contact our office by phone for worsening of their current condition, the appearance of new symptoms, or with any questions or concerns. Compliance is encouraged with any medications and follow up testing that is ordered. It is a privilege to be allowed the opportunity to participate in? your urological care.? Again, if you have any questions or concerns If you have any questions or concerns please do not hesitate to contact me. The office is [phone]. This note is constructed using voice recognition software. While every effort has been made to ensure accuracy dock grader errors may have been included. Yours sincerely, HOWIE Durham Coding Level of Care Code Est Pt Level 4 (60428) Complex EM visit Add On G2211 Diagnoses Personal history of nicotine dependence Z87.891 Erectile dysfunction associated with type 2 diabetes mellitus E11.69; N52.1 Prostate cancer C61 Kidney stones N20.0
--- OUTSIDE RECORDS SUMMARY | 2025-02-26 11:22 | XMS_ITS ---
Author Organization [facility] Address [address] [place] [address] Care Team Providers Care Municipal Maintenance Worker Name Role Phone Margarito Anton MD Primary Care Provider Favian Groves [phone] REASON FOR VISIT Pt no show Encounters Encounter Location Date Provider Diagnosis [facility] [address] [place] [address] 08/23/2024 Favian Delgado Plan Of Treatment No Information Progress Notes * CASTILLO OSBALDOOB:1960 (64 yo M)Acc No.[id number]:08/23/2024 Patient:?LINA CHONG :1960???Age:64 Y???Sex:Male Address:[address] [place] [address], [address] * true * Date:? Generated for John palacios/Radha/eTransmitting on:?02/26/2025 11:22 AM EDT
--- OUTSIDE RECORDS SUMMARY | 2025-02-26 11:22 | XMS_ITS ---
Author Organization [facility] Address [address] [place] [address] Care Team Providers Care Exchange Consultant Name Role Phone Margarito Anton MD Primary Care Provider Favian Groves [phone] Allergies Allergen (clinical drug ingredient) Drug/Non Drug Allergy documented on EMR Reaction Allergy Type Onset Date Status Cortisone Unknown Drug Allergy Active REASON FOR VISIT Patient presents today for abnormal immunological findings in serum Medications Medication SIG (Take, Route, Frequency, Duration) Notes Start Date End Date Status Omeprazole 20 MG TAKE 1 CAPSULE BY [facility] EVERY MORNING for 30 Active Lisinopril 2.5 [...] Status W/U Status Risk Notes Problem Anorexia (R63.0) Active confirmed Vital Signs Temperature 97.7 degrees Fahrenheit 01/09/20 25 Blood pressure systolic 001 mm Hg 01/09/20 25 Blood pressure diastolic 01 mm Hg 025 Height 67 in 01/08/2025 Weight 163.8 lbs 01/08/2025 BMI 25.65 kg/m2 01/08/2025 Encounters Encounter Location Date Provider Diagnosis [facility] [address] [place] [address] 01/08/2025 Favian Delgado Encounter for screen ing [...] to discuss things with you and his event marketing assistant in regard to getting better control of [...] to discuss things with you and his event marketing assistant in regard to getting better control of [...] to discuss things with you and his event marketing assistant in regard to getting better control of [...] to discuss things with you and his event marketing assistant in regard to getting better control of [...] Notes * ABDIRASHID CHONGSDOB:1960 (64 yo M)Acc No.[id number]:01/08/2025 Progress Notes Patient:?LINA CHONG Provider:?Favian Delgado MD :1960???Age:64 Y???Sex:Male Néstor e:01/08/2025 Address:[address] [place] [address] Pcp:Margarito Anton MD Subjective: * Chief Complaints: [...] Tablet 1 tablet Orally Once a day Toujegregorio SoloStar 300 UNIT/ML Solution Pen-injector as directed [...] 1 tablet Orally Once a day Taking Tousophia SoloStar 300 UNIT/ML Solution Pen-injector as directed [...] to discuss things with you and his event marketing assistant in regard to getting better control of [...] Procedure Codes:?3017F COLOR ECTAL CA SCREEN DOC GHE1180P TOBACCO NON-DOOIZ2026 BP SCR NOT PRFRM REC REASON NOS * Preventive Medicine:? ??Counseling:?Care goal follow-up plan:?Above Normal BMI Follow-up?Dietary management education, guidance, and counseling,?BMI management provided?Yes.? ??Screenings:?Fall Risk Screening?Fall Risk Assessment:?No falls in the past year,?Screening:?No falls in the past year,?Assessment:?Not performed, no reason specified,?Plan of Care:?Not documented, no reason specified.? * Follow Up:?prn * * Sign off status: Completed true * Provider:?Favain Delgado MD Date:? 025 Generated for Megani philip/Radha/eTransmitting on:?02/26/2025 11:22 AM EDT History and Physical Notes * [...]
--- OUTSIDE RECORDS SUMMARY | 2025-02-26 11:22 | XMS_ITS | Clinical Summary ---
Author Organization [employer] Address [address] [place] [address] 7 [place] [address] Care Team Providers Care Crop Consultant Name Role Phone Unavailable Primary Care Provider [...] patient's age to complete this topic Insurance [facility] ONE CARE < 65 [place] [id number]
--- OUTSIDE RECORDS SUMMARY | 2025-02-26 11:23 | XMS_ITS | Patient Health Record ---
Author Organization [facility] Address [address] [place] [address] Care Team Providers Care Cash Register Balancer Name Role Phone Margarito Anton MD Primary Care Provider Favian Groves [phone] Allergies Allergen (clinical drug ingredient) Drug/Non Drug [...] MG TAKE 1 CAPSULE BY [facility] EVERY MORNING for 30 Active Atorvastatin Calcium [...] Problem Status W/U Status Risk Notes Problem 972343126 Encounter for screening for malignant neoplasm of colon (Z12.11) Active confirmed Problem 078106812 History of adenomatous polyp of colon (Z86.010) Active confirmed Problem History of polyp of colon (situation) (212356859) Personal history of colonic polyps (Z86.010) Active confirmed Problem Diverticular disease of colon (033430341) Diverticulosis of large intestine without perforation or abscess without bleeding (K57.30) Active confirmed Problem Anorexia (85814426) Anorexia (R63.0) Active confirmed Problem Acute gastric ulcer without hemorrhage, without perforation AND without obstruction (52813304) Gastric ulcer without hemorrhage or perforation, acute (K25.3) Active confirmed Problem 592159163 Preprocedural examination (Z01.818) Active confirmed Problem 782330307 Aspirin long-ter m use (Z79.82) Active confirmed Problem 921922346 Gastroesophageal reflux disease, esophagitis presence not specified (K21.9) Active confirmed Problem Hiatal hernia (40356917) Hiatal hernia (K44.9) Active confirmed Problem 49537123 Gastroenteritis (K52.9) Active confirmed Problem 107038464 Abnormal CT scan , stomach (R93.3) Active confirmed Problem Esophageal reflux finding (294672549) Gastroesophageal reflux (K21.9) Active confirmed Vital Signs Temperature 97.7 degrees Fahrenheit 01/08/2025 Blood pressure diastolic 01 mm Hg 01/08/2025 Height 67 in 01/08/2025 Blood pressure systolic 001 mm Hg 01/08/2025 Weight 163.8 lbs 01/08/2025 BMI 25.65 kg/m2 01/08/2025 Encounters Encounter Location Date Provider Diagnosis [facility] [address] [place] [address] 01/08/2025 Favian Delgado Encounter for screen ing for malignant neoplasm of colon Z12.11 ; Anorexia R63.0 ; History of adenomatous polyp of colon Z86.010 and Gastroesophageal reflux disease, esophagitis presence not specified K21.9 [facility] [address] [place] [address] 08/23/2024 Favian Delgado Assessments Encounter Date Diagnosis [...] to discuss things with you and his material dispatcher in regard to getting better control of [...] to discuss things with you and his material dispatcher in regard to getting better control of [...] to discuss things with you and his material dispatcher in regard to getting better control of [...] to discuss things with you and his material dispatcher in regard to getting better control of [...] Insured Coverage Start Date Coverage End Date [facility] [address] [place] [address] [id number] LINA CHONG Self - patient is the insured Medical (General) History Medical History History ICD Code HTN Hyperlipidemia Emphysema Denies VT, CVA, renal disease Prostate cancer IDDM Colonoscopy [...]
--- OUTSIDE RECORDS SUMMARY | 2025-02-26 11:23 | XMS_ITS ---
Author Organization [facility] Address [address] [place] [address] Care Team Providers Care Product Safety Lead Name Role Phone Margarito Anton MD Primary Care Provider Favian Groves [phone] REASON FOR VISIT Patient presents today for [...] 20 MG TAKE 1 CAPSULE BY [facility] EVERY MORNING for 30 Active Dulcolax (colon [...] Provider Diagnosis [facility] [address] [facility] [address] [place] [address] 08/23/2024 Favian Delgado Plan Of Treatment No Information Progress Notes * ABDIRASHID CHONGSDOB:1960 (65 yo M)Acc No.[id number]:08/23/2024 Progress Notes Patient:?CASTILLO LINA Provider:?Favian Delgado MD :1960???Age:64 Y???Sex:Male Néstor e:08/23/2024 Address:[address] [place] [address] Pcp:Margarito Anton MD Subjective: * Chief Complaints: [...] MD Date:? 024 Generated for John palacios/Radha/Aris on:?02/26/2025 11:22 AM EDT
== END 2025-02-26 10:52 | disposition home or self-care (01) ==
LOC: HO.HUSH 10:09
PROVIDERS: PCP Internal Medicine; Visit Provider Nurse Practitioner Family
DX: Z87.891 Personal history of nicotine dependence (principal); E11.69 Type 2 diabetes mellitus with other specified complication; N52.1 Erectile dysfunction due to diseases classified elsewhere; C61 Malignant neoplasm of prostate; N20.0 Calculus of kidney; Z13.9 Encounter for screening, unspecified
CPT/HCPCS: 99214; G2211

== ENCOUNTER 2025-02-26 10:08 | Outpatient (REF) | payer OTHER, SELFPAY ==
--- OUTSIDE RECORDS SUMMARY | 2025-02-26 12:46 | XMS_ITS | Clinical Summary ---
Author Organization [employer] Address [address] [place] [address] 7 [place] [address] Care Team Providers Care Senior Data Scientist Name Role Phone Unavailable Primary Care Provider [...] patient's age to complete this topic Insurance [facility] ONE CARE < 65 [place] [id number]
[2025-02-26 16:44] LABS: Urine Cytology See Pathology rpt
== END 2025-02-26 10:09 | disposition home or self-care (01) ==
LOC: HO.LAB 10:08
PROVIDERS: PCP Internal Medicine; Visit Provider Nurse Practitioner Family
DX: C61 Malignant neoplasm of prostate (principal); E11.69 Type 2 diabetes mellitus with other specified complication; E11.42 Type 2 diabetes mellitus with diabetic polyneuropathy; N52.1 Erectile dysfunction due to diseases classified elsewhere; Z13.9 Encounter for screening, unspecified; Z87.891 Personal history of nicotine dependence; Z79.4 Long term (current) use of insulin
CPT/HCPCS: 81003; 88112; 99212

== ENCOUNTER 2025-03-20 13:12 | Outpatient (AMB) | payer OTHER, SELFPAY ==
--- OUTSIDE RECORDS SUMMARY | 2025-03-20 13:14 | XMS_ITS ---
Author Organization [facility] Address [address] [place] [address] Care Team Providers Care Light Armored Reconnaissance Officer Name Role Phone Margarito Anton MD Primary Care Provider Favian Groves [phone] REASON FOR VISIT Pt no show Encounters Encounter Location Date Provider Diagnosis [facility] [address] [place] [address] 08/23/2024 Favian Delgado Plan Of Treatment No Information Progress Notes * CASTILLO OSBALDOOB:1960 (64 yo M)Acc No.[id number]:08/23/2024 Patient:?LINA CHONG :1960???Age:64 Y???Sex:Male Address:[address] [place] [address], [address] * true * Date:? Generated for John palacios/Radha/eTransmitting on:?03/20/2025 01:14 PM EDT
--- NOTE | 2025-03-20 13:47 | MHC.AMDMED ---
Intake Intake Visit Reasons: 30 min Real Estate Accountant Required: Yes Real Estate Accountant Language: Supervisor Specialty Plant Services: Real Estate Accountant Offered & Declined Real Estate Accountant Name: Patient's spouse Accompanied by: Significant Other Allergies cortisone [CORTISONE] Allergy (Severe, Verified 02/26/25 11:14) ANAPHYLAXIS cephalexin Allergy (Unknown, Verified 02/26/25 11:14) unknown lisinopril Adverse Reaction (Intermediate, Verified 02/26/25 11:14) hypotension HPI Comprehensive Diabetes Asmnt Most Recent Diabetes Results: No Data to Display [facility] Medical History Personal history of nicotine dependence Hypoxemia COPD exacerbation Allergic rhinitis Type 2 diabetes mellitus with diabetic polyneuropathy Tinnitus Anxiety and depression Peptic ulcer disease Renal calculus, right Tubular adenoma of colon DDD (degenerative disc disease), lumbar Depression Prostate cancer COPD (chronic obstructive pulmonary disease) CAP (community acquired pneumonia) Gastric ulcer Hernia Kidney stones History of prostate cancer Erectile dysfunction Insulin use (long-term) in type 2 diabetes Hyperlipidemia LDL goal <100 Vitamin D insufficiency Surgical History History of cataract surgery History of foot surgery History of inguinal hernia repair Hx of tonsillectomy Hx of prostatectomy Family History Father Diabetes Mother No problems noted. Son Diabetes Maternal Uncle Prostate cancer Paternal Grandfather Myocardial infarction Maternal Grandmother No problems noted. Maternal Aunt Esophageal cancer Maternal Grandfather Myocardial infarction Social History Household Members: Spouse Housing: Apartment Alcohol intake: current Alcohol intake frequency: a few times a month Patient Tobacco Use Status: Former Tobacco user Tobacco use type: Cigarette e-Cigarette/Vaping Use: Never Used Second Hand Smoke Exposure: Yes Substance Use Type: Former Substance User and Marijuana service: No Current occupational status: disabled Current occupation: rt handed Cognitive needs: Yes (cane) Hearing needs: Yes (hearing aide) Vision needs: Yes Assessment & Plan Assessment & Plan (1) Insulin use (long-term) in type 2 diabetes: Code(s): E11.9 - Type 2 diabetes mellitus without complications; Z79.4 - terminal block assembler (current) use of insulin Qualifiers: Diabetes mellitus complication status: with hyperglycemia Qualified Code(s): E11.65 - Type 2 diabetes mellitus with hyperglycemia; Z79.4 - assisted (current) use of insulin Plan: Personal Continuous Glucose Monitor: Patients CGM information reviewed, Patient's last A1c on 02/14/2025 7.5% this is an improvement from A1c of 8.9% in October 2024 Patient denies episodes of hypoglycemia Overall patient glucose is well controlled, he continues to have postprandial spikes after meals. Although reports that he is eating much smaller portions. Patient does have red raw area on palm of left hand. He is waiting for appointment with Dermatology. Suggested to patient he contact office and let them know that he has diabetes and that the area is open and sometimes weeping Discussed with patient how people with diabetes can have harder time healing and are more prone to infection it is important that Humalog this information to dermatology office to prevent any infection Reviewed how to interpret trend arrows Reminded patient that to check finger sticks if symptoms do not match sensor reading. Discussed lag time between finger stick and sensor data.? Patient able to insert sensor independently at home without issue.? Portions of this note were created using voice recognition software, please excuse any words or phrases that may have been misinterpreted. Coding Level of Care Code Est Pt Level 1 (68674) Diagnoses Type 2 diabetes mellitus with hyperglycemia, with long-term current use of insulin E11.65; Z79.4 Diabetes mellitus complication status: with hyperglycemia
== END 2025-03-20 14:02 | disposition home or self-care (01) ==
LOC: HO.ENCR 13:12
PROVIDERS: PCP Internal Medicine; Visit Provider Registered Nurse Diabetes Educator
DX: E11.65 Type 2 diabetes mellitus with hyperglycemia (principal); Z79.4 Long term (current) use of insulin

== ENCOUNTER → 2025-03-20 13:12 | Outpatient (BNVA) | payer OTHER, SELFPAY | PROVIDERS: PCP Internal Medicine; Visit Provider Registered Nurse Diabetes Educator | DX: E11.65 Type 2 diabetes mellitus with hyperglycemia (principal); Z79.4 Long term (current) use of insulin | CPT/HCPCS: 99211 ==

== ENCOUNTER 2025-03-25 10:33 | Outpatient (AMB) | payer OTHER, SELFPAY ==
[2025-03-25 10:41] VITALS: BP 120/70; PULSE 93; O2SAT 97; BMI 23.8
--- NOTE | 2025-03-25 10:41 | MHC.OFFVIS ---
Vital Signs 03/25/25 10:41 Height 5 ft 9 in Weight 160 lb 14.999 oz BMI 23.8 BP 120/70 Blood Pressure Location Lt brachial Position Sitting Pulse 93 Pulse Source Pulse Oximeter Pulse Oximetry (%) 97 Oxygen Delivery Method Nasal Cannula Oxygen Flow Rate 2 Intake Visit Reasons: copd Intake Note: pt is here for follow up and states his breathing is okay only trouble is at night, his back pain is making him stop at times. Digital Photographic Printer Required: No Allergies cortisone [CORTISONE] Allergy (Severe, Verified 03/25/25 10:57) ANAPHYLAXIS cephalexin Allergy (Unknown, Verified 03/25/25 10:57) unknown lisinopril Adverse Reaction (Intermediate, Verified 03/25/25 10:57) hypotension Medication List - Last Reconciled 03/25/25 by Kenisha Mckeon MD albuterol sulfate 90 mcg/actuation 2 puffs PO Q4-6H PRN alcohol swabs (BD Alcohol Swabs) 1 pad topical QID atorvastatin 20 mg PO DAILY blood-glucose sensor (Dexcom G7 Sensor device) USE DIRECTED EVERY 10 DAYS cholecalciferol (vitamin D3) 50 mcg PO DAILY clotrimazole 1% 1 appl topical BID 4 weeks fluticasone propion-salmeterol 250-50 mcg/dose 1 ea PO Q12H glucagon 3 mg/actuation (Baqsimi) 3 mg intranasal ONCE 30 days insulin glargine U-300 conc (Toujeo Max U-300 SoloStar) 18 units (0.06 mL) subcut BEDTIME miconazole nitrate 2% (Zeasorb AF) 1 appl topical BID Novolog FlexPen U-100 Insulin (insulin aspart U-100) 4 units (0.04 mL) subcut TID NS Oxygen Home Use As directedO2 2L NC pen needle, diabetic 1 ea miscellaneous .4X/day sertraline 50 mg PO DAILY 90 days sildenafil (Viagra) 100 mg PO DAILY PRN 30 days tadalafil (Cialis) 5 mg PO DAILY 90 days Do you need a note to return to daycare/school/sports/work: No HPI HPI copd: Details: Mr. Alegre , 65 years old gentleman, past smoker with diagnosis of chronic obstructive pulmonary disease. Comes after 6 months for follow-up. His breathing status has remained fairly stable without any acute exacerbations. He does get short of breath when he walks around, but not at rest. Uses oxygen 2 L/minute at night and 2 L/minute during the daytime but only p.r.n.. When he goes outdoors he does carry along his portable unit. Luckily he has had no acute respiratory infection. He is having a flare up of his eczematous rash on both hands and is scheduled to see sales engineering manager [facility] Medical History Personal history of nicotine dependence Hypoxemia COPD exacerbation Allergic rhinitis Type 2 diabetes mellitus with diabetic polyneuropathy Tinnitus Anxiety and depression Peptic ulcer disease Renal calculus, right Tubular adenoma of colon DDD (degenerative disc disease), lumbar Depression Prostate cancer COPD (chronic obstructive pulmonary disease) CAP (community acquired pneumonia) Gastric ulcer Hernia Kidney stones History of prostate cancer Erectile dysfunction Insulin use (long-term) in type 2 diabetes Hyperlipidemia LDL goal <100 Vitamin D insufficiency Surgical History History of cataract surgery History of foot surgery History of inguinal hernia repair Hx of tonsillectomy Hx of prostatectomy Family History Father Diabetes Mother No problems noted. Son Diabetes Maternal Uncle Prostate cancer Paternal Grandfather Myocardial infarction Maternal Grandmother No problems noted. Maternal Aunt Esophageal cancer Maternal Grandfather Myocardial infarction Social History Household Members: Spouse Housing: Apartment Alcohol intake: current Alcohol intake frequency: a few times a month Patient Tobacco Use Status: Former Tobacco user Tobacco use type: Cigarette e-Cigarette/Vaping Use: Never Used Second Hand Smoke Exposure: Yes Substance Use Type: Former Substance User and Marijuana service: No Current occupational status: disabled Current occupation: rt handed Cognitive needs: Yes (cane) Hearing needs: Yes (hearing aide) Vision needs: Yes Review of Systems Const All systems reviewed & are unremarkable except as noted in HPI and below Eyes Reports no additional complaints ENT Reports nasal congestion (mild ) Card Denies chest pain, Denies irregular heart rhythm and Denies leg edema Resp Reports as per HPI GI Reports heartburn (Controlled with omeprazole) Reports erectile dysfunction Musc Reports back pain (Mild) Skin/Breast Reports system reviewed and no additional complaints, except as documented Neuro Reports no additional complaints Psych Reports no additional complaints Physical Exam Vital Signs: Last Vital Signs Pulse 93 03/25/25 10:41 BP 120/70 03/25/25 10:41 Pulse Ox 97 03/25/25 10:41 Oxygen Delivery Method Nasal Cannula 03/25/25 10:41 Oxygen Flow Rate 2 03/25/25 10:41 BMI result Body Mass Index 23.8 Const General: comfortable, no acute distress, alert and awake Orientation/consciousness: patient oriented x3 HEENT Head: Yes normal to inspection General nose exam: No nasal polyps present and No nasal discharge present Face and sinus: Yes sinuses nontender Mouth: oropharynx normal Throat: Yes posterior oropharynx normal Eyes General: appearance normal, both eyes and all related structures Neck Neck: Yes normal visual inspection, Yes no lymphadenopathy, Yes trachea midline and Yes no JVD Thyroid: Thyroid normal Chest Chest palpation & inspection: normal inspection of the chest, normal palpation of entire chest wall and no tenderness Resp Other: Percussion note hyper-resonant, breath sounds are distant with prolonged expiratory phase on both sides. No audible wheezes or rhonchi were present Cardio Palpation: normal PMI Rate: regular rate Rhythm: regular rhythm Heart sounds: no gallops and no murmurs GI Palpation (GI): Soft to palpation, nontender, No hepatosplenomegaly present and no masses Auscultation: normal bowel sounds Back/Spine/Pelvis Thoracic/Lumbar Spine: thoracic and lumbar spine normal to inspection and thoraco-lumbar ROM limited Skin General skin exam: rashes and/or lesions noted (Extensive eczematous rash on both hands) Neuro General: patient oriented x3 and no focal motor deficits Cranial nerves: Yes CN's II-XII intact bilaterally Extrem General: Yes normal to inspection, Yes no clubbing, cyanosis or edema and Yes no calf tenderness Psych Appearance: grossly normal Speech and movement: Normal speech and movement present Assessment & Plan Assessment & Plan (1) COPD (chronic obstructive pulmonary disease): Comment: He has long-standing chronic obstructive pulmonary disease. DOING MUCH BETTER SINCE HE QUIT SMOKING. AT PRESENT HIS COPD IS VERY STABLE. Code(s): J44.9 - Chronic obstructive pulmonary disease, unspecified Category: Medical Qualifiers: COPD type: emphysema Emphysema type: unspecified Qualified Code(s): J43.9 - Emphysema, unspecified Plan: Advised to continue using Wixela 250-51 inhalation b.i.d., and albuterol HFA 2 puffs Q 6 hours p.r.n. (2) Hypoxemia: Comment: Patient does have exertional and nocturnal hypoxemia . It has improved and he is doing well with use of oxygen. Code(s): R09.02 - Hypoxemia Category: Medical Plan: Advised to continue using O2 2 L/minute at night. 2 L/minute p.r.n. during the daytime. Do use portable unit when going outdoors or doing any physical work (3) Personal history of nicotine dependence: Comment: (quit 07/2023) Code(s): Z87.891 - Personal history of nicotine dependence Category: Medical Plan: Commended for having quit smoking in 2022, and not going back to smoking. (4) Allergic rhinitis: Comment: Mild chronic, has been stable. Code(s): J30.9 - Allergic rhinitis, unspecified Category: Medical Plan: Chronic allergic rhinitis but currently it is well controlled without any meds. Plan May use OTC antihistaminic agents as needed Coding Level of Care Code Est Pt Level 3 (32982) Diagnoses Pulmonary emphysema, unspecified emphysema type J43.9 COPD type: emphysema Emphysema type: unspecified Hypoxemia R09.02 Personal history of nicotine dependence Z87.891 Allergic rhinitis J30.9
== END 2025-03-25 10:56 | disposition home or self-care (01) ==
LOC: HO.HPS 10:34
PROVIDERS: PCP Internal Medicine; Visit Provider Internal Medicine
DX: J43.9 Emphysema, unspecified (principal); R09.02 Hypoxemia; Z87.891 Personal history of nicotine dependence; J30.9 Allergic rhinitis, unspecified
CPT/HCPCS: 99213

== ENCOUNTER → 2025-03-25 10:33 | Outpatient (BNVA) | payer OTHER, SELFPAY | PROVIDERS: PCP Internal Medicine; Visit Provider Internal Medicine | DX: J43.9 Emphysema, unspecified (principal); J30.9 Allergic rhinitis, unspecified; R09.02 Hypoxemia; Z99.81 Dependence on supplemental oxygen; Z87.891 Personal history of nicotine dependence | CPT/HCPCS: 99212 ==

== ENCOUNTER 2025-03-27 08:21 | Outpatient (REF) | payer OTHER, SELFPAY ==
--- OUTSIDE RECORDS SUMMARY | 2025-03-27 08:35 | XMS_ITS ---
Author Organization [facility] Address [address] [place] [address] Care Team Providers Care Carry Out Clerk And Shelf Stocker Name Role Phone Margarito Anton MD Primary Care Provider Favian Groves [phone] REASON FOR VISIT Pt no show Encounters Encounter Location Date Provider Diagnosis [facility] [address] [place] [address] 08/23/2024 Favian Delgado Plan Of Treatment No Information Progress Notes * CASTILLO OSBALDOOB:1960 (64 yo M)Acc No.[id number]:08/23/2024 Patient:?LINA CHONG :1960???Age:64 Y???Sex:Male Address:[address] [place] [address], [address] * true * Date:? Generated for John palacios/Radha/eTransmitting on:?03/27/2025 08:34 AM EDT
[2025-03-27 08:43] LABS: MANUAL DIFF FLAG NO
[2025-03-27 08:52] LABS: Basophils Percent Auto 0.6 % (0-2); Eosinophils Absolute Auto 0.2 X10*3/uL (0.0-0.4); Eosinophils Percent Auto 3.6 % (0-4); Hematocrit 47.5 % (42.0-52.0); Hemoglobin 16.1 g/dl (14.0-18.0); Imm Gran Abs Auto 0.01 X10*3/uL (0.00-0.03); Imm Gran Pct Auto 0.2 % (0.0-0.4); Lymphocytes Absolute Auto 1.5 X10*3/uL (1.2-4.9); Lymphocytes Percent Auto 29.8 % (20-40); Mean Corpuscular HGB Conc 33.9 g/dl (31.0-36.0); Mean Corpuscular Volume 94.4 fL (80.0-98.0); Mean Platelet Volume 11.1 fL (9.4-12.4); Monocytes Absolute Auto 0.5 X10*3/uL (0.1-1.2); Monocytes Percent Auto 8.9 % (2-11); Neutrophils Absolute Auto 2.9 x10*3/uL (2.0-8.3); Neutrophils Percent Auto 56.9 % (45-73); Platelet Count 170 X10*3/uL (160-400); Red Blood Count 5.03 X10*6/uL (4.60-5.80); Red Cell Distribution Width 14.1 % (11.0-16.0)
[2025-03-27 09:35] LABS: Alanine Aminotransferase 15 U/L (0-40); Albumin Level 4.5 g/dL (3.5-5.0); Alkaline Phosphatase 72 U/L (39-117); Anion Gap 10 (12-20); Aspartate Amino Transferase 25 U/L (5-37); Bilirubin Total 0.7 mg/dL (0.0-1.0); Blood Urea Nitrogen 12 mg/dL (9-16); Carbon Dioxide 33 mmol/L (22-29); Chloride 103 mmol/L (96-108); Cholesterol 151 mg/dL (<200); Estimated Glomerular Filt Rate > 60; Glucose Random 166 mg/dL (60-115); HDL Cholesterol 49 mg/dL (>40); LDL Cholesterol Calculated 89 mg/dL (<100); Potassium 4.6 mmol/L (3.3-5.1); Sodium 141 mmol/L (135-145); Total Protein 7.6 g/dL (6.5-8.0); Triglycerides 68 mg/dL (<150)
[2025-03-27 09:41] LABS: HBS Num1 7.24 mIU/mL (0-7.99); HBsAGNum1 0.33 S/CO (0.00-0.99); Hepatitis B Surface Antigen Negative (Negative); ~HepC Num1 0.16 S/CO (0.00-0.79); ~Hepatitis B Surface Antibody NONREACTIVE (Nonreactive); ~Hepatitis C Antibody Nonreactive (Nonreactive)
[2025-03-27 09:44] LABS: Syphilis Screen Nonreactive (Nonreactive)
[2025-04-01 17:49] LABS: Quantiferon TB Gold Plus 1 NEGATIVE (NEGATIVE); TB Test (QFT) Mitogen -Nil >10.00 IU/mL; TB Test (QFT) Nil 0.03 IU/mL
== END 2025-03-27 08:22 | disposition home or self-care (01) ==
LOC: HO.LAB 08:21
PROVIDERS: PCP Internal Medicine; Visit Provider Physician Assistant
DX: L30.8 Other specified dermatitis (principal); Z13.6 Encounter for screening for cardiovascular disorders
CPT/HCPCS: 36415; 80053; 80061; 85025; 86480; 86706; 86780; 86803; 87340

== ENCOUNTER 2025-04-03 14:26 | Outpatient (AMB) | payer OTHER, SELFPAY ==
[2025-04-03 14:29] VITALS: BP 122/70; PULSE 83; O2SAT 95; BMI 23.6
--- NOTE | 2025-04-03 14:29 | A.OFFPC_ITS ---
Vital Signs 04/03/25 14:29 Height 5 ft 9 in Weight 159 lb 8 oz BMI 23.6 BP 122/70 Blood Pressure Location Lt brachial Position Sitting Pulse 83 Pulse Source Pulse Oximeter Pulse Oximetry (%) 95 Oxygen Delivery Method Nasal Cannula Oxygen Flow Rate 1.5 Intake Visit Reasons: headaches/RT earache Backend Developer Required: No Accompanied by: Self / Same As Patient Allergies cortisone [CORTISONE] Allergy (Severe, Verified 04/03/25 14:36) ANAPHYLAXIS cephalexin Allergy (Unknown, Verified 04/03/25 14:36) unknown lisinopril Adverse Reaction (Intermediate, Verified 04/03/25 14:36) hypotension Medication List - Last Reconciled 04/03/25 by Jayashree Hurley PA-C albuterol sulfate 90 mcg/actuation 2 puffs PO Q4-6H PRN alcohol swabs (BD Alcohol Swabs) 1 pad topical QID atorvastatin 20 mg PO DAILY blood-glucose sensor (Dexcom G7 Sensor device) USE DIRECTED EVERY 10 DAYS cholecalciferol (vitamin D3) 50 mcg PO DAILY clotrimazole 1% 1 appl topical BID 4 weeks fluticasone propion-salmeterol 250-50 mcg/dose 1 ea PO Q12H glucagon 3 mg/actuation (Baqsimi) 3 mg intranasal ONCE 30 days insulin glargine U-300 conc (Toujeo Max U-300 SoloStar) 18 units (0.06 mL) subcut BEDTIME miconazole nitrate 2% (Zeasorb AF) 1 appl topical BID Novolog FlexPen U-100 Insulin (insulin aspart U-100) 4 units (0.04 mL) subcut TID NS Oxygen Home Use As directedO2 2L NC pen needle, diabetic 1 ea miscellaneous .4X/day sertraline 50 mg PO DAILY 90 days sildenafil (Viagra) 100 mg PO DAILY PRN 30 days tadalafil (Cialis) 5 mg PO DAILY 90 days Tobacco use date assessed: 04/03/25 Fall risk assessment: No Falls in past year Last assessed Fall Risk: 04/03/25 Dental Screening Dental Screen Date: 04/03/25 Did you have a dental visit in the last 12 months?: No Did you have a dental problem in the last 6 months where you did not have access to dental care?: No Was dental information given to patient?: No HPI headaches/RT earache HPI Details 65-year-old male with past medical histo ry of hyperlipidemia, type 2 diabetes, COPD, prostate cancer, COPD, degenerative disc disease last seen by Dr. Anton 12/2024 coming in for acute problem. Patient tells us today he has been having intermittent headaches that typically start in the middle of the night and resolve by teacher selection specialist. He only notices the headaches because he gets up several times at night to go to the bathroom and has a very mild headache in the anterior aspect of his head. Headaches will typically resolve after being awake for a few hours. He also reports having right ear pain and feeling of foreign bodies in the ear. He denies any other symptoms with the headache and denies any discharge and of the ear or changes in hearing. He does have chronic nonpulsatile tinnitus. His also reports that he grinds his teeth at night. [facility] Medical History Personal history of nicotine dependence Hypoxemia COPD exacerbation Allergic rhinitis Type 2 diabetes mellitus with diabetic polyneuropathy Tinnitus Anxiety and depression Peptic ulcer disease Renal calculus, right Tubular adenoma of colon DDD (degenerative disc disease), lumbar Depression Prostate cancer COPD (chronic obstructive pulmonary disease) CAP (community acquired pneumonia) Gastric ulcer Hernia Kidney stones History of prostate cancer Erectile dysfunction Insulin use (long-term) in type 2 diabetes Hyperlipidemia LDL goal <100 Vitamin D insufficiency Surgical History History of cataract surgery History of foot surgery History of inguinal hernia repair Hx of tonsillectomy Hx of prostatectomy Family History Father Diabetes Mother No problems noted. Son Diabetes Maternal Uncle Prostate cancer Paternal Grandfather Myocardial infarction Maternal Grandmother No problems noted. Maternal Aunt Esophageal cancer Maternal Grandfather Myocardial infarction Social History Household Members: Spouse Housing: Apartment Alcohol intake: current Alcohol intake frequency: a few times a month Patient Tobacco Use Status: Former Tobacco user Tobacco use type: Cigarette e-Cigarette/Vaping Use: Never Used Second Hand Smoke Exposure: Yes Substance Use Type: Former Substance User and Marijuana service: No Current occupational status: disabled Current occupation: rt handed Cognitive needs: Yes (cane) Hearing needs: Yes (hearing aide) Vision needs: Yes Questionnaire PHQ-9 Over the last 2 weeks, how often have you been bothered by any of the following problems? 1. Little interest or pleasure in doing things: not at all 2. Feeling down, depressed, or hopeless: several days 3. Trouble falling or staying asleep, or sleeping too much: several days 4. Feeling tired or having little energy: more than half the days 5. Poor appetite or overeating: several days 6. Feeling bad about yourself - or that you are a failure or have let yourself or your family down: several days 7. Trouble concentrating on things, such as reading the newspaper or watching television: several days 8. Moving or speaking so slowly that other people could have noticed. Or the opposite - being so fidgety or restless that you have been moving around a lot more than usual: not at all 9. Thoughts that you would be better off or of hurting yourself in some wa y: not at all Total score: 7 Depression Screening Interpretation: Positive Depression Screening Follow-up: Existing condition and In treatment Depression Screening Done: Yes Source: Developed by Drs. Favian Nascimento, Valentina Serrano, Jose M Lunsford and colleagues, with an educational edita from [employer]. Thrive Questionnaire Date Thrive assessed: 04/03/25 I am a: Patient What is your living situation today?: I have a steady place to live Within the past 12 months, did the food you bought not last and you didn't have the money to get more?: Never true Within the past 12 months, did you worry whether your food would run out before you got money to buy more?: Never true Do you have trouble paying for medicines?: No Do you have trouble getting transportation to medical appointments?: No Do you have trouble paying your heating and electricity bill?: No Do you have trouble taking care of your child, family member or friend?: No Do you have trouble with day-to-day activities such as bathing, preparing meals, shopping, managing finances, etc.?: No Are you currently unemployed and looking for a job?: Yes Are you interested in more education?: No Please select the resources that you would like help with: None Currently or been in a relationship where the following occur: No concerns reported THRIVE Score: 0 AUDIT C Alcohol Use Questionnaire (AUDIT-C) 1. How often do you have a drink containing alcohol?: Never 3. How often do you have six or more drinks on one occasion?: Never Total Score: 0 YOLIS-7 AMB Questionnaire YOLIS-7 Date YOLIS - 7 assessed: 04/03/25 Feeling nervous, anxious, or on edge: 0 = Not at all Not being able to stop or control worryin = Not at all Worrying too much about different things: 0 = Not at all Trouble relaxin = Not at all Being so restless that it is hard to sit still: 0 = Not at all Becoming easily annoyed or irritable: 2 = More than half the days Feeling afraid as if something awful might happen: 0 = Not at all Total YOLIS-7 score (0-4 normal; 5-9 mild; 10-14 moderate; 15-21 severe): 2 Source: Developed by Drs. Favian Nascimento, Valentina Serrano, Jose M Lunsford and colleagues, with an educational edita from [employer]. Review of Systems Const Denies fever(s) and Reports headache(s) Eyes Reports no additional complaints ENT Denies dizziness and Reports headache(s) Card Denies chest pain, Denies lightheadedness and Denies dyspnea Resp Denies dyspnea Musc Denies abnormal gait Skin/Breast Reports system reviewed and no additional complaints, except as documented Neuro Denies abnormal gait, Denies dizziness and Reports headache(s) Psych Reports no additional complaints Physical exam (Primary Care) Vital Signs: Oxygen Delivery Method Room Air 04/03/25 14:29 BMI result Body Mass Index 23.6 Tobacco/Smoking Status: Tobacco use Status Tobacco use date assessed 01/14/25 01/14/25 13:51 Patient Tobacco Use Status Former Tobacco user 01/14/25 13:51 Tobacco use type Cigarette 01/14/25 13:51 e-Cigarette/Vaping Use Never Used 01/14/25 13:51 Depression Screening Interpretation: Positive Depression Screening Follow-up: Existing condition and In treatment Thrive Assessment: Date of Thrive Assessment Date Thrive assessed 12/12/24 01/14/25 13:51 Currently or been in a relationship where the following occur: No concerns reported Const General: cooperative, healthy appearing, comfortable and no acute distress Orientation/consciousness: patient oriented x3 HENMT Other: Tenderness to palpation over right TMJ without crepitus bilaterally Head: Yes normocephalic Ears: hearing grossly normal bilaterally, TM's normal bilaterally and EAC's normal General nose exam: Normal external nose present Teeth and gingiva: poor dentition Eyes General: appearance normal, both eyes and all related structures Conjunctivae: conjunctivae normal Neck Neck: Yes full ROM and Yes no lymphadenopathy Resp Effort & Inspection: normal respiratory effort Auscultation: clear to auscultation bilaterally, no crackles, no rales, no rhonchi and no wheezes Cardio Rate: regular rate Rhythm: regular rhythm Skin General skin exam: no rashes or lesions noted Neuro General: patient oriented x3 Cranial nerves: Yes CN's II-XII intact bilaterally Gait exam (Neuro): Normal gait present Extrem General: Yes normal to inspection, Yes full ROM and No edema Psych Affect: normal affect Attitude: cooperative Insight: Good insight present (Psych) Judgement: Good judgement present (Psych) Coding Level of Care Code Est Pt Level 3 (04837) Diagnoses 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 He denies any pulsatile or unilateral tinnitus. I do believe bruxism as a cause of his mild headache and right ear pain. He does have tenderness to palpation of the right side of the TMJ without crepitus bilaterally. Advised the patient to obtain a mouth guard and trial this at nighttime and see if symptoms improve. Reviewed with patient red flag symptoms and when to present for re-evaluation. (2) DDD (degenerative disc disease), lumbar: Code(s): M51.36 - Other intervertebral disc degeneration, lumbar region Category: Medical Plan: Patient requesting lidocaine patch which was sent to pharmacy today. Plan This note was constructed using voice recognition software. While every effort has been made to ensure accuracy and supervisor belt and link assembly, still areas may have been included sometimes these areas may affect the content or meeting of the given symptoms. Total time spent caring for the patient today was 20 minutes. This includes time spent before the visit reviewing the chart, time spent during the visit, and time spent after the visit and documentation. Patient was informed and verbally consented to the use of an ambient scribe for clinic note documentation during this visit. Medications: New lidocaine 5% leave on most painful area for up to 12 hrs 1 patch topical DAILY 30 ea 0RF
--- OUTSIDE RECORDS SUMMARY | 2025-04-03 17:02 | XMS_ITS ---
Author Organization [facility] Address [address] [place] [address] Care Team Providers Care Headwaiter/Headwaitress Name Role Phone Margarito Anton MD Primary Care Provider Favian Groves [phone] REASON FOR VISIT Pt no show Encounters Encounter Location Date Provider Diagnosis [facility] [address] [place] [address] 08/23/2024 Favian Delgado Plan Of Treatment No Information Progress Notes * CASTILLO OSBALDOOB:1960 (64 yo M)Acc No.[id number]:08/23/2024 Patient:?LINA CHONG :1960???Age:64 Y???Sex:Male Address:[address] [place] [address], [address] * true * Date:? Generated for John palaciso/Radha/eTransmitting on:?04/03/2025 05:01 PM EDT
== END 2025-04-03 15:16 | disposition home or self-care (01) ==
LOC: HO.HMCH 14:27
PROVIDERS: PCP Internal Medicine
DX: F45.8 Other somatoform disorders (principal); M51.369 Other intervertebral disc degeneration, lumbar region without mention of lumbar back pain or lower extremity pain

== ENCOUNTER → 2025-04-03 14:26 | Outpatient (BNVA) | payer OTHER, SELFPAY | PROVIDERS: PCP Internal Medicine | DX: E11.9 Type 2 diabetes mellitus without complications (principal); E78.5 Hyperlipidemia, unspecified; J44.9 Chronic obstructive pulmonary disease, unspecified; R51.9 Headache, unspecified; M51.369 Other intervertebral disc degeneration, lumbar region without mention of lumbar back pain or lower extremity pain; F45.8 Other somatoform disorders; Z85.46 Personal history of malignant neoplasm of prostate | CPT/HCPCS: 96127; 99212 ==

== ENCOUNTER 2025-05-05 12:55 | Outpatient (AMB) | payer OTHER, SELFPAY ==
--- NOTE | 2025-05-05 13:04 | MHC.OFFVIS ---
Vital Signs 05/05/25 13:05 Height 5 ft 9 in Weight 162 lb 14.746 oz BMI 24.1 BP 96/50 L Blood Pressure Location Lt brachial Position Sitting Intake Visit Reasons: T2DM Intake Note: Patient present today for Type 2 Diabetes Mellitus Last Diabetic eye exam:06/2025 Last Podiatry Visit: does not see ne Random Glucose: 166 mg/dl HgA1C: Due Manager Transition Required: Yes Manager Transition Services: Manager Transition Present Accompanied by: Spouse Allergies cortisone (CORTISONE) Allergy (Severe, Verified 05/05/25 13:07) ANAPHYLAXIS cephalexin Allergy (Unknown, Verified 05/05/25 13:07) unknown lisinopril Adverse Reaction (Intermediate, Verified 05/05/25 13:07) hypotension Medication List - Last Reconciled 05/05/25 by Charo Awad PA-C albuterol sulfate 90 mcg/actuation 2 puffs PO Q4-6H PRN alcohol swabs (BD Alcohol Swabs) 1 pad topical QID atorvastatin 20 mg PO DAILY cholecalciferol (vitamin D3) 50 mcg PO DAILY clotrimazole 1% 1 appl topical BID 4 weeks fluticasone propion-salmeterol 250-50 mcg/dose 1 ea PO Q12H glucagon 3 mg/actuation (Baqsimi) 3 mg intranasal ONCE 30 days insulin glargine U-300 conc (Toujeo Max U-300 SoloStar) 18 units (0.06 mL) subcut BEDTIME lidocaine 5% 1 patch topical DAILY miconazole nitrate 2% (Zeasorb AF) 1 appl topical BID Novolog FlexPen U-100 Insulin (insulin aspart U-100) 4 units (0.04 mL) subcut TID NS Oxygen Home Use As directedO2 2L NC pen needle, diabetic 1 ea miscellaneous .4X/day sertraline 50 mg PO DAILY 90 days sildenafil (Viagra) 100 mg PO DAILY PRN 30 days tadalafil (Cialis) 5 mg PO DAILY 90 days HPI HPI T2DM: Details: Patient is a 65-year-old male with a significant past medical history of COPD, prostate cancer, hyperlipidemia, kidney stones, type 2 diabetes, insulin dependent, erectile dysfunction due to diabetes and vitamin-D deficiency presenting today for a follow-up regarding his diabetes. pt understands and speaks some Estonian. Significant other present with him to translate Endo: A1c 7.2 today. Meds- Toujeo 18 units, Novolog 4-6 units with meals (usually just twice a day). He does report that he sometimes misses doses. stopped Tradjenta 5 mg. Intolerant of metformin due to diarrhea, Jardiance due to urinary frequency and Trulicity due to undesired weight loss. Pioglitzone stopped due to edema, ozempic is causing GI upset with n/v CGM average blood sugar 169, GMI 7.3%, glucose variability 40%., very high 8%, high 30%, within range 62%, 1% lows -he is frustrated with his CGM because he does not think that the numbers are very accurate. He states that the Dexcom is telling him that he has high when he is not actually high and low when he is not actually low. It is also not always sensing and often loses connection. He has been eating less and has follow up with GI on 08/23 for his weight loss CV: No on an CLAUDIA inhibitor. Blood pressure today in the office is 96/50.. Cholesterol is managed with atorvastatin 20 mg.. [facility] Medical History Personal history of nicotine dependence Hypoxemia COPD exacerbation Allergic rhinitis Type 2 diabetes mellitus with diabetic polyneuropathy Tinnitus Anxiety and depression Peptic ulcer disease Renal calculus, right Tubular adenoma of colon DDD (degenerative disc disease), lumbar Depression Prostate cancer COPD (chronic obstructive pulmonary disease) CAP (community acquired pneumonia) Gastric ulcer Hernia Kidney stones History of prostate cancer Erectile dysfunction Insulin use (long-term) in type 2 diabetes Hyperlipidemia LDL goal <100 Vitamin D insufficiency Surgical History History of cataract surgery History of foot surgery History of inguinal hernia repair Hx of tonsillectomy Hx of prostatectomy Family History Father Diabetes Mother No problems noted. Son Diabetes Maternal Uncle Prostate cancer Paternal Grandfather Myocardial infarction Maternal Grandmother No problems noted. Maternal Aunt Esophageal cancer Maternal Grandfather Myocardial infarction Social History Household Members: Spouse Housing: Apartment Alcohol intake: current Alcohol intake frequency: a few times a month Patient Tobacco Use Status: Former Tobacco user Tobacco use type: Cigarette e-Cigarette/Vaping Use: Never Used Second Hand Smoke Exposure: Yes Substance Use Type: Former Substance User and Marijuana service: No Current occupational status: disabled Current occupation: rt handed Cognitive needs: Yes (cane) Hearing needs: Yes (hearing aide) Vision needs: Yes Physical Exam Vital Signs: Last Vital Signs BP 96/50 L 05/05/25 13:05 BMI result Body Mass Index 24.1 Const Orientation/consciousness: patient oriented x3 HEENT Ears: hearing grossly normal bilaterally Neck Thyroid: Thyroid normal Lymphatic: no lymphadenopathy noted Resp Auscultation: clear to auscultation bilaterally Cardio Rate: regular rate Rhythm: regular rhythm Heart sounds: S1 normal heart sound present and S2 normal heart sound present Skin General skin exam: no rashes or lesions noted Neuro General: patient oriented x3, gait normal and no focal motor deficits Results AMB Hemoglobin A1c AMB Hemoglobin A1c 7.9 % Last Edit by DAVID Lizarraga on 05/05/25 13:54 Results Reviewed Results Reviewed: Laboratory Last Values Glucose (Clinic) 166 mg/dL (60-115) H 05/05/25 13:18 Assessment & Plan Assessment & Plan (1) Insulin use (long-term) in type 2 diabetes: Code(s): E11.9 - Type 2 diabetes mellitus without complications; Z79.4 - computer terminal operator (current) use of insulin Category: Medical Qualifiers: Diabetes mellitus complication status: with hyperglycemia Qualified Code(s): E11.65 - Type 2 diabetes mellitus with hyperglycemia; Z79.4 - [facility] (current) use of insulin Plan: We will switch from Dexcom to freestyle Bebeto given the inaccuracy with multiple Dexcom sensors. Continue current regimen. Encouraged compliance. States that blood sugars are ?perfect ?when he is using the insulin as directed. Reviewed signs and symptoms of hyper and hypoglycemia that would require emergent medical treatment Follow up in 3 months. Sooner if needed. (2) Hyperlipidemia LDL goal <100: Code(s): E78.5 - Hyperlipidemia, unspecified Category: Medical Plan: Continue current regimen Orders: Orders AMB Hemoglobin A1c Today E11.65 - Type 2 diabetes mellitus with hyperglycemia, Z13.9 - Encounter for screening, unspecified, Z79.4 - computer terminal operator (current) use of insulin Medications: New blood-glucose,automotive paint technician,cont (FreeStyle Bebeto 3 [place]) Use daily As directed to monitor blood glucose 1 ea 0RF blood-glucose sensor (FreeStyle Bebeto 3 Plus Sensor device) Use daily As directed to monitor glucose 2 ea 5RF E08.29 - Diabetes mellitus due to underlying condition with other diabetic kidney complication, R80.9 - Proteinuria, unspecified, Z79.4 - computer terminal operator (current) use of insulin Coding Level of Care Code Est Pt Level 4 (95944) Complex EM visit Add On G2211 Diagnoses Type 2 diabetes mellitus with hyperglycemia, with long-term current use of insulin E11.65; Z79.4 Diabetes mellitus complication status: with hyperglycemia Hyperlipidemia LDL goal <100 E78.5
[2025-05-05 13:05] VITALS: BP 96/50; BMI 24.1
[2025-05-05 13:23] LABS: Glucose, Whole Blood 166 mg/dL (60-115)
--- OUTSIDE RECORDS SUMMARY | 2025-05-05 13:52 | XMS_ITS | Clinical Summary ---
Author Organization [employer] Address [address] [place] [address] [address] [place] [address] Care Team Providers Care Jig Boring Machine Operator For Metal Name Role Phone Unavailable Primary Care Provider Unavailabl e Immunizations Immunization Administration Dates Next Due Pfizer Covid-19 Vaccine [...] 5 season) 2024 11/02/2022 Influenza Vaccine (#1) 2025 , 11/05/2019, 08/16/2018 RSV Patients and Patients [...] patient's age to complete this topic Meningococcal B Vaccine Aged Out No l onger eligible based on patient's age to complete this topic Meningococcal Vaccine Aged Out No filomena juliocesar eligible based on patient's age to complete this topic RSV under 20 months Aged Out No longe r eligible based on patient's age to complete this topic Rotavirus Vaccines Aged Out No longer eligible based on patient's age to complete this topic Insurance ONE CARE < 65 [place] [id number]
--- OUTSIDE RECORDS SUMMARY | 2025-05-05 13:53 | XMS_ITS | Patient Health Record ---
Author Organization [facility] Address [address] [place] [phone] Care Team Providers Care Parts Chaser Name Role Phone Margarito Anton MD Primary Care Provider Favian Groves [phone] Allergies Allergen (clinical drug ingredient) Drug/Non Drug [...] Omeprazole 20 MG TAKE [address] [facility] EVERY MORNING for 30 Active Atorvastatin Calcium [...] Problem Status W/U Status Risk Notes Problem [id number] Encounter for screening for malignant neoplasm of colon (Z12.11) Active confirmed Problem 096354844 History of adenomatous polyp of colon (Z86.010) Active confirmed Problem History of polyp of colon (situation) (205877602) Personal history of colonic polyps (Z86.010) Active confirmed Problem Diverticular disease of colon (817230350) Diverticulosis of large intestine without perforation or abscess without bleeding (K57.30) Active confirmed Problem Anorexia (75207871) Anorexia (R63.0) Active confirmed Problem Acute gastric ulcer without hemorrhage, without perforation AND without obstruction (70138548) Gastric ulcer without hemorrhage or perforation, acute (K25.3) Active confirmed Problem 607071846 Preprocedural examination (Z01.818) Active confirmed Problem 412782780 Aspirin long-ter m use (Z79.82) Active confirmed Problem 128401185 Gastroesophageal reflux disease, esophagitis presence not specified (K21.9) Active confirmed Problem Hiatal hernia (10778156) Hiatal hernia (K44.9) Active confirmed Problem 41179393 Gastroenteritis (K52.9) Active confirmed Problem 952046821 Abnormal CT scan , stomach (R93.3) Active confirmed Problem Esophageal reflux finding (942953708) Gastroesophageal reflux (K21.9) Active confirmed Vital Signs Temperature 97.7 degrees Fahrenheit 01/08/2025 Blood pressure diastolic 01 mm Hg 01/08/2025 Height 67 in 01/08/2025 Blood pressure systolic 001 mm Hg 01/08/2025 Weight 163.8 lbs 01/08/2025 BMI 25.65 kg/m2 01/08/2025 Encounters Encounter Location Date Provider Diagnosis [facility] [address] [place] [phone] 01/08/2025 Favian Delgado Encounter for screen ing for malignant neoplasm of colon Z12.11 ; Anorexia R63.0 ; History of adenomatous polyp of colon Z86.010 and Gastroesophageal reflux disease, esophagitis presence not specified K21.9 [facility] [address] [place] [phone] 08/23/2024 Favian Delgado Assessments Encounter Date Diagnosis [...] to discuss things with you and his school office manager in regard to getting better control of [...] to discuss things with you and his school office manager in regard to getting better control of [...] to discuss things with you and his school office manager in regard to getting better control of [...] to discuss things with you and his school office manager in regard to getting better control of [...] Insured Coverage Start Date Coverage End Date [facility] [address] [place] [address] [id number] LINA CHONG Self - patient is the insured Medical (General) History Medical History History ICD Code HTN Hyperlipidemia Emphysema Denies [place], CVA, renal disease Prostate cancer IDDM Colonoscopy [...]
== END 2025-05-05 13:48 | disposition home or self-care (01) ==
LOC: HO.ENCR 12:56
PROVIDERS: PCP Internal Medicine; Visit Provider Physician Assistant
DX: E11.65 Type 2 diabetes mellitus with hyperglycemia (principal); Z79.4 Long term (current) use of insulin; E78.5 Hyperlipidemia, unspecified; Z13.9 Encounter for screening, unspecified

== ENCOUNTER → 2025-05-05 12:55 | Outpatient (BNVA) | payer OTHER, SELFPAY | PROVIDERS: PCP Internal Medicine; Visit Provider Physician Assistant | DX: E11.65 Type 2 diabetes mellitus with hyperglycemia (principal); E78.5 Hyperlipidemia, unspecified; E11.69 Type 2 diabetes mellitus with other specified complication; N52.9 Male erectile dysfunction, unspecified; Z79.4 Long term (current) use of insulin | CPT/HCPCS: 82947; 83036; 99212 ==

== ENCOUNTER 2025-05-16 10:15 | Outpatient (AMB) | payer OTHER, SELFPAY ==
--- OUTSIDE RECORDS SUMMARY | 2025-05-16 10:32 | XMS_ITS | Patient Health Record ---
Author Organization [facility] Address [address] [place] [id number] Care Team Providers Care Communication Electronic Technician Name Role Phone Margarito Anton MD Primary Care Provider Favain Groves [phone] Allergies Allergen (clinical drug ingredient) Drug/Non Drug [...] Problem Status W/U Status Risk Notes Problem [id number] Encounter for screening for malignant neoplasm of colon (Z12.11) Active confirmed Problem 787606023 History of adenomatous polyp of colon (Z86.010) Active confirmed Problem History of polyp of colon (situation) (568479752) Personal history of colonic polyps (Z86.010) Active confirmed Problem Diverticular disease of colon (313332876) Diverticulosis of large intestine without perforation or abscess without bleeding (K57.30) Active confirmed Problem Anorexia (33402863) Anorexia (R63.0) Active confirmed Problem Acute gastric ulcer without hemorrhage, without perforation AND without obstruction (26136989) Gastric ulcer without hemorrhage or perforation, acute (K25.3) Active confirmed Problem 420744685 Preprocedural examination (Z01.818) Active confirmed Problem 688849352 Aspirin long-ter m use (Z79.82) Active confirmed Problem 024272491 Gastroesophageal reflux disease, esophagitis presence not specified (K21.9) Active confirmed Problem Hiatal hernia (57869868) Hiatal hernia (K44.9) Active confirmed Problem 00322882 Gastroenteritis (K52.9) Active confirmed Problem 746374209 Abnormal CT scan , stomach (R93.3) Active confirmed Problem Esophageal reflux finding (689653355) Gastroesophageal reflux (K21.9) Active confirmed Vital Signs Temperature 97.7 degrees Fahrenheit 01/08/2025 Blood pressure diastolic 01 mm Hg 01/08/2025 Height 67 in 01/08/2025 Blood pressure systolic 001 mm Hg 01/08/2025 Weight 163.8 lbs 01/08/2025 BMI 25.65 kg/m2 01/08/2025 Encounters Encounter Location Date Provider Diagnosis [facility] [address] [place] [phone] 01/08/2025 Favian Delgado Encounter for screen ing for malignant neoplasm of colon Z12.11 ; Anorexia R63.0 ; History of adenomatous polyp of colon Z86.010 and Gastroesophageal reflux disease, esophagitis presence not specified K21.9 [facility] [address] [place] [phone] 08/23/2024 Favian Delgado Assessments Encounter Date Diagnosis [...] to discuss things with you and his theater teacher in regard to getting better control of [...] to discuss things with you and his theater teacher in regard to getting better control of [...] to discuss things with you and his theater teacher in regard to getting better control of [...] to discuss things with you and his theater teacher in regard to getting better control of [...] Insured Coverage Start Date Coverage End Date [facility] [address] [place] [address] [id number] LINA CHONG Self - patient is the insured Medical (General) History Medical History History ICD Code HTN Hyperlipidemia Emphysema Denies CA, CVA, renal disease Prostate cancer IDDM Colonoscopy [...]
--- OUTSIDE RECORDS SUMMARY | 2025-05-16 10:32 | XMS_ITS | Clinical Summary ---
Author Organization [employer] Address [address] [place] [address] [address] [place] [address] Care Team Providers Care Land Examiner Name Role Phone Unavailable Primary Care Provider [...] Insurance [employer]ARE < 65 [place] [id number]
--- NOTE | 2025-05-16 10:53 | MHC.PC.OV ---
Vital Signs 05/16/25 10:55 Height 5 ft 9 in Weight 161 lb 4 oz BMI 23.8 BP 110/72 Blood Pressure Location Lt brachial Position Sitting Pulse 74 Pulse Source Pulse Oximeter Temp 97.3 F Temp Source Temporal Artery Scan Pulse Oximetry (%) 94 Oxygen Delivery Method Nasal Cannula Intake Visit Reasons: copd, DM Intake Note: Patient is here to follow up on COPD, DM. Ethylbenzene Cracking Supervisor Required: Yes Ethylbenzene Cracking Supervisor Language: Back Tender Insulation Board Name: Niki (spouse) Information Interpreted: non-clinical & clinical (pt decline translating service prefer spouse to translate for him) Clinical Review Nurse: Present Accompanied by: Spouse Allergies cortisone (CORTISONE) Allergy (Severe, Verified 05/16/25 10:54) ANAPHYLAXIS cephalexin Allergy (Unknown, Verified 05/16/25 10:54) unknown lisinopril Adverse Reaction (Intermediate, Verified 05/16/25 10:54) hypotension Tobacco use date assessed: 05/16/25 Fall risk assessment: No Falls in past year Last assessed Fall Risk: 05/16/25 Dental Screening Dental Screen Date: 04/03/25 [facility] Medical History Personal history of nicotine dependence Hypoxemia COPD exacerbation Allergic rhinitis Type 2 diabetes mellitus with diabetic polyneuropathy Tinnitus Anxiety and depression Peptic ulcer disease Renal calculus, right Tubular adenoma of colon DDD (degenerative disc disease), lumbar Depression Prostate cancer COPD (chronic obstructive pulmonary disease) CAP (community acquired pneumonia) Gastric ulcer Hernia Kidney stones History of prostate cancer Erectile dysfunction Insulin use (long-term) in type 2 diabetes Hyperlipidemia LDL goal <100 Vitamin D insufficiency Surgical History History of cataract surgery History of foot surgery History of inguinal hernia repair Hx of tonsillectomy Hx of prostatectomy Family History Father Diabetes Mother No problems noted. Son Diabetes Maternal Uncle Prostate cancer Paternal Grandfather Myocardial infarction Maternal Grandmother No problems noted. Maternal Aunt Esophageal cancer Maternal Grandfather Myocardial infarction Social History Household Members: Spouse Housing: Apartment Alcohol intake: current Alcohol intake frequency: a few times a month Patient Tobacco Use Status: Former Tobacco user Tobacco use type: Cigarette e-Cigarette/Vaping Use: Never Used Second Hand Smoke Exposure: Yes Substance Use Type: Former Substance User and Marijuana service: No Current occupational status: disabled Current occupation: rt handed Cognitive needs: Yes (cane) Hearing needs: Yes (hearing aide) Vision needs: Yes Questionnaire Thrive Questionnaire Date Thrive assessed: 04/03/25 I am a: Patient What is your living situation today?: I have a steady place to live Within the past 12 months, did the food you bought not last and you didn't have the money to get more?: Never true Within the past 12 months, did you worry whether your food would run out before you got money to buy more?: Never true Do you have trouble paying for medicines?: No Do you have trouble getting transportation to medical appointments?: No Do you have trouble paying your heating and electricity bill?: No Do you have trouble taking care of your child, family member or friend?: No Do you have trouble with day-to-day activities such as bathing, preparing meals, shopping, managing finances, etc.?: No Are you currently unemployed and looking for a job?: Yes Are you interested in more education?: No Please select the resources that you would like help with: None Currently or been in a relationship where the following occur: No concerns reported THRIVE Score: 0 YOLIS-7 AMB Questionnaire YOLIS-7 Date YOLIS - 7 assessed: 04/03/25 Source: Developed by Drs. Favian Nascimento, Valentina Serrano, Jose M Lunsford and colleagues, with an educational edita from [employer]. Physical exam (Primary Care) Vital Signs: Last Vital Signs Temp 97.3 F 05/16/25 10:55 Pulse 74 05/16/25 10:55 BP 110/72 05/16/25 10:55 Pulse Ox 94 05/16/25 10:55 Oxygen Delivery Method Nasal Cannula 05/16/25 10:55 BMI result Body Mass Index 23.8 Tobacco/Smoking Status: Tobacco use Status Tobacco use date assessed 05/16/25 05/16/25 11:22 Patient Tobacco Use Status Former Tobacco user 05/16/25 10:53 Tobacco use type Cigarette 05/16/25 10:53 e-Cigarette/Vaping Use Never Used 05/16/25 10:53 Thrive Assessment: Date of Thrive Assessment Date Thrive assessed 04/03/25 05/16/25 10:53 Currently or been in a relationship where the following occur: No concerns reported Const General: alert; No acute distress Eyes Conjunctivae: conjunctivae normal Resp Auscultation: clear to auscultation bilaterally Cardio Rate: regular rate Rhythm: regular rhythm GI Inspection: Yes normal to inspection Extrem General: Yes normal to inspection and No edema Coding Level of Care Code Est Pt Level 4 (01240) Complex EM visit Add On G2211 Diagnoses Type 2 diabetes mellitus with diabetic polyneuropathy, with long-term current use of insulin E11.42; Z79.4 Diabetes mellitus senior living insulin use: with senior living use Hyperlipidemia LDL goal <100 E78.5 Nephrolithiasis N20.0 Pulmonary emphysema, unspecified emphysema type J43.9 COPD type: emphysema Emphysema type: unspecified Mass of right side of neck R22.1 Assessment & Plan Assessment & Plan (1) Type 2 diabetes mellitus with diabetic polyneuropathy: Code(s): E11.42 - Type 2 diabetes mellitus with diabetic polyneuropathy Category: Medical Qualifiers: Diabetes mellitus terminal block assembler insulin use: with terminal block assembler use Qualified Code(s): E11.42 - Type 2 diabetes mellitus with diabetic polyneuropathy; Z79.4 - 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 Patient does see endocrinology on insulin Gilda iGbson (2) Hyperlipidemia LDL goal <100: Code(s): E78.5 - Hyperlipidemia, unspecified Category: Medical Plan: Avoid fried foods, chicken skin, eggs, butter margarine, pastries and meat. Be it pork or beef they have a lot of cholesterol LDL goal of less than 100 and triglyceride of less than 150 on atorvastatin 20 mg once a day (3) Nephrolithiasis: Code(s): N20.0 - Calculus of kidney Category: Medical Plan: Keep well hydrated (4) COPD (chronic obstructive pulmonary disease): Comment: He has long-standing chronic obstructive pulmonary disease. DOING MUCH BETTER SINCE HE QUIT SMOKING. AT PRESENT HIS COPD IS VERY STABLE. Code(s): J44.9 - Chronic obstructive pulmonary disease, unspecified Category: Medical Qualifiers: COPD type: emphysema Emphysema type: unspecified Qualified Code(s): J43.9 - Emphysema, unspecified Plan: Continue with albuterol inhaler as needed (5) Mass of right side of neck: Code(s): R22.1 - Localized swelling, mass and lump, neck Category: Medical Plan History of Present Illness The patient is a 65-year-old male presenting for a follow-up visit. The patient has a history of diabetes mellitus, managed with insulin therapy, including NovoLog. His last hemoglobin A1c was 7.9%, indicating suboptimal control, and he is under the care of an marketing program manager. The patient also has hypercholesterolemia, managed with atorvastatin 20 mg daily, aiming for an LDL goal of less than 100 mg/dL. His LDL was reported as 89 mg/dL, which is within the target range. The patient has a history of Chronic Obstructive Pulmonary Disease (COPD) and uses an albuterol inhaler as needed. He quit smoking in 2022, which is a positive step in managing his COPD. The patient has a history of prostate cancer diagnosed in 2004, with no current active disease noted. He has a history of nephrolithiasis and anxiety disorder, both of which are currently stable. The patient reports lumbar degenerative disc disease, contributing to his chronic back pain. He has eczema and dermatitis, for which he has been treated with Dupixent and antibiotics, respectively. Preventative care includes a colonoscopy and fecal occult blood test performed in 2021, and he received a pneumonia vaccine in 2024. He is due for a tetanus vaccine, last received in 2012. Health Maintenance - Colonoscopy and fecal occult blood test in 2021 - Pneumonia vaccine received in 2024 - Tetanus vaccine due, last received in 2012 Social History - Smoking: History of smoking, quit in 2022 - Diet: Consumes two meals a day, including breakfast with eggs, sausage, and cheese Review of Systems - Endocrine: Reports high blood sugar levels, A1c 7.9% - Dermatological: Reports eczema and dermatitis - Musculoskeletal: Reports chronic back pain due to lumbar degenerative disc disease Physical Exam Results - Labs: Hemoglobin A1c 7.9%, LDL 89 mg/dL Plan The management plan for diabetes includes continued follow-up with endocrinology and adherence to insulin therapy, specifically NovoLog, to improve glycemic control. Dietary modifications are advised to reduce carbohydrate intake and improve blood sugar levels. For hypercholesterolemia, the patient will continue atorvastatin 20 mg daily, with a target LDL of less than 100 mg/dL. The current LDL level of 89 mg/dL is satisfactory. The COPD management includes the use of an albuterol inhaler as needed, and the patient is encouraged to maintain smoking cessation. Preventative care measures include ensuring up-to-date vaccinations, with a tetanus booster recommended as the last was in 2012. The patient is advised to consider the shingles vaccine available at the pharmacy. Patient was informed and verbally consented to the use of an ambient scribe for clinic note documentation during this visit. Discussion Notes During the visit, we discussed the importance of managing diabetes through insulin therapy and dietary changes to achieve better glycemic control. We reviewed the patient's cholesterol management plan, emphasizing the continuation of atorvastatin and maintaining LDL levels below 100 mg/dL. The patient was advised on COPD management, including the use of an albuterol inhaler and the benefits of smoking cessation. Preventative care discussions included the need for a tetanus booster and the option of receiving the shingles vaccine. Patient Instructions - Continue insulin therapy as prescribed and follow up with endocrinology. - Modify diet to reduce carbohydrate intake and monitor blood sugar levels. - Continue atorvastatin 20 mg daily for cholesterol management. - Use albuterol inhaler as needed for COPD and maintain smoking cessation. - Schedule a tetanus booster and consider the shingles vaccine at the pharmacy. Orders: Orders Creatinine Today R22.1 - Localized swelling, mass and lump, neck CT soft tissue neck w IV con Today R22.1 - Localized swelling, mass and lump, neck Blood Urea Nitrogen Today R22.1 - Localized swelling, mass and lump, neck Medications: Refilled lidocaine 5% leave on most painful area for up to 12 hrs 1 patch topical DAILY 30 ea 3RF lidocaine 5% leave on most painful area for up to 12 hrs 1 patch topical DAILY 30 ea 3RF
[2025-05-16 10:55] VITALS: BP 110/72; PULSE 74; TEMP 36.3; O2SAT 94; BMI 23.8
== END 2025-05-16 12:54 | disposition home or self-care (01) ==
LOC: HO.HMCH 10:15
PROVIDERS: PCP Internal Medicine; Visit Provider Internal Medicine
DX: E11.42 Type 2 diabetes mellitus with diabetic polyneuropathy (principal); Z79.4 Long term (current) use of insulin; J43.9 Emphysema, unspecified; E78.5 Hyperlipidemia, unspecified; N20.0 Calculus of kidney; R22.1 Localized swelling, mass and lump, neck

== ENCOUNTER → 2025-05-16 10:15 | Outpatient (BNVA) | payer OTHER, SELFPAY | PROVIDERS: PCP Internal Medicine; Visit Provider Internal Medicine | DX: E11.42 Type 2 diabetes mellitus with diabetic polyneuropathy (principal); J44.9 Chronic obstructive pulmonary disease, unspecified; E78.00 Pure hypercholesterolemia, unspecified; N20.0 Calculus of kidney; J43.9 Emphysema, unspecified; M51.369 Other intervertebral disc degeneration, lumbar region without mention of lumbar back pain or lower extremity pain; R22.1 Localized swelling, mass and lump, neck; Z79.4 Long term (current) use of insulin; Z87.891 Personal history of nicotine dependence | CPT/HCPCS: 99212 ==

== ENCOUNTER 2025-08-13 09:51 | Outpatient (AMB) | payer OTHER, SELFPAY ==
--- OUTSIDE RECORDS SUMMARY | 2024-08-23 10:00 | XMS_ITS ---
Author Organization [facility] Address [address] [place] [phone] Care Team Providers Care Brusher Operator Name Role Phone Margarito Anton MD Primary Care Provider Favian Groves [phone] REASON FOR VISIT Patient presents today for [...] Omeprazole 20 MG TAKE 1 CAPSULE BY [facility] EVERY MORNING; Duration: 30 Active Dulcolax (colon [...] Active Encounters Encounter Location Date Provider Diagnosis [facility] [address] [address] 08/23/2024 Favian Delgado Plan Of Treatment No Information Progress Notes * OSBALDO CHONGOB:1960 (65 yo M)Acc No.[id number]:08/23/2024 Progress Notes Patient: LINA BAUTISTA Provider: Raghu Delgado MD :1960 A ge:64 Y S ex:Male Date:08/23/2024 Address:[address] [place] [address] Pcp:Margarito Anton MD Subjective: * Chief Complaints: [...] Delgado MD Date: 10/23/2023 Generated for John plaacios/Radha/Aris on: 11:43 AM EDT
--- NOTE | 2025-08-13 10:02 | MHC.OFFVIS ---
Vital Signs 08/13/25 10:03 Height 5 ft 9 in Weight 160 lb 14.999 oz BMI 23.8 BP 120/50 L Blood Pressure Location Lt brachial Position Sitting Pulse 94 Pulse Source Pulse Oximeter Pulse Oximetry (%) 96 Oxygen Delivery Method Nasal Cannula Oxygen Flow Rate 1.5 Intake Visit Reasons: copd Intake Note: pt is here for follow up and states he is having oxygen numbers all different on different fingers, wondering how to monitor his level, on what hand and how often. Local Telephone Operator Required: No Local Telephone Operator Services: Local Telephone Operator Offered & Declined Family And Consumer Sciences Teacher: Family And Consumer Sciences Teacher offered & declined Allergies cortisone (CORTISONE) Allergy (Severe, Verified 08/13/25 10:18) ANAPHYLAXIS cephalexin Allergy (Unknown, Verified 08/13/25 10:18) unknown lisinopril Adverse Reaction (Intermediate, Verified 08/13/25 10:18) hypotension Medication List - Last Reconciled 08/13/25 by Kenisha Mckeon MD albuterol sulfate 90 mcg/actuation 2 puffs PO Q4-6H PRN alcohol swabs (BD Alcohol Swabs) 1 pad topical QID atorvastatin 20 mg PO DAILY blood-glucose sensor (P[employer]enix Energy TechnologiesStyle Bebeto 3 Plus Sensor device) Use daily As directed to monitor glucose blood-glucose,geological drafter,cont (FreeStyle Bebeto 3 [place]) Use daily As directed to monitor blood glucose cholecalciferol (vitamin D3) 50 mcg PO DAILY clotrimazole 1% 1 appl topical BID 4 weeks dupilumab (Dupixent) 300 mg subcut .[id number] fluticasone propion-salmeterol 250-50 mcg/dose 1 ea PO Q12H 3 months glucagon 3 mg/actuation (Baqsimi) 3 mg intranasal ONCE 30 days insulin glargine U-300 conc (Toujeo Max U-300 SoloStar) 18 units (0.06 mL) subcut BEDTIME lidocaine 5% 1 patch topical DAILY miconazole nitrate 2% (Zeasorb AF) 1 appl topical BID Novolog FlexPen U-100 Insulin (insulin aspart U-100) 4 units (0.04 mL) subcut TID NS Oxygen Home Use As directedO2 2L NC pen needle, diabetic 1 ea miscellaneous .4X/day sertraline 50 mg PO DAILY 90 days sildenafil (Viagra) 100 mg PO DAILY PRN 30 days tadalafil (Cialis) 5 mg PO DAILY 90 days umeclidinium 62.5 mcg/actuation (Incruse Ellipta) 1 inh inhalation DAILY 30 days Do you need a note to return to daycare/school/sports/work: No HPI HPI copd: Details: 65 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 HE HAS LONGSTANDING HISTORY OF BRONCHIAL ASTHMA/COPD, WITH RESPIRATORY FAILURE. NOW THAT HE IS ON DUPIXENT THERAPY FOR HIS CHRONIC ECZEMA, IT IS HELPING HIS BREATHING ALSO, AND HE FEELS MUCH BETTER HE SAY IS THAT HE HARDLY NEEDS TO USE THE RESCUE INHALER. HE STILL USING WIXELA TWICE A DAY AND INCRUSE ELLIPTA ONCE A DAY. HE IS ALSO ON OXYGEN FOR HIS CHRONIC RESPIRATORY FAILURE. RESPIRATORY STATUS HAS BEEN MUCH BETTER SINCE HE QUIT SMOKING COMPLETELY. [facility] Medical History Personal history of nicotine dependence Hypoxemia COPD exacerbation Allergic rhinitis Type 2 diabetes mellitus with diabetic polyneuropathy Tinnitus Anxiety and depression Peptic ulcer disease Renal calculus, right Tubular adenoma of colon DDD (degenerative disc disease), lumbar Depression Prostate cancer COPD (chronic obstructive pulmonary disease) CAP (community acquired pneumonia) Gastric ulcer Hernia Kidney stones History of prostate cancer Erectile dysfunction Insulin use (long-term) in type 2 diabetes Hyperlipidemia LDL goal <100 Vitamin D insufficiency Surgical History History of cataract surgery History of foot surgery History of inguinal hernia repair Hx of tonsillectomy Hx of prostatectomy Family History Father Diabetes Mother No problems noted. Son Diabetes Maternal Uncle Prostate cancer Paternal Grandfather Myocardial infarction Maternal Grandmother No problems noted. Maternal Aunt Esophageal cancer Maternal Grandfather Myocardial infarction Social History Household Members: Spouse Housing: Apartment Alcohol intake: current Alcohol intake frequency: a few times a month Patient Tobacco Use Status: Former Tobacco user Tobacco use type: Cigarette e-Cigarette/Vaping Use: Never Used Second Hand Smoke Exposure: Yes Substance Use Type: Former Substance User and Marijuana service: No Current occupational status: disabled Current occupation: rt handed Cognitive needs: Yes (cane) Hearing needs: Yes (hearing aide) Vision needs: Yes Review of Systems Const All systems reviewed & are unremarkable except as noted in HPI and below Eyes Reports no additional complaints ENT Reports nasal congestion (mild ) Card Denies chest pain, Denies irregular heart rhythm and Denies leg edema Resp Reports as per HPI GI Reports heartburn (Controlled with omeprazole) Reports erectile dysfunction Musc Reports back pain (Mild) Skin/Breast Reports system reviewed and no additional complaints, except as documented Neuro Reports no additional complaints Psych Reports no additional complaints Physical Exam Vital Signs: Last Vital Signs Pulse 94 08/13/25 10:03 BP 120/50 L 08/13/25 10:03 Pulse Ox 96 08/13/25 10:03 Oxygen Delivery Method Nasal Cannula 08/13/25 10:03 Oxygen Flow Rate 1.5 08/13/25 10:03 BMI result Body Mass Index 23.8 Const General: comfortable, no acute distress, alert and awake Orientation/consciousness: patient oriented x3 HEENT Head: Yes normal to inspection General nose exam: No nasal polyps present and No nasal discharge present Face and sinus: Yes sinuses nontender Mouth: oropharynx normal Throat: Yes posterior oropharynx normal Eyes General: appearance normal, both eyes and all related structures Neck Neck: Yes normal visual inspection, Yes no lymphadenopathy, Yes trachea midline and Yes no JVD Thyroid: Thyroid normal Chest Chest palpation & inspection: normal inspection of the chest, normal palpation of entire chest wall and no tenderness Resp Other: Percussion note hyper-resonant, breath sounds are distant with prolonged expiratory phase on both sides. No audible wheezes or rhonchi were present Cardio Palpation: normal PMI Rate: regular rate Rhythm: regular rhythm Heart sounds: no gallops and no murmurs GI Palpation (GI): Soft to palpation, nontender, No hepatosplenomegaly present and no masses Auscultation: normal bowel sounds Back/Spine/Pelvis Thoracic/Lumbar Spine: thoracic and lumbar spine normal to inspection and thoraco-lumbar ROM limited Skin General skin exam: rashes and/or lesions noted (Extensive eczematous rash on both hands) Neuro General: patient oriented x3 and no focal motor deficits Cranial nerves: Yes CN's II-XII intact bilaterally Extrem General: Yes normal to inspection, Yes no clubbing, cyanosis or edema and Yes no calf tenderness Psych Appearance: grossly normal Speech and movement: Normal speech and movement present Office Procedures Spirometry Testing Spirometry Comments: [facility] PERFORMED 18245- Spirometry Results Reviewed Results Reviewed: SPIROMETRY 01/26/22 08/13/2025 FVC 52 % 83 % FEV1 34 % 38% FEV1/FVC 50 36 FEF 25-75 15 11 % Assessment & Plan Assessment & Plan (1) COPD (chronic obstructive pulmonary disease): Comment: He is known to have chronic bronchial asthma/COPD, relatively severe. Quit smoking in 2022. Since then his breathing has been much better and he has very few acute exacerbations. But still needs oxygen all the time and also walks slowly. Code(s): J44.9 - Chronic obstructive pulmonary disease, unspecified Category: Medical Qualifiers: COPD type: emphysema Emphysema type: unspecified Qualified Code(s): J43.9 - Emphysema, unspecified Plan: CONTINUE TO USE WIXELA 250-51 INHALATION B.I.D. AND INCRUSE ELLIPTA 1 INHALATION DAILY, ALBUTEROL HFA 2 PUFFS Q 6 HOURS P.R.N. (2) Hypoxemia: Comment: Patient does have exertional and nocturnal hypoxemia . It has improved and he is doing well with use of oxygen. Code(s): R09.02 - Hypoxemia Category: Medical Plan: CONTINUE USING O2 2 L/MINUTE 24 HOURS A DAY BUT DURING THE DAYTIME HE CAN TAKE SOME BREAK IF HE IS JUST SITTING AND RESTING (3) Personal history of nicotine dependence: Comment: (quit 07/2023) . HE DOES HAVE HISTORY OF LONG-TIME SMOKING , BUT DID QUIT IN 2022 Code(s): Z87.891 - Personal history of nicotine dependence Category: Medical Plan: COMMENDED FOR NOT SMOKING (4) COPD (chronic obstructive pulmonary disease): Comment: He is known to have chronic bronchial asthma/COPD, relatively severe. Quit smoking in 2022. Since then his breathing has been much better and he has very few acute exacerbations. But still needs oxygen all the time and also walks slowly. Code(s): J44.9 - Chronic obstructive pulmonary disease, unspecified Category: Medical Qualifiers: COPD type: emphysema Emphysema type: unspecified Qualified Code(s): J43.9 - Emphysema, unspecified Plan: Spirometry performed today to compare with results from 2021. The flow volumes are relatively improved but he still has evidence of severe obstructive airway disorder. Orders: Orders AMB Spirometry Testing Today J43.9 - Emphysema, unspecified Coding Level of Care Code Est Pt Level 3 (64109) Diagnoses Pulmonary emphysema, unspecified emphysema type J43.9 COPD type: emphysema Emphysema type: unspecified Hypoxemia R09.02 Personal history of nicotine dependence Z87.891 CPT Codes Spirometry - CPT: 74845- Spirometry ([id number])
[2025-08-13 10:03] VITALS: BP 120/50; PULSE 94; O2SAT 96; BMI 23.8
--- OUTSIDE RECORDS SUMMARY | 2025-08-13 11:43 | XMS_ITS | Clinical Summary ---
Author Organization [facility] Address [address] [place] [address] [address] [place] [address] Care Team Providers Care Powder Core Tester Name Role Phone Unavailable Primary Care Provider [...] of 2) 2009 COVID-19 Vaccine (2 - 2024-2 6 season) 2025 11/02/2022 Influenza Vaccine (#1) 2025 , 11/05/2019, [...] Insurance [employer] < 65 [place] [id number]
--- OUTSIDE RECORDS SUMMARY | 2025-08-13 11:45 | XMS_ITS | Clinical Summary ---
Author Organization [facility] Address [address] [place] [address] Phone Care Team Providers Care Manager Business Management Name Role Phone Margarito Anton MD Primary Care Provider [phone] Allergies No known active allergies Medications Dupixent Pen 300 mg/2 mL pen 5 Active NovoLOG Flexpen U-100 Insulin 100 unit/mL (3 mL) injection pen 5 Active Toujeo Max U-300 SoloStar 300 unit/mL (3 mL) CONCENTRATED injection pen INJECT 18 UNITS UNDER THE SKIN ONCE DAILY AT BEDTIME 5 Active albuterol HFA (PROAIR HFA ; PROVENTIL HFA ; VENTOLIN HFA) 90 mcg/actuation inhaler INHALE 2 PUFFS ORALLY EVERY 4 TO 6 HOURS NEEDED FOR FOR WHEEZING Active omeprazole (PriLOSEC) [address] capsule TAKE 1 CAPSULE BY MOUTH EVERY MORNING for 30 Active sertraline (ZOLOFT) 50 mg tablet 1 tablet (50 mg total) 1 (one) time each day at the same time. Active atorvastatin (LIPITOR) 20 mg tablet Take 1 tablet (20 mg total) by mouth 1 (one) time each day. Active Vitamin D3 50 mcg (2,000 unit) capsule Take 1 capsule (2,000 Units total) by mouth 1 (one) time each day. 5 Active umeclidinium (Incruse Ellipta) 62.5 mcg/actuation inhalation Inhale 1 puff by mouth. Active fluticasone propion/salmeter ol (WIXELA INHUB INHL) Inhale by mouth. Act austyn bisacodyL (DULCOLAX) 5 mg EC tablet Take 2 tablets by mouth right before beginning bowel prep. See instructions provided by the office 2 tablet 5 Active polyethylene glycol (Golytely) 236-22.74-6.74 -5.86 gram solution Take 4L by mouth once for one dose. May substitue any PEG. Starting at 2PM the day before your procedure drink 1 8oz glasses at your own pace until you complete half of the gallon. Finish 2nd half of the gallon at 8PM. 4000 mL 5 Active Active Problems Problem Noted Date Diagnosed Date Enterocolitis 06/09/2025 Mural thickening of sigmoid colon 06/09/2025 Renal cyst 06/09/2025 Anxiety disorder 03/25/2025 Atopic dermatitis 03/25/2025 Chronic obstructive pulmonar y disease ([facility] V24, [facility] V28) 03/25/2025 Depressive disorder 03/25/2025 Diabetes mellitus ([facility] V24, [facility] V28) 12/2024 Dizziness 05/27/2013 Frequent urination 05/27/2013 Hypertriglyceridemia 04/04/2013 Chronic pain 02/26/2013 Shoulder pain 02/26/2013 Prostate CA ([facility] V24, [facility] V28) 3 Numbness and tingling of right arm 02/26/2013 DJD (degenerative joint disease) 02/26/2013 Atypical chest pain 10/08/2012 Overview (06/18/2025): 11/03 nuclear stress test was negative for ischemia 10/02 echo revealed EF 50-55%, diastolic dysfunction, 11/03 Holter monitor revealed baseline NSR with no pauses, rare SVE's no pt reported events Chronic obstructive airway d isease ([facility] V24, [facility] V28) 10/08/2012 Encounters Date Type Department Care Team Description 07/21/2025 Results Follow-Up Gastroenterology - [address] [place] [address] Екатерина Singh [place] 07/18/2025 12:37 PM EDT Anesthesia Event [facility] [address] [place] [phone] Augustus Faulkner MD 07/18/2025 11:22 AM EDT - 07/18/2025 11:59 PM EDT Hospital Encounter [facility] [address] [place] [phone] Remi Howe MD Dickman, Christy L, CRNA Dasilva, John E, MD Rectal bleeding; Abnormal CT of the abdomen Discharge Disposition: Home or Self Care 06/20/2025 Telephone Gastroenterology - [address] [phone] Remi Howe MD 06/19/2025 1:30 PM EDT Consult Gastroenterology - [address] [phone] Remi Howe MD Rectal bleeding (Primary Dx); Abnormal CT of the abdomen; Adenomatous polyp of colon, unspecified part of colon 06/19/2025 Telephone Gastroenterology - [address] [phone] Remi Howe MD 06/09/2025 5:45 PM EDT - 06/09/2025 11:46 PM EDT Emergency [facility] Emergency [address] [place] [phone] Bryant Kiran MD Enterocolitis (Primary Dx); Mural thickening of sigmoid colon; Renal cyst Discharge Disposition: Home or Self Care from Last 3 Months Surgical History Surgery Date Site/Laterality Comments TONSILLECTOMY PROCEDURE: HISTORICAL TONSILLECTOMY HERNIA REPAIR PROCEDURE: REPAIR INGUINAL HERNIA PROSTATECTOMY PROCEDURE: PROSTATECTOMY COLONOSCOPY 10/23/2021 - 10/22/2022 Polyps, Dr Delgado Medical History Medical History Date Comments Other and unspecified hyperlipidemia 10/08/2012 DX:Other and unspecified hyperlipidemia Abnormal maternal glucose to lerance, antepartum 10/08/2012 DX:Abnormal maternal glucose tolerance, antepartum Tobacco abuse 10/08/2012 DX:Tobacco abuse Atypical chest pain 10/08/2012 DX:Atypical chest pain Chronic airway obstruction, not elsewhere classified 10/08/2012 DX:Chronic airway obstructio n, not elsewhere classified Numbness and tingling of right arm 02/26/2013 DX:Numbness and tingling of right arm Historical Medical DX 02/26/2013 DX:Hyperli pidemia LDL goal < 100 Chronic pain 02/26/2013 DX:Chronic pain DJD (degenerative joint disease) 02/26/2013 DX:DJD (degenerative joint disease) Prostate CA ([facility] V24, [facility] V28) 02/26/2013 DX:Prostate CA (HCC) Need for hepatitis C screening test 02/26/2013 DX:Need for hepatitis C screening test Shoulder pain 02/26/2013 DX:Shoulder pain Elbow pain 02/26/2013 DX:Elbow pain Hypertriglyceridemia 04/04/2013 DX:Hypertri glyceridemia Bronchitis, not specified as acute or chronic DX:Bronchitis, not specified as acute or chronic Dizziness 05/27/2013 DX:Dizziness Frequent urination 05/27/2013 DX:Frequent u rination Diabetes mellitus ([facility] V 24, [facility] V28) Family History Medical History Relation Name Comments Diabetes Father's side Blindness Maternal Grandfather Cataracts Maternal Grandfather Cataracts Mother Prostate cancer Uncle Glaucoma Neg Hx Macular degeneration Neg Hx Strabismus Neg Hx Relation Name Status Comments Father's side Maternal Grandfather Mother Uncle Social History Tobacco Use Types Packs/Day Years Used Date Smoking Tobacco: Some Days Cigarettes Smokeless Tobacco: Never Alcohol Use Standard Drinks/Week Comments Not Currently 0 (1 standard drink = 0.6 oz pur e alcohol) Interpersonal Safety Answer Date Record ed Physical Abuse Unrecognized value 07/18/2025 Verbal Abuse Unrecognized value 07/18/2025 Sex and Gender Information Value Date Recorded Sex Assigned at Not on file Legal Sex Male 5:41 PM EST Gender Identity Not on file Sexual Orientation Not on file Obstetrics History Last Filed Vital Signs Vital Sign Reading Time Taken Comments Blood Pressure 149/76 07/18/2025 1:15 PM EDT Pulse 81 07/18/2025 1:15 PM EDT Temperature 36.1 C (97 F) 07/18/2025 12:55 PM EDT Respiratory Rate 18 07/18/2025 1:15 PM EDT Oxygen Saturation 97% 07/18/2025 1:15 PM EDT Inhaled Oxygen Concentration - - Weight 71.7 kg (158 lb) 07/11/2025 9:00 AM EDT Height 175.3 cm (5' 9 ) 07/11/2025 9:00 AM EDT Body Mass Index 23.33 07/11/2025 9:00 AM EDT Plan of Treatment Health Maintenance Due Date Last Done Comments Diabetes: Annual Foot Exam 1969 Diabetes: Annual Retina Eye Exam 1969 RSV Immunization Adult Patients (1 - Risk 50-74 years 1-dose series) 2009 Zoster Vaccines (1 of 2) 2009 DTaP,Tdap,and Td Vaccines (2 - Td or Tdap) 09/11/2023 09/11/2013 Depression Screening 10/23/2024 Abdominal Aortic Aneurysm (AAA) Screen 06/09/2025 Cholesterol Screening (Lipid Panel) 06/09/2025 Diabetes: Annual Urine Albumin-Creatinine Ratio (uACR) 06/09/2025 Diabetes: Blood Sugar Control Test (HGBA1C) 06/09/2025 Hepatitis C Screening 06/09/2025 Medicare Annual Wellness Visit 06/09/2025 Social Influencers of Health Screening 06/09/2025 COVID-19 Vaccine ( season) 2025 11/02/2022, 04/14/2022, 10/04/2021, Additional history exists Influenza Vaccine (#1) 2025 , 08/03/2022, 08/09/2021, Additional history exists Diabetes: Annual GFR (Glomerular Filtration Rate) 06/09/2026 06/09/2025 Falls Risk Assessment 07/18/2026 07/18/2025 Colorectal Cancer Screening: Colonoscopy 07/18/2035 07/18/2025 Pneumococcal Vaccine: 50+ Years Completed 2025, 07/16/2018, 09/11/2013 HIB Vaccines Aged Out No longer eligi [...] on patient's age to complete this topic MMR Vaccines Aged Out No longer eligi ble based on patient's age to complete this topic Meningococcal ACWY Vaccine Aged Out N o longer eligible based on patient's age to complete this topic Meningococcal B Vaccine Aged Out No l onger eligible based on patient's age to complete this topic RSV Immunization Patients Under 20 months Aged Out No longer eligible based on patient's age to complete this topic Varicella Vaccines Aged Out No longer eligible based on patient's age to complete this topic Procedures Procedure Name Priority Date/Time Associated Diagnosis Comments COLONOSCOPY Routine 07/18/2025 12:54 PM EDT Rectal bleeding Abnormal CT of the abdomen TISSUE EXAM Routine 07/18/2025 12:52 PM EDT Rectal bleeding Abnormal CT of the abdomen ECG ANNOTATED 06/10/2025 CT ABDOMEN PELVIS W CONTRAST STAT 06/09/2025 7:08 PM EDT ECG 12-LEAD STAT 06/09/2025 6:55 PM EDT TROPONIN I HIGH SENSITIVITY STAT 06/09/2025 6:24 PM EDT LACTATE STAT 06/09/2025 6:24 PM EDT LIPASE STAT Add-on 06/09/2025 2:04 PM EDT CBC WITH AUTO DIFFERENTIAL STAT 06/09/2025 2:04 PM EDT TYPE AND SCREEN STAT 06/09/2025 2:04 PM EDT COMPREHENSIVE METABOLIC PANEL STAT 06/09/2025 2:04 PM EDT CBC AND DIFFERENTIAL STAT 06/09/2025 2:04 PM EDT from Last 3 Months Results * COLONOSCOPY Anesthesia - MAC; [facility] END[facility]COPY (07/18/2025 12:54 PM EDT) Anatomical Region Laterality Modality Endoscopy 07/18/2025 12:3 7 PM EDT Impressions 07/18/2025 12:55 PM EDT - One 6 mm polyp at 25 cm proximal to the anus, removed with a hot snare. Resected and retrieved. - Non-bleeding internal hemorrhoids. - The examination was otherwise normal on direct and retroflexion views. Recommendation: - Discharge patient to home. - Resume previous diet. - Continue present medications. - Await pathology results. - Repeat colonoscopy for surveillance based on pathology results. - Return to GI office PRN. Narrative 07/18/2025 12:55 PM EDT [facility] GI Patient Name: Lina Sanford Procedure Date: 07/18/2025 12:37 PM Date of : 1960 Age: 65 Room: ROOM 15 Gender: Male Note Status: Finalized Attending MD: Remi Howe MD, Procedure Date No Time: 07/18/2025 Procedure: Colonoscopy Indications: Rectal bleeding, Abnormal CT of the GI tract Providers: Remi Howe MD Referring MD: Remi Howe MD Medicines: Monitored Anesthesia Care Complications: No immediate complications. Estimated Blood Loss: Estimated blood loss: none. Procedure: Pre-Anesthesia Assessment: - ASA Grade Assessment: II - A patient with mild systemic disease. - After reviewing the risks and benefits, the patient was deemed in satisfactory condition to undergo the procedure. After I obtained informed consent, the scope was passed under direct vision. Throughout the procedure, the patient's blood pressure, pulse, and oxygen saturations were monitored continuously.The Olympus Pediatric Colonoscope was introduced through the anus and advanced to the cecum, identified by appendiceal orifice and ileocecal valve. The colonoscopy was performed without difficulty. The patient tolerated the procedure well. The quality of the bowel preparation was good. Findings: A 6 mm polyp was found at 25 cm proximal to the anus. The polyp was sessile. The polyp was removed with a hot snare. Resection and retrieval were complete. Estimated blood loss was minimal. Non-bleeding internal hemorrhoids were found during retroflexion. The hemorrhoids were small. The exam was otherwise without abnormality on direct and retroflexion views. Procedure Code(s): --- Professional --- 92338, Colonoscopy, flexible; with removal of tumor(s), polyp(s), or other lesion(s) by snare technique Diagnosis Code(s): --- Professional --- D12.6, Benign neoplasm of colon, unspecified K62.5, Hemorrhage of anus and rectum R93.3, Abnormal findings on diagnostic imaging of other parts of digestive tract CPT copyright 2020 [employer]. All rights reserved. The codes documented in this report are preliminary and upon hotel staff member review may be revised to meet current compliance requirements. Remi Howe MD 07/18/2025 12:55:39 PM This report has been signed electronically.Remi Howe MD Number of Addenda: 0 Note Initiated On: 07/18/2025 12:37 PM Scope In: Scope Out: Endoscopy Department at [facility] - [address] [place] [phone] Procedure Note Remi Howe MD - 07/18/2025 [facility] GI Patient Name: Lina Sanford Procedure Date: 07/18/2025 12:37 PM Date of : 1960 Age: 65 Room: ROOM 15 Gender: Male Note Status: Finalized Attending MD: Remi Howe MD, Procedure Date No Time: 07/18/2025 Procedure: Colonoscopy Indications: Rectal bleeding, Abnormal CT of the GI tract Providers: Remi Howe MD Referring MD: Remi Howe MD Medicines: Monitored Anesthesia Care Complications: No immediate complications. Estimated Blood Loss: Estimated blood loss: none. Procedure: Pre-Anesthesia Assessment: - ASA Grade Assessment: II - A patient with mild systemic disease. - After reviewing the risks and benefits, thepatient was deemed in satisfactory condition to undergo the procedure. After I obtained informed consent, the scope was passed under direct vision. Throughout theprocedure, the patient's blood pressure, pulse, and oxygen saturations were monitored continuously.The Olympus Pediatric Colonoscope was introduced through theanus and advanced to the cecum, identified byappendiceal orifice and ileocecal valve. The colonoscopy was performed without difficulty. The patient tolerated the procedure well. The quality of the bowel preparation was good. Findings: A 6 mm polyp was found at 25 cm proximal to theanus. The polyp was sessile. The polyp was removed with a hot snare. Resection and retrieval were complete. Estimated blood loss was minimal. Non-bleeding internal hemorrhoids were found during retroflexion. The hemorrhoids were small. The exam was otherwise without abnormality ondirect and retroflexion views. Procedure Code(s): --- Professional --- 62440, Colonoscopy, flexible; with removal of tumor(s), polyp(s), or other lesion(s) by snare technique Diagnosis Code(s): --- Professional --- D12.6, Benign neoplasm of colon, unspecified K62.5, Hemorrhage of anus and rectum R93.3, Abnormal findings on diagnostic imaging of other parts of digestive tract CPT copyright 2020 [employer]. All rights reserved. The codes documented in this report are preliminary and upon hotel staff member reviewmay be revised to meet current compliance requirements. Remi Howe MD 07/18/2025 12:55:39 PM This report has been signed electronically.Remi Howe MD Number of Addenda: 0 Note Initiated On: 07/18/2025 12:37 PM Scope In: Scope Out: Endoscopy Department at [facility] - [address] [place] [phone] IMPRESSION: - One 6 mm polyp at 25 cm proximal to the anus, removed with a hot snare. Resected and retrieved. - Non-bleeding internal hemorrhoids. - The examination was otherwise normal on directand retroflexion views. Recommendation: - Discharge patient to home. - Resume previous diet. - Continue present medications. - Await pathology results. - Repeat colonoscopy for surveillance based on pathology results. - Return to GI office PRN. us Remi Howe MD GI~PROCEDURE ORDERABLES Final Result * Tissue exam (07/18/2025 12:52 PM EDT) Final Diagnosis Colon, polyp at 25 cm: Hyperplastic polyp. 07/21/2025 9:41 AM EDT [facility] at 0941 EDT Gross Description A. Colon, polyp at 25 cm: Labeled colon polyp at . Received in formalin, is an approximately 0.4 cm in greatest diameter soft to rubbery, velasquez-pink to red, polypoid tissue fragment, inked green at the margin, bisected, which is wrapped in paper and entirely submitted in toto in one cassette, two pieces, multiple levels. hs/DG 07/21/2025 9:41 AM EDT [facility] Disclaimer Unless otherwise specified, all tissue is 10% NB formalin fixed and paraffin embedded. 07/21/2025 9:41 AM EDT [facility] Tissue Colon structure / Unknown 07/18/2025 12:52 PM EDT 07/18/2025 2:43 PM EDT Remi Howe MD LAB PATHOLOGY ORDERABLES Evelina l Result [facility] [address] [place] [address], * ECG-Annotated (06/10/2025) us Provider Onbase MD ECG ORDERABLES Final Result * CT Abdomen Pelvis w Contrast (06/09/2025 7:08 PM EDT) Anatomical Region Laterality Modality Body Computed Tomogra phy 06/09/2025 7:36 PM EDT Impressions 06/09/2025 7:36 PM EDT Suspect diffuse enterocolitis. Additional findings described, please see above. This document has been electronically signed by: Cali Casey MD on 06/09/2025 19:36:32 Narrative 06/09/2025 7:36 PM EDT INDICATION: Abdominal pain, acute, nonlocalized CT abdomen and pelvis with contrast Comparison: None provided Findings: The lung bases are clear. Cardiomegaly without significant pericardial effusion. Coronary artery calcifications. Hepatomegaly with steatosis. No urolithiasis. Right-sided hypodense renal cysts Diffuse colonic and small bowel mural thickening with submucosal edema, concerning for enterocolitis. Focal short segmental region of irregular mural thickening of the sigmoid colon series 601, image 72 for example. Although this may be related to peristalsis, underlying neoplasm not entirely excluded. Colonoscopy may be helpful further evaluation. No bowel obstruction. Fat containing umbilical hernia. Skin thickening right anterior abdominal wall, nonspecific. No discrete collections. Normal appendix. Colonic diverticulosis without focal diverticulitis. Post prostatectomy. Osteopenia with diffuse multilevel spondylosis. Diffuse atheromatous plaque disease throughout the aorta and branch vessels, without aneurysmal dilatation. Procedure Note Cali Casey MD - 06/09/2025 INDICATION: Abdominal pain, acute, nonlocalized CT abdomen and pelvis with contrast Comparison: None provided Findings: The lung bases are clear. Cardiomegaly without significant pericardial effusion. Coronary artery calcifications. Hepatomegaly with steatosis. No urolithiasis. Right-sided hypodense renal cysts Diffuse colonic and small bowel mural thickening with submucosal edema, concerning for enterocolitis. Focal short segmental region of irregular mural thickening of thesigmoid colon series 601, image 72 for example. Although this may be related to peristalsis, underlying neoplasm not entirely excluded. Colonoscopy maybe helpful further evaluation. No bowel obstruction. Fat containing umbilical hernia. Skin thickening right anterior abdominal wall, nonspecific. No discrete collections. Normal appendix. Colonic diverticulosis without focal diverticulitis. Post prostatectomy. Osteopenia with diffuse multilevel spondylosis. Diffuse atheromatous plaque disease throughout the aorta and branch vessels, without aneurysmal dilatation. IMPRESSION: Suspect diffuse enterocolitis. Additional findings described, please see above. This document has been electronically signed by: Cali Casey MD on 06/09/2025 19:36:32 Bryant Kiran MD IM CT PROCEDURES Final Result * 12-Lead ECG (06/09/2025 6:55 PM EDT) Ventricular Rate ECG 66 BPM GEMUSE Atrial Rate 66 BPM GEMUSE P-R Interval 174 ms GEMUSE QRS Duration 100 ms GEMUSE Q-T Interval 406 ms GEMUSE QTc 425 ms GEMUSE P [place] 67 degrees GEMUSE R [place] 80 degrees GEMUSE T [place] 51 degrees GEMUSE ECG Interpretation Normal sinus rhythm Normal ECG No previous ECGs available Confirmed by ANDREIA SYKES ([id number]) on 06/10/2025 4:17:06 PM GEMUSE 06/09/2025 6:55 PM EDT 06/10/2025 4:17 PM EDT us Bryant Kiran MD ECG ORDERABLES Final Result Performing Organization Address City/[facility] de Phone Number GEMUSE * Troponin I High Sensitivity (06/09/2025 6:24 PM EDT) [facility] High Sensitivity Troponin I 4 <=79 ng/L LAB CHEMISTRY METHOD 06/09/2025 7:16 PM EDT [facility] Blood Venous blood specimen / Unknown Venipuncture / Unknown 06/09/2025 6:24 PM EDT 06/09/2025 6:40 PM EDT Narrative [facility] - 06/09/2025 7:16 PM EDT High levels of biotin in samples may falsely decrease hsTroponin values. Use caution when interpreting hsTroponin results in patients taking biotin who exhibit renal impairment (eGFR <60) or in patients taking more than 20 mg/day of biotin. us Bryant Kiran MD LAB BLOOD ORDERABLES Final Resul t Performing Organization Address City/[facility] Co de Phone Number [facility] [address] [place] [address], [place] [phone] * Lactate (06/09/2025 6:24 PM EDT) [facility] Lactate 1.3 0.4 - 2.0 mmol/L LAB CHEMISTRY METHOD 06/09/2025 7:16 PM EDT [facility] Blood Venous blood specimen / Unknown Venipuncture / Unknown 06/09/2025 6:24 PM EDT 06/09/2025 6:41 PM EDT us Bryant Kiran MD LAB BLOOD ORDERABLES Final Resul t [facility] [address] [place] [address], * (ABNORMAL) CBC auto differential (06/09/2025 2:04 PM EDT) [facility] Signature WBC 8.9 4.8 - 10.8 K/mcL LAB HEMETOLOGY METHOD 06/09/2025 3:00 PM EDT [facility] RBC 5.10 4.50 - 5.50 M/mcL LAB HEMETOLOGY METHOD 06/09/2025 3:00 PM EDT [facility] Hemoglobin 16.0 13.5 - 17.5 g/dL LAB HEMETOLOGY METHOD 06/09/2025 3:00 PM EDT [facility] Hematocrit 50.4 42.0 - 54.0 % LAB HEMETOLOGY METHOD 06/09/2025 3:00 PM EDT [facility] MCV 98.2(H) 79.0 - 98.0 FL LAB HEMETOLOGY METHOD 06/09/2025 3:00 PM EDT [facility] MCH 31.2 27.0 - 32.0 pcg LAB HEMETOLOGY METHOD 06/09/2025 3:00 PM EDT [facility] MCHC 31.7(L) 32.0 - 37.0 g/dL LAB HEMETOLOGY METHOD 06/09/2025 3:00 PM EDT [facility] RDW 14.3 11.0 - 15.0 % LAB HEMETOLOGY METHOD 06/09/2025 3:00 PM EDT [facility] Platelets 197 130 - 400 K/mcL LAB HEMETOLOGY METHOD 06/09/2025 3:00 PM EDT [facility] MPV 12.3(H) 7.0 - 11.0 FL LAB HEMETOLOGY METHOD 06/09/2025 3:00 PM EDT [facility] NRBC 0.0 <1.0 % LAB HEMETOLOGY METHOD 06/09/2025 3:00 PM EDT [facility] NRBC Absolute 0.00 <0.10 K/mcL LAB HEMETOLOGY METHOD 06/09/2025 3:00 PM [facility] Neutrophils Relative 65.9 % LAB HEMETOLOGY METHOD 06/09/2025 3:00 PM [facility] Lymphocytes Relative 20.4 % LAB HEMETOLOGY METHOD 06/09/2025 3:00 PM [facility] Monocytes Relative 11.5 % LAB HEMETOLOGY METHOD 06/09/2025 3:00 PM [facility] Eosinophils Relative 1.6 % LAB HEMETOLOGY METHOD 06/09/2025 3:00 PM [facility] Basophils Relative 0.3 % LAB HEMETOLOGY METHOD 06/09/2025 3:00 PM [facility] Immature Granulocytes Relative 0.3 % LAB HEMETOLOGY METHOD 06/09/2025 3:00 PM [facility] Neutrophils Absolute 5.83 1.50 - 7.00 K/mcL LAB HEMETOLOGY METHOD 06/09/2025 3:00 PM [facility] Lymphocytes Absolute 1.81 1.00 - 5.00 K/mcL LAB HEMETOLOGY METHOD 06/09/2025 3:00 PM [facility] Monocytes Absolute 1.02(H) 0.20 - 1.00 K/mcL LAB HEMETOLOGY METHOD 06/09/2025 3:00 PM [facility] Eosinophils Absolute 0.14 0.00 - 0.50 K/mcL LAB HEMETOLOGY METHOD 06/09/2025 3:00 PM [facility] Basophils Absolute 0.03 0.00 - 0.20 K/mcL LAB HEMETOLOGY METHOD 06/09/2025 3:00 PM EDT [facility] Immature Granulocytes Absolute 0.03 0.00 - 0.03 K/mcL LAB HEMETOLOGY METHOD 06/09/2025 3:00 PM EDT [facility] Blood Venous blood specimen / Unknown Venipuncture / Unknown 06/09/2025 2:04 PM EDT 06/09/2025 2:52 PM EDT Keri LYNCH LAB BLOOD ORDERABLES Fin al Result [facility] [address] [place] [address], [place] [phone] * Type and screen (06/09/2025 2:04 PM EDT) ABO Group A 06/09/2025 5:03 PM EDT [facility] Rh Type Positive 06/09/2025 5:03 PM EDT [facility] Antibody Screen Negative 06/09/2025 5:03 PM EDT [facility] Blood Venous blood specimen / Unknown Venipuncture / Unknown 06/09/2025 2:04 PM EDT 06/09/2025 2:52 PM EDT Keri LYNCH LAB BLOOD BANK TEST ORDE RABLES Final Result [facility] [address] [place] [address], [place] [phone] * Lipase (06/09/2025 2:04 PM EDT) Lipase 17 13 - 75 unit/L LAB CHEMISTRY METHOD 06/09/2025 7:21 PM EDT [facility] Blood Venous blood specimen / Unknown Venipuncture / Unknown 06/09/2025 2:04 PM EDT 06/09/2025 2:52 PM EDT us Bryant Kiran MD LAB BLOOD ORDERABLES Final Resul t [facility] [address] [place] [address], [place] [phone] * (ABNORMAL) Comprehensive metabolic panel (06/09/2025 2:04 PM EDT) Sodium 140 133 - 145 mmol/L LAB CHEMISTRY METHOD 06/09/2025 3:42 PM EDT [facility] Potassium 4.8 3.5 - 5.5 mmol/L LAB CHEMISTRY METHOD 06/09/2025 3:42 PM [facility] Chloride 102 96 - 110 mmol/L LAB CHEMISTRY METHOD 06/09/2025 3:42 PM [facility] CO2 36(H) 21 - 32 mmol/L LAB CHEMISTRY METHOD 06/09/2025 3:42 PM [facility] Anion Gap 2(L) 3 - 11 LAB CHEMISTRY METHOD 06/09/2025 3:42 PM [facility] Glucose 94 70 - 100 mg/dL LAB CHEMISTRY METHOD 06/09/2025 3:42 PM [facility] BUN 9 5 - 25 mg/dL LAB CHEMISTRY METHOD 06/09/2025 3:42 PM [facility] Creatinine 0.82 0.70 - 1.30 mg/dL LAB CHEMISTRY METHOD 06/09/2025 3:42 PM [facility] eGFR 97 >=60 mL/min/1. 73m2 LAB CHEMISTRY METHOD 06/09/2025 3:42 PM [facility] Comment:Calculation based on the Chronic Kidney Disease Epidemiology Collaboration (CKD-EPI) equation refit without adjustment for race. BUN/Creatinine Ratio 11.0 LAB CHEMISTRY METHOD 06/09/2025 3:42 PM [facility] Calcium 9.8 8.5 - 10.5 mg/dL LAB CHEMISTRY METHOD 06/09/2025 3:42 PM EDT [facility] AST (SGOT) 18 10 - 42 unit/L LAB CHEMISTRY METHOD 06/09/2025 3:42 PM EDT [facility] ALT (SGPT) 16 10 - 60 unit/L LAB CHEMISTRY METHOD 06/09/2025 3:42 PM EDT [facility] Alkaline Phosphatase 87 42 - 121 unit/L LAB CHEMISTRY METHOD 06/09/2025 3:42 PM EDT [facility] Total Protein 7.5 6.0 - 8.0 g/dL LAB CHEMISTRY METHOD 06/09/2025 3:42 PM EDT [facility] Albumin 4.2 3.2 - 5.0 g/dL LAB CHEMISTRY METHOD 06/09/2025 3:42 PM EDT [facility] Total Bilirubin 0.6 0.0 - 1.4 mg/dL LAB CHEMISTRY METHOD 06/09/2025 3:42 PM EDT [facility] Blood Venous blood specimen / Unknown Venipuncture / Unknown 06/09/2025 2:04 PM EDT 06/09/2025 2:52 PM EDT us Keri LYNCH LAB BLOOD ORDERABLES Fin al Result [facility] [address] [place] [address], [place] [phone] from Last 3 Months Insurance [facility] MEDIC[facility] Member Subscriber Plan / Payer (Ef fective 2024-Present) Name:LINA CHONG Relation to Subscriber:Self Name:Lina Ellis Payer ID:[id number] Group ID:[id number] Type:Not on file Address: [address] [place] [id number] Care Teams Manager Business Management Relationship Specialty Start Date End Date Margarito Anton MD [address] [place] [address] [address] [facility] [place] [address] PCP - General Internal Medicine 06/09/25
--- OUTSIDE RECORDS SUMMARY | 2025-08-13 11:45 | XMS_ITS | Encounter Summary ---
Author Organization [facility] Address [address] [place] [address] Care Team Providers Care Plastic Bubble Packer Name Role Phone Margarito Anton MD Primary Care Provider [phone] Encounter Details Date Type Department Care Team (Late st Contact Info) Description 07/21/2025 Results Follow-Up Gastroenterology - [address] [place] [phone] [facility] [place], [place] Social History Tobacco Use Types Packs/Day Years [...] on file Sexual Orientation Not on file documented as of this encounter Functional Status * Are you deaf or do you have serious difficulty hearing? Answer Date of Assessment Author No 06/09/2025 11:45 PM Love Cortes, RHIANNA * Are you blind or do you have serious difficulty seeing, even when wearing glasses? Answer Date of Assessment Author No 06/09/2025 11:45 PM Love Cortes, RN * Do you have serious difficulty dressing or bathing? Answer Date of Assessment Author No 06/09/2025 11:45 PM Love Cortes, RN * Because of a physical, mental, or emotional condition, do you have serious difficulty doing errandsalone such as visiting the doctor? Answer Date of Assessment Author No 06/09/2025 11:45 PM EDT Love Negron RN documented as of this encounter Mental Status * Because of a physical, mental, or emotional condition, do you have serious difficulty concentrating, remembering, or making decisions? (5 years old or older) Answer Entry Date Author No 06/09/2025 11:45 PM EDT Love Negron RN documented in this encounter Plan of Treatment Not on file documented as of this encounter Visit Diagnoses Not on filedocumented in this encounter Care Teams Plastic Bubble Packer Relationship Specialty Start Date End Date Margarito Anton MD [address] [place] [address] [address] [facility] [place] [address] PCP - General Internal Medicine 06/09/25 documented as of this encounter
--- OUTSIDE RECORDS SUMMARY | 2025-08-13 11:45 | XMS_ITS | Patient Health Record ---
Author Organization [facility] Address [address] [place] [phone] Care Team Providers Care Nuclear Equipment Research Engineer Name Role Phone Margarito Anton MD Primary Care Provider Favian Groves [phone] Allergies Allergen (clinical drug ingredient) Drug/Non Drug [...] nce a day; Duration: 30 day(s) Active Acarbose 25 MG Oral; Duration: 90 Active Tamsulosin HCl 0.4 MG 1 capsule Orally O nce a day; Duration: 30 day(s) Active Dulcolax (colon prep) 5 MG take at 3:00 p.m and 7:00p.m. Orally two tablets twice a day for one day; Duration: 1 day 06/24/2022 Active Vitamin D 1000 UNIT 1 tablet Orally Once a day Active MiraLax (colon prep) 8.3 ounce ((238) grams mixed with Gatorade or Crystal Light orally begin at 5:00 p.m. the day before the procedure; Duration: 1 day 06/24/2022 Active Incruse Ellipta 62.5 MCG/INH 2 puff Inhalation Once a day Active MiraLax (colon prep) 17 GM/SCOOP 1 238gm bottle mixed with gatorade or crystal light Orally begin at 5:00 p.m. the day before the procedure; Duration: 1 day 06/24/2022 Activ e Wixela Inhub 250-50 MCG/DOSE 1 puff Inhalation Twice a day Active Dulcolax (colon prep) 5 MG take at 3:00 p.m and 7:00p.m. Orally two tablets twice a day for one day; Duration: 1 day 06/24/2022 Active Albuterol Sulfate HFA 108 (90 Base) MCG/ACT 1 puff as needed Inhalation every 6 hrs Active Omeprazole 20 MG TAKE 1 CAPSULE BY [facility] EVERY MORNING; Duration: 30 Active Atorvastatin Calcium 20 MG 1 tablet Oral ly Once a day; Duration: 30 day(s) Active Sertraline HCl 50 MG 1 tablet Orally Onc e a day; Duration: 30 day(s) Active Repaglinide [...] Problem Status W/U Status Risk Notes Problem Screening for malignant neoplasm of colon (453374889) Encounter for screening for malignant neoplasm of colon (Z12.11) Active confirmed Problem History of adenomatous polyp of colon (734218063) History of adenomatous polyp of colon (Z86.010) Active confirmed Problem History of polyp of colon (situation) (340965874) Personal history of colonic polyps (Z86.010) Active confirmed Problem Diverticular disease of colon (595492010) Diverticulosis of large intestine without perforation or abscess without bleeding (K57.30) Active confirmed Problem Anorexia (69461288) Anorexia (R63.0) Active con firmed Problem Acute gastric ulcer without hemorrhage, without perforation AND without obstruction (78552588) Gastric ulcer without hemorrhage or perforation, acute (K25.3) Active confirmed Problem Preprocedural examination (551217039672934) Preprocedural examination (Z01.818) Active confirmed Problem Long-term current use of aspirin (179849777634518) Aspirin long-term use (Z79.82) Active confirmed Problem Gastroesophageal reflux disease (008795276) Gastroesophageal reflux disease, esophagitis presence not specified (K21.9) Active confirmed Problem Hiatal hernia (42471522) Hiatal hernia (K44.9) Active confirmed Problem Gastroenteritis (45866190) Gastroenteritis (K52.9) Active confirmed Problem Computed tomography of abdomen abnormal (89014284126122190) Abnormal CT scan, stomach (R93.3) Active confirmed Problem Esophageal reflux finding (849619067) Gastroesophageal reflux (K21.9) Active confirmed Vital Signs Temperature 97.7 degrees Fahrenheit 01/08/2025 Blood pressure diastolic 01 mm Hg 01/08/2025 Height 67 in 01/08/2025 Blood pressure systolic 001 mm Hg 01/08/2025 Weight 163.8 lbs 01/08/2025 BMI 25.65 kg/m2 01/08/2025 Encounters Encounter Location Date Provider Diagnosis [facility] [address] [place] [address] 01/08/2025 Favian Delgado Encounter for screen ing for malignant neoplasm of colon Z12.11 ; Anorexia R63.0 ; History of adenomatous polyp of colon Z86.010 and Gastroesophageal reflux disease, esophagitis presence not specified K21.9 [facility] [address] [place] [address] 08/23/2024 Favian Delgado Assessments Encounter Date Diagnosis [...] to discuss things with you and his software support analyst in regard to getting better control of [...] to discuss things with you and his software support analyst in regard to getting better control of [...] to discuss things with you and his software support analyst in regard to getting better control of [...] to discuss things with you and his software support analyst in regard to getting better control of [...] Insured Coverage Start Date Coverage End Date [facility] [address] [place] [address] [id number] LINA CHONG Self - patient is the insured Medical (General) History Medical History History ICD Code HTN Hyperlipidemia Emphysema Denies [place], CVA, renal disease Prostate cancer IDDM Colonoscopy [...]
== END 2025-08-13 10:58 | disposition home or self-care (01) ==
LOC: HO.HPS 09:52
PROVIDERS: PCP Internal Medicine; Visit Provider Internal Medicine
DX: J43.9 Emphysema, unspecified (principal); R09.02 Hypoxemia; Z87.891 Personal history of nicotine dependence
CPT/HCPCS: 94010; 99213

== ENCOUNTER → 2025-08-13 09:51 | Outpatient (BNVA) | payer OTHER, SELFPAY | PROVIDERS: PCP Internal Medicine; Visit Provider Internal Medicine | DX: J43.9 Emphysema, unspecified (principal); R09.02 Hypoxemia; Z87.891 Personal history of nicotine dependence | CPT/HCPCS: 94010; 99212 ==

== ENCOUNTER 2025-08-19 06:52 | Outpatient (REF) | payer OTHER, SELFPAY ==
--- OUTSIDE RECORDS SUMMARY | 2024-08-23 10:00 | XMS_ITS ---
Author Organization [facility] Address [address] [place] [phone] Care Team Providers Care Corn Breeder Name Role Phone Margarito Anton MD Primary Care Provider Favian Groves [phone] REASON FOR VISIT Patient presents today for abnormal immunological findings in serum. Medications Medication SIG (Take, Route, Frequency, Duration) Notes Start Date End Date Status Sertraline HCl 50 MG 1 tablet Orally Onc e a day; Duration: 30 day(s) Active Atorvastatin Calcium 20 MG 1 tablet Oral ly Once a day; Duration: 30 day(s) Active Loratadine 10 MG 1 tablet Orally Once a day; Duration: 30 day(s) Active Repaglinide 0.5 MG 1 tablet 15 to 30 mi nutes before meals Orally three x a day Active Toujeo SoloStar 300 UNIT/ML as directed Subcutaneous once a day Active Vitamin D 1000 UNIT 1 tablet Orally Once a day Active Tamsulosin HCl 0.4 MG 1 capsule Orally O nce a day; Duration: 30 day(s) Active Wixela Inhub 250-50 MCG/DOSE 1 puff Inhalation Twice a day Active Incruse Ellipta 62.5 MCG/INH 2 puff Inhalation Once a day Active Albuterol Sulfate HFA 108 (90 Base) MCG/ACT 1 puff as needed Inhalation every 6 hrs Active Pioglitazone HCl 30 MG 1 tablet Orally O nce a day; Duration: 30 day(s) Active Lisinopril 2.5 MG 1 tablet Orally Once a day Active MiraLax (colon prep) 17 GM/SCOOP 1 238gm bottle mixed with gatorade or crystal light Orally begin at 5:00 p.m. the day before the procedure; Duration: 1 day 06/24/2022 Activ e Omeprazole 20 MG TAKE 1 CAPSULE BY [facility] EVERY MORNING; Duration: 30 Active Dulcolax (colon prep) 5 MG take at 3:00 p.m and 7:00p.m. Orally two tablets twice a day for one day; Duration: 1 day 06/24/2022 Active Acarbose 25 MG Oral; Duration: 90 Active MiraLax (colon prep) 8.3 ounce ((238) grams mixed with Gatorade or Crystal Light orally begin at 5:00 p.m. the day before the procedure; Duration: 1 day 06/24/2022 Active Dulcolax (colon prep) 5 MG take at 3:00 p.m and 7:00p.m. Orally two tablets twice a day for one day; Duration: 1 day 06/24/2022 Active Encounters Encounter Location Date Provider [facility] [address] [address] 08/23/2024 Favian Delgado Plan Of Treatment No Information Progress Notes * OSBALDO CHONGOB:1960 (65 yo M)Acc No.[id number]:08/23/2024 Progress Notes Patient: LINA BAUTISTA Provider: Raghu Delgado MD :1960 A ge:64 Y S ex:Male Date:08/23/2024 Address:[address] [place] [address] Pcp:Margarito Anton MD Subjective: * Chief Complaints: * 1 . Patient presents today for abnormal immunological findings in serum.. * Medical History: * Medications: T aking Lisinopril 2.5 MG Tablet 1 tablet Orally Once a day , Taking Pioglitazone HCl 30 MG Tablet 1 tablet Orally Once a day , Taking Tamsulosin HCl 0.4 MG Capsule 1 capsule Orally Once a day , Taking Vitamin D 1000 UNIT Tablet 1 tablet Orally Once a day , Taking Incruse Ellipta 62.5 MCG/INH Aerosol Powder Breath Activated 2 puff Inhalation Once a day , Taking Wixela Inhub 250-50 MCG/DOSE Aerosol Powder Breath Activated 1 puff Inhalation Twice a day , Taking Albuterol Sulfate HFA 108 (90 Base) MCG/ACT Aerosol Solution 1 puff as needed Inhalation every 6 hrs , Taking Atorvastatin Calcium 20 MG Tablet 1 tablet Orally Once a day , Taking Sertraline HCl 50 MG Tablet 1 tablet Orally Once a day , Taking Repaglinide 0.5 MG Tablet 1 tablet 15 to 30 minutes before meals Orally three x a day , Taking Loratadine 10 MG Tablet 1 tablet Orally Once a day , Taking Toujeo SoloStar 300 UNIT/ML Solution Pen- injector as directed Subcutaneous once a day , Taking Acarbose 25 MG Tablet Oral , Taking Dulcolax (colon prep) 5 MG Tablet Delayed Release take at 3:00 p.m and 7:00p.m. Orally two tablets twice a day for one day , Taking MiraLax (colon prep) 8.3 ounce ((238) grams mixed with Gatorade or Crystal Light orally begin at 5:00 p.m. the day before the procedure , Taking MiraLax (colon prep) 17 GM/SCOOP Powder 1 238gm bottle mixed with gatorade or crystal light Orally begin at 5:00 p.m. the day before the procedure , Taking Dulcolax (colon prep) 5 MG Tablet Delayed Release take at 3:00 p.m and 7:00p.m. Orally two tablets twice a day for one day , Taking Omeprazole 20 MG Capsule Delayed Release TAKE 1 CAPSULE BY MOUTH EVERY MORNING Objective: * Vitals: Assessment: Plan: * Treatment: * * The named appointment provid er may or may not be the originator of this progress note, and it is not deemed complete until electronically signed by the appointment provider. Sign off status: Pending * Provider: Raghu Delgado MD Date: 10/23/2023 Generated for John palacios/Radha/Aris on: 06:55 AM EDT
--- NOTE | ~2025-08-19 | CT_ITS ---
EXAMINATION: CT SOFT TISSUE NECK WITH CONTRAST CLINICAL INFORMATION: R 22.1. Localized swelling, mass or lump, neck, right-sided. COMPARISON: None available. TECHNIQUE: Following the intravenous administration of 60 mL of Omnipaque 350 intravenous contrast, helical imaging was performed in the axial plane with generation of coronal and sagittal reformatted images. This CT examination was performed using dose optimization techniques as appropriate, variously including the following: *Automated exposure control *Adjustment of mA and/or kV according to patient size (this includes techniques or standardized protocols for targeted exams where dose is matched to indication/reason for exam; i.e. extremities or head) *Use of iterative reconstruction technique. DLP: 573 mGy centimeter. FINDINGS: Skull base, nasopharynx, retropharynx, oropharynx, hypopharynx and larynx demonstrated no gross masses or fluid collections. Salivary glands demonstrated no abnormal enhancement or sialolithiasis. No dilatation of the salivary ducts. Clinical Psychologist Licensed spaces, parapharyngeal spaces and carotid spaces demonstrated no gross masses or fluid collections. Oral cavity, sublingual and submandibular compartments demonstrated no gross masses. No cervical lymphadenopathy. The vessels are patent. Calcified plaques in the thoracic aortic arch and its main branches. Thyroid gland is homogeneous without enlargement or dominant nodules. Centrilobular emphysematous changes, both upper lung lobes. No enhancing lesion or fluid collections in the intraconal or extraconal compartments of the orbits. Probable old traumatic deformity, nasal bones. No air-fluid levels in the paranasal sinuses. Tympanic cavities and mastoid cells are aerated. The right internal jugular bulb is at the level of the hypotympanum. Calcified plaques in the cavernous supracavernous segments both ICAs. Multilevel cervical spondylosis C3 C6 pronounced at C4-5. Pneumatized right pterygoid recess of the sphenoid sinus. Vidian canal type III on the right and type I on the left. Poor dentition. CT/CT soft tissue neck w IV con IMPRESSION: No enhancing mass or cervical lymphadenopathy. Multilevel cervical spondylosis. Centrilobular emphysematous type changes. High riding right internal jugular bulb.. Electronically signed by: Fito Britt MD 08/19/2025 08:59 AM EDT
--- OUTSIDE RECORDS SUMMARY | 2025-08-19 06:55 | XMS_ITS | Clinical Summary ---
Author Organization [employer] Address [address] [place] [address] [address] [place] [address] Care Team Providers Care Rocket Assembly Operator Name Role Phone Unavailable Primary Care Provider [...] Insurance [employer] < 65 [place] [id number]
--- OUTSIDE RECORDS SUMMARY | 2025-08-19 06:56 | XMS_ITS | Patient Health Record ---
Author Organization [facility] Address [address] [place] [phone] Care Team Providers Care Plate Furnace Operator Name Role Phone Margarito Anton MD Primary Care Provider Favian Groves [phone] Allergies Allergen (clinical drug ingredient) Drug/Non Drug [...] Omeprazole 20 MG TAKE 1 CAPSULE BY [facility] EVERY MORNING; Duration: 30 Active Atorvastatin Calcium [...] Problem Screening for malignant neoplasm of colon (923703197) Encounter for screening for malignant neoplasm of colon (Z12.11) Active confirmed Problem History of adenomatous polyp of colon (911776762) History of adenomatous polyp of colon (Z86.010) Active confirmed Problem History of polyp of colon (situation) (393339289) Personal history of colonic polyps (Z86.010) Active confirmed Problem Diverticular disease of colon (027279134) Diverticulosis of large intestine without perforation or abscess without bleeding (K57.30) Active confirmed Problem Anorexia (29817936) Anorexia (R63.0) Active con firmed Problem Acute gastric ulcer without hemorrhage, without perforation AND without obstruction (92837199) Gastric ulcer without hemorrhage or perforation, acute (K25.3) Active confirmed Problem Preprocedural examination (334626975525720) Preprocedural examination (Z01.818) Active confirmed Problem Long-term current use of aspirin (088494665202208) Aspirin long-term use (Z79.82) Active confirmed Problem Gastroesophageal reflux disease (341287740) Gastroesophageal reflux disease, esophagitis presence not specified (K21.9) Active confirmed Problem Hiatal hernia (75893701) Hiatal hernia (K44.9) Active confirmed Problem Gastroenteritis (82593895) Gastroenteritis (K52.9) Active confirmed Problem Computed tomography of abdomen abnormal (34445092794102730) Abnormal CT scan, stomach (R93.3) Active confirmed Problem Esophageal reflux finding (168701961) Gastroesophageal reflux (K21.9) Active confirmed Vital Signs Temperature 97.7 degrees Fahrenheit 01/08/2025 Blood pressure diastolic 01 mm Hg 01/08/2025 Height 67 in 01/08/2025 Blood pressure systolic 001 mm Hg 01/08/2025 Weight 163.8 lbs 01/08/2025 BMI 25.65 kg/m2 01/08/2025 Encounters Encounter Location Date Provider Diagnosis [facility] [address] [place] [address] 01/08/2025 Favian Delgado Encounter for screen ing for malignant neoplasm of colon Z12.11 ; Anorexia R63.0 ; History of adenomatous polyp of colon Z86.010 and Gastroesophageal reflux disease, esophagitis presence not specified K21.9 [facility] [address] [place] [address] 08/23/2024 Favian Delgado Assessments Encounter Date Diagnosis [...] to discuss things with you and his medical imaging technician in regard to getting better control of [...] to discuss things with you and his medical imaging technician in regard to getting better control of [...] to discuss things with you and his medical imaging technician in regard to getting better control of [...] to discuss things with you and his medical imaging technician in regard to getting better control of [...] Coverage Start Date Coverage End Date [facility] [address] [place] [address] [id number] LINA CHONG Self - patient is the [...]
--- OUTSIDE RECORDS SUMMARY | 2025-08-19 06:56 | XMS_ITS | Encounter Summary ---
Author Organization [facility] Address [address] [place] [address] Care Team Providers Care Edi Architect Name Role Phone Margarito Anton MD Primary Care Provider [phone] Encounter Details Date Type Department Care Team (Late st Contact Info) Description 07/21/2025 Results Follow-Up Gastroenterology - [address] [place] [phone] [facility] [place], [place] Social History Tobacco Use Types Packs/Day [...] on filedocumented in this encounter Care Teams Edi Architect Relationship Specialty Start Date End Date Margarito Anton MD [address] [place] [address] Dr [address] [facility] [place] [address] PCP - General Internal Medicine 06/09/25 documented as of this encounter
--- OUTSIDE RECORDS SUMMARY | 2025-08-19 06:56 | XMS_ITS | Clinical Summary ---
Author Organization [facility] Address [address] [place] [address] Phone Care Team Providers Care Assembly Line Brazer Name Role Phone Margarito Anton MD Primary Care Provider Allergies No known active allergies Medications Dupixent [...] dermatitis 03/25/2025 Chronic obstructive pulmonar y disease ([facility] V24, [facility] V28) 03/25/2025 Depressive disorder 03/25/2025 Diabetes mellitus ([facility] V24, [facility] V28) 12/2024 Dizziness 05/27/2013 Frequent urination 05/27/2013 Hypertriglyceridemia 04/04/2013 Chronic pain 02/26/2013 Shoulder pain 02/26/2013 Prostate CA ([facility] V24, [facility] V28) 3 Numbness and tingling of right arm 02/26/2013 DJD (degenerative joint disease) 02/26/2013 Atypical chest pain 10/08/2012 Overview (06/18/2025): 11/03 nuclear stress test was negative for ischemia 10/02 echo revealed EF 50-55%, diastolic dysfunction, 11/03 Holter monitor revealed baseline NSR with no pauses, rare SVE's no pt reported events Chronic obstructive airway d isease ([facility] V24, [facility] V28) 10/08/2012 Encounters Date Type Department Care Team Description 07/21/2025 Results Follow-Up Gastroenterology - [address] [place] [address] Екатерина Singh [place] 07/18/2025 12:37 PM EDT Anesthesia Event [facility] [address] [place] [phone] Augustus Faulkner MD 07/18/2025 11:22 AM EDT - 07/18/2025 11:59 PM EDT Hospital Encounter [facility] [address] [place] [phone] Remi Howe MD Dickman, Christy L, CRNA Dasilva, John E, MD Rectal bleeding; Abnormal CT of the abdomen Discharge Disposition: Home or Self Care 06/20/2025 Telephone Gastroenterology - [address] [phone] Remi Howe MD 06/19/2025 1:30 PM EDT Consult Gastroenterology - [address] [phone] Remi Howe MD Rectal bleeding (Primary Dx); Abnormal CT of the abdomen; Adenomatous polyp of colon, unspecified part of colon 06/19/2025 Telephone Gastroenterology - [address] [phone] Remi Howe MD 06/09/2025 5:45 PM EDT - 06/09/2025 11:46 PM EDT Emergency [facility] Emergency [address] [place] [phone] Bryant Kiran MD Enterocolitis (Primary Dx); Mural [...] 02/26/2013 DX:DJD (degenerative joint disease) Prostate CA ([facility] V24, [facility] V28) 02/26/2013 DX:Prostate CA (HCC) Need for hepatitis C screening test 02/26/2013 DX:Need for hepatitis C screening test Shoulder pain 02/26/2013 DX:Shoulder pain Elbow pain 02/26/2013 DX:Elbow pain Hypertriglyceridemia 04/04/2013 DX:Hypertri glyceridemia Bronchitis, not specified as acute or chronic DX:Bronchitis, not specified as acute or chronic Dizziness 05/27/2013 DX:Dizziness Frequent urination 05/27/2013 DX:Frequent u rination Diabetes mellitus ([facility] V 24, [facility] V28) Family History Medical History Relation Name [...] Months Results * COLONOSCOPY Anesthesia - MAC; [facility] ENDOSCOPY (07/18/2025 12:54 PM EDT) Anatomical [...] office PRN. Narrative 07/18/2025 12:55 PM EDT [facility] GI Patient Name: Lina Sanford Procedure Date: [...] retroflexion views. Procedure Code(s): --- Professional --- 26768, Colonoscopy, flexible; with removal of tumor(s), polyp(s), or other lesion(s) by snare technique Diagnosis Code(s): --- Professional --- D12.6, Benign neoplasm of colon, unspecified K62.5, Hemorrhage of anus and rectum R93.3, Abnormal findings on diagnostic imaging of other parts of digestive tract CPT copyright 2020 [employer]. All rights reserved. The codes documented in this report are preliminary and upon die engraving supervisor review may be revised to meet current compliance requirements. Remi Howe MD 07/18/2025 12:55:39 PM This report has been signed electronically.Remi Howe MD Number of Addenda: 0 Note Initiated On: 07/18/2025 12:37 PM Scope In: Scope Out: Endoscopy Department at [facility] - [address] [place] [phone] Procedure Note Remi Howe MD - 07/18/2025 [facility] GI Patient Name: Lina Sanford Procedure Date: [...] retroflexion views. Procedure Code(s): --- Professional --- 20133, Colonoscopy, flexible; with removal of tumor(s), polyp(s), or other lesion(s) by snare technique Diagnosis Code(s): --- Professional --- D12.6, Benign neoplasm of colon, unspecified K62.5, Hemorrhage of anus and rectum R93.3, Abnormal findings on diagnostic imaging of other parts of digestive tract CPT copyright 2020 [employer]. All rights reserved. The codes documented in this report are preliminary and upon die engraving supervisor reviewmay be revised to meet current compliance requirements. Remi Howe MD 07/18/2025 12:55:39 PM This report has been signed electronically.Remi Howe MD Number of Addenda: 0 Note Initiated On: 07/18/2025 12:37 PM Scope In: Scope Out: Endoscopy Department at [facility] - [address] [place] [phone] IMPRESSION: - One 6 mm polyp at [...] cm: Hyperplastic polyp. 07/21/2025 9:41 AM EDT [facility] at 0941 EDT Gross [...] multiple levels. hs/DG 07/21/2025 9:41 AM EDT [facility] Disclaimer Unless otherwise specified, all tissue is 10% NB formalin fixed and paraffin embedded. 07/21/2025 9:41 AM EDT [facility] Tissue Colon structure / Unknown 07/18/2025 12:52 PM EDT 07/18/2025 2:43 PM EDT Remi Howe MD LAB PATHOLOGY ORDERABLES Evelina l Result [facility] [address] [place] [address], * ECG-Annotated (06/10/2025) us Provider Onbase MD [...] GEMUSE QTc 425 ms GEMUSE P Wave Barker 67 degrees GEMUSE R Barker 80 degrees GEMUSE T Barker 51 degrees GEMUSE ECG Interpretation Normal sinus rhythm Normal ECG No previous ECGs available Confirmed by ANDREIA SYKES ([id number]) on 06/10/2025 4:17:06 PM GEMUSE 06/09/2025 6:55 PM EDT 06/10/2025 4:17 PM EDT us Bryant Kiran MD ECG ORDERABLES Final Result Performing Organization Address City/[facility] de Phone Number GEMUSE * Troponin I High Sensitivity (06/09/2025 6:24 PM EDT) [facility] High Sensitivity Troponin I 4 <=79 ng/L LAB CHEMISTRY METHOD 06/09/2025 7:16 PM EDT [facility] Blood Venous blood specimen / Unknown Venipuncture / Unknown 06/09/2025 6:24 PM EDT 06/09/2025 6:40 PM EDT Narrative [facility] - 06/09/2025 7:16 PM EDT High levels of biotin in samples may falsely decrease hsTroponin values. Use caution when interpreting hsTroponin results in patients taking biotin who exhibit renal impairment (eGFR <60) or in patients taking more than 20 mg/day of biotin. us Bryant Kiran MD LAB BLOOD ORDERABLES Final Resul t Performing Organization Address City/[facility] Co de Phone Number [facility] [address] [place] [address], [place] [phone] * Lactate (06/09/2025 6:24 PM EDT) [facility] Lactate 1.3 0.4 - 2.0 mmol/L LAB CHEMISTRY METHOD 06/09/2025 7:16 PM EDT [facility] Blood Venous blood specimen / Unknown Venipuncture / Unknown 06/09/2025 6:24 PM EDT 06/09/2025 6:41 PM EDT us Bryant Kiran MD LAB BLOOD ORDERABLES Final Resul t [facility] [address] [place] [address], * (ABNORMAL) CBC auto differential (06/09/2025 2:04 PM EDT) [facility] Signature WBC 8.9 4.8 - 10.8 K/mcL LAB HEMETOLOGY METHOD 06/09/2025 3:00 PM EDT [facility] RBC 5.10 4.50 - 5.50 M/mcL LAB HEMETOLOGY METHOD 06/09/2025 3:00 PM EDT [facility] Hemoglobin 16.0 13.5 - 17.5 g/dL LAB HEMETOLOGY METHOD 06/09/2025 3:00 PM EDT [facility] Hematocrit 50.4 42.0 - 54.0 % LAB HEMETOLOGY METHOD 06/09/2025 3:00 PM EDT [facility] MCV 98.2(H) 79.0 - 98.0 FL LAB HEMETOLOGY METHOD 06/09/2025 3:00 PM EDT [facility] MCH 31.2 27.0 - 32.0 pcg LAB HEMETOLOGY METHOD 06/09/2025 3:00 PM EDT [facility] MCHC 31.7(L) 32.0 - 37.0 g/dL LAB HEMETOLOGY METHOD 06/09/2025 3:00 PM EDT [facility] RDW 14.3 11.0 - 15.0 % LAB HEMETOLOGY METHOD 06/09/2025 3:00 PM EDT [facility] Platelets 197 130 - 400 K/mcL LAB HEMETOLOGY METHOD 06/09/2025 3:00 PM EDT [facility] MPV 12.3(H) 7.0 - 11.0 FL LAB HEMETOLOGY METHOD 06/09/2025 3:00 PM EDT [facility] NRBC 0.0 <1.0 % LAB HEMETOLOGY METHOD 06/09/2025 3:00 PM EDT [facility] NRBC Absolute 0.00 <0.10 K/mcL LAB HEMETOLOGY METHOD 06/09/2025 3:00 PM [facility] Neutrophils Relative 65.9 % LAB HEMETOLOGY METHOD 06/09/2025 3:00 PM [facility] Lymphocytes Relative 20.4 % LAB HEMETOLOGY METHOD 06/09/2025 3:00 PM [facility] Monocytes Relative 11.5 % LAB HEMETOLOGY METHOD 06/09/2025 3:00 PM [facility] Eosinophils Relative 1.6 % LAB HEMETOLOGY METHOD 06/09/2025 3:00 PM [facility] Basophils Relative 0.3 % LAB HEMETOLOGY METHOD 06/09/2025 3:00 PM [facility] Immature Granulocytes Relative 0.3 % LAB HEMETOLOGY METHOD 06/09/2025 3:00 PM [facility] Neutrophils Absolute 5.83 1.50 - 7.00 K/mcL LAB HEMETOLOGY METHOD 06/09/2025 3:00 PM [facility] Lymphocytes Absolute 1.81 1.00 - 5.00 K/mcL LAB HEMETOLOGY METHOD 06/09/2025 3:00 PM [facility] Monocytes Absolute 1.02(H) 0.20 - 1.00 K/mcL LAB HEMETOLOGY METHOD 06/09/2025 3:00 PM [facility] Eosinophils Absolute 0.14 0.00 - 0.50 K/mcL LAB HEMETOLOGY METHOD 06/09/2025 3:00 PM [facility] Basophils Absolute 0.03 0.00 - 0.20 K/mcL LAB HEMETOLOGY METHOD 06/09/2025 3:00 PM EDT [facility] Immature Granulocytes Absolute 0.03 0.00 - 0.03 K/mcL LAB HEMETOLOGY METHOD 06/09/2025 3:00 PM EDT [facility] Blood Venous blood specimen / Unknown Venipuncture / Unknown 06/09/2025 2:04 PM EDT 06/09/2025 2:52 PM EDT Keri LYNCH LAB BLOOD ORDERABLES Fin al Result [facility] [address] [place] [address], [place] [phone] * Type and screen (06/09/2025 2:04 PM EDT) ABO Group A 06/09/2025 5:03 PM EDT [facility] Rh Type Positive 06/09/2025 5:03 PM EDT [facility] Antibody Screen Negative 06/09/2025 5:03 PM EDT [facility] Blood Venous blood specimen / Unknown Venipuncture / Unknown 06/09/2025 2:04 PM EDT 06/09/2025 2:52 PM EDT Keri LYNCH LAB BLOOD BANK TEST ORDE RABLES Final Result [facility] [address] [place] [address], [place] [phone] * Lipase (06/09/2025 2:04 PM EDT) Lipase 17 13 - 75 unit/L LAB CHEMISTRY METHOD 06/09/2025 7:21 PM EDT [facility] Blood Venous blood specimen / Unknown Venipuncture / Unknown 06/09/2025 2:04 PM EDT 06/09/2025 2:52 PM EDT us Bryant Kiran MD LAB BLOOD ORDERABLES Final Resul t [facility] [address] [place] [address], [place] [phone] * (ABNORMAL) Comprehensive metabolic panel (06/09/2025 2:04 PM EDT) Sodium 140 133 - 145 mmol/L LAB CHEMISTRY METHOD 06/09/2025 3:42 PM EDT [facility] Potassium 4.8 3.5 - 5.5 mmol/L LAB CHEMISTRY METHOD 06/09/2025 3:42 PM [facility] Chloride 102 96 - 110 mmol/L LAB CHEMISTRY METHOD 06/09/2025 3:42 PM [facility] CO2 36(H) 21 - 32 mmol/L LAB CHEMISTRY METHOD 06/09/2025 3:42 PM [facility] Anion Gap 2(L) 3 - 11 LAB CHEMISTRY METHOD 06/09/2025 3:42 PM [facility] Glucose 94 70 - 100 mg/dL LAB CHEMISTRY METHOD 06/09/2025 3:42 PM [facility] BUN 9 5 - 25 mg/dL LAB CHEMISTRY METHOD 06/09/2025 3:42 PM [facility] Creatinine 0.82 0.70 - 1.30 mg/dL LAB CHEMISTRY METHOD 06/09/2025 3:42 PM [facility] eGFR 97 >=60 mL/min/1. 73m2 LAB CHEMISTRY METHOD 06/09/2025 3:42 PM [facility] Comment:Calculation based on the Chronic Kidney Disease Epidemiology Collaboration (CKD-EPI) equation refit without adjustment for race. BUN/Creatinine Ratio 11.0 LAB CHEMISTRY METHOD 06/09/2025 3:42 PM [facility] Calcium 9.8 8.5 - 10.5 mg/dL LAB CHEMISTRY METHOD 06/09/2025 3:42 PM EDT [facility] AST (SGOT) 18 10 - 42 unit/L LAB CHEMISTRY METHOD 06/09/2025 3:42 PM EDT [facility] ALT (SGPT) 16 10 - 60 unit/L LAB CHEMISTRY METHOD 06/09/2025 3:42 PM EDT [facility] Alkaline Phosphatase 87 42 - 121 unit/L LAB CHEMISTRY METHOD 06/09/2025 3:42 PM EDT [facility] Total Protein 7.5 6.0 - 8.0 g/dL LAB CHEMISTRY METHOD 06/09/2025 3:42 PM EDT [facility] Albumin 4.2 3.2 - 5.0 g/dL LAB CHEMISTRY METHOD 06/09/2025 3:42 PM EDT [facility] Total Bilirubin 0.6 0.0 - 1.4 mg/dL LAB CHEMISTRY METHOD 06/09/2025 3:42 PM EDT [facility] Blood Venous blood specimen / Unknown Venipuncture / Unknown 06/09/2025 2:04 PM EDT 06/09/2025 2:52 PM EDT us Keri LYNCH LAB BLOOD ORDERABLES Fin al Result [facility] [address] [place] [address], [place] [phone] from Last 3 Months Insurance [facility] Member Subscriber Plan / Payer (Ef fective 2024-Present) Name:LINA CHONG Relation to Subscriber:Self Name:Lina Ellis Payer ID:[id number] Group ID:[id number] Type:Not on file Address: [address] [place] [id number] Care Teams Assembly Line Brazer Relationship Specialty Start Date End Date Margarito Anton MD [address] [place] [address] [address] [facility] [place] [address] PCP - General Internal Medicine 06/09/25
[2025-08-19 07:06] LABS: MANUAL DIFF FLAG NO
[2025-08-19 07:39] LABS: Hematocrit 49.3 % (42.0-52.0); Hemoglobin 16.6 g/dl (14.0-18.0); Imm Gran Abs Auto 0.02 X10*3/uL (0.00-0.03); Imm Gran Pct Auto 0.3 % (0.0-0.4); Lymphocytes Absolute Auto 1.7 X10*3/uL (1.2-4.9); Mean Corpuscular HGB Conc 33.7 g/dl (31.0-36.0); Mean Corpuscular Hemoglobin 32.1 pg (27.0-33.0); Mean Corpuscular Volume 95.4 fL (80.0-98.0); NRBC Abs Auto 0.000 X10*3/uL (0.0-0.012); NRBC Pct Auto 0.0 /100WBC (0.0-0.2); Platelet Count 187 X10*3/uL (160-400); Red Blood Count 5.17 X10*6/uL (4.60-5.80); White Blood Count 5.9 X10*3/uL (4.8-10.8)
[2025-08-19 07:45] LABS: Hemoglobin A1C 269.0613 umol/L; Total Hemoglobin (HGBA1C) 4187.2959 umol/L
[2025-08-19 07:58] LABS: Microalbum/Creatinine Ratio Ur 12.3 ug/mg cr (<30)
[2025-08-19 07:58] LABS: Alanine Aminotransferase 18 U/L (0-40); Albumin Level 4.8 g/dL (3.5-5.0); Alkaline Phosphatase 73 U/L (39-117); Anion Gap 13 (12-20); Aspartate Amino Transferase 23 U/L (5-37); Blood Urea Nitrogen 8 mg/dL (9-16); Calcium 9.9 mg/dL (8.4-10.2); Carbon Dioxide 31 mmol/L (22-29); Chloride 103 mmol/L (96-108); Cholesterol 140 mg/dL (<200); Estimated Glomerular Filt Rate > 60; HDL Cholesterol 53 mg/dL (>40); Potassium 4.8 mmol/L (3.3-5.1); Sodium 142 mmol/L (135-145); Total Protein 7.6 g/dL (6.5-8.0); Triglycerides 59 mg/dL (<150)
[2025-08-19 08:13] LABS: Thyroid Stimulating Hormone 1.08 uIU/mL (0.32-4.0)
[2025-08-19 08:28] LABS: Folate 8.0 ng/mL (> or = 4.0); Vitamin B12 451 pg/mL (200-900)
[2025-08-19 08:31] LABS: Uric Acid 3.7 mg/dL (3.4-7.0)
[2025-08-19] MEDS: iohexoL 350 MG/ML 75 ML INFUS..BTL 60 ML IV (08:31)
[2025-08-19 08:45] LABS: Free T4 (Free Thyroxine) 0.95 ng/dL (0.71-1.85)
== END 2025-08-19 06:53 | disposition home or self-care (01) ==
LOC: HO.CT 06:52
PROVIDERS: Absent Provider Physician Assistant; PCP Internal Medicine; Visit Provider Internal Medicine
DX: R22.1 Localized swelling, mass and lump, neck (principal); E78.00 Pure hypercholesterolemia, unspecified; E78.5 Hyperlipidemia, unspecified; E11.42 Type 2 diabetes mellitus with diabetic polyneuropathy; E11.65 Type 2 diabetes mellitus with hyperglycemia; Z79.4 Long term (current) use of insulin; Z12.5 Encounter for screening for malignant neoplasm of prostate
CPT/HCPCS: 36415; 70491; 80053; 80061; 82043; 82570; 82607; 82746; 83036; 84153; 84439; 84443; 84550; 85025; Q9967

== ENCOUNTER → 2025-08-19 07:10 | Outpatient (BNV) | payer OTHER, SELFPAY | PROVIDERS: Absent Provider Physician Assistant; PCP Internal Medicine; Visit Provider Radiology Diagnostic Radiology | DX: R22.1 Localized swelling, mass and lump, neck (principal); M47.812 Spondylosis without myelopathy or radiculopathy, cervical region; J43.2 Centrilobular emphysema | CPT/HCPCS: 70491 ==

== ENCOUNTER 2025-08-25 14:06 | Outpatient (AMB) | payer OTHER, SELFPAY ==
--- NOTE | 2025-08-25 14:21 | A.OFFVIS_ITS ---
Intake Visit Reasons: 6m follow up Intake Note: Patient is present for 6M Follow up Urology Med: Tadalafil, Sildenafil Antibiotic Allergy:Cephalexin Blood Thinner: None Applications Development Analyst Required: No Allergies cortisone (CORTISONE) Allergy (Severe, Verified 08/25/25 15:01) ANAPHYLAXIS cephalexin Allergy (Unknown, Verified 08/25/25 15:01) unknown lisinopril Adverse Reaction (Intermediate, Verified 08/25/25 15:01) hypotension Medication List - Last Reconciled 08/25/25 by HOWIE Durham albuterol sulfate 90 mcg/actuation 2 puffs PO Q4-6H PRN alcohol swabs (BD Alcohol Swabs) 1 pad topical QID atorvastatin 20 mg PO DAILY blood-glucose sensor ([employer] Bebeto 3 Plus Sensor device) Use daily As directed to monitor glucose blood-glucose,block piler,cont (FreeStyle Bebeto 3 [place]) Use daily As directed to monitor blood glucose cholecalciferol (vitamin D3) 50 mcg PO DAILY clotrimazole 1% 1 appl topical BID 4 weeks dupilumab (Dupixent) 300 mg subcut .D33czys fluticasone propion-salmeterol 250-50 mcg/dose 1 ea PO Q12H 3 months glucagon 3 mg/actuation (Baqsimi) 3 mg intranasal ONCE 30 days insulin glargine U-300 conc (Toujeo Max U-300 SoloStar) 18 units (0.06 mL) subcut BEDTIME lidocaine 5% 1 patch topical DAILY miconazole nitrate 2% (Zeasorb AF) 1 appl topical BID Novolog FlexPen U-100 Insulin (insulin aspart U-100) 4 units (0.04 mL) subcut TID NS Oxygen Home Use As directedO2 2L NC pen needle, diabetic 1 ea miscellaneous .4X/day sertraline 50 mg PO DAILY 90 days sildenafil (Viagra) 100 mg PO DAILY PRN 30 days tadalafil (Cialis) 5 mg PO DAILY 90 days umeclidinium 62.5 mcg/actuation (Incruse Ellipta) 1 inh inhalation DAILY 30 days HPI Comments Details: Carroll is a pleasant 65-year-old male patient of Dr. Anton who was accompanied by his significant other at today's office visit. He has a past medical history of COPD, nicotine dependence, allergic rhinitis, type 2 diabetes with diabetic polyneuropathy, tinnitus, anxiety, depression, peptic ulcer disease, nephrolithiasis, degenerative disc disease, prostate cancer, COPD, ED, vitamin-D deficiency, and hyperlipidemia. He presents to the office today for follow-up of his nephrolithiasis, lower urinary tract symptoms, erectile dysfunction, and prostate cancer. In discussion with the patient today he reports to be doing and feeling well. He denies having had any bothersome urinary issues or concerns since his last office visit here. He does continue with daily low dosing of tadalafil as well as p.r.n. dosing of Viagra prior to sexual activity. He does feel these medications are effective in maintaining his erections. However, he does experience headaches typically the next morning following p.r.n. dosing of Viagra. We did discussed side effects to medications. We also discussed further treatment options of erectile dysfunction as well as risks and benefits of these interventions. In office urinalysis results reviewed with the patient today trace microscopic hematuria. He does have a longstanding history of nicotine dependence. We did discuss pot ential causes of microscopic hematuria. I discussed reasons for blood in the urine may include but are not limited to kidney stones, cancer in the urinary tract, BPH, kidney stone disease or inflammatory conditions of the urinary tract. I have discussed workup to include cystoscopy evaluation. When asked he denies urinary urgency, urinary frequency, incontinence, nocturia, hematuria, dysuria, foul smelling urine, changes to urinary stream, flank pain, fever, and or chills. Most recent PSA results reviewed with the patient today as noted and trended below. He otherwise offers no other issues or concerns at this time. Urine Cytology 03/16:Negative for high-grade urothelial carcinoma. A1c's: 11/15 6.7, 05/15 7.4, 08/15 8.9, 11/16 8.2, 02/14 7.5, 05/20 7.9 PREVIOUS HISTORY Prostate cancer - prior external radiation 2004 PSA 07/12 <0.1, 11/13 <0.1, 04/13 <0.1, 03/15 <0.1, 07/16 ,0.10, 03/16 <0.10, 08/16 <0.10 Bladder emptying Minimal issues with urination Continue with surveillance [facility] Medical History Personal history of nicotine dependence Hypoxemia COPD exacerbation Allergic rhinitis Type 2 diabetes mellitus with diabetic polyneuropathy Tinnitus Anxiety and depression Peptic ulcer disease Renal calculus, right Tubular adenoma of colon DDD (degenerative disc disease), lumbar Depression Prostate cancer COPD (chronic obstructive pulmonary disease) CAP (community acquired pneumonia) Gastric ulcer Hernia Kidney stones History of prostate cancer Erectile dysfunction Insulin use (long-term) in type 2 diabetes Hyperlipidemia LDL goal <100 Vitamin D insufficiency Surgical History History of cataract surgery History of foot surgery History of inguinal hernia repair Hx of tonsillectomy Hx of prostatectomy Family History Father Diabetes Mother No problems noted. Son Diabetes Maternal Uncle Prostate cancer Paternal Grandfather Myocardial infarction Maternal Grandmother No problems noted. Maternal Aunt Esophageal cancer Maternal Grandfather Myocardial infarction Social History Household Members: Spouse Housing: Apartment Alcohol intake: current Alcohol intake frequency: a few times a month Patient Tobacco Use Status: Former Tobacco user Tobacco use type: Cigarette e-Cigarette/Vaping Use: Never Used Second Hand Smoke Exposure: Yes Substance Use Type: Former Substance User and Marijuana service: No Current occupational status: disabled Current occupation: rt handed Cognitive needs: Yes (cane) Hearing needs: Yes (hearing aide) Vision needs: Yes Review of Systems Const Reports no additional complaints Eyes Reports no additional complaints ENT Reports no additional complaints Card Reports as per HPI Resp Reports as per HPI GI Reports as per HPI Reports as per HPI Musc Reports as per HPI Neuro Reports as per HPI Psych Reports as per HPI Endo Reports as per HPI Andrés/Lymph Reports no additional complaints Aller/Immun Reports no additional complaints Physical Exam Const General: cooperative, healthy appearing, comfortable, no acute distress, well developed, alert and awake Orientation/consciousness: patient oriented x3 Limitations: ambulation with cane HEENT Head: Yes normal to inspection, Yes normocephalic and Yes atraumatic Ears: hearing grossly normal bilaterally Eyes General: appearance normal, both eyes and all related structures Neck Neck: Yes normal visual inspection and Yes trachea midline Chest Chest palpation & inspection: normal inspection of the chest Resp Effort & Inspection: normal respiratory effort and able to speak in complete sentences Cardio Rate: regular rate GI Inspection: Yes normal to inspection General: Yes no CVA tenderness Back/Spine/Pelvis Back: no CVA tenderness Skin General skin exam: no rashes or lesions noted Neuro General: patient oriented x3 Extrem General: Yes normal to inspection Psych Appearance: grossly normal and well kempt Mental Status: mental status grossly normal Speech and movement: Normal speech and movement present and Clear speech present Affect: normal affect Attitude: cooperative Thought process: Normal thought process present Thought content: Normal thought content present Insight: Fair insight present (Psych) Judgement: Fair judgement present (Psych) Results AMB Urinalysis, Automated UA Leukoctes 0 Elpidio/uL Last Edit by [facility] on 08/25/25 14:43 UA Nitrite Negative Last Edit by [facility] on 08/25/25 14:43 UA Urobilinogen 0.2 mg/dL Last Edit by [facility] on 08/25/25 14:4 3 UA Protein 0 mg/dL Last Edit by [facility] on 08/25/25 14:43 UA pH 6.0 Last Edit by [facility] on 08/25/25 14:43 UA Blood 10 Marco Antonio/uL Last Edit by [facility] on 08/25/25 14:43 UA Specific Marion 1.015 Last Edit by [facility] on 08/25/25 14: 43 UA Ketone Negative Last Edit by [facility] on 08/25/25 14:43 UA Bilirubin 0 mg/dL Last Edit by [facility] on 08/25/25 14:43 UA Glucose 0 mg/dL Last Edit by [facility] on 08/25/25 14:43 Results Reviewed Results Reviewed: Laboratory Last Values Urine pH (Auto) 6.0 08/25/25 14:41 Specific Marion (Auto) 1.015 08/25/25 14:41 Urine Protein (Auto) 0 mg/dL 08/25/25 14:41 Glucose (UA)(Auto) 0 mg/dL 08/25/25 14:41 Urine Ketones (Auto) Negative 08/25/25 14:41 Urine Blood (Auto) 10 Marco Antonio/uL 08/25/25 14:41 Urine Nitrite (Auto) Negative 08/25/25 14:41 Urine Bilirubin (Auto) 0 mg/dL 08/25/25 14:41 Urine Urobilinogen (Auto) 0.2 mg/dL 08/25/25 14:41 Leukocyte Esterase (Auto) 0 Elpidio/uL 08/25/25 14:41 Assessment & Plan Assessment & Plan (1) Erectile dysfunction associated with type 2 diabetes mellitus: Code(s): E11.69 - Type 2 diabetes mellitus with other specified complication; N52.1 - Erectile dysfunction due to diseases classified elsewhere Category: Medical (2) Microscopic hematuria: Code(s): R31.29 - Other microscopic hematuria Category: Medical (3) Nephrolithiasis: Code(s): N20.0 - Calculus of kidney Category: Medical (4) Prostate cancer: Comment: 2004 Code(s): C61 - Malignant neoplasm of prostate Category: Medical Plan In office urinalysis results reviewed with the patient today; as noted above; will send for urine cytology. We did discussed further treatment options of ED as well as risks and benefits of these interventions. All questions were answered. He denies any bothersome urinary issues or concerns. He reports be happy with current voiding parameters. We did discussed the importance of management and diabetes for improvement in urological health as well as overall health and well-being. Continue low-dose Cialis as discussed and prescribed. We did discuss potential causes of microscopic hematuria; we discussed further workup in risks and benefits of these interventions. Recent PSA results reviewed with the patient and his today; as noted above. Will continue with surveillance monitoring. Will obtain PSA in 6 months. Follow-up in 6 months with PSA; or sooner with any issues, concerns, and or ques tions. Orders: Orders AMB Urinalysis Automated Today Z13.9 - Encounter for screening, unspecified Urine Cytology Today R31.29 - Other microscopic hematuria Medications: Refilled tadalafil (Cialis) [id number] [facility] [id number] Member [id number] 5 mg PO DAILY 90 tabs 3RF 90 days Patient Instructions: The patient had an opportunity to ask questions regarding the treatment plan. All questions were answered. Physical exam, labs, and imaging were discussed and reviewed in detail. As well as risks, benefits, and discussion of treatment choices. No major barriers to understanding were identified. The patient expressed understanding and agreement with the above treatment plan. The patient was made aware they should contact our office by phone for worsening of their current condition, the appearance of new symptoms, or with any questions or concerns. Compliance is encouraged with any medications and follow up testing that is ordered. It is a privilege to be allowed the opportunity to participate in? your urological care.? Again, if you have any questions or concerns If you have any questions or concerns please do not hesitate to contact me. The office is [phone]. This note is constructed using voice recognition software. While every effort has been made to ensure accuracy drier helper errors may have been included. Yours sincerely, HOWIE Durham Coding Level of Care Code Est Pt Level 4 (14566) Complex EM visit Add On G2211 Diagnoses Erectile dysfunction associated with type 2 diabetes mellitus E11.69; N52.1 Microscopic hematuria R31.29 Nephrolithiasis N20.0 Prostate cancer C61
== END 2025-08-25 14:57 | disposition home or self-care (01) ==
LOC: HO.HUSH 14:07
PROVIDERS: PCP Internal Medicine; Visit Provider Nurse Practitioner Family
DX: E11.69 Type 2 diabetes mellitus with other specified complication (principal); N52.1 Erectile dysfunction due to diseases classified elsewhere; R31.29 Other microscopic hematuria; N20.0 Calculus of kidney; C61 Malignant neoplasm of prostate; Z13.9 Encounter for screening, unspecified
CPT/HCPCS: 99214; G2211

== ENCOUNTER 2025-08-25 14:06 | Outpatient (REF) | payer OTHER, SELFPAY | END 2025-08-25 14:07 | disposition home or self-care (01) | LOC: HO.LAB 14:06 | PROVIDERS: PCP Internal Medicine; Visit Provider Nurse Practitioner Family | DX: N20.0 Calculus of kidney (principal); C61 Malignant neoplasm of prostate; E11.69 Type 2 diabetes mellitus with other specified complication; N52.1 Erectile dysfunction due to diseases classified elsewhere; R31.29 Other microscopic hematuria; Z79.4 Long term (current) use of insulin | CPT/HCPCS: 81003; 88112; 99212 ==

== ENCOUNTER 2025-09-10 09:53 | Outpatient (AMB) | payer OTHER, SELFPAY ==
--- OUTSIDE RECORDS SUMMARY | 2024-08-23 09:00 | XMS_ITS ---
Author Organization [facility] Address [address] [place] [id number] Care Team Providers Care Expander Machine Operator Name Role Phone Margarito Anton MD Primary Care Provider Favian Groves [phone] REASON FOR VISIT Patient presents today for abnormal immunological findings in serum. Medications Medication SIG (Take, Route, Frequency, Duration) Notes Start Date End Date Status Sertraline HCl 50 MG Tablet 1 tablet Orally Once a day; Duration: 30 day(s) Active Atorvastatin Calcium 20 MG Tablet 1 tablet Orally Once a day; Duration: 30 day(s) Active Loratadine 10 MG Tablet 1 tablet Orally Once a day; Duration: 30 day(s) Active Repaglinide 0.5 MG Tablet 1 tablet 15 to 30 minutes before meals Orally three x a day Active Toujeo SoloStar 300 UNIT/ML Solution Pen-injector as directed Subcutaneous once a day Active Vitamin D 1000 UNIT Tablet 1 tablet Orally Once a day Active Tamsulosin HCl 0.4 MG Capsule 1 capsule Orally Once a day; Duration: 30 day(s) Active Wixela Inhub 250-50 MCG/DOSE Aerosol Powder Breath Activated 1 puff Inhalation Twice a day Active Incruse Ellipta 62.5 MCG/INH Aerosol Powder Breath Activated 2 puff Inhalation Once a day Active Albuterol Sulfate HFA 108 (90 Base) MCG/ACT Aerosol Solution 1 puff as needed Inhalation every 6 hrs Active Pioglitazone HCl 30 MG Tablet 1 tablet Orally Once a day; Duration: 30 day(s) Active Lisinopril 2.5 MG Tablet 1 tablet Orally Once a day Active MiraLax (colon prep) 17 GM/SCOOP Powder 1 238gm bottle mixed with gatorade or crystal light Orally begin at 5:00 p.m. the day before the procedure; Duration: 1 day 06/24/2022 Activ e Omeprazole 20 MG Capsule Delayed Release TAKE 1 CAPSULE BY MOUTH EVERY MORNING; Duration: 30 Active Dulcolax (colon prep) 5 MG Tablet Delayed Release take at 3:00 p.m and 7:00p.m. Orally two tablets twice a day for one day; Duration: 1 day 06/24/2022 Active Acarbose 25 MG Tablet Oral; Duration: 90 Active MiraLax (colon prep) 8.3 ounce ((238) grams mixed with Gatorade or Crystal Light orally begin at 5:00 p.m. the day before the procedure; Duration: 1 day 06/24/2022 Active Dulcolax (colon prep) 5 MG Tablet Delayed Release take at 3:00 p.m and 7:00p.m. Orally two tablets twice a day for one day; Duration: 1 day 06/24/2022 Active Encounters Encounter Location Date Provider Diagnosis [address] [address] 08/23/2024 Favian Delgado Plan Of Treatment No Information Progress Notes * CASTILLO ABDIRASHIDSDOB:1960 (65 yo M)Acc No.[id number]:08/23/2024 Progress Notes Patient: LINA BAUTISTA Provider: Raghu Delgado MD :1960 A ge:64 Y S ex:Male Date:08/23/2024 Address:[address] [place] [address] Pcp:Margarito Anton MD Subjective: * Chief Complaints: * P atient presents today for abnormal immunological findings in serum. * Medications: T akingLisinopril 2.5 MG Tablet 1 tablet Orally Once a day Pioglitazone HCl 30 MG Tablet 1 tablet Orally Once a day Tamsulosin HCl 0.4 MG Capsule 1 capsule Orally Once a day Vitamin D 1000 UNIT Tablet 1 tablet Orally Once a day Incruse Ellipta 62.5 MCG/INH Aerosol Powder Breath Activated 2 puff Inhalation Once a day Wixela Inhub 250-50 MCG/DOSE Aerosol Powder Breath Activated 1 puff Inhalation Twice a day Albuterol Sulfate HFA 108 (90 Base) MCG/ACT Aerosol Solution 1 puff as needed Inhalation every 6 hrs Atorvastatin Calcium 20 MG Tablet 1 tablet Orally Once a day Sertraline HCl 50 MG Tablet 1 tablet Orally Once a day Repaglinide 0.5 MG Tablet 1 tablet 15 to 30 minutes before meals Orally three x a day Loratadine 10 MG Tablet 1 tablet Orally Once a day Toujeo SoloStar 300 UNIT/ML Solution Pen-injector as directed Subcutaneous once a day Acarbose 25 MG Tablet Oral Dulcolax (colon prep) 5 MG Tablet Delayed Release take at 3:00 p.m and 7:00p.m. Orally two tablets twice a day for one day MiraLax (colon prep) 8.3 ounce ((238) grams mixed with Gatorade or Crystal Light orally begin at 5:00 p.m. the day before the procedure MiraLax (colon prep) 17 GM/SCOOP Powder 1 238gm bottle mixed with gatorade or crystal light Orally begin at 5:00 p.m. the day before the procedure Dulcolax (colon prep) 5 MG Tablet Delayed Release take at 3:00 p.m and 7:00p.m. Orally two tablets twice a day for one day Omeprazole 20 MG Capsule Delayed Release TAKE 1 CAPSULE BY MOUTH EVERY MORNING Taking Lisinopril 2.5 MG Tablet 1 tablet Orally Once a day Taking Pioglitazone HCl 30 MG Tablet 1 tablet Orally Once a day Taking Tamsulosin HCl 0.4 MG Capsule 1 capsule Orally Once a day Taking Vitamin D 1000 UNIT Tablet 1 tablet Orally Once a day Taking Incruse Ellipta 62.5 MCG/INH Aerosol Powder Breath Activated 2 puff Inhalation Once a day Taking Wixela Inhub 250-50 MCG/DOSE Aerosol Powder Breath Activated 1 puff Inhalation Twice a day Taking Albuterol Sulfate HFA 108 (90 Base) MCG/ACT Aerosol Solution 1 puff as needed Inhalation every 6 hrs Taking Atorvastatin Calcium 20 MG Tablet 1 tablet Orally Once a day Taking Sertraline HCl 50 MG Tablet 1 tablet Orally Once a day Taking Repaglinide 0.5 MG Tablet 1 tablet 15 to 30 minutes before meals Orally three x a day Taking Loratadine 10 MG Tablet 1 tablet Orally Once a day Taking Toujeo SoloStar 300 UNIT/ML Solution Pen-injector as directed Subcutaneous once a day Taking Acarbose 25 MG Tablet Oral Taking Dulcolax (colon prep) 5 MG Tablet Delayed Release take at 3:00 p.m and 7:00p.m. Orally two tablets twice a day for one day Taking MiraLax (colon prep) 8.3 ounce ((238) grams mixed with Gatorade or Crystal Light orally begin at 5:00 p.m. the day before the procedure Taking MiraLax (colon prep) 17 GM/SCOOP Powder 1 238gm bottle mixed with gatorade or crystal light Orally begin at 5:00 p.m. the day before the procedure Taking Dulcolax (colon prep) 5 MG Tablet Delayed Release take at 3:00 p.m and 7:00p.m. Orally two tablets twice a day for one day Taking Omeprazole 20 MG Capsule Delayed Release TAKE 1 CAPSULE BY MOUTH EVERY MORNING * The named appointment provid er may or may not be the originator of this progress note, and it is not deemed complete until electronically signed by the appointment provider. Sign off status: Pending * Provider: Raghu Delgado MD Date: 10/23/2023 Generated for John palacios/Radha/Aris on: 11/10/2024 06:28 PM EST
[2025-09-10 10:15] VITALS: BP 118/68; PULSE 94; O2SAT 90; BMI 24.7
--- NOTE | 2025-09-10 10:15 | MHC.PC.OV ---
Vital Signs 09/10/25 10:15 Height 5 ft 7 in Weight 158 lb BMI 24.7 BP 118/68 Blood Pressure Location Lt brachial Position Sitting Pulse 94 Pulse Source Pulse Oximeter Pulse Oximetry (%) 90 L Oxygen Delivery Method Room Air Intake Visit Reasons: DM Allergies cortisone (CORTISONE) Allergy (Severe, Verified 09/10/25 10:15) ANAPHYLAXIS cephalexin Allergy (Unknown, Verified 09/10/25 10:15) unknown lisinopril Adverse Reaction (Intermediate, Verified 09/10/25 10:15) hypotension Medication List - Last Reconciled 09/10/25 by Margarito Anton MD albuterol sulfate 90 mcg/actuation 2 puffs PO Q4-6H PRN alcohol swabs (BD Alcohol Swabs) 1 pad topical QID atorvastatin 20 mg PO DAILY blood-glucose sensor ([employer] Bebeto 3 Plus Sensor device) Use daily As directed to monitor glucose blood-glucose,buckle stapler,cont (FreeStyle Bebeto 3 Hilliards) Use daily As directed to monitor blood glucose cholecalciferol (vitamin D3) 50 mcg PO DAILY clotrimazole 1% 1 appl topical BID 4 weeks dupilumab (Dupixent) 300 mg subcut .[id number] fluticasone propion-salmeterol 250-50 mcg/dose 1 ea PO Q12H 3 months fluticasone propionate 50 mcg/actuation (Flonase Allergy Relief) 2 sprays intranasal DAILY glucagon 3 mg/actuation (Baqsimi) 3 mg intranasal ONCE 30 days insulin glargine U-300 conc (Toujeo Max U-300 SoloStar) 18 units (0.06 mL) subcut BEDTIME lidocaine 5% 1 patch topical DAILY miconazole nitrate 2% (Zeasorb AF) 1 appl topical BID Novolog FlexPen U-100 Insulin (insulin aspart U-100) 4 units (0.04 mL) subcut TID NS Oxygen Home Use As directedO2 2L NC pen needle, diabetic 1 ea miscellaneous .4X/day sertraline 50 mg PO DAILY 90 days sildenafil (Viagra) 100 mg PO DAILY PRN 30 days tadalafil (Cialis) 5 mg PO DAILY 90 days umeclidinium 62.5 mcg/actuation (Incruse Ellipta) 1 inh inhalation DAILY 30 days Tobacco use date assessed: 05/16/25 Fall risk assessment: No Falls in past year Last assessed Fall Risk: 09/10/25 Dental Screening Dental Screen Date: 04/03/25 HPI HPI Comments History of Present Illness Details History of Present Illness The patient is a 65-year-old male presenting for a follow-up visit for management of multiple chronic conditions. His past medical history is significant for diabetes mellitus, hypercholesterolemia, COPD, and generalized anxiety disorder. He has a history of prostate cancer diagnosed in 2004 and is a former smoker. The patient follows with urology for erectile dysfunction and his history of prostate cancer. He was prescribed Cialis by urology. His PSA level is undetectable. In May, the patient experienced abdominal pain and a CT scan revealed suspected diffuse enterocolitis. A CT scan of the neck showed multilevel cervical spondylosis. For management of his COPD, the patient continues to use inhalers and home oxygen. His diagnosis is specified as centrilobular emphysema. Regarding his diabetes, the patient does not adhere to his recommended diet. He is on Toujeo insulin and has a referral to see an machine ii coremaker. Health Maintenance The patient will receive an influenza vaccination during today's visit. Social History - Substance use: History of smoking, but has quit. - Diet: Acknowledges poor dietary adherence and eating what he wants, which impacts his diabetes control. Results - Labs from July: - CBC was normal with no anemia; white blood cells and platelets were normal. - Sodium and potassium were good. - Kidney function was good. - Blood sugar was 177 mg/dL. - Hemoglobin A1c was 8.0%. - LDL cholesterol was 76 mg/dL. - Liver function tests were good. - PSA was undetectable. - Vitamin B12, folic acid, and thyroid levels were good. - Imaging: - CT scan of the abdomen in May showed suspected diffuse enterocolitis. - CT scan of the neck revealed multilevel cervical spondylosis. FORMERLY [facility], [facility] Medical History Personal history of nicotine dependence Hypoxemia COPD exacerbation Allergic rhinitis Type 2 diabetes mellitus with diabetic polyneuropathy Tinnitus Anxiety and depression Peptic ulcer disease Renal calculus, right Tubular adenoma of colon DDD (degenerative disc disease), lumbar Depression Prostate cancer COPD (chronic obstructive pulmonary disease) CAP (community acquired pneumonia) Gastric ulcer Hernia Kidney stones History of prostate cancer Erectile dysfunction Insulin use (long-term) in type 2 diabetes Hyperlipidemia LDL goal <100 Vitamin D insufficiency Surgical History History of cataract surgery History of foot surgery History of inguinal hernia repair Hx of tonsillectomy Hx of prostatectomy Family History Father Diabetes Mother No problems noted. Son Diabetes Maternal Uncle Prostate cancer Paternal Grandfather Myocardial infarction Maternal Grandmother No problems noted. Maternal Aunt Esophageal cancer Maternal Grandfather Myocardial infarction Social History Household Members: Spouse Housing: Apartment Alcohol intake: current Alcohol intake frequency: a few times a month Patient Tobacco Use Status: Former Tobacco user Tobacco use type: Cigarette e-Cigarette/Vaping Use: Never Used Second Hand Smoke Exposure: Yes Substance Use Type: Former Substance User and Marijuana service: No Current occupational status: disabled Current occupation: rt handed Cognitive needs: Yes (cane) Hearing needs: Yes (hearing aide) Vision needs: Yes Questionnaire Thrive Questionnaire Date Thrive assessed: 04/03/25 I am a: Patient What is your living situation today?: I have a steady place to live Within the past 12 months, did the food you bought not last and you didn't have the money to get more?: Never true Within the past 12 months, did you worry whether your food would run out before you got money to buy more?: Never true Do you have trouble paying for medicines?: No Do you have trouble getting transportation to medical appointments?: No Do you have trouble paying your heating and electricity bill?: No Do you have trouble taking care of your child, family member or friend?: No Do you have trouble with day-to-day activities such as bathing, preparing meals, shopping, managing finances, etc.?: No Are you currently unemployed and looking for a job?: Yes Are you interested in more education?: No Please select the resources that you would like help with: None Currently or been in a relationship where the following occur: No concerns reported THRIVE Score: 0 YOLIS-7 AMB Questionnaire YOLIS-7 Date YOLIS - 7 assessed: 04/03/25 Source: Developed by Drs. Favian Nascimento, Valentina BJose M Espino and colleagues, with an educational edita from [employer]. Review of Systems Narrative Review of Systems - ENT: Reports feeling stuffy. - Denies ear pain. - Genitourinary: Reports erectile dysfunction. Physical exam (Primary Care) Vital Signs: Last Vital Signs Pulse 94 09/10/25 10:15 BP 118/68 09/10/25 10:15 Pulse Ox 90 L 09/10/25 10:15 Oxygen Delivery Method Room Air 09/10/25 10:15 BMI result Body Mass Index 24.7 Tobacco/Smoking Status: Tobacco use Status Tobacco use date assessed 05/16/25 09/10/25 10:17 Patient Tobacco Use Status Former Tobacco user 09/10/25 10:17 Tobacco use type Cigarette 09/10/25 10:17 e-Cigarette/Vaping Use Never Used 09/10/25 10:17 Thrive Assessment: Date of Thrive Assessment Date Thrive assessed 04/03/25 09/10/25 10:17 Currently or been in a relationship where the following occur: No concerns reported Narrative Physical Exam - Ears: External auditory canals are patent with no cerumen blockage. - Tympanic membranes appear to be under some pressure but are otherwise normal. Const General: alert; No acute distress Eyes Conjunctivae: conjunctivae normal Resp Auscultation: clear to auscultation bilaterally Cardio Rate: regular rate Rhythm: regular rhythm GI Inspection: Yes normal to inspection Extrem General: Yes normal to inspection and No edema Office Procedures Flu Questionnaire Does the patient have a severe egg allergy?: No Does the patient have severe life threatening allergies?: No Does the patient have a fever or illness today?: No Has the patient ever had Guillain-[place] Syndrome?: No Has the patient ever had any past reaction to a flu shot?: No Immunizations Fluarix [id number] (PF) 45 mcg (15 mcg x 3)/0.5 mL IM syringe Performing Provider: Margarito Anton MD [facility] Administered by: Rochelle Ken CMA on 09/10/25 11:33 Dose Route Admin Location Dispensed Lot Number Expiration Date [facility] [employer] 0.5 mL IM Left Deltoid 0.5 mL [id number] 04/21/26 [id number] [employer] VIS Given Date VIS Provided VIS Publication Date 09/10/25 Single Vaccine 24 Eligibility Eligibility Date Funding Source Not [facility] Eligible 09/10/25 Private Coding Level of Care Code Est Pt Level 4 (08970) Complex EM visit Add On G2211 Diagnoses Prostate cancer C61 Hyperlipidemia LDL goal <100 E78.5 Erectile dysfunction due to arterial insufficiency N52.01 Erectile dysfunction type: vasculogenic Vasculogenic erectile dysfunction type: due to arterial insufficiency Pulmonary emphysema, unspecified emphysema type J43.9 COPD type: emphysema Emphysema type: unspecified Personal history of nicotine dependence Z87.891 Type 2 diabetes mellitus with hyperglycemia, with long-term current use of insulin E11.65; Z79.4 Diabetes mellitus remote computer terminal operator insulin use: with nursing home use Libido, decreased R68.82 Assessment & Plan Assessment & Plan (1) Prostate cancer: Comment: 2004 Code(s): C61 - Malignant neoplasm of prostate Category: Medical Plan: Patient follows up with urology. PSA number undetectable (2) Hyperlipidemia LDL goal <100: Code(s): E78.5 - Hyperlipidemia, unspecified Category: Medical Plan: Avoid fried foods, chicken skin, eggs, butter margarine, pastries and meat. Be it pork or beef they have a lot of cholesterol LDL goal of less than 100 and triglyceride of less than 150 July 2025 last blood work on atorvastatin 20 mg once a day (3) Erectile dysfunction: Code(s): N52.9 - Male erectile dysfunction, unspecified Category: Medical Qualifiers: Erectile dysfunction type: vasculogenic Vasculogenic erectile dysfunction type: due to arterial insufficiency Qualified Code(s): N52.01 - Erectile dysfunction due to arterial insufficiency Plan: Patient follows up with urology placed on Ciapettys (4) COPD (chronic obstructive pulmonary disease): Comment: He is known to have chronic bronchial asthma/COPD, relatively severe. Quit smoking in 2022. Since then his breathing has been much better and he has very few acute exacerbations. But still needs oxygen all the time and also walks slowly. Code(s): J44.9 - Chronic obstructive pulmonary disease, unspecified Category: Medical Qualifiers: COPD type: emphysema Emphysema type: unspecified Qualified Code(s): J43.9 - Emphysema, unspecified Plan: Continue with inhalers and continue with oxygen use patient is on Incruse fluticasone/salmeterol (5) Personal history of nicotine dependence: Comment: (quit 07/2023) . HE DOES HAVE HISTORY OF LONG-TIME SMOKING , BUT DID QUIT IN 2022 Code(s): Z87.891 - Personal history of nicotine dependence Category: Medical Plan: Continuing to monitor (6) Type 2 diabetes mellitus with hyperglycemia: Comment: eye doctor in [place] Code(s): E11.65 - Type 2 diabetes mellitus with hyperglycemia Category: Medical Qualifiers: Diabetes mellitus remote computer terminal operator insulin use: with nursing home use Qualified Code(s): E11.65 - Type 2 diabetes mellitus with hyperglycemia; Z79.4 - FPC (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 On insulin Touhiralo NovoLog. Patient has been referred to Endocrinology and will be seeing next week (7) Libido, decreased: Code(s): R68.82 - Decreased libido Category: Medical Plan Plan Patient was informed and verbally consented to the use of an ambient scribe for clinic note documentation during this visit. 1. Diabetes Mellitus The patient's diabetes is poorly controlled, evidenced by a recent hemoglobin A1c of 8.0%. He acknowledges poor dietary adherence. The impact of uncontrolled diabetes on nerve and blood vessel function, particularly in relation to his erectile dysfunction, was discussed. The plan is to continue his current insulin regimen and have him follow up with endocrinology this Monday. The importance of improving his diet for better glycemic control was emphasized. 2. Chronic Obstructive Pulmonary Disease The patient has a diagnosis of centrilobular emphysema with air trapping noted on imaging, a consequence of his history of smoking. He will continue his current treatment with prescribed inhalers and home oxygen. He was reminded to rinse his mouth after using his inhaler. 3. Hypercholesterolemia The patient's hypercholesterolemia is well-controlled on atorvastatin, with a recent LDL of 76 mg/dL. He will continue his current dose of atorvastatin. 4. History Of Prostate Cancer The patient has a history of prostate cancer treated in 2004. His PSA remains undetectable. He will continue to follow up with urology. 5. Erectile Dysfunction The patient's erectile dysfunction is considered multifactorial, significantly contributed by nerve and vascular damage from his poorly controlled diabetes. He will continue taking Cialis (tadalafil) as prescribed by his urologist. 6. Nasal Congestion The patient reports nasal stuffiness, and physical exam findings suggest increased internal pressure. A nasal steroid spray was recommended to alleviate symptoms, and proper administration technique was demonstrated. Discussion Notes I reviewed the patient's recent lab results, noting that while his blood count, kidney function, liver enzymes, and cholesterol are well-managed, his diabetes control is a primary concern with a hemoglobin A1c of 8.0%. I explained the target A1c is preferably below 7% and discussed how his diet is a major factor in his elevated blood sugar. I educated him on the connection between uncontrolled diabetes and its complications, specifically how it affects the nerves and blood supply to the penis, contributing to his erectile dysfunction. We discussed his COPD, explaining that the findings of emphysema are a result of past smoking and that it is important to continue his inhalers and oxygen. After examining his ears for his complaint of stuffiness and finding no blockage, I recommended a nasal spray and provided instructions for its use. We arranged for him to receive his flu shot during this visit. Patient Instructions - It is very important to eat better to help control your blood sugar. - Continue taking your current medications, including insulin, cholesterol medication, and inhalers for your breathing. - Make sure to rinse your mouth with water after using your inhalers. - You have an appointment to see the machine ii coremaker this Monday for your diabetes. - Start using a nasal spray for your stuffy nose. - When you use it, point your head down, spray once in each nostril, and do not sniff hard afterward. - Use it every day, and you can reduce to once a day when the stuffiness gets better. - You will receive your flu shot today before you leave. - Continue to see your urologist for follow-up. Orders: Orders Influenza [id number] Immunization Today Z23 - Encounter for immunization Referrals Psychology Referral R68.56 - Decreased libido Medications: New fluticasone propionate 50 mcg/actuation (Flonase Allergy Relief) administer into each nostril 2 sprays intranasal DAILY 16 grams 0RF
--- OUTSIDE RECORDS SUMMARY | 2025-09-10 18:29 | XMS_ITS | Clinical Summary ---
Author Organization [employer] Address [address] [place] [address] [address] [place] [address] Care Team Providers Care Overweaver Name Role Phone Unavailable Primary Care Provider [...] Tobacco Screening 1971 Hepatitis C Screening 1977 Zoster Vaccines (1 of 2) 2009 DTaP/Tdap/Td Vaccines (2 - Td or Tdap) 09/11/2023 09/11/2013 COVID-19 Vaccine ( season) 2025 11/02/2022, 04/14/2022, 10/04/2021, Additional history exists Influenza Vaccine (#1) 2025 , 08/03/2022, 09/14/2021, Additional history exists RSV Patients and Patients Aged 60 years or older (1 - 1-dose 75+ series) 2034 Pneumococcal Vaccine: 50+ Years Completed 2025, 07/16/2018, [...] patient's age to complete this topic Insurance [facility] < 65 [place] [id number]
--- OUTSIDE RECORDS SUMMARY | 2025-09-10 18:29 | XMS_ITS | Encounter Summary ---
Author Organization [facility] Address [address] [place] [address] Care Team Providers Care Lead Network Engineer Name Role Phone Margarito Anton MD Primary Care Provider [phone] Encounter Details Date Type Department Care Team (Late st Contact Info) Description 07/21/2025 Results Follow-Up Gastroenterology - [address] [place] [phone] [facility] [place], [place] Social History Tobacco Use Types Packs/Day [...] Author No 06/09/2025 11:45 PM EDT Love Ngeron RN documented in this encounter Plan of Treatment Not on file documented as of this encounter Visit Diagnoses Not on filedocumented in this encounter Care Teams Lead Network Engineer Relationship Specialty Start Date End Date Margarito Anton MD [address] [place] [address] [address] [facility] [place] [address] PCP - General Internal Medicine 06/09/25 documented as of this encounter
--- OUTSIDE RECORDS SUMMARY | 2025-09-10 18:29 | XMS_ITS | Clinical Summary ---
Author Organization [facility] Address [address] [place] [address] Phone Care Team Providers Care Plate Glass Installer Helper Name Role Phone Margarito Anton MD Primary Care Provider [phone] Allergies No known active allergies Medications Dupixent [...] dermatitis 03/25/2025 Chronic obstructive pulmonar y disease ([facility] V24, [facility] V28) 03/25/2025 Depressive disorder 03/25/2025 Diabetes mellitus ([facility] V24, [facility] V28) 12/2024 Dizziness 05/27/2013 Frequent urination 05/27/2013 Hypertriglyceridemia 04/04/2013 Chronic pain 02/26/2013 Shoulder pain 02/26/2013 Prostate CA ([facility] V24, [facility] V28) 3 Numbness and tingling of right arm 02/26/2013 DJD (degenerative joint disease) 02/26/2013 Atypical chest pain 10/08/2012 Overview (06/18/2025): 11/03 nuclear stress test was negative for ischemia 10/02 echo revealed EF 50-55%, diastolic dysfunction, 11/03 Holter monitor revealed baseline NSR with no pauses, rare SVE's no pt reported events Chronic obstructive airway d isease ([facility] V24, [facility] V28) 10/08/2012 Encounters Date Type Department Care Team Description 07/21/2025 Results Follow-Up Gastroenterology - [address] [place] [address] Екатерина Singh [place] 07/18/2025 12:37 PM EDT Anesthesia Event [facility] [address] [place] [phone] Augustus Faulkner MD 07/18/2025 11:22 AM EDT - 07/18/2025 11:59 PM EDT Hospital Encounter [facility] [address] [place] [phone] Remi Howe MD Dickman, Christy L, CRNA Dasilva, John E, MD Rectal bleeding; Abnormal CT of the abdomen Discharge Disposition: Home or Self Care 06/20/2025 Telephone Gastroenterology - [address] [place] [phone] Remi Howe MD 06/19/2025 1:30 PM EDT Consult Gastroenterology - [address] [facility] [address] [place] [phone] Remi Howe MD Rectal bleeding (Primary Dx); Abnormal CT of the abdomen; Adenomatous polyp of colon, unspecified part of colon 06/19/2025 Telephone Gastroenterology - [address] [place] [phone] Remi Howe MD from Last 3 Months Surgical History Surgery [...] 02/26/2013 DX:DJD (degenerative joint disease) Prostate CA ([facility] V24, [facility] V28) 02/26/2013 DX:Prostate CA (HCC) Need for hepatitis C screening test 02/26/2013 DX:Need for hepatitis C screening test Shoulder pain 02/26/2013 DX:Shoulder pain Elbow pain 02/26/2013 DX:Elbow pain Hypertriglyceridemia 04/04/2013 DX:Hypertri glyceridemia Bronchitis, not specified as acute or chronic DX:Bronchitis, not specified as acute or chronic Dizziness 05/27/2013 DX:Dizziness Frequent urination 05/27/2013 DX:Frequent u rination Diabetes mellitus ([facility] V 24, [facility] V28) Family History Medical History Relation Name [...] CT of the abdomen ECG ANNOTATED 06/10/2025 COMPREHENSIVE METABOLIC PANEL STAT 06/09/2025 2:04 PM EDT from Last 3 Months or Most Recently Relevant to Health Maintenance Results * COLONOSCOPY Anesthesia - MAC; [facility] END[facility] (07/18/2025 12:54 PM EDT) [...] office PRN. Narrative 07/18/2025 12:55 PM EDT [facility] GI Patient Name: Lina Sanford Procedure [...] retroflexion views. Procedure Code(s): --- Professional --- 22588, Colonoscopy, flexible; with removal of tumor(s), polyp(s), or other lesion(s) by snare technique Diagnosis Code(s): --- Professional --- D12.6, Benign neoplasm of colon, unspecified K62.5, Hemorrhage of anus and rectum R93.3, Abnormal findings on diagnostic imaging of other parts of digestive tract CPT copyright 2020 [employer]. All rights reserved. The codes documented in this report are preliminary and upon business performance advisor review may be revised to meet current compliance requirements. Remi Howe MD 07/18/2025 12:55:39 PM This report has been signed electronically.Remi Howe MD Number of Addenda: 0 Note Initiated On: 07/18/2025 12:37 PM Scope In: Scope Out: Endoscopy Department at [facility] - [address] [place] [phone] Procedure Note Remi Howe MD - 07/18/2025 [facility] GI Patient Name: Lina Sanford Procedure [...] retroflexion views. Procedure Code(s): --- Professional --- 14544, Colonoscopy, flexible; with removal of tumor(s), polyp(s), or other lesion(s) by snare technique Diagnosis Code(s): --- Professional --- D12.6, Benign neoplasm of colon, unspecified K62.5, Hemorrhage of anus and rectum R93.3, Abnormal findings on diagnostic imaging of other parts of digestive tract CPT copyright 2020 [employer]. All rights reserved. The codes documented in this report are preliminary and upon business performance advisor reviewmay be revised to meet current compliance requirements. Remi Howe MD 07/18/2025 12:55:39 PM This report has been signed electronically.Remi Howe MD Number of Addenda: 0 Note Initiated On: 07/18/2025 12:37 PM Scope In: Scope Out: Endoscopy Department at [facility] - [address] [place] [phone] IMPRESSION: - One 6 mm polyp at [...] results. - Return to GI office PRN. Remi Howe MD GI~PROCEDURE ORDERABLES Final Result * Tissue exam (07/18/2025 12:52 PM EDT) Final Diagnosis Colon, polyp at 25 cm: Hyperplastic polyp. 07/21/2025 9:41 AM EDT [facility] at 0941 EDT Gross Description A. [...] multiple levels. hs/DG 07/21/2025 9:41 AM EDT [facility] Disclaimer Unless otherwise specified, all tissue is 10% NB formalin fixed and paraffin embedded. 07/21/2025 9:41 AM EDT [facility] Tissue Colon structure / Unknown 07/18/2025 12:52 PM EDT 07/18/2025 2:43 PM EDT Remi Howe MD LAB PATHOLOGY ORDERABLES Evelina l Result [facility] [address] [place] [address], * ECG-Annotated (06/10/2025) us Provider Onbase ECG ORDERABLES Final Result * (ABNORMAL) Comprehensive metabolic panel (06/09/2025 2:04 PM EDT) Sodium 140 133 - 145 mmol/L LAB CHEMISTRY METHOD 06/09/2025 3:42 PM [facility] Potassium 4.8 3.5 - 5.5 mmol/L LAB CHEMISTRY METHOD 06/09/2025 3:42 PM [facility] Chloride 102 96 - 110 mmol/L LAB CHEMISTRY METHOD 06/09/2025 3:42 PM [facility] CO2 36(H) 21 - 32 mmol/L LAB CHEMISTRY METHOD 06/09/2025 3:42 PM [facility] Anion Gap 2(L) 3 - 11 LAB CHEMISTRY METHOD 06/09/2025 3:42 PM [facility] Glucose 94 70 - 100 mg/dL LAB CHEMISTRY METHOD 06/09/2025 3:42 PM [facility] BUN 9 5 - 25 mg/dL LAB CHEMISTRY METHOD 06/09/2025 3:42 PM [facility] Creatinine 0.82 0.70 - 1.30 mg/dL LAB CHEMISTRY METHOD 06/09/2025 3:42 PM [facility] eGFR 97 >=60 mL/min/1. 73m2 LAB CHEMISTRY METHOD 06/09/2025 3:42 PM [facility] Comment:Calculation based on the Chronic Kidney Disease Epidemiology Collaboration (CKD-EPI) equation refit without adjustment for race. BUN/Creatinine Ratio 11.0 LAB CHEMISTRY METHOD 06/09/2025 3:42 PM [facility] Calcium 9.8 8.5 - 10.5 mg/dL LAB CHEMISTRY METHOD 06/09/2025 3:42 PM [facility] AST (SGOT) 18 10 - 42 unit/L LAB CHEMISTRY METHOD 06/09/2025 3:42 PM [facility] ALT (SGPT) 16 10 - 60 unit/L LAB CHEMISTRY METHOD 06/09/2025 3:42 PM EDT [facility] Alkaline Phosphatase 87 42 - 121 unit/L LAB CHEMISTRY METHOD 06/09/2025 3:42 PM EDT [facility] Total Protein 7.5 6.0 - 8.0 g/dL LAB CHEMISTRY METHOD 06/09/2025 3:42 PM EDT [facility] Albumin 4.2 3.2 - 5.0 g/dL LAB CHEMISTRY METHOD 06/09/2025 3:42 PM EDT [facility] Total Bilirubin 0.6 0.0 - 1.4 mg/dL LAB CHEMISTRY METHOD 06/09/2025 3:42 PM EDT [facility] Blood Venous blood specimen / Unknown Venipuncture / Unknown 06/09/2025 2:04 PM EDT 06/09/2025 2:52 PM EDT Keri LYNCH LAB BLOOD ORDERABLES Fin al Result [facility] [address] [place] [address], from Last 3 Months or Most Recently Relevant to Health Maintenance Insurance [facility] MEDICARE Member Subscriber Plan / Payer (Ef fective 2024-Present) Name:LINA CHONG Relation to Subscriber:Self Name:Lina Ellis Payer ID:[id number] Group ID:[id number] Type:Not on file Address: [place] [address] [address] [id number] Care Teams Plate Glass Installer Helper Relationship Specialty Start Date End Date Margarito Anton MD [address] [facility] [address] [facility] [place] [address] PCP - General Internal Medicine 06/09/25
--- OUTSIDE RECORDS SUMMARY | 2025-09-10 18:29 | XMS_ITS | Patient Health Record ---
Author Organization [facility] Address [address] [place] [phone] Care Team Providers Care Crossing Flagman Name Role Phone Margarito Anton MD Primary Care Provider Favian Groves [phone] Allergies Allergen (clinical drug ingredient) Drug/Non Drug Allergy documented on EMR Reaction Allergy Type Onset Date Status Cortisone Unknown Drug Allergy Active Reason For Referral No Information Medications Medication SIG (Take, Route, Frequency, Duration) Notes Start Date End Date Status Loratadine 10 MG Tablet 1 tablet Orally Once a day; Duration: 30 day(s) Active Lisinopril 2.5 MG Tablet 1 tablet Orally Once a day Active Toujeo SoloStar 300 UNIT/ML Solution Pen-injector as directed Subcutaneous once a day Active Pioglitazone HCl 30 MG Tablet 1 tablet Orally Once a day; Duration: 30 day(s) Active Acarbose 25 MG Tablet Oral; Duration: 90 Active Tamsulosin HCl 0.4 MG Capsule 1 capsule Orally Once a day; Duration: 30 day(s) Active Dulcolax (colon prep) 5 MG Tablet Delayed Release take at 3:00 p.m and 7:00p.m. Orally two tablets twice a day for one day; Duration: 1 day 06/24/2022 Active Vitamin D 1000 UNIT Tablet 1 tablet Orally Once a day Active MiraLax (colon prep) 8.3 ounce ((238) grams mixed with Gatorade or Crystal Light orally begin at 5:00 p.m. the day before the procedure; Duration: 1 day 06/24/2022 Active Incruse Ellipta 62.5 MCG/INH Aerosol Powder Breath Activated 2 puff Inhalation Once a day Active MiraLax (colon prep) 17 GM/SCOOP Powder 1 238gm bottle mixed with gatorade or crystal light Orally begin at 5:00 p.m. the day before the procedure; Duration: 1 day 06/24/2022 Activ e Wixela Inhub 250-50 MCG/DOSE Aerosol Powder Breath Activated 1 puff Inhalation Twice a day Active Dulcolax (colon prep) 5 MG Tablet Delayed Release take at 3:00 p.m and 7:00p.m. Orally two tablets twice a day for one day; Duration: 1 day 06/24/2022 Active Albuterol Sulfate HFA 108 (90 Base) MCG/ACT Aerosol Solution 1 puff as needed Inhalation every 6 hrs Active Omeprazole 20 MG Capsule Delayed Release TAKE 1 CAPSULE BY MOUTH EVERY MORNING; Duration: 30 Active Atorvastatin Calcium 20 MG Tablet 1 tablet Orally Once a day; Duration: 30 day(s) Active Sertraline HCl 50 MG Tablet 1 tablet [...] stop date) Former Smoker NA - NA Social History Drugs/Alcohol: Social Info Question Answer Notes Alcohol Screen Did you have a drink containing alcohol in the past year? Yes How often did you have a drink containing alcohol in the past year? 2 to 4 times a month (2 points) How many drinks did you have on a typical day when you were drinking in the past year? 3 or 4 drinks (1 point) How often did you have 6 or more drinks on one occasion in the past year? Never (0 point) Points 3 Interpretation Negative Tobacco Use: Social Info Question Answer Notes Tobacco Control (Standard) Tobacco use: Former smoker Additional Details Category Social Info Options Details Miscellaneous: Marital status: Occupation: unemployed Section Notes: He smokes, uses occasional a [...] Problem Screening for malignant neoplasm of colon (950141975) Encounter for screening for malignant neoplasm of colon (Z12.11) Active confirmed Problem History of adenomatous polyp of colon (049331920) History of adenomatous polyp of colon (Z86.010) Active confirmed Problem History of polyp of colon (situation) (825245226) Personal history of colonic polyps (Z86.010) Active confirmed Problem Diverticular disease of colon (253346294) Diverticulosis of large intestine without perforation or abscess without bleeding (K57.30) Active confirmed Problem Anorexia (57450293) Anorexia (R63.0) Active con firmed Problem Acute gastric ulcer without hemorrhage, without perforation AND without obstruction (73590558) Gastric ulcer without hemorrhage or perforation, acute (K25.3) Active confirmed Problem Preprocedural examination (409490283323482) Preprocedural examination (Z01.818) Active confirmed Problem Long-term current use of aspirin (111179986502946) Aspirin long-term use (Z79.82) Active confirmed Problem Gastroesophageal reflux disease (759244247) Gastroesophageal reflux disease, esophagitis presence not specified (K21.9) Active confirmed Problem Hiatal hernia (11212834) Hiatal hernia (K44.9) Active confirmed Problem Gastroenteritis (29092614) Gastroenteritis (K52.9) Active confirmed Problem Computed tomography of abdomen abnormal (48622352680163767) Abnormal CT scan, stomach (R93.3) Active confirmed Problem Esophageal reflux finding (889071884) Gastroesophageal reflux (K21.9) Active confirmed Vital Signs Temperature 97.7 degrees Fahrenheit 01/08/2025 Blood pressure diastolic 01 mm Hg 01/08/2025 Height 67 in 01/08/2025 Blood pressure systolic 001 mm Hg 01/08/2025 Weight 163.8 lbs 01/08/2025 BMI 25.65 kg/m2 01/08/2025 Encounters Encounter Location Date Provider Diagnosis [facility] [address] [place] [address] 01/08/2025 Favian Delgado Encounter for screen ing [...] to discuss things with you and his special education tutor in regard to getting better control of [...] to discuss things with you and his special education tutor in regard to getting better control of [...] to discuss things with you and his special education tutor in regard to getting better control of [...] to discuss things with you and his special education tutor in regard to getting better control of [...] Insured Coverage Start Date Coverage End Date [facility] [address] [place] [address] [id number] LINA CHONG Self - patient is the insured Medical (General) History Medical History History ICD Code HTN Hyperlipidemia Emphysema Denies IA, CVA, renal disease Prostate cancer IDDM Colonoscopy [...] and H. pylori Surgical History Surgery Date(Month/Year) Hernia Prostatectomy Tonsillectomy
== END 2025-09-10 11:41 | disposition home or self-care (01) ==
LOC: HO.HMCH 09:53
PROVIDERS: PCP Internal Medicine; Visit Provider Internal Medicine
DX: C61 Malignant neoplasm of prostate (principal); E78.5 Hyperlipidemia, unspecified; N52.01 Erectile dysfunction due to arterial insufficiency; J43.9 Emphysema, unspecified; Z87.891 Personal history of nicotine dependence; E11.65 Type 2 diabetes mellitus with hyperglycemia; Z79.4 Long term (current) use of insulin; R68.82 Decreased libido; Z23 Encounter for immunization

== ENCOUNTER → 2025-09-10 09:53 | Outpatient (BNVA) | payer OTHER, SELFPAY | PROVIDERS: PCP Internal Medicine; Visit Provider Internal Medicine | DX: Z85.46 Personal history of malignant neoplasm of prostate (principal); E78.5 Hyperlipidemia, unspecified; E78.00 Pure hypercholesterolemia, unspecified; J44.9 Chronic obstructive pulmonary disease, unspecified; F41.1 Generalized anxiety disorder; E11.65 Type 2 diabetes mellitus with hyperglycemia; N52.01 Erectile dysfunction due to arterial insufficiency; J43.9 Emphysema, unspecified; Z87.891 Personal history of nicotine dependence; R68.82 Decreased libido; Z23 Encounter for immunization; Z79.4 Long term (current) use of insulin | CPT/HCPCS: 90471; 90656; 99212 ==

== ENCOUNTER 2025-09-12 09:11 | Outpatient (AMB) | payer OTHER, SELFPAY ==
--- OUTSIDE RECORDS SUMMARY | 2024-08-23 09:00 | XMS_ITS ---
Author Organization [facility] Address [address] [place] [address] Care Team Providers Care Javascript Web Developer Name Role Phone Margarito Anton MD Primary Care Provider Favian Groves [phone] REASON FOR VISIT Patient presents today for [...] Encounters Encounter Location Date Provider Diagnosis [address] [address] 08/23/2024 Favian Delgado Plan Of Treatment No Information Progress Notes * CASTILLO ABDIRASHIDSDOB:1960 (65 yo M)Acc No.[id number]:08/23/2024 Progress Notes Patient: LINA BAUTISTA Provider: Raghu Delgado MD :1960 A ge:64 Y S ex:Male Date:08/23/2024 Address:[address] [place] [address] Pcp:Margarito Anton MD Subjective: * Chief Complaints: [...] Date: 10/23/2023 Generated for John palacios/Radha/Aris on: 11/12/2024 09:35 AM EST
[2025-09-12 09:15] VITALS: BP 110/58; PULSE 93; O2SAT 93
--- NOTE | 2025-09-12 09:15 | MHC.OFFVIS ---
Vital Signs 09/12/25 09:15 Weight 160 lb 14.999 oz BP 110/58 L Blood Pressure Location Rt brachial Position Sitting Pulse 93 Pulse Source Pulse Oximeter Pulse Oximetry (%) 93 Oxygen Delivery Method Room Air Intake Visit Reasons: DM Intake Note: Patient present today for Type 2 Diabetes Mellitus Last Diabetic eye exam: Last exam was on 02/20/24 Last Podiatry Visit: Doesn't have one Random Glucose: 229 mg/dl HgA1C: 8.0% 08/19/25 Labor Relations Analyst Required: Yes Labor Relations Analyst Language: Chief Nursing Officer Services: Labor Relations Analyst Present Labor Relations Analyst Name: Information Interpreted: non-clinical & clinical Accompanied by: Spouse Allergies cortisone (CORTISONE) Allergy (Severe, Verified 09/12/25 09:25) ANAPHYLAXIS cephalexin Allergy (Unknown, Verified 09/12/25 09:25) unknown lisinopril Adverse Reaction (Intermediate, Verified 09/12/25:) hypotension HPI HPI DM: Details: Patient is a 65-year-old male with a significant past medical history of COPD, prostate cancer, hyperlipidemia, kidney stones, type 2 diabetes, insulin dependent, erectile dysfunction due to diabetes and vitamin-D deficiency presenting today for a follow-up regarding his diabetes. pt understands and speaks some Bulgarian. Significant other present with him to translate Endo: A1c was 8. Previously 7.4. Meds- Toujeo 18 units, Novolog 8 units with meals (usually just twice a day). He does report that he sometimes misses doses. stopped Tradjenta 5 mg. Intolerant of metformin due to diarrhea, Jardiance due to urinary frequency and Trulicity due to undesired weight loss. Pioglitzone stopped due to edema, ozempic is causing GI upset with n/v CGM GMI 7.7%, glucose variability 40%., very high 9%, high 39%, within range 52%, 0% lows CV: No on an CLAUDIA inhibitor. Blood pressure today in the office is 110/58.. Cholesterol is managed with atorvastatin 20 mg.. [facility] Medical History Personal history of nicotine dependence Hypoxemia COPD exacerbation Allergic rhinitis Type 2 diabetes mellitus with diabetic polyneuropathy Tinnitus Anxiety and depression Peptic ulcer disease Renal calculus, right Tubular adenoma of colon DDD (degenerative disc disease), lumbar Depression Prostate cancer COPD (chronic obstructive pulmonary disease) CAP (community acquired pneumonia) Gastric ulcer Hernia Kidney stones History of prostate cancer Erectile dysfunction Insulin use (long-term) in type 2 diabetes Hyperlipidemia LDL goal <100 Vitamin D insufficiency Surgical History History of cataract surgery History of foot surgery History of inguinal hernia repair Hx of tonsillectomy Hx of prostatectomy Family History Father Diabetes Mother No problems noted. Son Diabetes Maternal Uncle Prostate cancer Paternal Grandfather Myocardial infarction Maternal Grandmother No problems noted. Maternal Aunt Esophageal cancer Maternal Grandfather Myocardial infarction Social History Household Members: Spouse Housing: Apartment Alcohol intake: current Alcohol intake frequency: a few times a month Patient Tobacco Use Status: Former Tobacco user Tobacco use type: Cigarette e-Cigarette/Vaping Use: Never Used Second Hand Smoke Exposure: Yes Substance Use Type: Former Substance User and Marijuana service: No Current occupational status: disabled Current occupation: rt handed Cognitive needs: Yes (cane) Hearing needs: Yes (hearing aide) Vision needs: Yes Physical Exam Vital Signs: Last Vital Signs Pulse 93 09/12/25 09:15 BP 110/58 L 09/12/25 09:15 Pulse Ox 93 09/12/25 09:15 Oxygen Delivery Method Room Air 09/12/25 09:15 Const Orientation/consciousness: patient oriented x3 HEENT Ears: hearing grossly normal bilaterally Neck Thyroid: Thyroid normal Lymphatic: no lymphadenopathy noted Resp Auscultation: clear to auscultation bilaterally Cardio Rate: regular rate Rhythm: regular rhythm Heart sounds: S1 normal heart sound present and S2 normal heart sound present Skin General skin exam: no rashes or lesions noted Neuro General: patient oriented x3, gait normal and no focal motor deficits Results Reviewed Results Reviewed: Laboratory Last Values Glucose (Clinic) 229 mg/dL (60-115) H 09/12/25 09:28 Assessment & Plan Assessment & Plan (1) Insulin use (long-term) in type 2 diabetes: Code(s): E11.9 - Type 2 diabetes mellitus without complications; Z79.4 - termite control service representative (current) use of insulin Category: Medical Qualifiers: Diabetes mellitus complication status: with hyperglycemia Qualified Code(s): E11.65 - Type 2 diabetes mellitus with hyperglycemia; Z79.4 - termite control service representative (current) use of insulin Plan: increase toujeo to 25 units increase novolog to 8 units with meals Follow up in 3 months. Sooner if needed. (2) Hyperlipidemia LDL goal <100: Code(s): E78.5 - Hyperlipidemia, unspecified Category: Medical Plan: Continue current regimen Medications: Changed From insulin glargine U-300 conc (Toujeo Max U-300 SoloStar) 18 units (0.06 mL) subcut BEDTIME 6 mL 3RF To insulin glargine U-300 conc (Toujeo Max U-300 SoloStar) 25 units (0.0833 mL) subcut BEDTIME 6 mL 3RF 30 days From Novolog FlexPen U-100 Insulin (insulin aspart U-100) with breakfast, lunch, and supper 4 units (0.04 mL) subcut TID 15 mL 5RF NS To Novolog FlexPen U-100 Insulin (insulin aspart U-100) with breakfast, lunch, and supper 8 units (0.08 mL) subcut TID 15 mL 5RF NS Coding Level of Care Code Complex visit Add On G2211 Diagnoses Type 2 diabetes mellitus with hyperglycemia, with long-term current use of insulin E11.65; Z79.4 Diabetes mellitus complication status: with hyperglycemia Hyperlipidemia LDL goal <100 E78.5
[2025-09-12 09:32] LABS: Glucose, Whole Blood 229 mg/dL (60-115)
--- OUTSIDE RECORDS SUMMARY | 2025-09-12 09:35 | XMS_ITS | Patient Health Record ---
Author Organization [facility] Address [address] [place] [phone] Care Team Providers Care Power Generation Turbine Room Operator Name Role Phone Margarito Anton MD Primary Care Provider Favian Groves [phone] Allergies Allergen (clinical drug ingredient) Drug/Non Drug [...] Problem Screening for malignant neoplasm of colon (558885396) Encounter for screening for malignant neoplasm of colon (Z12.11) Active confirmed Problem History of adenomatous polyp of colon (700719028) History of adenomatous polyp of colon (Z86.010) Active confirmed Problem History of polyp of colon (situation) (648527752) Personal history of colonic polyps (Z86.010) Active confirmed Problem Diverticular disease of colon (664729680) Diverticulosis of large intestine without perforation or abscess without bleeding (K57.30) Active confirmed Problem Anorexia (46486523) Anorexia (R63.0) Active con firmed Problem Acute gastric ulcer without hemorrhage, without perforation AND without obstruction (25837381) Gastric ulcer without hemorrhage or perforation, acute (K25.3) Active confirmed Problem Preprocedural examination (631937460856569) Preprocedural examination (Z01.818) Active confirmed Problem Long-term current use of aspirin (941501124502790) Aspirin long-term use (Z79.82) Active confirmed Problem Gastroesophageal reflux disease (025357189) Gastroesophageal reflux disease, esophagitis presence not specified (K21.9) Active confirmed Problem Hiatal hernia (57654718) Hiatal hernia (K44.9) Active confirmed Problem Gastroenteritis (64589529) Gastroenteritis (K52.9) Active confirmed Problem Computed tomography of abdomen abnormal (22608662599719720) Abnormal CT scan, stomach (R93.3) Active confirmed Problem Esophageal reflux finding (733006794) Gastroesophageal reflux (K21.9) Active confirmed Vital Signs Temperature 97.7 degrees Fahrenheit 01/08/2025 Blood pressure diastolic 01 mm Hg 01/08/2025 Height 67 in 01/08/2025 Blood pressure systolic 001 mm Hg 01/08/2025 Weight 163.8 lbs 01/08/2025 BMI 25.65 kg/m2 01/08/2025 Encounters Encounter Location Date Provider Diagnosis [facility] [address] [place] [address] 01/08/2025 Favian Delgado Encounter for screen ing [...] to discuss things with you and his australian rules footballer in regard to getting better control of [...] to discuss things with you and his australian rules footballer in regard to getting better control of [...] to discuss things with you and his australian rules footballer in regard to getting better control of [...] to discuss things with you and his australian rules footballer in regard to getting better control of [...] Insured Coverage Start Date Coverage End Date [facility] [address] [place] [address] [id number] LINA CHONG Self - patient is the insured Medical (General) History Medical History History ICD Code HTN Hyperlipidemia Emphysema Denies [place], CVA, renal disease Prostate cancer IDDM Colonoscopy [...]
--- OUTSIDE RECORDS SUMMARY | 2025-09-12 09:35 | XMS_ITS | Clinical Summary ---
Author Organization [employer] Address [address] [place] [address] 7 [place] [address] Care Team Providers Care Fashion Coordinator Name Role Phone Unavailable Primary Care Provider [...] patient's age to complete this topic Insurance [facility] < 65 [place] [place] [id number]
--- OUTSIDE RECORDS SUMMARY | 2025-09-12 09:35 | XMS_ITS | Encounter Summary ---
Author Organization [facility] Address [address] [place] [address] Care Team Providers Care Hotel Assistant Manager Name Role Phone Margarito Anton MD Primary Care Provider [phone] Encounter Details Date Type Department Care Team (Late st Contact Info) Description 07/21/2025 Results Follow-Up Gastroenterology - [address] [place] [phone] [facility] [place], [place] Social History Tobacco Use Types Packs/Day [...] on filedocumented in this encounter Care Teams Hotel Assistant Manager Relationship Specialty Start Date End Date Margarito Anton MD [address] [place] [address] [address] [facility] [place] [address] PCP - General Internal Medicine 06/09/25 documented as of this encounter
--- OUTSIDE RECORDS SUMMARY | 2025-09-12 09:35 | XMS_ITS | Clinical Summary ---
Author Organization [facility] Address [address] [place] [address] Phone Care Team Providers Care Nonprofit Director Name Role Phone Margarito Anton MD Primary Care Provider [phone] Allergies No known active allergies Medications Dupixent [...] dermatitis 03/25/2025 Chronic obstructive pulmonar y disease ([facility] V24, [facility] V28) 03/25/2025 Depressive disorder 03/25/2025 Diabetes mellitus ([facility] V24, [facility] V28) 12/2024 Dizziness 05/27/2013 Frequent urination 05/27/2013 Hypertriglyceridemia 04/04/2013 Chronic pain 02/26/2013 Shoulder pain 02/26/2013 Prostate CA ([facility] V24, [facility] V28) 3 Numbness and tingling of right arm 02/26/2013 DJD (degenerative joint disease) 02/26/2013 Atypical chest pain 10/08/2012 Overview (06/18/2025): 11/03 nuclear stress test was negative for ischemia 10/02 echo revealed EF 50-55%, diastolic dysfunction, 11/03 Holter monitor revealed baseline NSR with no pauses, rare SVE's no pt reported events Chronic obstructive airway d isease ([facility] V24, [facility] V28) 10/08/2012 Encounters Date Type Department Care Team Description 07/21/2025 Results Follow-Up Gastroenterology - [address] [place] [address] Екатерина Singh [place] 07/18/2025 12:37 PM EDT Anesthesia Event [facility] [address] [place] [phone] Augustus Faulkner MD 07/18/2025 11:22 AM EDT - 07/18/2025 11:59 PM EDT Hospital Encounter [facility] [address] [place] [phone] Remi Howe MD Dickman, Christy L, CRNA Dasilva, John E, MD Rectal bleeding; Abnormal CT of the abdomen Discharge Disposition: Home or Self Care 06/20/2025 Telephone Gastroenterology - [address] [place] [phone] Remi Howe MD 06/19/2025 1:30 PM EDT Consult Gastroenterology - [address] [facility] [address] [place] [phone] Remi Howe MD Rectal bleeding (Primary Dx); Abnormal CT of the abdomen; Adenomatous polyp of colon, unspecified part of colon 06/19/2025 Telephone Gastroenterology - [address] [place] [phone] Remi Howe MD from Last 3 Months [...] 02/26/2013 DX:DJD (degenerative joint disease) Prostate CA ([facility] V24, [facility] V28) 02/26/2013 DX:Prostate CA (HCC) Need for hepatitis C screening test 02/26/2013 DX:Need for hepatitis C screening test Shoulder pain 02/26/2013 DX:Shoulder pain Elbow pain 02/26/2013 DX:Elbow pain Hypertriglyceridemia 04/04/2013 DX:Hypertri glyceridemia Bronchitis, not specified as acute or chronic DX:Bronchitis, not specified as acute or chronic Dizziness 05/27/2013 DX:Dizziness Frequent urination 05/27/2013 DX:Frequent u rination Diabetes mellitus ([facility] V 24, [facility] V28) Family History Medical History Relation [...] Rectal bleeding Abnormal CT of the abdomen COMPREHENSIVE METABOLIC PANEL STAT 06/09/2025 2:04 PM EDT from Last 3 Months or Most Recently Relevant to Health Maintenance Results * COLONOSCOPY Anesthesia - MAC; [facility] ENDOSCOPY (07/18/2025 12:54 PM EDT) Anatomical Region [...] office PRN. Narrative 07/18/2025 12:55 PM EDT [facility] GI Patient Name: Lina Sanford Procedure [...] retroflexion views. Procedure Code(s): --- Professional --- 36523, Colonoscopy, flexible; with removal of tumor(s), polyp(s), or other lesion(s) by snare technique Diagnosis Code(s): --- Professional --- D12.6, Benign neoplasm of colon, unspecified K62.5, Hemorrhage of anus and rectum R93.3, Abnormal findings on diagnostic imaging of other parts of digestive tract CPT copyright 2020 [employer]. All rights reserved. The codes documented in this report are preliminary and upon cook mayonnaise review may be revised to meet current compliance requirements. Remi Howe MD 07/18/2025 12:55:39 PM This report has been signed electronically.Remi Howe MD Number of Addenda: 0 Note Initiated On: 07/18/2025 12:37 PM Scope In: Scope Out: Endoscopy Department at [facility] - [address] [place] [phone] Procedure Note Remi Howe MD - 07/18/2025 [facility] GI Patient Name: Lina Sanford Procedure [...] retroflexion views. Procedure Code(s): --- Professional --- 95707, Colonoscopy, flexible; with removal of tumor(s), polyp(s), or other lesion(s) by snare technique Diagnosis Code(s): --- Professional --- D12.6, Benign neoplasm of colon, unspecified K62.5, Hemorrhage of anus and rectum R93.3, Abnormal findings on diagnostic imaging of other parts of digestive tract CPT copyright 2020 [employer]. All rights reserved. The codes documented in this report are preliminary and upon cook mayonnaise reviewmay be revised to meet current compliance requirements. Remi Howe MD 07/18/2025 12:55:39 PM This report has been signed electronically.Remi Howe MD Number of Addenda: 0 Note Initiated On: 07/18/2025 12:37 PM Scope In: Scope Out: Endoscopy Department at [facility] - [address] [place] [phone] IMPRESSION: - One 6 mm polyp at [...] cm: Hyperplastic polyp. 07/21/2025 9:41 AM EDT [facility] at 0941 EDT Gross [...] 12:52 PM EDT 07/18/2025 2:43 PM EDT us Remi Howe MD LAB PATHOLOGY ORDERABLES Evelina l Result [facility] [address] [place] [address], * (ABNORMAL) Comprehensive metabolic panel (06/09/2025 2:04 PM EDT) Sodium 140 133 - 145 mmol/L LAB CHEMISTRY METHOD 06/09/2025 3:42 PM [facility] Potassium 4.8 3.5 - 5.5 mmol/L LAB CHEMISTRY METHOD 06/09/2025 3:42 PM [facility] Chloride 102 96 - 110 mmol/L LAB CHEMISTRY METHOD 06/09/2025 3:42 PM [facility] CO2 36(H) 21 - 32 mmol/L LAB CHEMISTRY METHOD 06/09/2025 3:42 PM [facility] Anion Gap 2(L) 3 - 11 LAB CHEMISTRY METHOD 06/09/2025 3:42 PM [facility] Glucose 94 70 - 100 mg/dL LAB CHEMISTRY METHOD 06/09/2025 3:42 PM [facility] BUN 9 5 - 25 mg/dL LAB CHEMISTRY METHOD 06/09/2025 3:42 PM [facility] Creatinine 0.82 0.70 - 1.30 mg/dL LAB CHEMISTRY METHOD 06/09/2025 3:42 PM [facility] eGFR 97 >=60 mL/min/1. 73m2 LAB CHEMISTRY METHOD 06/09/2025 3:42 PM [facility] Comment:Calculation based on the Chronic Kidney Disease Epidemiology Collaboration (CKD-EPI) equation refit without adjustment for race. BUN/Creatinine Ratio 11.0 LAB CHEMISTRY METHOD 06/09/2025 3:42 PM [facility] Calcium 9.8 8.5 - 10.5 mg/dL LAB CHEMISTRY METHOD 06/09/2025 3:42 PM [facility] AST (SGOT) 18 10 - 42 unit/L LAB CHEMISTRY METHOD 06/09/2025 3:42 PM [facility] ALT (SGPT) 16 10 - 60 unit/L LAB CHEMISTRY METHOD 06/09/2025 3:42 PM [facility] Alkaline Phosphatase 87 42 - [...] LYNCH LAB BLOOD ORDERABLES Fin al Result [facility] [address] [place] [address], from Last 3 Months or Most Recently Relevant to Health Maintenance Insurance [employer] MED[employer] Member Subscriber Plan / Payer (Ef fective 2024-Present) Name:LINA CHONG Relation to Subscriber:Self Name:Lina Ellis Payer ID:[id number] Group ID:[id number] Type:Not on file Address: [address] [id number] Care Teams Nonprofit Director Relationship Specialty Start Date End Date Margarito Anton MD [address] [place] [address] [address] [facility] [place] [address] PCP - General Internal Medicine 06/09/25
== END 2025-09-12 09:48 | disposition home or self-care (01) ==
LOC: HO.ENCR 09:13
PROVIDERS: PCP Internal Medicine; Visit Provider Physician Assistant
DX: E11.65 Type 2 diabetes mellitus with hyperglycemia (principal); Z79.4 Long term (current) use of insulin; E78.5 Hyperlipidemia, unspecified

== ENCOUNTER → 2025-09-12 09:11 | Outpatient (BNVA) | payer OTHER, SELFPAY | PROVIDERS: PCP Internal Medicine; Visit Provider Physician Assistant | DX: E11.65 Type 2 diabetes mellitus with hyperglycemia (principal); E11.69 Type 2 diabetes mellitus with other specified complication; N52.1 Erectile dysfunction due to diseases classified elsewhere; E78.5 Hyperlipidemia, unspecified; Z79.4 Long term (current) use of insulin | CPT/HCPCS: 82947; 99212 ==

== ENCOUNTER 2025-10-22 09:16 | Outpatient (AMB) | payer OTHER, SELFPAY ==
--- OUTSIDE RECORDS SUMMARY | 2024-08-23 09:00 | XMS_ITS ---
Author Organization [facility] Address [address] [place] [address] Care Team Providers Care Coordinator Integrated Marketing Name Role Phone Margarito Anton MD Primary Care Provider Favian Groves [phone] REASON FOR VISIT Patient presents today for [...] Active Encounters Encounter Location Date Provider Diagnosis [facility] [address] [place] [phone] 08/23/2024 Favian Delgado Plan Of Treatment Next Appt Details Provider Name:Favian Delgado , 12/31/2025 03:20:00 PM, [address] [place] [address], [address], [place], [address], Progress Notes * ABDIRASHID CHONGSDOB:1960 (65 yo M)Acc No.[id number]:08/23/2024 Progress Notes Patient: LINA BAUTISTA Provider: Raghu Delgado MD :1960 A ge:64 Y S ex:Male Date:08/23/2024 Address:[address] [place] [address] Pcp:Margarito Anton MD Subjective: * Chief Complaints: [...] Date: 10/23/2023 Generated for John palacios/Radha/Aris on: 09:30 AM EST
--- NOTE | 2025-10-22 09:21 | MHC.PC.OV ---
Vital Signs 10/22/25 09:22 Height 5 ft 7 in Weight 161 lb BMI 25.2 BP 96/50 L Blood Pressure Location Lt brachial Position Sitting Respiration 18 Pulse 86 Pulse Source Pulse Oximeter Temp 97.3 F Temp Source Temporal Artery Scan Pulse Oximetry (%) 93 Intake Visit Reasons: dizziness, stomach issues Rural Health Consultant Required: No Accompanied by: Spouse Allergies cortisone (CORTISONE) Allergy (Severe, Verified 10/22/25 09:38) ANAPHYLAXIS cephalexin Allergy (Unknown, Verified 10/22/25 09:38) unknown lisinopril Adverse Reaction (Intermediate, Verified 10/22/25 09:38) hypotension Medication List - Last Reconciled 10/22/25 by Jayashree Hurley PA-C albuterol sulfate 90 mcg/actuation 2 puffs PO Q4-6H PRN alcohol swabs (BD Alcohol Swabs) 1 pad topical QID atorvastatin 20 mg PO DAILY blood-glucose sensor ([employer] ApplicationStyle Bebeto 3 Plus Sensor device) Use daily As directed to monitor glucose blood-glucose,store receiver,cont (FreeStyle Bebeto 3 [place]) Use daily As directed to monitor blood glucose cholecalciferol (vitamin D3) 50 mcg PO DAILY clotrimazole 1% 1 appl topical BID 4 weeks dupilumab (Dupixent) 300 mg subcut .B48xulf fluticasone propion-salmeterol 250-50 mcg/dose 1 ea PO Q12H 3 months insulin glargine U-300 conc (Toujeo Max U-300 SoloStar) 25 units (0.0833 mL) subcut BEDTIME 30 days ketoconazole 2% topical DAILY lidocaine 5% 1 patch topical DAILY Novolog FlexPen U-100 Insulin (insulin aspart U-100) 8 units (0.08 mL) subcut TID NS Oxygen Home Use As directedO2 2L NC pen needle, diabetic 1 ea miscellaneous .4X/day sertraline 50 mg PO DAILY 90 days sildenafil (Viagra) 100 mg PO DAILY PRN 30 days tadalafil (Cialis) 5 mg PO DAILY 90 days umeclidinium 62.5 mcg/actuation (Incruse Ellipta) 1 inh inhalation DAILY 30 days Tobacco use date assessed: 05/16/25 Last assessed Fall Risk: 10/22/25 Dental Screening Dental Screen Date: 04/03/25 HPI dizziness, stomach issues HPI Details 65-year-old male with past medical history of hyperlipidemia, type 2 diabetes, COPD, prostate cancer, COPD, degenerative disc disease last seen by Dr. Anton 08/2025 coming in for acute problem. Presenting with dizziness and stomach pain. He reports the onset of dizziness began 4-5 days prior to the visit. The dizziness is described as a sensation of his eyes spinning, and is triggered by sudden head movements such as looking up, turning his head, or standing up. These episodes occur almost daily, last for approximately 5-7 seconds, and are associated with abdominal discomfort and a nausea-like feeling. The symptoms resolve when he sits down and relaxes. He denies any associated headaches, vision loss, recent falls, or head trauma. Past medical history is notable for diabetes mellitus, for which he monitors his blood sugar, noting fluctuations. He has a history of bilateral cataract surgery, bilateral hearing loss for which he was prescribed hearing aids but does not use them, and a long-standing complaint of a sensation of heaviness in his right ear. A CT scan in July showed calcified plaques in his carotid arteries. [facility] Medical History Personal history of nicotine dependence Hypoxemia COPD exacerbation Allergic rhinitis Type 2 diabetes mellitus with diabetic polyneuropathy Tinnitus Anxiety and depression Peptic ulcer disease Renal calculus, right Tubular adenoma of colon DDD (degenerative disc disease), lumbar Depression Prostate cancer COPD (chronic obstructive pulmonary disease) CAP (community acquired pneumonia) Gastric ulcer Hernia Kidney stones History of prostate cancer Erectile dysfunction Insulin use (long-term) in type 2 diabetes Hyperlipidemia LDL goal <100 Vitamin D insufficiency Surgical History History of cataract surgery History of foot surgery History of inguinal hernia repair Hx of tonsillectomy Hx of prostatectomy Family History Father Diabetes Mother No problems noted. Son Diabetes Maternal Uncle Prostate cancer Paternal Grandfather Myocardial infarction Maternal Grandmother No problems noted. Maternal Aunt Esophageal cancer Maternal Grandfather Myocardial infarction Social History Household Members: Spouse Housing: Apartment Alcohol intake: current Alcohol intake frequency: a few times a month Patient Tobacco Use Status: Former Tobacco user Tobacco use type: Cigarette e-Cigarette/Vaping Use: Never Used Second Hand Smoke Exposure: Yes Substance Use Type: Former Substance User and Marijuana service: No Current occupational status: disabled Current occupation: rt handed Cognitive needs: Yes (cane) Hearing needs: Yes (hearing aide) Vision needs: Yes Questionnaire Thrive Questionnaire Date Thrive assessed: 04/03/25 I am a: Patient What is your living situation today?: I have a steady place to live Within the past 12 months, did the food you bought not last and you didn't have the money to get more?: Never true Within the past 12 months, did you worry whether your food would run out before you got money to buy more?: Never true Do you have trouble paying for medicines?: No Do you have trouble getting transportation to medical appointments?: No Do you have trouble paying your heating and electricity bill?: No Do you have trouble taking care of your child, family member or friend?: No Do you have trouble with day-to-day activities such as bathing, preparing meals, shopping, managing finances, etc.?: No Are you currently unemployed and looking for a job?: Yes Are you interested in more education?: No Currently or been in a relationship where the following occur: No concerns reported THRIVE Score: 0 YOLIS-7 AMB Questionnaire YOLIS-7 Date YOLIS - 7 assessed: 04/03/25 Source: Developed by Drs. Favian Nascimento, Valentina Serrano, Jose M Lunsford and colleagues, with an educational edita from [employer]. Review of Systems Const Denies body aches, Denies chills, Denies fever(s), Denies headache(s) and Denies poor appetite Eyes Reports no additional complaints ENT Reports as per HPI, Reports dizziness and Denies headache(s) Card Denies chest pain, Denies edema, Denies lightheadedness and Denies dyspnea Resp Denies dyspnea GI Reports nausea and Denies vomiting Reports no additional complaints Musc Reports no additional complaints and Denies abnormal gait Skin/Breast Reports system reviewed and no additional complaints, except as documented Neuro Denies abnormal gait, Reports dizziness and Denies headache(s) Psych Reports no additional complaints Physical exam (Primary Care) Vital Signs: Last Vital Signs Temp 97.3 F 10/22/25 09:22 Pulse 86 10/22/25 09:22 Resp 18 10/22/25 09:22 BP 96/50 L 10/22/25 09:22 Pulse Ox 93 10/22/25 09:22 BMI result Body Mass Index 25.2 Tobacco/Smoking Status: Tobacco use Status Tobacco use date assessed 05/16/25 10/22/25 09:22 Patient Tobacco Use Status Former Tobacco user 10/22/25 09:22 Tobacco use type Cigarette 10/22/25 09:22 e-Cigarette/Vaping Use Never Used 10/22/25 09:22 Thrive Assessment: Date of Thrive Assessment Date Thrive assessed 04/03/25 10/22/25 09:22 Currently or been in a relationship where the following occur: No concerns reported Const General: cooperative, healthy appearing, comfortable and no acute distress Orientation/consciousness: patient oriented x3 HENMT Head: Yes normocephalic Ears: hearing grossly normal bilaterally General nose exam: Normal external nose present Eyes General: appearance normal, both eyes and all related structures Conjunctivae: conjunctivae normal Pupils: Equal, round and reactive pupils present Neck Neck: Yes full ROM and Yes no lymphadenopathy Resp Effort & Inspection: normal respiratory effort Auscultation: clear to auscultation bilaterally, no crackles, no rales, no rhonchi and no wheezes Cardio Rate: regular rate Rhythm: regular rhythm Skin General skin exam: no rashes or lesions noted Neuro General: patient oriented x3 Cranial nerves: Yes CN's II-XII intact bilaterally, Yes Facial sensation intact/muscles of mastication intact, Yes Equal, round and reactive pupils present, Yes Bilaterally intact EOM present, Yes Nystagmus not present, Yes Normal facial strength present, Yes Midline tongue present, Yes Ability to bilaterally rotate head present and Yes Ability to bilaterally elevate shoulders present Gait exam (Neuro): Normal gait present and Assistive device used Extrem General: Yes normal to inspection, Yes full ROM and No edema Psych Affect: normal affect Attitude: cooperative Insight: Good insight present (Psych) Judgement: Good judgement present (Psych) Coding Level of Care Code Est Pt Level 4 (54211) Diagnoses BPPV (benign paroxysmal positional vertigo) H81.10 Carotid artery plaque I65.29 Assessment & Plan Assessment & Plan (1) BPPV (benign paroxysmal positional vertigo): Code(s): H81.10 - Benign paroxysmal vertigo, unspecified ear Category: Medical Plan: The patient's acute onset of positional dizziness, characterized by a brief spinning sensation triggered by head movements, is most consistent with benign paroxysmal positional vertigo (BPPV). Other potential causes, such as significant carotid artery disease or an inner ear mass, are considered less likely given the reassuring recent CT scan and the classic positional nature of his symptoms. Neurologic exam negative and symptoms not reproducible with head turning in the office today. The plan is to refer the patient to physical therapy for specialized vertigo treatment. The patient was given strict return precautions, advising him to go to the emergency room for sudden vision loss, confusion, or unremitting dizziness. To rule out potential causes we will plan to obtain carotid ultrasound to evaluate for stenosis and ENT evaluation. (2) Carotid artery plaque: Code(s): I65.29 - Occlusion and stenosis of unspecified carotid artery Category: Medical Plan: Plan to obtain carotid ultrasound further evaluation Plan This note was constructed using voice recognition software. While every effort has been made to ensure accuracy and clinic lpn, still areas may have been included sometimes these areas may affect the content or meeting of the given symptoms. Total time spent caring for the patient today was 20 minutes. This includes time spent before the visit reviewing the chart, time spent during the visit, and time spent after the visit and documentation. Patient was informed and verbally consented to the use of an ambient scribe for clinic note documentation during this visit. Orders: Orders PT Evaluation and Treatment Today H81.10 - Benign paroxysmal vertigo, unspecified ear US carotid duplex BI Today I65.29 - Occlusion and stenosis of unspecified carotid artery Referrals Ear/Nose/Throat Referral H81.10 - Benign paroxysmal vertigo, unspecified ear, H92.01 - Otalgia, right ear
[2025-10-22 09:22] VITALS: BP 96/50; PULSE 86; RESP 18; TEMP 36.3; O2SAT 93; BMI 25.2
--- OUTSIDE RECORDS SUMMARY | 2025-10-22 09:30 | XMS_ITS | Clinical Summary ---
Author Organization [employer] Address [address] [place] [address] [address] [place] [address] Care Team Providers Care Director Of Graduate Admissions Name Role Phone Unavailable Primary Care Provider [...] patient's age to complete this topic Insurance [facility] < 65 [place] [place] [id number]
--- OUTSIDE RECORDS SUMMARY | 2025-10-22 09:30 | XMS_ITS | Patient Health Record ---
Author Organization [facility] Address [address] [place] [id number] Care Team Providers Care Disk Sander Name Role Phone Margarito Anton MD Primary Care Provider Favian Groves [phone] Allergies Allergen (clinical drug ingredient) Drug/Non Drug [...] Problem Screening for malignant neoplasm of colon (431318342) Encounter for screening for malignant neoplasm of colon (Z12.11) Active confirmed Problem History of adenomatous polyp of colon (577029981) History of adenomatous polyp of colon (Z86.010) Active confirmed Problem History of polyp of colon (situation) (029284466) Personal history of colonic polyps (Z86.010) Active confirmed Problem Diverticular disease of colon (506619572) Diverticulosis of large intestine without perforation or abscess without bleeding (K57.30) Active confirmed Problem Anorexia (93599116) Anorexia (R63.0) Active con firmed Problem Acute gastric ulcer without hemorrhage, without perforation AND without obstruction (91646787) Gastric ulcer without hemorrhage or perforation, acute (K25.3) Active confirmed Problem Preprocedural examination (846073983106137) Preprocedural examination (Z01.818) Active confirmed Problem Long-term current use of aspirin (661754087146937) Aspirin long-term use (Z79.82) Active confirmed Problem Gastroesophageal reflux disease (045097987) Gastroesophageal reflux disease, esophagitis presence not specified (K21.9) Active confirmed Problem Hiatal hernia (52808912) Hiatal hernia (K44.9) Active confirmed Problem Gastroenteritis (86251278) Gastroenteritis (K52.9) Active confirmed Problem Computed tomography of abdomen abnormal (74188375779338886) Abnormal CT scan, stomach (R93.3) Active confirmed Problem Esophageal reflux finding (515574753) Gastroesophageal reflux (K21.9) Active confirmed Vital Signs Temperature 97.7 degrees Fahrenheit 01/08/2025 Blood pressure diastolic 01 mm Hg 01/08/2025 Height 67 in 01/08/2025 Blood pressure systolic 001 mm Hg 01/08/2025 Weight 163.8 lbs 01/08/2025 BMI 25.65 kg/m2 01/08/2025 Encounters Encounter Location Date Provider Diagnosis [facility] [address] [place] [address] 01/08/2025 Favian Delgado Encounter for screen ing [...] to discuss things with you and his patient advocate in regard to getting better control of [...] to discuss things with you and his patient advocate in regard to getting better control of [...] to discuss things with you and his patient advocate in regard to getting better control of [...] to discuss things with you and his patient advocate in regard to getting better control of [...] COLONOSCOPY 06/24/2022 Next Appt Details Provider Name:Favian Lopez Sandy , 12/31/2025 03:20:00 PM, [address] [place] [address], [facility], [place], [address], Insurance Providers Payer Name Payer Address Payer Phone Subscriber Number Group Number Insured Name Patient Relationship to Insured Coverage Start Date Coverage End Date [facility] [address] [place] [address] [id number] LINA CHONG Self - patient is the [...]
--- OUTSIDE RECORDS SUMMARY | 2025-10-22 09:30 | XMS_ITS | Clinical Summary ---
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 Atopic dermatitis 03/25/2025 Chronic obstructive pulmonary disease 03/25/2025 Depressive disorder 03/25/2025 Diabetes mellitus 03/25/2025 Dizziness 05/27/2013 Frequent urination 05/27/2013 Hypertriglyceridemia 04/04/2013 Chronic pain 02/26/2013 Shoulder pain 02/26/2013 Prostate CA 02/26/2013 Numbness and tingling of right arm 02/26/2013 DJD (degenerative joint disease) 02/26/2013 Atypical chest pain 10/08/2012 Overview (06/18/2025): 11/03 nuclear stress test was negative for ischemia 10/02 echo revealed EF 50-55%, diastolic dysfunction, 11/03 Holter monitor revealed baseline NSR with no pauses, rare SVE's no pt reported events Chronic obstructive airway disease 10/08/2012 Surgical History Surgery Date Site/Laterality Comments TONSILLECTOMY [...] 02/26/2013 DX:DJD (degenerative joint disease) Prostate CA ([facility] V24, [facility] V28) 02/26/2013 DX:Prostate CA (HCC) Need for hepatitis C screening test 02/26/2013 DX:Need for hepatitis C screening test Shoulder pain 02/26/2013 DX:Shoulder pain Elbow pain 02/26/2013 DX:Elbow pain Hypertriglyceridemia 04/04/2013 DX:Hypertri glyceridemia Bronchitis, not specified as acute or chronic DX:Bronchitis, not specified as acute or chronic Dizziness 05/27/2013 DX:Dizziness Frequent urination 05/27/2013 DX:Frequent u rination Diabetes mellitus ([facility] V 24, [facility] V28) Family History Medical History Relation Name [...] on file Sexual Orientation Not on file Last Filed Vital Signs Vital Sign Reading [...] Maintenance Results * COLONOSCOPY Anesthesia - MAC; [facility] ENDOSCOPY (07/18/2025 12:54 PM [...] office PRN. Narrative 07/18/2025 12:55 PM EDT [facility] GI Patient Name: Lina Sanford Procedure Date: [...] retroflexion views. Procedure Code(s): --- Professional --- 42706, Colonoscopy, flexible; with removal of tumor(s), polyp(s), or other lesion(s) by snare technique Diagnosis Code(s): --- Professional --- D12.6, Benign neoplasm of colon, unspecified K62.5, Hemorrhage of anus and rectum R93.3, Abnormal findings on diagnostic imaging of other parts of digestive tract CPT copyright 2020 [employer]. All rights reserved. The codes documented in this report are preliminary and upon ramp and cargo supervisor review may be revised to meet current compliance requirements. Remi Howe MD 07/18/2025 12:55:39 PM This report has been signed electronically.Remi Howe MD Number of Addenda: 0 Note Initiated On: 07/18/2025 12:37 PM Scope In: Scope Out: Endoscopy Department at [facility] - [address] [place] [phone] Procedure Note Remi Howe MD - 07/18/2025 [facility] GI Patient Name: Lina Sanford Procedure Date: [...] retroflexion views. Procedure Code(s): --- Professional --- 78868, Colonoscopy, flexible; with removal of tumor(s), polyp(s), or other lesion(s) by snare technique Diagnosis Code(s): --- Professional --- D12.6, Benign neoplasm of colon, unspecified K62.5, Hemorrhage of anus and rectum R93.3, Abnormal findings on diagnostic imaging of other parts of digestive tract CPT copyright 2020 [employer]. All rights reserved. The codes documented in this report are preliminary and upon ramp and cargo supervisor reviewmay be revised to meet current compliance requirements. Remi Howe MD 07/18/2025 12:55:39 PM This report has been signed electronically.Remi Howe MD Number of Addenda: 0 Note Initiated On: 07/18/2025 12:37 PM Scope In: Scope Out: Endoscopy Department at [facility] - [address] [place] [id number] IMPRESSION: - One 6 mm polyp at [...] Howe MD GI~PROCEDURE ORDERABLES Final Result * (ABNORMAL) Comprehensive metabolic panel (06/09/2025 2:04 PM EDT) Sodium 140 133 - 145 mmol/L LAB CHEMISTRY METHOD 06/09/2025 3:42 PM [facility] Potassium 4.8 3.5 - 5.5 mmol/L LAB CHEMISTRY METHOD 06/09/2025 3:42 PM [facility] Chloride 102 96 - 110 mmol/L LAB CHEMISTRY METHOD 06/09/2025 3:42 PM [facility] CO2 36(H) 21 - 32 mmol/L LAB CHEMISTRY METHOD 06/09/2025 3:42 PM [facility] Anion Gap 2(L) 3 - 11 LAB CHEMISTRY METHOD 06/09/2025 3:42 PM [facility] Glucose 94 70 - 100 mg/dL LAB CHEMISTRY METHOD 06/09/2025 3:42 PM [facility] BUN 9 5 - 25 mg/dL LAB CHEMISTRY METHOD 06/09/2025 3:42 PM [facility] Creatinine 0.82 0.70 - 1.30 mg/dL LAB CHEMISTRY METHOD 06/09/2025 3:42 PM [facility] eGFR 97 >=60 mL/min/1. 73m2 LAB CHEMISTRY METHOD 06/09/2025 3:42 PM EDT [facility] Comment:Calculation based on the Chronic Kidney Disease Epidemiology Collaboration (CKD-EPI) equation refit without adjustment for race. BUN/Creatinine Ratio 11.0 LAB CHEMISTRY METHOD 06/09/2025 3:42 PM EDT [facility] Calcium 9.8 8.5 - 10.5 mg/dL LAB CHEMISTRY METHOD 06/09/2025 3:42 PM EDT [facility] AST (SGOT) 18 10 - 42 unit/L LAB CHEMISTRY METHOD 06/09/2025 3:42 PM T [facility] ALT (SGPT) 16 10 - 60 unit/L LAB CHEMISTRY METHOD 06/09/2025 3:42 PM EDT [facility] Alkaline Phosphatase 87 42 - 121 unit/L LAB CHE[facility]STRY METHOD [facility] Total Protein 7.5 6.0 - 8.0 g/dL LAB CHEMISTRY METHOD 06/09/2025 3:42 PM EDT [facility] Albumin 4.2 3.2 - 5.0 g/dL LAB CHEMISTRY METHOD 06/09/2025 3:42 PM EDT [facility] Total Bilirubin 0.6 0.0 - 1.4 mg/dL LAB CHEMISTRY METHOD 06/09/2025 3:42 PM EDT [facility] Blood Venous blood specimen / Unknown Venipuncture / Unknown 06/09/2025 2:04 PM EDT 06/09/2025 2:52 PM EDT us Keri LYNCH LAB BLOOD ORDERABLES Fin al Result [facility] [address] [place] [address], [place] [phone] from Last 3 Months or Most Recently Relevant to Health Maintenance Insurance [facility] MEDICARE Member Subscriber Plan / Payer (Ef fective 2024-Present) Name:LINA CHONG Relation to Subscriber:Self Name:Lina Ellis Payer ID:[id number] Group ID:[id number] Type:Not on file Address: [address] [facility] [place] [phone] Care Teams Apple Checker Relationship Specialty Start Date End Date Margarito Anton MD [address] [place] [address] [address] [facility] [place] [address] PCP - General Internal Medicine 06/09/25
== END 2025-10-22 10:11 | disposition home or self-care (01) ==
LOC: HO.HMCH 09:17
PROVIDERS: PCP Internal Medicine
DX: H81.10 Benign paroxysmal vertigo, unspecified ear (principal); I65.29 Occlusion and stenosis of unspecified carotid artery

== ENCOUNTER → 2025-10-22 09:16 | Outpatient (BNVA) | payer OTHER, SELFPAY | PROVIDERS: PCP Internal Medicine | DX: H81.10 Benign paroxysmal vertigo, unspecified ear (principal); I65.29 Occlusion and stenosis of unspecified carotid artery; E78.5 Hyperlipidemia, unspecified; E11.9 Type 2 diabetes mellitus without complications; J44.9 Chronic obstructive pulmonary disease, unspecified; Z85.46 Personal history of malignant neoplasm of prostate; M51.369 Other intervertebral disc degeneration, lumbar region without mention of lumbar back pain or lower extremity pain; H91.93 Unspecified hearing loss, bilateral; Z87.891 Personal history of nicotine dependence; Z79.4 Long term (current) use of insulin; Z99.81 Dependence on supplemental oxygen | CPT/HCPCS: 99212 ==